=== PATIENT | male | born 1940 | race Caucasian/White ===

== ENCOUNTER → 2016-08-31 | Outpatient (CLI) | payer BC ==
[2016-08-31 14:38] LABS: BASO % 0.3 %; BASO ABS # 0.03 K/uL (0-0.2); COMPLETE YES; EOS % 3.6 %; HEMATOCRIT 39.9 % (42-52); IG% 0.3 %; LYMPH % 19.5 %; MEAN CELL VOLUME 84.5 fL (80-100); MEAN CORPUSCULAR HEMOGLOBIN 27.3 pg (25-34); MEAN CORPUSCULAR HGB CONC 32.3 g/dl (32-36); MEAN PLATELET VOLUME 10.9 fL (7.4-10.4); MONO % 9.3 %; PLATELET COUNT 191 K/uL (130-400); RED BLOOD COUNT 4.72 M/uL (4.7-6.1); WHITE BLOOD COUNT 9.74 K/uL (4.8-10.8)
== END | disposition home or self-care (01) ==
LOC: MERGE 12:31 → C.LAB 12:31
PROVIDERS: ATTEND Family Medicine
DX: R50.9 Fever, unspecified (principal)

== ENCOUNTER → 2016-09-01 | Outpatient (CLI) | payer BC ==
--- NOTE | 2016-09-01 09:39 | DIAGNOSTIC IMAGING REPORT ---
ULTRASOUND EXAM AAA SCREEN CLINICAL HISTORY: Screening for abdominal aortic aneurysm. COMPARISON STUDY: Report from outside ultrasound performed October 24, 2014. FINDINGS: This study is compromised by suboptimal penetration. The mid abdominal aorta measures 3.3 x 3.6 cm in caliber. By report, this previously measured 3.1 x 3.1 cm. There is mild dilatation of the proximal abdominal aorta which measures 3 cm. The caliber of the bilateral common iliac arteries is normal. 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 When compared to report from prior ultrasound, slight increase in size is suspected. Electronically signed by: Lc Nam M.D. 09/01/2016 9:38 AM Dictated Date/Time: 09/01/2016 9:35 AM
== END | disposition home or self-care (01) ==
LOC: C.ULTR 08:35
PROVIDERS: ATTEND Family Medicine
DX: I71.4 Abdominal aortic aneurysm, without rupture (principal)

== ENCOUNTER → 2016-10-09 | Outpatient (CLI) | payer BC ==
[~2016-10-09] MED LIST: APIX1TAB3 PO; ASPI81TA28 PO; ATOR-26 PO; FINA5TAB PO; FLUT0.15 NAE; METO25TA56 PO; OXYC1TAB3 PO; TAMS0.4C38 PO
[2016-10-09 15:41] LABS: BASO % 0.3 %; BASO ABS # 0.02 K/uL (0-0.2); COMPLETE YES; EOS % 5.7 %; HEMATOCRIT 39.6 % (42-52); IG% 0.3 %; LYMPH % 24.6 %; LYMPH ABS # 1.65 K/uL (1.2-3.4); MEAN CELL VOLUME 85.3 fL (80-100); MEAN CORPUSCULAR HGB CONC 32.8 g/dl (32-36); MEAN PLATELET VOLUME 10.6 fL (7.4-10.4); MONO % 12.1 %; PLATELET COUNT 171 K/uL (130-400); RED BLOOD COUNT 4.64 M/uL (4.7-6.1); WHITE BLOOD COUNT 6.71 K/uL (4.8-10.8)
[2016-10-09 16:10] LABS: ALT/SGPT 13 U/L (12-78); AST/SGOT 8 U/L (15-37); BLOOD UREA NITROGEN 16 mg/dl (7-18); BUN/CREATININE RATIO 14.2 (10-20); CALCIUM 8.4 mg/dl (8.5-10.1); CARBON DIOXIDE 26 mmol/L (21-32); CHLORIDE 110 mmol/L (98-107); GLUCOSE 92 mg/dl (70-99); SODIUM 143 mmol/L (136-145)
[2016-10-09 16:20] LABS: ALB/GLOB RATIO 0.9 (0.9-2); ALKALINE PHOSPHATASE 74 U/L (45-117)
[2016-10-12 11:24] LABS: C-REACTIVE PROT HIGHSEN <0.2 MG/L
--- NOTE | 2016-10-14 09:40 | CODING QUERY MEDICAL NECESSITY ---
SUPPORTING DIAGNOSIS NEEDED Dr. Hawkins, A supporting diagnosis is required for the test/procedure performed on this patient in order for us to be reimbursed by the patient's insurance. Please provide a supporting diagnosis for the following test/procedure listed below next to the test name along with your signature. *If there is no additional diagnosis for this patient that would support the following test/procedure please document that below next to the test/procedure. Test(s)/Procedure(s) that require a supporting diagnosis: * ([id number]) C-REACTIVE PROTEIN HIGH SENSITIVITY DIAGNOSIS: DATE OF SERVICE: 10/09/16 Provider Signature: Date: Thank you [facility] Information Management Once completed, please kindly fax back to [phone] For questions please call [phone]
== END | disposition home or self-care (01) ==
LOC: C.LAB 14:32
PROVIDERS: ATTEND Family Medicine
DX: M79.1 Myalgia (principal)

== ENCOUNTER 2017-04-16 19:03 | Inpatient (IN) | payer BC, OTHER ==
[~2017-04-16] VITALS: Ht 182.9 cm; Wt 103.6 kg
[2017-04-16] MEDS ORDERED: SODIUM CHLORIDE 0.9% 1000ML 1,000 ML IV SCH (19:26)
[2017-04-16 19:47] LABS: BASO % 0.3 %; BASO ABS # 0.02 K/uL (0-0.2); COMPLETE YES; EOS % 5.6 %; HEMATOCRIT 41.1 % (42-52); IG% 0.4 %; LYMPH % 26.3 %; LYMPH ABS # 1.83 K/uL (1.2-3.4); MEAN CELL VOLUME 86.5 fL (80-100); MEAN CORPUSCULAR HEMOGLOBIN 28.2 pg (25-34); MEAN CORPUSCULAR HGB CONC 32.6 g/dl (32-36); MEAN PLATELET VOLUME 10.3 fL (7.4-10.4); MONO % 9.9 %; NEUT % 57.5 %; PLATELET COUNT 177 K/uL (130-400); RED BLOOD COUNT 4.75 M/uL (4.7-6.1); WHITE BLOOD COUNT 6.96 K/uL (4.8-10.8)
--- NOTE | 2017-04-16 19:56 | DIAGNOSTIC IMAGING REPORT ---
SINGLE VIEW CHEST CLINICAL HISTORY: Strokelike symptoms. FINDINGS: An AP, portable, upright chest radiograph is obtained. No prior studies are available for comparison at the time of dictation. The examination is degraded by portable technique and patient rotation. The patient is status post midline sternotomy. The heart is enlarged and there is atherosclerotic calcification of the thoracic aorta. The pulmonary vasculature is noncongested. Nonspecific interstitial thickening is noted. No airspace consolidation, large pleural effusion, or pneumothorax is seen. The skeletal structures are osteopenic. The bony thorax is grossly intact. IMPRESSION: Cardiomegaly with no acute cardiopulmonary abnormality. Electronically signed by: Jeff Garcia M.D. 04/16/2017 7:55 PM Dictated Date/Time: 04/16/2017 7:54 PM
[2017-04-16] MEDS ORDERED: ASPI81TA28 PO ×2 (20:01→20:04)
[2017-04-16] MEDS ORDERED: ATOR-26 PO (20:01)
[2017-04-16] MEDS ORDERED: APIX1TAB3 PO (20:01)
[2017-04-16] MEDS ORDERED: METO25TA56 PO (20:01)
[2017-04-16] MEDS ORDERED: FINA5TAB PO (20:01)
[2017-04-16] MEDS ORDERED: TAMS0.4C38 PO (20:01)
[2017-04-16 20:04] LABS: INR 1.1 (0.9-1.1); PARTIAL THROMBOPLASTIN RATIO 1.2; PROTHROMBIN TIME (PATIENT) 11.5 SECONDS (9.0-12.0)
[2017-04-16] MEDS ORDERED: FLUT0.15 NAE (20:04)
[2017-04-16] MEDS ORDERED: OXYC1TAB3 PO (20:04)
--- NOTE | 2017-04-16 20:13 | DIAGNOSTIC IMAGING REPORT ---
CT SCAN OF THE BRAIN WITHOUT IV CONTRAST CLINICAL HISTORY: Dizziness. Left arm numbness. COMPARISON STUDY: No priors. TECHNIQUE: Unenhanced axial CT scan of the brain is performed from the vertex to the skull base. CT DOSE: 712.55 mGy.cm FINDINGS: Brain parenchyma: There are age-related involutional changes noting mild subcortical and periventricular microangiopathic change. There is no hemorrhage, mass effect, or evidence of acute territorial ischemia by CT criteria. Mcgrath-white matter is preserved. No extra-axial fluid collection is seen. Ventricles, sulci, cisterns: Prominent secondary to involutional change. Intracranial vasculature: There is atherosclerotic calcification of the cavernous carotid and vertebral arteries. Calvarium: Unremarkable. Sinuses and mastoids: Trace fluid is seen in the right maxillary antrum. The remaining visualized paranasal sinuses are clear. The mastoid air cells are well pneumatized. Orbits: The bony orbits are grossly intact. There is evidence of previous bilateral ocular lens surgery. IMPRESSION: There is no hemorrhage, mass effect, or evidence of acute territorial ischemia by CT criteria. Electronically signed by: Jeff Garcia M.D. 04/16/2017 8:11 PM Dictated Date/Time: 04/16/2017 8:09 PM
[2017-04-16 20:23] LABS: ALKALINE PHOSPHATASE 76 U/L (45-117); ALT/SGPT 19 U/L (12-78); BLOOD UREA NITROGEN 19 mg/dl (7-18); BUN/CREATININE RATIO 17.2 (10-20); CARBON DIOXIDE 24 mmol/L (21-32); CHLORIDE 109 mmol/L (98-107); GLUCOSE 94 mg/dl (70-99); SODIUM 140 mmol/L (136-145)
[2017-04-16 20:46] LABS: POTASSIUM 4.2 mmol/L (3.5-5.1)
[2017-04-16] MEDS ORDERED: ACETAMINOPHEN 325 MG TAB PO PRN (22:15)
[2017-04-16] MEDS ORDERED: PHARMACIST DISCHARGE MED REC CONSULT PRN (22:15)
[2017-04-16] MEDS ORDERED: NITROGLYCERIN 0.4 MG SL PER TAB CHARGE SL PRN (22:15)
[2017-04-16] MEDS ORDERED: FLUTICASONE PROPIONATE NA SPR 16 GM BTL NAE PRN (22:15)
[2017-04-16] MEDS ORDERED: SODIUM CHLORIDE 0.9% 1000ML 1,000 ML IV ONE (22:15)
[2017-04-16] MEDS ORDERED: OXYCODONE HCL IR 5 MG TAB (IMMEDIATE RELEASE) PO PRN (22:15)
[2017-04-16] MEDS ORDERED: ONDANSETRON INJ 2 MG/ML 2 ML VIAL IV PRN (22:15)
--- NOTE | 2017-04-16 22:18 | History and Physical ---
History & Physical Date & Time of Service: Apr 16, 2017 at 22:18 Chief Complaint: Numb Arm , Sob, Dizzy Primary Care Physician: No Doctor, Assigned History of Present Illness Source: patient Patient is a 76 yr male with PMH of Afib, CAD S/P CABG, BPH, HLP and other problems presents with history of sudden onset of left arm heaviness and numbness which he noticed after wakening up from sleep yesterday. He states the heaviness lasted for about 2 hours and resolved but currently still has numbness of left arm. Also reports noticing mild dizziness while getting out of bed. He states he has also noticed numbness in his feet since yesterday but attributes to chronic leg edema and recent surgery for CABG. He states he had blurry vision in left eye which only lasted for 5 minutes and resolved yesterday. His gait has been wobbly secondary to dizziness and numbness. Denies any history of chest pain, SOB, palpitations, cough, wheezing, headache, fever, chills, weakness, nausea, vomiting, abdominal pain, double vision, vertigo, slurred speech, facial deformity, bowel/bladder incontinence, diarrhea, urinary symptoms, recent travel, recent change in medications, head trauma, LOC or fall. Also denies similar symptoms or strokes in the past. Off note; His grand daughter 3 days ago secondary to drug overdose and he states he has been in lot of stress lately Past Medical/Surgical History Surgical Problems: (1) Hx of CABG Status: Resolved Tonsillectomy PMH of Afib, CAD S/P CABG, BPH, HLP Family History Patient reports no known family medical history. Father: Heart disease in 50s Social History Smoking Status: Never Smoker Smokeless Tobacco Use: No Alcohol Use: none Drug Use: none Allergies Coded Allergies: Clam (Verified Adverse Reaction, Severe, GI SYMPTOMS, 04/16/17) Home Medications Scheduled Apixaban (Eliquis), 1 TAB PO BID Aspirin (Aspirin Ec), 81 MG PO DAILY Aspirin (Aspirin Ec), 81 MG PO DAILY Atorvastatin (Lipitor), 1 TAB PO DAILY Finasteride (Proscar), 5 MG PO DAILY Metoprolol Tartrate (Lopressor) (Lopressor), 25 MG PO BID Tamsulosin Hcl (Flomax), 0.4 MG PO QPM Scheduled PRN Fluticasone Propionate (Nasal) (Flonase Allergy Relief), 1 SPRAY CHAITANYA DAILY PRN for Nasal Congestion Oxycodone Ir (Roxicodone Ir), 10 MG PO Q6H PRN for Pain Review of Systems See HPI for pertinent positives & negatives. A total of 10 systems reviewed and were otherwise negative. Physical Exam Vital Signs Date Time Temp Pulse Resp B/P (MAP) Pulse Ox O2 Delivery O2 Flow Rate FiO2 04/16/17 21:59 78 20 148/97 97 Room Air 04/16/17 21:06 75 20 148/97 96 Room Air 04/16/17 19:46 Room Air 04/16/17 19:41 95 Room Air 04/16/17 19:34 83 04/16/17 19:13 36.5 87 18 160/105 98 Room Air General Appearance: WD/WN, no apparent distress Head: normocephalic, atraumatic Eyes: normal inspection, PERRL, EOMI, sclerae normal ENT: normal ENT inspection, + pertinent finding (Chronic hearing loss) Neck: supple, no JVD, trachea midline Respiratory/Chest: chest non-tender, lungs clear, normal breath sounds, no respiratory distress, no accessory muscle use Cardiovascular: no murmur, + irregularly irregular, + pertinent finding (1+ b/ l edema ) Abdomen/GI: normal bowel sounds, non tender, soft, no organomegaly Back: normal inspection Extremities/Musculoskelatal: normal inspection, normal range of motion, + pedal edema Neurologic/Psych: breaker oiler II-XII nml as tested, no motor/sensory deficits, alert, normal mood/affect, oriented x 3 Skin: normal color, warm/dry Diagnostics Laboratory Results Results Past 24 Hours Test 04/16/17 19:30 04/16/17 20:15 04/16/17 20:19 04/16/17 22:02 Range/Units White Blood Count 6.96 4.8-10.8 K/uL Red Blood Count 4.75 4.7-6.1 M/uL Hemoglobin 13.4 14.0-18.0 g/dL Hematocrit 41.1 42-52 % Mean Corpuscular Volume 86.5 80-100 fL Mean Corpuscular Hemoglobin 28.2 25-34 pg Mean Corpuscular Hemoglobin Concent 32.6 32-36 g/dl Platelet Count 177 130-400 K/uL Mean Platelet Volume 10.3 7.4-10.4 fL Neutrophils (%) (Auto) 57.5 % Lymphocytes (%) (Auto) 26.3 % Monocytes (%) (Auto) 9.9 % Eosinophils (%) (Auto) 5.6 % Basophils (%) (Auto) 0.3 % Neutrophils # (Auto) 4.00 1.4-6.5 K/uL Lymphocytes # (Auto) 1.83 1.2-3.4 K/uL Monocytes # (Auto) 0.69 0.11-0.59 K/uL Eosinophils # (Auto) 0.39 0-0.5 K/uL Basophils # (Auto) 0.02 0-0.2 K/uL RDW Standard Deviation 44.9 36.4-46.3 fL RDW Coefficient of Variation 14.4 11.5-14.5 % Immature Granulocyte % (Auto) 0.4 % Immature Granulocyte # (Auto) 0.03 0.00-0.02 K/uL Prothrombin Time 11.5 9.0-12.0 SECONDS Prothromb Time International Ratio 1.1 0.9-1.1 Activated Partial Thromboplast Time 31.5 21.0-31.0 SECONDS Partial Thromboplastin Ratio 1.2 Sodium Level 140 136-145 mmol/L Potassium Level 4.2 3.5-5.1 mmol/L Chloride Level 109 98-107 mmol/L Carbon Dioxide Level 24 21-32 mmol/L Anion Gap 7.0 3-11 mmol/L Blood Urea Nitrogen 19 7-18 mg/dl Creatinine 1.10 0.60-1.40 mg/dl Est Creatinine Clear Calc Drug Dose 71.4 ml/min Estimated GFR () 75.2 Estimated GFR (Non- 64.9 BUN/Creatinine Ratio 17.2 10-20 Random Glucose 94 70-99 mg/dl Calcium Level 8.0 8.5-10.1 mg/dl Total Bilirubin 0.5 0.2-1 mg/dl Direct Bilirubin 0.1 0-0.2 mg/dl Aspartate Amino Transf (AST/SGOT) 13 15-37 U/L Alanine Aminotransferase (ALT/SGPT) 19 12-78 U/L Alkaline Phosphatase 76 45-117 U/L Total Creatine Kinase 54 39-308 U/L Creatine Kinase MB 1.5 0.5-3.6 ng/ml Creatine Kinase MB Ratio 0-3.0 Troponin I < 0.015 0-0.045 ng/ml Total Protein 7.0 6.4-8.2 gm/dl Albumin 3.5 3.4-5.0 gm/dl Bedside Prothrombin Time INR 1.3 0.9-1.[address] head: There is no hemorrhage, mass effect, or evidence of acute territorial ischemia by CT criteria. CXR: Cardiomegaly with no acute cardiopulmonary abnormality. EKG EKG: Afib, non specific ST-T changes Impression Assessment and Plan Stroke like symptoms: R/O CVA Not a candidate for tPA- Passed the window period Admit in Tele CT head: showed no acute pathology Stroke work up including lipid panel, A1C, MRI/MRA Brain, Carotid duplex, ECHO Speech and swallow eval Continue aspirin, Lipitor, also on eliquis Neuro checks, Neurology consulted PT/OT Allow permissive HTN in setting of acute CVA Trend cardiac enzymes repeat EKG in AM Check Orthostatics Afib: Rate controlled continue BB and eliquis CAD S/P CABG: Had CABG in Aug 2016 Denies chest pain Trend cardiac enzymes Continue ASA, Lipitor, BB BPH: Continue home meds HLP: continue statins DVT Px; On eliquis Code Status: Full Code VTE Prophylaxis VTE Risk Assessment Done? Y/N: Yes Risk Level: Moderate
[2017-04-16 23:49] VITALS: BP 159/92; PULSE 75; TEMP 36.4; O2SAT 96; Ht 182.9 cm; Wt 103.6 kg
[2017-04-17] MEDS ORDERED: INFLUENZA ADMINISTRATION CHARGE ONE (00:30)
[2017-04-17] MEDS ORDERED: INFLUENZA VACCINE HIGH DOSE 65+ 0.5 ML SYR IM. ONE (00:30)
--- NOTE | 2017-04-17 00:46 | EMERGENCY ROOM VISIT NOTE ---
History Report prepared by Myriam: Dell Rasmussen Under the Supervision of: Dr. Lamin Travis D.O. First contact with patient: 19:17 Chief Complaint: CARDIAC ASSESSMENT Stated Complaint: NUMB ARM , SOB, DIZZY History of Present Illness The patient is a 76 year old male who presents to the Emergency Room with complaints of constant numbness to the left arm beginning last night. The patient states he is experiences dizziness with movement, shortness of breath, and intermittent numbness to the bottom of both his feet. He reports he is able to walk, but he is slightly wobbly which is new in the past 24 hours. The patient notes he has a history of a CABG, and he has not been experiencing chest pain. He states his symptoms are not similar to those when he had his heart attack. The patient reports he is currently taking Eliquis and a baby aspirin. He denies nausea, vomiting, abdominal pain, cough, change in vision, weakness to the legs, numbness to the legs, and cold. Source of History: patient Onset: last night Position: arm (left) Quality: numbness Timing: constant Associated Symptoms: + SOB, + numbness (to the bottom of feet), No chest pain, No nausea, No vomiting, No abdominal pain, No weakness Note: Associated symptoms: dizziness with movement, wobbly when walking Denies: changes in vision, numbness to legs, cold Review of Systems See HPI for pertinent positives & negatives. A total of 10 systems reviewed and were otherwise negative. Past Medical & Surgical Medical Problems: (1) Stroke-like symptoms Surgical Problems: (1) Hx of CABG Family History Patient reports no known family medical history. Social History Smoking Status: Never Smoker Marital Status: Housing Status: lives with significant other Occupation Status: retired Current/Historical Medications Scheduled Apixaban (Eliquis), 1 TAB PO BID Aspirin (Aspirin Ec), 81 MG PO DAILY Aspirin (Aspirin Ec), 81 MG PO DAILY Atorvastatin (Lipitor), 1 TAB PO DAILY Finasteride (Proscar), 5 MG PO DAILY Metoprolol Tartrate (Lopressor) (Lopressor), 25 MG PO BID Tamsulosin Hcl (Flomax), 0.4 MG PO QPM Scheduled PRN Fluticasone Propionate (Nasal) (Flonase Allergy Relief), 1 SPRAY CHAITANYA DAILY PRN for Nasal Congestion Oxycodone Ir (Roxicodone Ir), 10 MG PO Q6H PRN for Pain Allergies Coded Allergies: Clam (Verified Adverse Reaction, Severe, GI SYMPTOMS, 04/16/17) Physical Exam Vital Signs Date Time Temp Pulse Resp B/P (MAP) Pulse Ox O2 Delivery O2 Flow Rate FiO2 04/16/17 21:59 78 20 148/97 97 Room Air 04/16/17 21:06 75 20 148/97 96 Room Air 04/16/17 19:46 Room Air 04/16/17 19:41 95 Room Air 04/16/17 19:34 83 04/16/17 19:13 36.5 87 18 160/105 98 Room Air Physical Exam GENERAL: Sitting up in bed, disheveled, alert, no distress, non-toxic EYE EXAM: normal conjunctiva, PERRL OROPHARYNX: no exudate, no erythema, lips, buccal mucosa, and tongue normal and mucous membranes are moist NECK: supple, no nuchal rigidity, no adenopathy, non-tender LUNGS: Clear to auscultation. Normal chest wall mechanics HEART: no murmurs, S1 normal and S2 normal ABDOMEN: abdomen soft, non-tender, normo-active bowel sounds, no masses, no rebound or guarding. BACK: Back is symmetrical on inspection and there is no deformity, no midline tenderness, no CVA tenderness. SKIN: no rashes and no bruising UPPER EXTREMITIES: upper extremities are grossly normal. LOWER EXTREMITIES: No pitting edema. NEURO EXAM: Normal sensorium, cranial nerves II-XII intact, normal speech, no weakness of arms, no weakness of legs. No drift. Finger to nose intact. Gross sensation intact. Medical Decision & Procedures ER Provider Diagnostic Interpretation: Radiology results as stated below per my review and the radiologist's interpretation: CT SCAN OF THE BRAIN WITHOUT IV CONTRAST CLINICAL HISTORY: Dizziness. Left arm numbness. COMPARISON STUDY: No priors. TECHNIQUE: Unenhanced axial CT scan of the brain is performed from the vertex to the skull base. CT DOSE: 712.55 mGy.cm FINDINGS: Brain parenchyma: There are age-related involutional changes noting mild subcortical and periventricular microangiopathic change. There is no hemorrhage, mass effect, or evidence of acute territorial ischemia by CT criteria. Mcgrath-white matter is preserved. No extra-axial fluid collection is seen. Ventricles, sulci, cisterns: Prominent secondary to involutional change. Intracranial vasculature: There is atherosclerotic calcification of the cavernous carotid and vertebral arteries. Calvarium: Unremarkable. Sinuses and mastoids: Trace fluid is seen in the right maxillary antrum. The remaining visualized paranasal sinuses are clear. The mastoid air cells are well pneumatized. Orbits: The bony orbits are grossly intact. There is evidence of previous bilateral ocular lens surgery. IMPRESSION: There is no hemorrhage, mass effect, or evidence of acute territorial ischemia by CT criteria. Electronically signed by: Jeff Garcia M.D. 04/16/2017 8:11 PM Dictated Date/Time: 04/16/2017 8:09 PM SINGLE VIEW CHEST CLINICAL HISTORY: Strokelike symptoms. FINDINGS: An AP, portable, upright chest radiograph is obtained. No prior studies are available for comparison at the time of dictation. The examination is degraded by portable technique and patient rotation. The patient is status post midline sternotomy. The heart is enlarged and there is atherosclerotic calcification of the thoracic aorta. The pulmonary vasculature is noncongested. Nonspecific interstitial thickening is noted. No airspace consolidation, large pleural effusion, or pneumothorax is seen. The skeletal structures are osteopenic. The bony thorax is grossly intact. IMPRESSION: Cardiomegaly with no acute cardiopulmonary abnormality. Electronically signed by: Jeff Garcia M.D. 04/16/2017 7:55 PM Dictated Date/Time: 04/16/2017 7:54 PM Laboratory Results 04/16/17 19:30 Red Blood Count 4.75, Mean Corpuscular Volume 86.5, Mean Corpuscular Hemoglobin 28.2, Mean Corpuscular Hemoglobin Concent 32.6, Mean Platelet Volume 10.3, Neutrophils (%) (Auto) 57.5, Lymphocytes (%) (Auto) 26.3, Monocytes (%) (Auto) 9.9, Eosinophils (%) (Auto) 5.6, Basophils (%) (Auto) 0.3, Neutrophils # (Auto) 4.00, Lymphocytes # (Auto) 1.83, Monocytes # (Auto) 0.69, Eosinophils # (Auto) 0.39, Basophils # (Auto) 0.02 04/16/17 19:30 04/16/17 20:15 Test 04/16/17 19:30 04/16/17 20:15 04/16/17 20:19 White Blood Count 6.96 K/uL (4.8-10.8) Red Blood Count 4.75 M/uL (4.7-6.1) Hemoglobin 13.4 g/dL (14.0-18.0) Hematocrit 41.1 % (42-52) Mean Corpuscular Volume 86.5 fL (80-100) Mean Corpuscular Hemoglobin 28.2 pg (25-34) Mean Corpuscular Hemoglobin Concent 32.6 g/dl (32-36) Platelet Count 177 K/uL (130-400) Mean Platelet Volume 10.3 fL (7.4-10.4) Neutrophils (%) (Auto) 57.5 % Lymphocytes (%) (Auto) 26.3 % Monocytes (%) (Auto) 9.9 % Eosinophils (%) (Auto) 5.6 % Basophils (%) (Auto) 0.3 % Neutrophils # (Auto) 4.00 K/uL (1.4-6.5) Lymphocytes # (Auto) 1.83 K/uL (1.2-3.4) Monocytes # (Auto) 0.69 K/uL (0.11-0.59) Eosinophils # (Auto) 0.39 K/uL (0-0.5) Basophils # (Auto) 0.02 K/uL (0-0.2) RDW Standard Deviation 44.9 fL (36.4-46.3) RDW Coefficient of Variation 14.4 % (11.5-14.5) Immature Granulocyte % (Auto) 0.4 % Immature Granulocyte # (Auto) 0.03 K/uL (0.00-0.02) Prothrombin Time 11.5 SECONDS (9.0-12.0) Prothromb Time International Ratio 1.1 (0.9-1.1) Activated Partial Thromboplast Time 31.5 SECONDS (21.0-31.0) Partial Thromboplastin Ratio 1.2 Anion Gap 7.0 mmol/L (3-11) Est Creatinine Clear Calc Drug Dose 71.4 ml/min Estimated GFR () 75.2 Estimated GFR (Non- 64.9 BUN/Creatinine Ratio 17.2 (10-20) Calcium Level 8.0 mg/dl (8.5-10.1) Total Bilirubin 0.5 mg/dl (0.2-1) Alanine Aminotransferase (ALT/SGPT) 19 U/L (12-78) Alkaline Phosphatase 76 U/L (45-117) Creatine Kinase MB 1.5 ng/ml (0.5-3.6) Creatine Kinase MB Ratio (0-3.0) Troponin I < 0.015 ng/ml (0-0.045) Total Protein 7.0 gm/dl (6.4-8.2) Albumin 3.5 gm/dl (3.4-5.0) Direct Bilirubin 0.1 mg/dl (0-0.2) Aspartate Amino Transf (AST/SGOT) 13 U/L (15-37) Total Creatine Kinase 54 U/L (39-308) Bedside Prothrombin Time INR 1.3 (0.9-1.1) Bedside Glucose 102 mg/dl (70-99) Laboratory results per my review. Medications Administered Medications (Trade) Dose Ordered Sig/Lakesha Route Start Time Stop Time Status Last Admin Dose Admin Sodium Chloride 1,000 ml @ 50 mls/hr Q20H IV 04/16/17 19:26 04/16/17 22:17 DC 04/16/17 19:26 50 MLS/HR ECG Indication: other (numbness) Rate (beats per minute): 83 Rhythm: atrial fibrillation Findings: other (Normal intervals, normal axis, Flipped T-waves in the highlateral leads) ED Course ED COURSE: Vital signs were reviewed and showed the patient to be hypertensive The patients medical record was reviewed The above diagnostic studies were performed and reviewed. ED treatments and interventions as stated above. 1918: The patient was evaluated in room B12B. A complete history and physical examination was performed. 1925: Ordered Sodium Chloride 1000 ml @ 50 mls/hr IV 2117: Upon reevaluation, the patient is resting.I discussed my findings with the patient and he understands and agrees with the treatment plan. 2118: I discussed the patient's case with Dr. Bowers, [facility]. The patient will be evaluated for further treatment and care. Based on the patients age, coexisting illnesses, exam and lab findings the decision to treat as an inpatient was made. The patient remained stable while under my care. The patient will be evaluated for further management. Medical Decision Differential Diagnosis includes but is not limited to ischemic Stroke, hemorrhagic stroke, bells palsy, mass, neoplasm, migraine headache, seizure, subarachnoid hemorrhage, TIA, and transient global amnesia. Patient is a 76-year-old male who presents to ER for numbness in his left upper extremity associated with dizziness and feeling unsteady while walking. Patient is not complaints at this time. He denies any chest pain. On exam he is completely neurologically intact. CBC all BMP, LFTs, bilirubin and troponin were negative. Patient is taking a Xa inhibitor. PE was not pursued as I favor this is very unlikely. EKG did show A. fib. I question if he could have had a stroke in light of the negative CT. Based on symptoms and discussed with internal medicine for observation overnight. Medication Reconcilliation Current Medication List: was personally reviewed by me Blood Pressure Screening Patient's blood pressure: Elevated blood pressure Blood pressure disposition: Elevated BP felt to be situational Consults Time Called: 2117 Consulting Physician: [facility] Hospitalist Returned Call: 2118 I discussed the patient's case with [facility] Hospitalist. The patient will be evaluated for further treatment and care. Impression Primary Impression: Dizzy Additional Impressions: Stroke-like symptoms Atrial fibrillation Scribe Attestation The scribe's documentation has been prepared under my direction and personally reviewed by me in its entirety. I confirm that the note above accurately reflects all work, treatment, procedures, and medical decision making performed by me. Departure Information Dispostion Being Evaluated By Hospitalist Referrals No Doctor, Assigned (PCP) Patient Instructions My [facility] Problem Qualifiers Additional Impressions: Atrial fibrillation Atrial fibrillation type: unspecified Qualified Codes: I48.91 - Unspecified atrial fibrillation
[2017-04-17 03:35] VITALS: BP 144/95; PULSE 74; TEMP 36.5; O2SAT 98
[2017-04-17 04:11] LABS: BASO % 0.3 %; BASO ABS # 0.02 K/uL (0-0.2); COMPLETE YES; EOS % 4.5 %; HEMATOCRIT 37.3 % (42-52); IG% 0.2 %; LYMPH % 27.5 %; LYMPH ABS # 1.65 K/uL (1.2-3.4); MEAN CELL VOLUME 86.7 fL (80-100); MEAN CORPUSCULAR HEMOGLOBIN 27.2 pg (25-34); MEAN CORPUSCULAR HGB CONC 31.4 g/dl (32-36); MEAN PLATELET VOLUME 9.7 fL (7.4-10.4); MONO % 9.8 %; NEUT % 57.7 %; PLATELET COUNT 135 K/uL (130-400)
[2017-04-17 04:27] LABS: BLOOD UREA NITROGEN 20 mg/dl (7-18); BUN/CREATININE RATIO 19.8 (10-20); CALCIUM 7.8 mg/dl (8.5-10.1); CARBON DIOXIDE 24 mmol/L (21-32); CHLORIDE 112 mmol/L (98-107); GLUCOSE 103 mg/dl (70-99); SODIUM 143 mmol/L (136-145)
[2017-04-17 04:32] LABS: CHOLESTEROL 69 mg/dl (0-200); CHOLESTEROL/HDL RATIO 2.7; HDL CHOLESTEROL 26 mg/dl; LDL CHOLESTEROL CALCULATED 24 mg/dl; TRIGLYCERIDES 95 mg/dl (0-150); VERY LOW DENSITY LIPOPROT CALC 19 mg/dl
[2017-04-17 06:48] VITALS: BP 132/88; PULSE 67; TEMP 36.5; O2SAT 95
[2017-04-17] MEDS ORDERED: PERFLUTREN LIPID MICROSPHERE (DEFINITY) IV ONE (07:30)
[2017-04-17 07:46] LABS: ESTIMATED AVERAGE GLUCOSE 117 mg/dl; HA1C FLAG Normal (Normal)
[2017-04-17 08:00] VITALS: O2SAT 95
[2017-04-17] MEDS ORDERED: ATORVASTATIN 40 MG TAB PO SCH (09:00)
[2017-04-17] MEDS ORDERED: APIXABAN 2.5 MG TAB PO SCH (09:00)
[2017-04-17] MEDS ORDERED: METOPROLOL TARTRATE 25 MG TAB PO SCH (09:00)
[2017-04-17] MEDS ORDERED: FINASTERIDE 5 MG TAB PO SCH (09:00)
[2017-04-17] MEDS ORDERED: ASPIRIN 81 MG ECTAB PO SCH (09:00)
[2017-04-17] MEDS ORDERED: ATORVASTATIN PO SCH (09:00)
--- NOTE | 2017-04-17 10:57 | ECHOCARDIOGRAM REPORT ---
*NOTICE TO RECEIVING DEMOCRAT AGENCY This information is strictly Confidential and protected under [place] law. [place] law prohibits you from making any further disclosure of this information unless further disclosure is expressly permitted by the written consent of the person to whom it pertains or is authorized by law. A general authorization for the release of medical or other information is not sufficient for this purpose. Hospital accepts no responsibility if the information is made available to any other person, INCLUDING THE PATIENT. Interpretation Summary * Name: JAMIL BLANCO Study Date: 04/17/2017 06:46 AM BP: 144/95 mmHg * Patient Location: .[facility]\S\N275\S\2 HR: 74 * : 1940 (M/d/yyyy) Gender: Male Height: 72 in * Age: 76 yrs Ethnicity: [place] Weight: 230 lb * Ordering Physician: Dragan Bowers * Referring Physician: Self, Referred * Performed By: Barbara Delarosa RDCS * * Reason For Study: Stroke like symptoms * BSA: 2.3 m2 * No cardiac source of emboli noted. * -- Conclusions -- * The left ventricle is normal in size. * Left ventricular systolic function is normal. * Ejection Fraction = 50-55%. * The right ventricular systolic function is normal. * No cardiac source of emboli noted. Procedure Details * A complete two-dimensional transthoracic echocardiogram was performed (2D, M-mode, Doppler and color flow Doppler). * A saline contrast injection was performed to assess for cardiac shunting. * The injection was performed through an intravenous line in the right arm. * The attending nurse who injected the saline contrast was Gladys Coelho RN. * A total of 20 cc of agitated saline was given. * A contrast injection of Definity was performed to improve assessment of LV function. * Contrast was injected into an intravenous site in the right arm. * One vial of Definity ultrasound contrast was diluted in normal saline to a total volume of 10 ml. A total of '3' ml of solution was administered during imaging. * Lot # [id number] of Definity utilized for procedure. * Expiration date APR 21. * The attending nurse who injected the contrast agent was Gladys Coelho RN. Left Ventricle * The left ventricle is normal in size. * There is normal left ventricular wall thickness. * Ejection Fraction = 50-55%. * Left ventricular systolic function is normal. Right Ventricle * The right ventricle is normal size. * The right ventricular systolic function is normal. Atria * The left atrial size is normal. * Right atrial size is normal. * The interatrial septum is intact with no evidence for an atrial septal defect. * Injection of contrast documented no interatrial shunt. Mitral Valve * The mitral valve anatomy is normal. * Significant mitral regurgitation is absent. Tricuspid Valve * The tricuspid valve is not well visualized, but is grossly normal. * Significant tricuspid regurgitation is absent. Aortic Valve * The aortic valve is trileaflet. * Aortic stenosis is absent. * Trace aortic regurgitation. Pulmonic Valve * The pulmonic valve is not well visualized. * There is no significant pulmonary regurgitation. Great Vessels * The aortic root and proximal ascending aorta are normal sized. Pericardium/Pleural * There is no pericardial effusion. MMode 2D Measurements and Calculations IVSd 1.1 cm LVIDd 5.1 cm LVIDs 3.9 cm LVPWd 0.97 cm IVS/LVPW 1.2 FS 22.1 % EDV(Teich) 121.9 ml ESV(Teich) 67.8 ml EF(Teich) 44.4 % EDV(cubed) 130.1 ml ESV(cubed) 61.5 ml EF(cubed) 52.7 % LV mass(C)d 200.2 grams LV mass(C)dI 88.6 grams/m\S\2 SV(Teich) 54.1 ml SI(Teich) 23.9 ml/m\S\2 SV(cubed) 68.6 ml SI(cubed) 30.3 ml/m\S\2 Ao root diam 3.7 cm Ao root area 10.8 cm\S\2 ACS 2.1 cm LA dimension 3.3 cm asc Aorta Diam 4.1 cm LA/Ao 0.88 LVOT diam 2.0 cm LVOT area 3.1 cm\S\2 LVAd ap4 39.7 cm\S\2 LVLd ap4 8.9 cm EDV(MOD-sp4) 146.1 ml EDV(sp4-el) 150.4 ml LVAs ap4 24.9 cm\S\2 LVLs ap4 7.7 cm ESV(MOD-sp4) 66.7 ml ESV(sp4-el) 68.7 ml EF(MOD-sp4) 54.3 % EF(sp4-el) 54.3 % LVAd ap2 27.2 cm\S\2 LVLd ap2 7.7 cm EDV(MOD-sp2) 81.4 ml EDV(sp2-el) 81.9 ml LVAs ap2 18.5 cm\S\2 LVLs ap2 6.9 cm ESV(MOD-sp2) 40.9 ml ESV(sp2-el) 41.9 ml EF(MOD-sp2) 49.8 % EF(sp2-el) 48.9 % LVLd %diff -15.58 % EDV(MOD-bp) 116.2 ml LVLs %diff -11.08 % ESV(MOD-bp) 55.3 ml EF(MOD-bp) 52.4 % SV(MOD-sp4) 79.4 ml SI(MOD-sp4) 35.1 ml/m\S\2 SV(MOD-sp2) 40.5 ml SI(MOD-sp2) 17.9 ml/m\S\2 SV(MOD-bp) 60.9 ml SI(MOD-bp) 26.9 ml/m\S\2 SV(sp4-el) 81.7 ml SI(sp4-el) 36.1 ml/m\S\2 SV(sp2-el) 40.0 ml SI(sp2-el) 17.7 ml/m\S\2 Doppler Measurements and Calculations MV E max garland 94.6 cm/sec MV dec time 0.20 sec Ao V2 max 107.4 cm/sec Ao max PG 4.6 mmHg Ao max PG (full) 2.0 mmHg SAGE(V,A) 2.3 cm\S\2 SAGE(V,D) 2.3 cm\S\2 AI max garland 140.0 cm/sec AI max PG 7.8 mmHg AI dec slope 61.3 cm/sec\S\2 AI P1/2t 668.7 msec LV V1 max PG 2.6 mmHg LV V1 max 80.5 cm/sec PA V2 max 99.1 cm/sec PA max PG 3.9 mmHg PA acc slope 495.2 cm/sec\S\2 PA acc time 0.13 sec TR max garland 197.6 cm/sec PA pr(Accel) 20.4 mmHg
[2017-04-17 11:30] VITALS: BP 147/88; PULSE 82; TEMP 36.5; O2SAT 95
--- NOTE | 2017-04-17 11:41 | Progress Note ---
Medicine Progress Note Date & Time of Visit: Apr 17, 2017 at 11:12. Subjective Pt was seen and examined Lying in bed with no distress Pt said that he feels fine he said that he doesn't have any numbness or weakness in his RUE anymore Pt refused to get MRI head done he said that when he was a kid he was like inside a refrigerator for 2 hrs Pt said that he trying to get an MRI, he developed panic attack where he crawled himself out of the machine He said that in the past they tried to give med to calm him down and he still was unable to get it done Pt wants to go home later today He will sign AMA if he does not go home today He denies any chest pain, palpitation, dizziness, weakness, numbness and SOB Objective Last 8 Hrs Date Time Temp Pulse Resp B/P (MAP) Pulse Ox O2 Delivery O2 Flow Rate FiO2 04/17/17 08:00 95 Room Air 04/17/17 06:48 36.5 67 18 132/88 (103) 95 Room Air 04/17/17 04:27 Room Air 04/17/17 03:35 36.5 74 18 144/95 (111) 98 Room Air Physical Exam: General- No acute distress Head- atraumatic Eyes- PERRL, EOMI ENT- oropharynx clear Neck- supple, no JVD Lungs- clear to auscultation Heart- regular rhythm Abdomen- normal bowel sounds, soft Extremities- no calf tenderness Neuro- alert, oriented x 3; PERRL, EOMI; no facial palsy Skin- warm & dry Laboratory Results: Last 24 Hours Test 04/16/17 19:30 04/16/17 20:15 04/16/17 20:19 04/17/17 03:52 White Blood Count 6.96 K/uL 6.00 K/uL Red Blood Count 4.75 M/uL 4.30 M/uL Hemoglobin 13.4 g/dL 11.7 g/dL Hematocrit 41.1 % 37.3 % Mean Corpuscular Volume 86.5 fL 86.7 fL Mean Corpuscular Hemoglobin 28.2 pg 27.2 pg Mean Corpuscular Hemoglobin Concent 32.6 g/dl 31.4 g/dl Platelet Count 177 K/uL 135 K/uL Mean Platelet Volume 10.3 fL 9.7 fL Neutrophils (%) (Auto) 57.5 % 57.7 % Lymphocytes (%) (Auto) 26.3 % 27.5 % Monocytes (%) (Auto) 9.9 % 9.8 % Eosinophils (%) (Auto) 5.6 % 4.5 % Basophils (%) (Auto) 0.3 % 0.3 % Neutrophils # (Auto) 4.00 K/uL 3.46 K/uL Lymphocytes # (Auto) 1.83 K/uL 1.65 K/uL Monocytes # (Auto) 0.69 K/uL 0.59 K/uL Eosinophils # (Auto) 0.39 K/uL 0.27 K/uL Basophils # (Auto) 0.02 K/uL 0.02 K/uL RDW Standard Deviation 44.9 fL 44.6 fL RDW Coefficient of Variation 14.4 % 14.3 % Immature Granulocyte % (Auto) 0.4 % 0.2 % Immature Granulocyte # (Auto) 0.03 K/uL 0.01 K/uL Prothrombin Time 11.5 SECONDS Prothromb Time International Ratio 1.1 Activated Partial Thromboplast Time 31.5 SECONDS Partial Thromboplastin Ratio 1.2 Sodium Level 140 mmol/L 143 mmol/L Potassium Level mmol/L 4.2 mmol/L 4.0 mmol/L Chloride Level 109 mmol/L 112 mmol/L Carbon Dioxide Level 24 mmol/L 24 mmol/L Anion Gap 7.0 mmol/L 7.0 mmol/L Blood Urea Nitrogen 19 mg/dl 20 mg/dl Creatinine 1.10 mg/dl 1.00 mg/dl Est Creatinine Clear Calc Drug Dose 71.4 ml/min 78.2 ml/min Estimated GFR () 75.2 84.4 Estimated GFR (Non- 64.9 72.8 BUN/Creatinine Ratio 17.2 19.8 Random Glucose 94 mg/dl 103 mg/dl Estimated Average Glucose 117 mg/dl Hemoglobin A1c 5.7 % Calcium Level 8.0 mg/dl 7.8 mg/dl Total Bilirubin 0.5 mg/dl Direct Bilirubin mg/dl 0.1 mg/dl Aspartate Amino Transf (AST/SGOT) U/L 13 U/L Alanine Aminotransferase (ALT/SGPT) 19 U/L Alkaline Phosphatase 76 U/L Total Creatine Kinase U/L 54 U/L Creatine Kinase MB 1.5 ng/ml 1.0 ng/ml Creatine Kinase MB Ratio Troponin I < 0.015 ng/ml 0.018 ng/ml Total Protein 7.0 gm/dl Albumin 3.5 gm/dl Bedside Prothrombin Time INR 1.3 Bedside Glucose 102 mg/dl Triglycerides Level 95 mg/dl Cholesterol Level 69 mg/dl HDL Cholesterol 26 mg/dl LDL Cholesterol, Calculated 24 mg/dl VLDL Cholesterol, Calculated 19 mg/dl Cholesterol/HDL Ratio 2.7 Assessment & Plan Stroke like symptoms Present for LUE numbness, weakness and blurry vision on admission Need to R/O CVA CT head on admission showed no acute finding Not a candidate for tPA- Passed the window period Continue aspirin, Lipitor, eliquis Refused to go for MRI head and MRA head and neck Carotid doppler done showed no sonographic evidence of hemodynamically significant stenosis in the right or left carotid arterial system. continue Neuro checks Neurology consulted- appreciate input Since pt refused to get MRI of head, may consider to repeat the CT head after 24 hrs Not sure if pt will want to stay because he wants to leave today because his granddaughter just from drug overdose 3 days ago Afib on tele monitor PT/OT Asymptomatic Echo done showed * The left ventricle is normal in size. * Left ventricular systolic function is normal. * Ejection Fraction = 50-55%. * The right ventricular systolic function is normal. * No cardiac source of emboli noted. Afib Rate controlled continue BB and eliquis Continue monitor in tele Thyroid Nodule A 2.0 cm hypoechoic nodule is incidentally noted in the right thyroid lobe. Follow up as outpatient with repeat u/s CAD S/P CABG: Had CABG in Aug 2016 Denies chest pain Troponin negative Continue ASA, Lipitor, BB BPH: Continue home meds Dyslipidemia LDL at goal continue statins DVT Px; On eliquis Code Status Full Code Consultants: Neuro Current Inpatient Medications: Current Inpatient Medications Medications (Trade) Dose Ordered Sig/Lakesha Route Start Time Stop Time Status Last Admin Dose Admin Miscellaneous Information (Pharmacist Discharge Med Rec Consult) 1 ea UD PRN N/A 04/16/17 22:15 05/16/17 22:14 Sodium Chloride 1,000 ml @ 75 mls/hr [id number] ONCE IV 04/16/17 22:15 04/17/17 11:34 04/17/17 00:37 75 MLS/HR Acetaminophen (Tylenol Tab) 650 mg Q4H PRN PO 04/16/17 22:15 05/16/17 22:14 Ondansetron HCl (Zofran Inj) 4 mg Q6H PRN IV 04/16/17 22:15 05/16/17 22:14 Nitroglycerin (Nitrostat Tab) 0.4 mg UD PRN SL 04/16/17 22:15 05/16/17 22:14 Aspirin (Ecotrin Tab) 81 mg DAILY PO 04/17/17 09:00 05/17/17 08:59 04/17/17 08:39 81 MG Finasteride (Proscar Tab) 5 mg DAILY PO 04/17/17 09:00 05/17/17 08:59 04/17/17 08:41 5 MG Fluticasone Propionate (Flonase Nasal [place]) 1 sprays DAILY PRN CHAITANYA 04/16/17 22:15 05/16/17 22:14 Metoprolol Tartrate (Lopressor Tab) 25 mg BID PO 04/17/17 09:00 05/17/17 08:59 04/17/17 08:41 25 MG Oxycodone HCl (Roxicodone Immediate Rel Tab) 10 mg Q6H PRN PO 04/16/17 22:15 04/30/17 22:14 Tamsulosin HCl (Flomax Cap) 0.4 mg QPM PO 04/17/17 21:00 05/17/17 20:59 Apixaban (Eliquis Tab) 5 mg BID PO 04/17/17 09:00 05/17/17 08:59 04/17/17 08:40 5 MG Atorvastatin Calcium (Lipitor Tab) 40 mg QAM PO 04/17/17 09:00 05/17/17 08:59 04/17/17 08:40 40 MG
[2017-04-17 12:00] VITALS: O2SAT 95
--- NOTE | 2017-04-17 15:03 | DIAGNOSTIC IMAGING REPORT ---
ULTRASOUND OF THE CAROTID ARTERIES CLINICAL HISTORY: Strokelike symptoms. Blurry vision left eye. COMPARISON STUDY: No priors. TECHNIQUE: Real-time, grayscale, and color Doppler sonography of the carotid arteries is performed. Images are reviewed in the transverse and longitudinal planes. FINDINGS: Blood pressure in the right arm measures 150/94 and blood pressure in the left arm measures 144/82. The carotid arteries are patent bilaterally and demonstrate antegrade flow. There is mild atherosclerotic plaque seen. Normal doppler arterial waveforms are seen throughout. Velocity measurements are listed below. Common carotid peak systolic velocity (cm/sec): RIGHT: 49 LEFT: 61 ICA proximal peak systolic velocity (cm/sec): RIGHT: 111 LEFT: 71 ICA mid peak systolic velocity (cm/sec): RIGHT: 114 LEFT: 64 ICA distal peak systolic velocity (cm/sec): RIGHT: 121 LEFT: 59 ICA/CC peak systolic ratio: RIGHT: 2.5 LEFT: 1.2 Antegrade flow was shown in the vertebral arteries. The external carotid arteries are patent. A 2.0 cm nodule is incidentally noted in the right thyroid lobe. IMPRESSION: 1. There is no sonographic evidence of hemodynamically significant stenosis in the right or left carotid arterial system. 2. Antegrade flow is shown in the vertebral arteries. 3. A 2.0 cm hypoechoic nodule is incidentally noted in the right thyroid lobe. This can be followed with a nonemergent/outpatient thyroid ultrasound if clinically warranted. Electronically signed by: Jeff Garcia M.D. 04/17/2017 3:01 PM Dictated Date/Time: 04/17/2017 2:59 PM
--- NOTE | 2017-04-17 15:44 | Discharge Instructions ---
Discharge Instructions Date of Service Apr 17, 2017. Admission Reason for Admission: Stroke-Like Symptoms Discharge Discharge Diagnosis / Problem: Strokes like symptoms, Thyroid nodule, Atrial fibrillation Discharge Goals Goal(s): Decrease discomfort, Improve function, Improve disease control Activity Recommendations Activity Limitations: resume your previous activity (as tolerated) . Instructions / Follow-Up Instructions / Follow-Up Please call to schedule a follow up appointment with your primary care provider within 1 week Please seek medical assistance if your symptoms reoccurs an incidental thyroid nodule was found in the ultrasound. You will need repeat ultrasound of the thyroid for follow up. Fall precaution Current Hospital Diet Patient's current hospital diet: AHA Diet (Heart Healthy) Discharge Diet Recommended Diet: AHA Diet (Heart Healthy) Pending Studies Studies pending at discharge: no Laboratory Results Hemoglobin A1c Test 04/16/17 19:30 Range/Units Estimated Average Glucose 117 mg/dl Hemoglobin A1c 5.7 H 4.5-5.6 % Lipid Panel Test 04/17/17 03:52 Range/Units Triglycerides Level 95 0-150 mg/dl Cholesterol Level 69 0-200 mg/dl HDL Cholesterol 26 mg/dl Cholesterol/HDL Ratio 2.7 LDL Cholesterol, Calculated 24 mg/dl Medical Emergencies . Who to Call and When: Medical Emergencies: If at any time you feel your situation is an emergency, please call 911 immediately. . Non-Emergent Contact Non-Emergency issues call your: Primary Care Provider Call Non-Emergent contact if: you have any medication questions . . "Provider Documentation" section prepared by Vikki Romo. . VTE Core Measure Inpt VTE Proph given/why not?: Other Anticoagulation
[2017-04-17 15:45] VITALS: BP 147/88; PULSE 82; TEMP 36.5; O2SAT 95
--- NOTE | 2017-04-17 18:26 | CONSULTATION REPORT ---
DATE OF CONSULTATION: 04/17/2017 HISTORY OF PRESENT ILLNESS: Antohny is 76 years old. He is an original resident of [place] in [facility] where most of his medical care has been rendered. He has moved into the [facility] and is yet to pick out a primary care physician here. He will be seeing Dr. Mercado cardiology. So, I assume his care will probably reside with the [facility]. He is 76 years old and has a past medical history of a myocardial infarction, I believe last August, has had CABG procedures, was in atrial fibrillation and has been on Eliquis and aspirin ever since. He has been quite compliant with his doses. He also has BPH, hyperlipidemia and in this setting was doing well until yesterday when after working in a wood pile and feeling a bite on his forearm, presumably by a spider, he noted numbness in his left arm beginning in the thumb radiating up the radial aspect of the forearm and into the upper arm but below the shoulder. It never involved in face and he denied anything other than some mild dizziness. He had some blurry vision in his left eye which apparently lasted for 5 minutes and resolved, but he did tell me about this and did not tell me about the numbness that he talked about when he arrived in the Emergency Room. According to him all of this has gone. His speech was clear. He did not have any headaches, nausea, vomiting, loss or alteration of consciousness, abnormal involuntary movements, etc. His granddaughter 3 days ago secondary drug overdose and he has been quite distressed ever since and he really apparently needs to leave today and attend her and actually is refusing to have any further diagnostic studies done unless they can be done in the next hour and he really does not want to have an MRI scan having been locked in a refrigerator as a child and having a lot of claustrophobia ever since. PAST MEDICAL HISTORY: Pretty much as above. He has coronary artery bypass graft, BPH, hyperlipidemia. FAMILY HISTORY: Apparently pretty unremarkable, although his father did have heart disease and in his 50s. He denies any real history of strokes. SOCIAL HISTORY: Reveals him to be a never smoker, does not use ethanol. He now lives in the [place] area with a significant other. ALLERGIES: He has no known drug allergies other than to clams. Other seafood apparently is well tolerated. SCHEDULED MEDICATIONS: Include Eliquis 1 tablet twice a day and he has apparently been compliant and aspirin 81 mg a day. He also takes atorvastatin dose unspecified, probably 80 mg once a day, Proscar 5 mg daily and Lopressor 25 mg twice a day and Flomax 0.4 mg every morning and every evening. As needed medications include fluticasone, oxycodone for pain which he takes rarely. REVIEW OF SYSTEMS: Reveals recent apparently unremarkable health without fevers, sweats, chills, weight loss, weight gain, recent hospitalizations. No issues referable to head, eyes, ears, nose and throat other than perhaps some visual blurring in the left thigh that he did not report to me and this was very transient. He has had no tinnitus or hearing loss. He may have been a little lightheaded and somewhat vertiginous yesterday, but this is all gone. He has no other cardiovascular, pulmonary, gastrointestinal, genitourinary, musculoskeletal symptomatology besides those described above related to his past medical history and history of present illness. PHYSICAL EXAMINATION: VITAL SIGNS: On examination yesterday on admission to the ER, his blood pressure 148/97, pulse of 78, respirations were 20, he was afebrile. GENERAL: He is well developed, well-nourished, appears somewhat younger than his stated age. HEENT: Normal examination of head, eyes, ears, nose and throat. LUNGS: Clear. HEART: Had a regular rhythm with some irregularity but no murmurs. ABDOMEN: Soft and nontender. There was no enlargement of liver or spleen. EXTREMITIES: Mildly edematous distally. Pulses were all present. He did have a presumptive insect bite in the left forearm with a dark necrotic center and a ring forming around it but this was not puritic. NEUROLOGIC: Today, he is awake, alert, oriented in 3 spheres. He has normal extraocular movements, normal visual redd, normal gross visual acuity to bedside testing, normal facial motility and strength, clear speech. Normal facial sensation. I am hearing carotid bruits. He has no drift or pronation sign, tremor, tics or choreiform activity. Repetitive motions are normal. He has generally hypoactive reflex. Toes are downgoing. No Derick's signs are seen. Strength testing is excellent. Sensation is intact to vibration, light touch and temperature with exception of some age-dependent vibratory loss over the lower extremities. Specifically no evidence for weakness in the median nerve distribution. Tinel's signs are negative and Spurling sign is negative for induction of radicular symptomatology originating from the cervical spine. I do not see any official duplex study but cooking appliance repair technician informs me that there is some plaque in the right carotid, but no significant stenosis. The CAT scan of the head is negative. Blood work has been essentially normal. I did not have a Lyme antibody done. At this point, this man is adamant that he wants to be discharged and frankly I do not see any reason to keep him. Even if this was an embolic event, it has left no jonathan and he is already on in my opinion maximum anticoagulation unless one would add a second aspirin to his regimen and I would leave this up to his family physician in [place] who apparently has a good relationship with him. I would suggest that he consult a physician when he returns to the area and get some advice and at some point may need a Lyme antibody titer done even though I think the bite on this forearm is probably correctly identified as being due to a spider in the wood. At this point, in the ideal world I would get an MRI to be sure there was not a small emboloc event, but frankly even if it were there I would not do anything more than add an aspirin and we do not have enough information now or clinical suspicion to do this at this time. I think this man will be discharged today, at least this is what he tells me and he tells me that he will sign out AMA if we try to keep him. So frankly, I think we might as well let him go on his current regimen and have him contact his primary care physician in [place] when he returns for . JAVIER
[2017-04-17] MEDS ORDERED: TAMSULOSIN HCL 0.4 MG CAP PO SCH (21:00)
--- NOTE | 2017-04-20 21:26 | Discharge Summary ---
Discharge Summary Date of Service Apr 20, 2017. Discharge Summary Admission Date: Apr 16, 2017 at 22:11 Discharge Date: Apr 17, 2017 Discharge Disposition: Home Principal Diagnosis: Stroke like symptoms Secondary Diagnoses/Problems: Thyroid Nodule Afib CAD S/P CABG BPH Dyslipidemia Procedures: ULTRASOUND OF THE CAROTID ARTERIES CLINICAL HISTORY: Strokelike symptoms. Blurry vision left eye. COMPARISON STUDY: No priors. TECHNIQUE: Real-time, grayscale, and color Doppler sonography of the carotid arteries is performed. Images are reviewed in the transverse and longitudinal planes. FINDINGS: Blood pressure in the right arm measures 150/94 and blood pressure in the left arm measures 144/82. The carotid arteries are patent bilaterally and demonstrate antegrade flow. There is mild atherosclerotic plaque seen. Normal doppler arterial waveforms are seen throughout. Velocity measurements are listed below. Common carotid peak systolic velocity (cm/sec): RIGHT: 49 LEFT: 61 ICA proximal peak systolic velocity (cm/sec): RIGHT: 111 LEFT: 71 ICA mid peak systolic velocity (cm/sec): RIGHT: 114 LEFT: 64 ICA distal peak systolic velocity (cm/sec): RIGHT: 121 LEFT: 59 ICA/CC peak systolic ratio: RIGHT: 2.5 LEFT: 1.2 Antegrade flow was shown in the vertebral arteries. The external carotid arteries are patent. A 2.0 cm nodule is incidentally noted in the right thyroid lobe. IMPRESSION: 1. There is no sonographic evidence of hemodynamically significant stenosis in the right or left carotid arterial system. 2. Antegrade flow is shown in the vertebral arteries. 3. A 2.0 cm hypoechoic nodule is incidentally noted in the right thyroid lobe. This can be followed with a nonemergent/outpatient thyroid ultrasound if clinically warranted. Electronically signed by: Jeff Garcia M.D. 04/17/2017 3:01 PM Dictated Date/Time: 04/17/2017 2:59 PM [~ rep ct add3]] SINGLE VIEW CHEST CLINICAL HISTORY: Strokelike symptoms. FINDINGS: An AP, portable, upright chest radiograph is obtained. No prior studies are available for comparison at the time of dictation. The examination is degraded by portable technique and patient rotation. The patient is status post midline sternotomy. The heart is enlarged and there is atherosclerotic calcification of the thoracic aorta. The pulmonary vasculature is noncongested. Nonspecific interstitial thickening is noted. No airspace consolidation, large pleural effusion, or pneumothorax is seen. The skeletal structures are osteopenic. The bony thorax is grossly intact. IMPRESSION: Cardiomegaly with no acute cardiopulmonary abnormality. Electronically signed by: Jeff Garcia M.D. 04/16/2017 7:55 PM Dictated Date/Time: 04/16/2017 7:54 PM [~ rep ct add3]] CT SCAN OF THE BRAIN WITHOUT IV CONTRAST CLINICAL HISTORY: Dizziness. Left arm numbness. COMPARISON STUDY: No priors. TECHNIQUE: Unenhanced axial CT scan of the brain is performed from the vertex to the skull base. CT DOSE: 712.55 mGy.cm FINDINGS: Brain parenchyma: There are age-related involutional changes noting mild subcortical and periventricular microangiopathic change. There is no hemorrhage, mass effect, or evidence of acute territorial ischemia by CT criteria. Mcgrath-white matter is preserved. No extra-axial fluid collection is seen. Ventricles, sulci, cisterns: Prominent secondary to involutional change. Intracranial vasculature: There is atherosclerotic calcification of the cavernous carotid and vertebral arteries. Calvarium: Unremarkable. Sinuses and mastoids: Trace fluid is seen in the right maxillary antrum. The remaining visualized paranasal sinuses are clear. The mastoid air cells are well pneumatized. Orbits: The bony orbits are grossly intact. There is evidence of previous bilateral ocular lens surgery. IMPRESSION: There is no hemorrhage, mass effect, or evidence of acute territorial ischemia by CT criteria. Electronically signed by: Jeff Garcia M.D. 04/16/2017 8:11 PM Dictated Date/Time: 04/16/2017 8:09 PM Interpretation Summary * Name: JAMIL BLANCO Study Date: 04/17/2017 06:46 AM BP: 144/95 mmHg * Patient Location: [facility]\\S\\[id number]\\S\\2 HR: 74 * : 1940 (M/d/yyyy) Gender: Male Height: 72 in * Age: 76 yrs Ethnicity: [place] Weight: 230 lb * Ordering Physician: Dragan Bowers * Referring Physician: Self, Referred * Performed By: Barbara Delarosa RDCS * * Reason For Study: Stroke like symptoms * BSA: 2.3 m2 * No cardiac source of emboli noted. * -- Conclusions -- * The left ventricle is normal in size. * Left ventricular systolic function is normal. * Ejection Fraction = 50-55%. * The right ventricular systolic function is normal. * No cardiac source of emboli noted. Procedure Details * A complete two-dimensional transthoracic echocardiogram was performed (2D, M- mode, Doppler and color flow Doppler). * A saline contrast injection was performed to assess for cardiac shunting. * The injection was performed through an intravenous line in the right arm. * The attending nurse who injected the saline contrast was Gladys Coelho RN. * A total of 20 cc of agitated saline was given. * A contrast injection of Definity was performed to improve assessment of LV function. * Contrast was injected into an intravenous site in the right arm. * One vial of Definity ultrasound contrast was diluted in normal saline to a total volume of 10 ml. A total of '3' ml of solution was administered during imaging. * Lot # [id number] of Definity utilized for procedure. * Expiration date APR 21. * The attending nurse who injected the contrast agent was Gladys Coelho RN. Left Ventricle * The left ventricle is normal in size. * There is normal left ventricular wall thickness. * Ejection Fraction = 50-55%. * Left ventricular systolic function is normal. Right Ventricle * The right ventricle is normal size. * The right ventricular systolic function is normal. Atria * The left atrial size is normal. * Right atrial size is normal. * The interatrial septum is intact with no evidence for an atrial septal defect. * Injection of contrast documented no interatrial shunt. Mitral Valve * The mitral valve anatomy is normal. * Significant mitral regurgitation is absent. Tricuspid Valve * The tricuspid valve is not well visualized, but is grossly normal. * Significant tricuspid regurgitation is absent. Aortic Valve * The aortic valve is trileaflet. * Aortic stenosis is absent. * Trace aortic regurgitation. Pulmonic Valve * The pulmonic valve is not well visualized. * There is no significant pulmonary regurgitation. Great Vessels * The aortic root and proximal ascending aorta are normal sized. Pericardium/Pleural * There is no pericardial effusion. Consultations: Neuro Medication Reconciliation Continued Medications: Apixaban (Eliquis) Unknown Strength Tab 1 TAB PO BID, TAB Aspirin (Aspirin Ec) 81 Mg Tab 81 MG PO DAILY Atorvastatin (Lipitor) Unknown Strength Tab 1 TAB PO DAILY, TAB Finasteride (Proscar) 5 Mg Tab 5 MG PO DAILY, TAB Fluticasone Propionate (Nasal) (Flonase Allergy Relief) 50 Mcg/Act Spr 1 SPRAY CHAITANYA DAILY PRN for Nasal Congestion Metoprolol Tartrate (Lopressor) (Lopressor) 25 Mg Tab 25 MG PO BID, TAB Oxycodone Ir (Roxicodone Ir) 5 Mg Tab 10 MG PO Q6H PRN for Pain, TAB Tamsulosin Hcl (Flomax) 0.4 Mg Cap 0.4 MG PO QPM, CAP Admission Information HPI (per Admitting provider): Patient is a 76 yr male with PMH of Afib, CAD S/P CABG, BPH, HLP and other problems presents with history of sudden onset of left arm heaviness and numbness which he noticed after wakening up from sleep yesterday. He states the heaviness lasted for about 2 hours and resolved but currently still has numbness of left arm. Also reports noticing mild dizziness while getting out of bed. He states he has also noticed numbness in his feet since yesterday but attributes to chronic leg edema and recent surgery for CABG. He states he had blurry vision in left eye which only lasted for 5 minutes and resolved yesterday. His gait has been wobbly secondary to dizziness and numbness. Denies any history of chest pain, SOB, palpitations, cough, wheezing, headache, fever, chills, weakness, nausea, vomiting, abdominal pain, double vision, vertigo, slurred speech, facial deformity, bowel/bladder incontinence, diarrhea, urinary symptoms, recent travel, recent change in medications, head trauma, LOC or fall. Also denies similar symptoms or strokes in the past. Off note; His grand daughter 3 days ago secondary to drug overdose and he states he has been in lot of stress lately Physical Exam (per Admitting): General Appearance: WD/WN, no apparent distress Head: normocephalic, atraumatic Eyes: normal inspection, PERRL, EOMI, sclerae normal ENT: normal ENT inspection, + pertinent finding (Chronic hearing loss) Neck: supple, no JVD, trachea midline Respiratory/Chest: chest non-tender, lungs clear, normal breath sounds, no respiratory distress, no accessory muscle use Cardiovascular: no murmur, + irregularly irregular, + pertinent finding (1+ b/l edema ) Abdomen/GI: normal bowel sounds, non tender, soft, no organomegaly Back: normal inspection Extremities/Musculoskelatal: normal inspection, normal range of motion, + pedal edema 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 continue Neuro checks Neurology consulted- appreciate input Since pt refused to get MRI of head, may consider to repeat the CT head after 24 hrs Not sure if pt will want to stay because he wants to leave today because his granddaughter just from drug overdose 3 days ago Afib on tele monitor PT/OT Asymptomatic Echo done showed * The left ventricle is normal in size. * Left ventricular systolic function is normal. * Ejection Fraction = 50-55%. * The right ventricular systolic function is normal. * No cardiac source of emboli noted. Afib Rate controlled continue BB and eliquis Continue monitor in tele Thyroid Nodule A 2.0 cm hypoechoic nodule is incidentally noted in the right thyroid lobe. Follow up as outpatient with repeat u/s CAD S/P CABG: Had CABG in Aug 2016 Denies chest pain Troponin negative Continue ASA, Lipitor, BB BPH: Continue home meds Dyslipidemia LDL at goal continue statins DVT Px; On eliquis Code Status Full Code Total time spent on discharge = 35 minutes This includes examination of the patient, discharge planning, medication reconciliation, and communication with other providers. Discharge Instructions Discharge Instructions Date of Service Apr 17, 2017. Admission Reason for Admission: Stroke-Like Symptoms Discharge Discharge Diagnosis / Problem: Strokes like symptoms, Thyroid nodule, Atrial fibrillation Discharge Goals Goal(s): Decrease discomfort, Improve function, Improve disease control Activity Recommendations Activity Limitations: resume your previous activity (as tolerated) . Instructions / Follow-Up Instructions / Follow-Up Please call to schedule a follow up appointment with your primary care provider within 1 week Please seek medical assistance if your symptoms reoccurs an incidental thyroid nodule was found in the ultrasound. You will need repeat ultrasound of the thyroid for follow up. Fall precaution Current Hospital Diet Patient's current hospital diet: AHA Diet (Heart Healthy) Discharge Diet Recommended Diet: AHA Diet (Heart Healthy) Pending Studies Studies pending at discharge: no Laboratory Results Hemoglobin A1c Test 04/16/17 19:30 Range/Units Estimated Average Glucose 117 mg/dl Hemoglobin A1c 5.7 H 4.5-5.6 % Lipid Panel Test 04/17/17 03:52 Range/Units Triglycerides Level 95 0-150 mg/dl Cholesterol Level 69 0-200 mg/dl HDL Cholesterol 26 mg/dl Cholesterol/HDL Ratio 2.7 LDL Cholesterol, Calculated 24 mg/dl Medical Emergencies . Who to Call and When: Medical Emergencies: If at any time you feel your situation is an emergency, please call 911 immediately. . Non-Emergent Contact Non-Emergency issues call your: Primary Care Provider Call Non-Emergent contact if: you have any medication questions . . "Provider Documentation" section prepared by Vikki Romo. . VTE Core Measure Inpt VTE Proph given/why not?: Other Anticoagulation
== END 2017-04-17 16:28 | disposition home or self-care (01) | DRG 93 ==
LOC: C.EDB 19:03 → C.MED 22:11 → ENRESERV 22:37
PROVIDERS: ADMIT Internal Medicine; ATTEND Internal Medicine
DX: R20.0 Anesthesia of skin (principal); R42 Dizziness and giddiness; I48.91 Unspecified atrial fibrillation; I25.10 Atherosclerotic heart disease of native coronary artery without angina pectoris; N40.0 Benign prostatic hyperplasia without lower urinary tract symptoms; E78.5 Hyperlipidemia, unspecified; E04.1 Nontoxic single thyroid nodule; Z79.82 Long term (current) use of aspirin; I25.2 Old myocardial infarction; Z82.49 Family history of ischemic heart disease and other diseases of the circulatory system

== ENCOUNTER → 2017-04-16 | Outpatient (CLI) | payer BC ==
[2017-04-16 12:15] LABS: URINE APPEARANCE CLEAR (CLEAR); URINE BILIRUBIN NEG (NEG); URINE COLOR YELLOW; URINE NITRITE NEG (NEG); URINE SPECIFIC GRAVITY 1.007 (1.000-1.030); UROBILINOGEN NEG (NEG)
[2017-04-16 12:23] LABS: MANUAL MICROSCOPIC REQUIRED? NO; REVIEW REQ? NO
[2017-04-16 12:37] LABS: ALT/SGPT 13 U/L (12-78); AST/SGOT 12 U/L (15-37); BLOOD UREA NITROGEN 19 mg/dl (7-18); BUN/CREATININE RATIO 18.5 (10-20); CALCIUM 8.5 mg/dl (8.5-10.1); CARBON DIOXIDE 27 mmol/L (21-32); CHLORIDE 106 mmol/L (98-107); GLUCOSE 103 mg/dl (70-99); POTASSIUM 4.3 mmol/L (3.5-5.1); SODIUM 138 mmol/L (136-145); TRIGLYCERIDES 101 mg/dl (0-150); VERY LOW DENSITY LIPOPROT CALC 20 mg/dl
[2017-04-16 12:48] LABS: ALB/GLOB RATIO 0.9 (0.9-2); ALKALINE PHOSPHATASE 75 U/L (45-117); CHOLESTEROL 88 mg/dl (0-200); CHOLESTEROL/HDL RATIO 2.9; HDL CHOLESTEROL 30 mg/dl; LDL CHOLESTEROL CALCULATED 38 mg/dl
[2017-04-16 12:51] LABS: RATIO 44.9 mcg/mg (0-30.0)
== END | disposition home or self-care (01) ==
LOC: C.LAB 10:38
PROVIDERS: ATTEND Family Medicine
DX: I25.10 Atherosclerotic heart disease of native coronary artery without angina pectoris (principal); I48.2 Chronic atrial fibrillation; I10 Essential (primary) hypertension

== ENCOUNTER → 2017-06-23 | Outpatient (CLI) | payer BC ==
--- NOTE | 2017-06-23 14:21 | DIAGNOSTIC IMAGING REPORT ---
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 There is no acute fracture or subluxation identified. No intra-articular loose body identified. Small joint effusion. IMPRESSION: 1. No acute fracture. 2. Mild to moderate degenerative changes with small joint effusion. The above report was generated using voice recognition software. It may contain grammatical, syntax or spelling errors. Electronically signed by: Yuri Lomas M.D. 06/23/2017 2:20 PM Dictated Date/Time: 06/23/2017 2:18 PM
== END | disposition home or self-care (01) ==
LOC: C.RAD 13:34
PROVIDERS: ATTEND Family Medicine
DX: M17.11 Unilateral primary osteoarthritis, right knee (principal)

== ENCOUNTER → 2017-09-17 | Outpatient (CLI) | payer BC ==
[2017-09-17 14:03] LABS: BASO % 0.3 %; BASO ABS # 0.03 K/uL (0-0.2); EOS % 3.1 %; EOS ABS # 0.27 K/uL (0-0.5); HEMOGLOBIN 13.8 g/dL (14.0-18.0); IG# 0.02 K/uL (0.00-0.02); LYMPH % 18.6 %; LYMPH ABS # 1.62 K/uL (1.2-3.4); MEAN CORPUSCULAR HEMOGLOBIN 27.6 pg (25-34); MEAN CORPUSCULAR HGB CONC 32.1 g/dl (32-36); MEAN PLATELET VOLUME 10.1 fL (7.4-10.4); MONO % 8.1 %; MONO ABS # 0.71 K/uL (0.11-0.59); NEUT % 69.7 %; NEUT ABS # 6.07 K/uL (1.4-6.5); PLATELET COUNT 190 K/uL (130-400); RED CELL DISTRIBUTION WIDTH CV 14.4 % (11.5-14.5); RED CELL DISTRIBUTION WIDTH SD 44.4 fL (36.4-46.3); WHITE BLOOD COUNT 8.72 K/uL (4.8-10.8)
[2017-09-17 14:51] LABS: ALBUMIN 3.5 gm/dl (3.4-5.0); ALT/SGPT 15 U/L (12-78); BLOOD UREA NITROGEN 21 mg/dl (7-18); CALCIUM 8.7 mg/dl (8.5-10.1); CARBON DIOXIDE 25 mmol/L (21-32); CHOLESTEROL 98 mg/dl (0-200); CREATININE 1.08 mg/dl (0.60-1.40); GLUCOSE 93 mg/dl (70-99); POTASSIUM 4.3 mmol/L (3.5-5.1); SODIUM 138 mmol/L (136-145)
[2017-09-17 15:02] LABS: ALKALINE PHOSPHATASE 70 U/L (45-117); AST/SGOT 9 U/L (15-37); LDL CHOLESTEROL CALCULATED 42 mg/dl; TOTAL PROTEIN 7.3 gm/dl (6.4-8.2)
== END | disposition home or self-care (01) ==
LOC: C.LAB 13:15
PROVIDERS: ATTEND Family Medicine
DX: I48.91 Unspecified atrial fibrillation (principal); I10 Essential (primary) hypertension; E78.4 Other hyperlipidemia; Z95.1 Presence of aortocoronary bypass graft

== ENCOUNTER → 2017-10-01 | Outpatient (CLI) | payer BC ==
--- NOTE | 2017-10-01 14:40 | DIAGNOSTIC IMAGING REPORT ---
R LOWER EXT JOINT WITHOUT CLINICAL HISTORY: CHRONIC PAIN OF RIGHT KNEE pain TECHNIQUE: Multiaxial MRI acquisition COMPARISON STUDY: None FINDINGS: Mild generalized soft tissue edema. Signal characteristics the osseous structures are unremarkable. There is no significant bone marrow replacing process. Anterior and posterior cruciate ligaments are normal. The patellofemoral joint shows evidence for chondromalacia patella. There is loss of the central articulating surface of the patella. There is a small joint effusion. Medial and lateral patellar retinaculum are intact. The medial and lateral collateral ligaments are intact. There are findings of moderate degenerative thinning of the articular services the medial and lateral joint compartments. The medial meniscus demonstrates a generalized deterioration of the mid meniscal apex. Posterior horn shows fibrillation of the articular services with evidence for small focal tears of the apex of the posterior horn. The lateral meniscus demonstrates a moderate deterioration primarily of the anterior horn matrix. There is a focal hairline tear extending to the apex of the mid lateral meniscus. IMPRESSION: 1. General deterioration and/or degenerative change of all major joint compartments of the knee. 2. 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 3. Degenerative thinning of the articular services the medial and lateral joint compartments. 4. The lateral meniscus demonstrates moderate deterioration of the anterior horn, with a focal hairline tear extending to the mid meniscal apex. 5. The medial meniscus shows generalized matrix deterioration of the mid meniscus with evidence for deterioration of the posterior horn including a small tear extending to the apex of that structure. 6. Small joint effusion. 7. Mild generalized soft tissue edema about the knee. The above report was generated using voice recognition software. It may contain grammatical, syntax or spelling errors. Electronically signed by: Puma Helm M.D. 10/01/2017 2:39 PM Dictated Date/Time: 10/01/2017 2:31 PM
== END | disposition home or self-care (01) ==
LOC: C.MRI 13:40
PROVIDERS: ATTEND Family Medicine
DX: M25.561 Pain in right knee (principal); G89.29 Other chronic pain; M22.41 Chondromalacia patellae, right knee; M25.861 Other specified joint disorders, right knee

== ENCOUNTER → 2018-01-19 | Outpatient (CLI) | payer BC ==
[~2018-01-19] MED LIST changes: +OXYC-90 PO; -OXYC1TAB3 PO; +PRLSR20 PO; +ROSU20TA PO
--- NOTE | 2018-01-19 10:34 | DIAGNOSTIC IMAGING REPORT ---
R KNEE 3 VIEWS CLINICAL HISTORY: RIGHT KNEE PAIN COMPARISON STUDY: Right knee 06/23/2017. FINDINGS: No fractures identified within the right or left knee. Mild to moderate cartilage space narrowing within the medial compartment of the right knee with tiny marginal osteophytes. Mild cartilage space narrowing within the medial compartment of the left knee. There is faint chondrocalcinosis within the bilateral knees. The bones appear osteopenic. Small right knee effusion. Mild patellofemoral osteoarthritis persists. IMPRESSION: 1. Mild to moderate osteoarthritis within the right knee. This is similar to the prior study. 2. No fractures. 3. Small right knee effusion, unchanged. Electronically signed by: Js Paige M.D. 01/19/2018 10:33 AM Dictated Date/Time: 01/19/2018 10:30 AM
== END | disposition home or self-care (01) ==
LOC: C.RDSM 09:46
PROVIDERS: ATTEND Physician Assistant
DX: M25.561 Pain in right knee (principal)

== ENCOUNTER → 2018-01-26 | Outpatient (CLI) | payer BC ==
[~2018-01-26] MED LIST changes: +PERFLUTREN LIPID MICROSPHERE (DEFINITY) IV ONE
== END | disposition home or self-care (01) ==
LOC: C.CPL 14:16
PROVIDERS: ATTEND Family Medicine
DX: I48.91 Unspecified atrial fibrillation (principal); Z95.1 Presence of aortocoronary bypass graft

== ENCOUNTER 2018-02-02 05:21 | Emergency (ER) | payer BC ==
[~2018-02-02 05:21] MED LIST changes: -PERFLUTREN LIPID MICROSPHERE (DEFINITY) IV ONE; -PRLSR20 PO; -ROSU20TA PO
[2018-02-02 05:27] VITALS: TEMP 36.6; Ht 180.3 cm
[2018-02-02 05:36] VITALS: O2SAT 97
[2018-02-02] MEDS ORDERED: LABETALOL HCL IV 5 MG/ML 20ML IV STA (05:40)
[2018-02-02 05:52] LABS: BASO % 0.3 %; BASO ABS # 0.02 K/uL (0-0.2); EOS % 2.7 %; EOS ABS # 0.19 K/uL (0-0.5); HEMATOCRIT 41.8 % (42-52); HEMOGLOBIN 13.3 g/dL (14.0-18.0); IG# 0.03 K/uL (0.00-0.02); LYMPH ABS # 1.25 K/uL (1.2-3.4); MEAN CELL VOLUME 86.5 fL (80-100); MEAN CORPUSCULAR HEMOGLOBIN 27.5 pg (25-34); MEAN CORPUSCULAR HGB CONC 31.8 g/dl (32-36); MEAN PLATELET VOLUME 10.2 fL (7.4-10.4); MONO % 8.9 %; MONO ABS # 0.62 K/uL (0.11-0.59); NEUT % 69.7 %; NEUT ABS # 4.83 K/uL (1.4-6.5); PLATELET COUNT 156 K/uL (130-400); RED CELL DISTRIBUTION WIDTH CV 14.5 % (11.5-14.5); RED CELL DISTRIBUTION WIDTH SD 45.8 fL (36.4-46.3); WHITE BLOOD COUNT 6.94 K/uL (4.8-10.8)
--- NOTE | 2018-02-02 05:55 | EMERGENCY ROOM VISIT NOTE ---
History First contact with patient: 05:30 Chief Complaint: CARDIAC ASSESSMENT Stated Complaint: AFIB History of Present Illness The patient is a 77 year old male who presents to the Emergency Room for evaluation of shortness of breath. Patient notes he awoke around 3 am feeling very unwell. Primarily he felt like he was having difficulty breathing. Associated with nausea, diaphoresis, and weakness. Symptoms mildly improved over next hour and states breathing issues have resolved but he notes he still does not feel well. Exertion makes worse. Rest makes better. No medications taken prior to arrival. Also relates that his right knee is increasing in pain. He notes there was fluid on it last week and was seen by provider who removed fluid. Since then swelling has increased significantly, and he notes it hurts to walk. Started on Oxy IR which he had been using with moderate relief and minimal side effects. Started on Lasix 2 weeks ago for bilateral ankle swelling. Notes this was separate from knee issue. Denies fevers, chills, rash, syncope, chest pain, abdominal pain, vomiting, urinary/bowel changes, back pain nor other symptoms. No recent trauma. History of CAD with CABG, Afib on Eliquis, BPH, dyslipidemia. Denies recent antibiotics. Patient had Echo last week with EF 50%. Review of Systems See HPI for pertinent positives & negatives. A total of 10 systems reviewed and were otherwise negative. Past Medical/Surgical History Medical Problems: (1) A-fib (2) BPH (benign prostatic hyperplasia) (3) CAD (coronary artery disease) (4) Dizzy (5) Dyslipidemia (6) Stroke-like symptoms Surgical Problems: (1) Hx of CABG (2) Hx of CABG Family History Patient reports no known family medical history. Social History Smoking Status: Never Smoker Drug Use: none Marital Status: Housing Status: lives with significant other Occupation Status: retired Current/Historical Medications Scheduled Apixaban (Eliquis), 5 MG PO BID Aspirin (Aspirin Ec), 81 MG PO DAILY Finasteride (Proscar), 5 MG PO DAILY Metoprolol Tartrate (Lopressor) (Lopressor), 25 MG PO BID Omeprazole (Prilosec), 20 MG PO BID Rosuvastatin Calcium (Crestor), 1 TAB PO DAILY Tamsulosin Hcl (Flomax), 0.4 MG PO QPM Scheduled PRN Fluticasone Propionate (Nasal) (Flonase Allergy Relief), 1 SPRAY CHAITANYA DAILY PRN for Nasal Congestion Oxycodone Ir (Roxicodone Ir), 10 MG PO Q6H PRN for Pain Physical Exam Vital Signs Date Time Temp Pulse Resp B/P (MAP) Pulse Ox O2 Delivery O2 Flow Rate FiO2 02/02/18 07:59 88 22 164/89 96 02/02/18 07:10 92 22 151/105 96 Room Air 02/02/18 06:38 97 18 141/85 98 Room Air 02/02/18 05:57 99 18 147/94 98 Room Air 02/02/18 05:37 101 02/02/18 05:36 97 Room Air 02/02/18 05:27 36.6 96 18 161/94 98 Room Air Physical Exam GENERAL: Patient is well appearing and in minimal distress. EYES: No scleral icterus, unremarkable pupils. ENT: Mucous membranes moist, no nasal congestion. NECK: No masses appreciated, no meningismus, trachea is midline. RESPIRATORY: No dyspnea. Clear to auscultation and equal bilaterally. No wheeze , no rhonchi. CARDIOVASCULAR: Irregular. No murmurs, rubs, gallops appreciated. GASTROINTESTINAL: Abdomen soft, nontender, no peritonitis. Bowel sounds positive. No masses appreciated. BACK: No midline tenderness, no CVA tenderness EXTREMITIES: Moderate swelling/effusion right knee with mild pain with ROM, no erythema, moderate TTP throughout. There is slingly increased upper right calf swelling as well which seems more knee related than calf. Distal N/V intact. Otherwise normal motion all extremities, no cyanosis, no edema. NEUROLOGIC: Alert and oriented, no acute motor or sensory deficits, no focal weakness, cranial nerves grossly intact. SKIN: No rash, no jaundice, no diaphoresis. Medical Decision & Procedures ER Provider Diagnostic Interpretation: X ray results are stated below per my interpretation: Chest: 1 view: No infiltrate, no effusion, normal cardiac border. Knee Right: 3 view: Moderate effusion, some osteoarthritis, no fracture/ dislocation. Compared to xray 01/19/18 the effusion has increased in size. Radiology results and stated below per my review and radiologist interpretation: R VENOUS DOPP LOWER EXT UNILAT IMPRESSION: Normal study Electronically signed by: Puma Helm M.D. Laboratory Results 02/02/18 05:38 Red Blood Count 4.83, Mean Corpuscular Volume 86.5, Mean Corpuscular Hemoglobin 27.5, Mean Corpuscular Hemoglobin Concent 31.8, Mean Platelet Volume 10.2, Neutrophils (%) (Auto) 69.7, Lymphocytes (%) (Auto) 18.0, Monocytes (%) (Auto) 8.9, Eosinophils (%) (Auto) 2.7, Basophils (%) (Auto) 0.3, Neutrophils # (Auto) 4.83, Lymphocytes # (Auto) 1.25, Monocytes # (Auto) 0.62, Eosinophils # (Auto) 0.19, Basophils # (Auto) 0.02 02/02/18 05:38 Test 02/02/18 05:38 02/02/18 05:45 02/02/18 05:52 02/02/18 07:39 White Blood Count 6.94 K/uL (4.8-10.8) Red Blood Count 4.83 M/uL (4.7-6.1) Hemoglobin 13.3 g/dL (14.0-18.0) Hematocrit 41.8 % (42-52) Mean Corpuscular Volume 86.5 fL (80-100) Mean Corpuscular Hemoglobin 27.5 pg (25-34) Mean Corpuscular Hemoglobin Concent 31.8 g/dl (32-36) Platelet Count 156 K/uL (130-400) Mean Platelet Volume 10.2 fL (7.4-10.4) Neutrophils (%) (Auto) 69.7 % Lymphocytes (%) (Auto) 18.0 % Monocytes (%) (Auto) 8.9 % Eosinophils (%) (Auto) 2.7 % Basophils (%) (Auto) 0.3 % Neutrophils # (Auto) 4.83 K/uL (1.4-6.5) Lymphocytes # (Auto) 1.25 K/uL (1.2-3.4) Monocytes # (Auto) 0.62 K/uL (0.11-0.59) Eosinophils # (Auto) 0.19 K/uL (0-0.5) Basophils # (Auto) 0.02 K/uL (0-0.2) RDW Standard Deviation 45.8 fL (36.4-46.3) RDW Coefficient of Variation 14.5 % (11.5-14.5) Immature Granulocyte % (Auto) 0.4 % Immature Granulocyte # (Auto) 0.03 K/uL (0.00-0.02) Erythrocyte Sedimentation Rate 27 mm/hr (0-14) Prothrombin Time 11.1 SECONDS (9.0-12.0) Prothromb Time International Ratio 1.1 (0.9-1.1) Activated Partial Thromboplast Time 30.2 SECONDS (21.0-31.0) Partial Thromboplastin Ratio 1.2 D-Dimer 740 ug/L FEU (0-500) Estimated GFR () 67.9 Estimated GFR (Non- 58.6 BUN/Creatinine Ratio 17.7 (10-20) Calcium Level 8.6 mg/dl (8.5-10.1) Total Bilirubin 0.3 mg/dl (0.2-1) Direct Bilirubin 0.1 mg/dl (0-0.2) Aspartate Amino Transf (AST/SGOT) 12 U/L (15-37) Alanine Aminotransferase (ALT/SGPT) 14 U/L (12-78) Alkaline Phosphatase 64 U/L (45-117) Total Creatine Kinase 51 U/L (39-308) Creatine Kinase MB 1.4 ng/ml (0.5-3.6) Creatine Kinase MB Ratio 2.7 (0-3.0) Troponin I < 0.015 ng/ml (0-0.045) C-Reactive Protein 0.83 mg/dl (0-0.29) Total Protein 7.2 gm/dl (6.4-8.2) Albumin 3.6 gm/dl (3.4-5.0) Lipase 55 U/L (73-393) Lyme Disease IgG Antibody NEG (NEG) Lyme Disease IgM Antibody NEG (NEG) Bedside Hemoglobin 13.9 g/dl (14.0-18.0) Bedside Hematocrit 41 % (42-52) Bedside Sodium 140 mEq/L (135-144) Bedside Potassium 3.9 mEq/L (3.3-5.0) Bedside Chloride 102 mEq/L (101-112) Bedside Total CO2 25 mEq/l (24-31) Anion Gap 18.0 mmol/L (16-25) Bedside Blood Urea Nitrogen 21 mg/dl (7-18) Bedside Creatinine 1.2 mg/dl (0.6-1.3) Bedside Glucose (other) 108 mg/dl (70-99) Bedside Ionized Calcium (Destinee) 1.07 mmol/l (1.12-1.32) Urine Color YELLOW Urine Appearance CLEAR (CLEAR) Urine pH 6.5 (4.5-7.5) Urine Specific [place] 1.006 (1.000-1.030) Urine Protein NEG (NEG) Urine Glucose (UA) NEG (NEG) Urine Ketones NEG (NEG) Urine Occult Blood 1+ (NEG) Urine Nitrite NEG (NEG) Urine Bilirubin NEG (NEG) Urine Urobilinogen NEG (NEG) Urine Leukocyte Esterase NEG (NEG) Urine WBC (Auto) 0 /hpf (0-5) Urine RBC (Auto) 0-4 /hpf (0-4) Urine Hyaline Casts (Auto) 0 /lpf (0-5) Urine Epithelial Cells (Auto) 5-10 /lpf (0-5) Urine Bacteria (Auto) NEG (NEG) Bedside Troponin I < 0.030 ng/ml (0-0.045) ECG Per My Interpretation Indication: SOB/dyspnea Rate (beats per minute): 100 Rhythm: atrial fibrillation Findings: RBBB, no acute ischemic change Comparison ECG Date: 2016, the RBBB is now present Medical Decision Differential: Sepsis, Infectious (UTI/Pneumonia/Meningitis/etc), Metabolic/ Electrolyte Abnormality, Cardiac, Dehydration, Anemia, Hepatic, Endocrine, Toxicologic, Neurologic, amongst other pathologies entertained. 77 yr old male who arrives following episode of shortness of breath associated with diaphoresis, weakness, and fatigue. Also happens to have swelling right knee last week or so. He is now in no distress, looks well and is breathing comfortably. CXR clear. EKG with new RRRB (lead placement?) but continues afib and no evidence of ischemia. Trop is negative x 2. I do not feel his symptoms nor work-up are consistent with ACS. He has no fever nor wbc elevation , and with just mild bump ESR/CRP I feel this is unlikely infectious issue. I do not feel this is PE. His Dimer is wnl for age, he is on eliquis, he is not significantly tachycardic, he is not hypoxic, and he has no further SHOB/CP, nor does he have DVT in right leg. He believes that this mornings symptoms were his bp that raised causing all of this though admits he sometimes gets anxious. His right knee clearly has an effusion but it is not red, hot, nor is there significant amount of pain associated with ROM. Did have tick bite 3 weeks ago though lyme is neg and without rash nor other symptoms I would not go ahead and treat empirically. He already has Ortho follow up planned and does not want to be seen here because Ortho here didn't use Lidocaine. He looks well, feels better and wants to go home. Aware call 911 if any issues. RTED if worsening or other concerns. Medication Reconcilliation Current Medication List: was personally reviewed by me Blood Pressure Screening Patient's blood pressure: Elevated blood pressure Blood pressure disposition: Elevated BP felt to be situational Impression Primary Impression: Shortness of breath Additional Impressions: Hypertension Effusion, right knee Departure Information Condition GOOD Referrals No Doctor, Assigned (PCP) Patient Instructions My [facility] Additional Instructions Rest and keep right leg elevated when you can. Monitor for increased swelling, pain, fevers, redness or discoloration of leg and seek medical attention if these develop. It is unclear the exact cause of your episode of shortness of breath, but if it worsens, you develop chest pain, passing out or other emergent issues call 911. It is very important you follow up with your primary care provider in the next few days. Problem Qualifiers
[2018-02-02 05:58] LABS: ISTAT CREATININE 1.2 mg/dl (0.6-1.3); ISTAT IONIZED CALCIUM 1.07 mmol/l (1.12-1.32); ISTAT POTASSIUM 3.9 mEq/L (3.3-5.0)
[2018-02-02 06:28] LABS: ALBUMIN 3.6 gm/dl (3.4-5.0); ALKALINE PHOSPHATASE 64 U/L (45-117); ALT/SGPT 14 U/L (12-78); AST/SGOT 12 U/L (15-37); BLOOD UREA NITROGEN 21 mg/dl (7-18); CALCIUM 8.6 mg/dl (8.5-10.1); CARBON DIOXIDE 28 mmol/L (21-32); CKMB 1.4 ng/ml (0.5-3.6); CREATININE 1.19 mg/dl (0.60-1.40); GLUCOSE 104 mg/dl (70-99); LIPASE 55 U/L (73-393); POTASSIUM 3.8 mmol/L (3.5-5.1); SODIUM 139 mmol/L (136-145); TOTAL PROTEIN 7.2 gm/dl (6.4-8.2)
[2018-02-02 06:38] LABS: INR 1.1 (0.9-1.1); PTT PATIENT 30.2 SECONDS (21.0-31.0)
--- NOTE | 2018-02-02 06:42 | DIAGNOSTIC IMAGING REPORT ---
R VENOUS DOPP LOWER EXT UNILAT CLINICAL HISTORY: right leg swelling pain. Edema. TECHNIQUE: Venous Doppler COMPARISON STUDY: None FINDINGS: Normal study IMPRESSION: Normal study The above report was generated using voice recognition software. It may contain grammatical, syntax or spelling errors. Electronically signed by: Puma Helm M.D. 02/02/2018 6:40 AM Dictated Date/Time: 02/02/2018 6:40 AM
[2018-02-02] MEDS ORDERED: ROSU20TA PO (06:47)
[2018-02-02] MEDS ORDERED: PRLSR20 PO (06:48)
[2018-02-02] MEDS ORDERED: APIX1TAB3 PO (06:48)
--- NOTE | 2018-02-02 07:34 | DIAGNOSTIC IMAGING REPORT ---
SINGLE VIEW CHEST CLINICAL HISTORY: Atypical chest pain. FINDINGS: An AP, portable, upright chest radiograph is compared to study dated 04/16/2017. The examination is degraded by portable technique and patient rotation. The patient is status post midline sternotomy. The heart is enlarged and there is atherosclerotic calcification of the thoracic aorta. The pulmonary vasculature is noncongested. Chronic interstitial thickening is unchanged. No airspace consolidation, large pleural effusion, or pneumothorax is seen. The skeletal structures are osteopenic. The bony thorax is grossly intact. Degenerative change is noted in the shoulders. IMPRESSION: Cardiomegaly with no acute cardiopulmonary abnormality. Electronically signed by: Jeff Garcia M.D. 02/02/2018 7:33 AM Dictated Date/Time: 02/02/2018 7:32 AM
--- NOTE | 2018-02-02 07:39 | DIAGNOSTIC IMAGING REPORT ---
RIGHT KNEE 2 VIEWS CLINICAL HISTORY: Right knee pain. FINDINGS: AP and crosstable lateral views of the right knee are compared to study dated 01/19/2018. The skeletal structures are osteopenic. No fracture is seen. There is mild to moderate tricompartmental degenerative joint space narrowing, greatest in the medial and patellofemoral compartments. There are small patellar enthesophytes and medial marginal osteophytes. A joint effusion is noted. The overlying soft tissues are normal as imaged. IMPRESSION: 1. Joint effusion with no acute bony abnormality identified. 2. Osteopenia and degenerative change as above. Findings are similar to 01/19/2018. Electronically signed by: Jeff Garcia M.D. 02/02/2018 7:37 AM Dictated Date/Time: 02/02/2018 7:36 AM
[2018-02-02 07:59] VITALS: BP 164/89; PULSE 88; O2SAT 96
== END 2018-02-02 08:01 | disposition home or self-care (01) ==
LOC: C.EDB 05:22
DX: R06.02 Shortness of breath (principal); I10 Essential (primary) hypertension; M25.461 Effusion, right knee; I25.10 Atherosclerotic heart disease of native coronary artery without angina pectoris; I48.91 Unspecified atrial fibrillation; E78.5 Hyperlipidemia, unspecified; I45.10 Unspecified right bundle-branch block; M17.11 Unilateral primary osteoarthritis, right knee; Z95.1 Presence of aortocoronary bypass graft; Z79.01 Long term (current) use of anticoagulants; Z79.82 Long term (current) use of aspirin; Z79.899 Other long term (current) drug therapy

== ENCOUNTER → 2018-02-14 | Outpatient (CLI) | payer BC ==
[~2018-02-14] MED LIST changes: -ATOR-26 PO; +PRLSR20 PO; +ROSU20TA PO
[2018-02-14 12:27] LABS: BASO % 0.3 %; BASO ABS # 0.02 K/uL (0-0.2); EOS % 3.1 %; EOS ABS # 0.22 K/uL (0-0.5); HEMATOCRIT 43.2 % (42-52); HEMOGLOBIN 13.8 g/dL (14.0-18.0); IG# 0.02 K/uL (0.00-0.02); LYMPH % 22.8 %; LYMPH ABS # 1.62 K/uL (1.2-3.4); MEAN CELL VOLUME 86.9 fL (80-100); MEAN CORPUSCULAR HEMOGLOBIN 27.8 pg (25-34); MEAN CORPUSCULAR HGB CONC 31.9 g/dl (32-36); MEAN PLATELET VOLUME 10.8 fL (7.4-10.4); MONO % 10.1 %; MONO ABS # 0.72 K/uL (0.11-0.59); NEUT % 63.4 %; NEUT ABS # 4.51 K/uL (1.4-6.5); PLATELET COUNT 179 K/uL (130-400); RED CELL DISTRIBUTION WIDTH CV 14.5 % (11.5-14.5); RED CELL DISTRIBUTION WIDTH SD 45.7 fL (36.4-46.3); WHITE BLOOD COUNT 7.11 K/uL (4.8-10.8)
[2018-02-14 13:10] LABS: ALBUMIN 3.4 gm/dl (3.4-5.0); ALKALINE PHOSPHATASE 66 U/L (45-117); ALT/SGPT 14 U/L (12-78); AST/SGOT 12 U/L (15-37); BLOOD UREA NITROGEN 18 mg/dl (7-18); CALCIUM 8.3 mg/dl (8.5-10.1); CARBON DIOXIDE 25 mmol/L (21-32); CHOLESTEROL 88 mg/dl (0-200); GLUCOSE 102 mg/dl (70-99); LDL CHOLESTEROL CALCULATED 35 mg/dl; POTASSIUM 4.1 mmol/L (3.5-5.1); SODIUM 137 mmol/L (136-145); TOTAL PROTEIN 7.3 gm/dl (6.4-8.2)
== END | disposition home or self-care (01) ==
LOC: C.LAB 09:42
PROVIDERS: ATTEND Family Medicine
DX: I48.91 Unspecified atrial fibrillation (principal); Z95.1 Presence of aortocoronary bypass graft; I10 Essential (primary) hypertension; E78.4 Other hyperlipidemia

== ENCOUNTER 2018-10-09 00:32 | Inpatient (IN) ==
[2018-10-09 00:48] LABS: Basophils # (auto) 0.01 K/uL (0-0.2); Basophils % (auto) 0.1 %; Eosinophils # (auto) 0.24 K/uL (0-0.5); Eosinophils % (auto) 2.9 %; Hemoglobin 13.5 g/dL (14.0-18.0); Immature Granulocytes # (auto) 0.02 K/uL (0.00-0.02); Immature Granulocytes % (auto) 0.2 %; Lymphocytes % (auto) 18.3 %; Mean Corpuscular Hgb Conc 32.1 g/dL (32-36); Mean Corpuscular Volume 88.1 fL (80-100); Mean Platelet Volume 10.5 fL (7.4-10.4); Monocytes # (auto) 1.01 K/uL (0.11-0.59); Monocytes % (auto) 12.3 %; Neutrophils # (auto) 5.41 K/uL (1.4-6.5); Neutrophils % (auto) 66.2 %; Platelet Count 158 K/uL (130-400); RDW Coefficient of Variation 14.8 % (11.5-14.5); RDW Standard Deviation 47.4 fL (36.4-46.3); Red Blood Count 4.77 M/uL (4.7-6.1); White Blood Count 8.19 K/uL (4.8-10.8)
[2018-10-09] MEDS ORDERED: PRIMARY PLUMSET 1 EA IV ONE (01:00)
[2018-10-09] MEDS ORDERED: ALTEPLASE, RECOMBINANT 81 MG in EMPTY BAG 0 ML IV SCH (01:00)
[2018-10-09] MEDS ORDERED: ALTEPLASE RECOMBINANT IV SCH (01:00)
[2018-10-09 01:01] LABS: INR 1.1 (0.9-1.1); Partial Thromboplastin Ratio 0.9; Partial Thromboplastin Time 25.1 Seconds (21.0-31.0); Prothrombin Time 11.4 Seconds (9.0-12.0)
[2018-10-09 01:10] LABS: Alanine Aminotransferase 14 U/L (12-78); Albumin Level 3.3 gm/dl (3.4-5.0); Aspartate Aminotransferase 10 U/L (15-37); BUN Creatinine Ratio 16.9 (10-20); Blood Urea Nitrogen 19 mg/dl (7-18); Calcium 8.4 mg/dl (8.5-10.1); Carbon Dioxide 26 mmol/L (21-32); Chloride 109 mmol/L (98-107); Est GFR (Non-African American) 61.3; Glucose 111 mg/dl (70-99); Magnesium 2.1 mg/dl (1.8-2.4); Potassium 3.8 mmol/L (3.5-5.1); Sodium 142 mmol/L (136-145)
[2018-10-09] MEDS ORDERED: MoRPHine SULFATE 10 MG/ML CARP/VIAL IV STA (01:10)
[2018-10-09] MEDS ORDERED: ONDANSETRON INJ 2 MG/ML 2 ML VIAL IV STA (01:10)
[2018-10-09 01:15] LABS: Albumin Globulin Ratio 0.9 (0.9-2); Alkaline Phosphatase 64 U/L (45-117); Bilirubin,Total 0.3 mg/dl (0.2-1); Globulin 3.7 gm/dl (2.5-4.0); Troponin I < 0.015 ng/ml (0-0.045)
[2018-10-09 01:40] LABS: Appearance Urine Clear (Clear); Bacteria Urine Automated Negative (Negative); Bilirubin Urine Negative (Negative); Blood Urine 3+ (Negative); Cast Urine Automated 0 /lpf (0-5); Color Urine Yellow; Glucose Urine UA Negative (Negative); Ketones Urine Negative (Negative); Leukocyte Esterase Urine Negative (Negative); Nitrite Urine Negative (Negative); Protein Urine Negative (Negative); RBC Urine Automated >30 /hpf (0-4); Specific Gravity Urine 1.011 (1.000-1.030); Urobilinogen Urine Negative (Negative); pH Urine 6.5 (4.5-7.5)
--- NOTE | 2018-10-09 02:42 | History & Physical Report ---
Date of Service October 09, 2018 Assessment & Plan (1) CVA (cerebral vascular accident): 78-year-old male with past medical history of hypertension, hyperlipidemia, atrial fibrillation without adequate anticoagulation presents with left-sided weakness beginning at 9:30 PM today. In the ED, stroke teleconference was performed and the patient received TPA. He was subsequently transferred to the ICU for further monitoringat the time of transfer the patient's symptoms were improving. CVA, left-sided weakness status post TPA [place] [facility] of the brain, but did not recommend CTA Critical care consult, continue management on the ICU Echocardiogram ordered PT, OT, speech ordered Continue Crestor 20 mg, holding antiplatelets status post TPAplan to restart tomorrow Allow for permissive hypertensionholding atenolol, hold Flomax, hold furose mide Atrial fibrillation without adequate anticoagulationEliquis was stopped 1 year ago in the setting of hematuria CVA likely secondary to embolic event Watch rates while holding atenolol, review rate control and anticoagulation before discharge BPH Continue finasteride Continue to hold tamsulosin DVT prophylaxis SCDs FEN N.p.o. CODE STATUS Full (2) Stroke-like symptoms: (3) A-fib: (4) CAD (coronary artery disease): (5) Dyslipidemia: (6) BPH (benign prostatic hyperplasia): (7) Hx of CABG: (8) Left-sided weakness: History of Present Illness Primary Care Provider: Sivakumar Hawkins 78-year-old male with multiple medical history of hypertension, hyperlipidemia, atrial fibrillation and CAD status post CABG x4 in 2017 presents with left-sided weakness. The patient states that he first noticed numbness in his left arm when he reached down to pet his small dog. He attempted to pick the dog up off the floor and noticed that he had severely reduced strength in his left arm. That was around 9:30 PM tonight. He then reports that he stood up and felt unsteady on his feet. He normally is able to ambulate on his own. The patient denies ever having any slurred speech or blurry vision. He denies having any other numbness in his lower extremities. The patient was previously on Eliquis, but was stopped 1 year ago because of issues with hematuria. He has since been taking baby aspirin daily. Patient is a non-smoker, denies alcohol use and denies past medical history of diabetes. He lives with his partner. Review of systems Patient denies the following: Chest pain, palpitations, shortness of breath, abdominal pain, nausea/vomiting/diarrhea Allergies Allergy/AdvReac Type Severity Reaction Status Date / Time william AdvReac Severe GI SYMPTOMS Verified 10/09/18 01:37 Home Medications Home Medications Medication Instructions Recorded Confirmed Type aspirin 81 mg PO DAILY 10/09/18 10/09/18 History atenolol 25 mg PO DAILY 10/09/18 10/09/18 History finasteride 5 mg PO DAILY 10/09/18 10/09/18 History fluticasone propionate [Flonase 2 spray INTRANASAL DAILY 10/09/18 10/09/18 History Allergy Relief] furosemide 20 mg PO DAILY 10/09/18 10/09/18 History meloxicam 7.5 mg PO DAILY PRN 10/09/18 10/09/18 History omeprazole 20 mg PO BID PRN 10/09/18 10/09/18 History rosuvastatin [Crestor] 20 mg PO DAILY 10/09/18 10/09/18 History tamsulosin 0.4 mg PO DAILY 10/09/18 10/09/18 History Past Med/Surg History Medical History A-fib (Chronic) CAD (coronary artery disease) (Chronic) Dyslipidemia (Chronic) BPH (benign prostatic hyperplasia) (Chronic) ASCVD (arteriosclerotic cardiovascular disease) CHF (congestive heart failure) CVA (cerebral vascular accident) HTN (hypertension) Ischemic cardiomyopathy Obesity PVD (peripheral vascular disease) Surgical History Hx of CABG (Chronic) History of cataract surgery History of tonsillectomy Family History Mother , age 83 of heart disease. Heart disease Father , age 53 of MRI. 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 Other Information That Helps Us Care for You: No Feels Safe at Home: Yes Safety Concerns: Feels Safe At This Time Smoking Status: Never smoker Hx Alcohol Use: No Hx Substance Use: No Review of Systems All systems reviewed & are unremarkable except as noted in HPI & below Physical Exam Vital Signs (Past 24 Hours): Last Vital Signs Temp 36.4 C L 10/09/18 01:13 Pulse 94 H 10/09/18 02:15 Resp 17 10/09/18 02:15 BP 146/95 H 10/09/18 02:15 Pulse Ox 97 10/09/18 02:15 Constitutional: WD/WN, vitals as above Eyes: PERRL, conjunctivae normal, anicteric sclerae ENMT: external ear and nose normal, oropharynx normal Neck: trachea midline, no thyromegaly Respiratory: normal respiratory effort, lungs clear to auscultation Cardiovascular: Heart Sounds: no gallop, no murmur and no cardiac rub Irregularly irregular rhythm Chest (Breasts): Additional Comments: Longitudinal scar over sternum Gastrointestinal (Abdomen): normal bowel sounds, soft, nontender, no hepatosplenomegaly Musculoskeletal: no cyanosis or clubbing, extremities motor strength 5/5 Skin: no rashes, warm and dry Neurologic: PERRL, EOMI, accommodation nl, no face palsy, no dysarthria normal touch/pain/proprioception, CN's II-XI intact bilaterally, moves all extremities and awake; no focal motor deficits Speech / Cognition: normal cognition Left upper extremity weakness Results & Data Laboratory Results Laboratory Last Values WBC 8.19 K/uL (4.8-10.8) 10/09/18 00:40 RBC 4.77 M/uL (4.7-6.1) 10/09/18 00:40 Hgb 13.5 g/dL (14.0-18.0) L 10/09/18 00:40 Hct 42.0 % (42-52) 10/09/18 00:40 MCV 88.1 fL (80-100) 10/09/18 00:40 MCH 28.3 pg (25-34) 10/09/18 00:40 MCHC 32.1 g/dL (32-36) 10/09/18 00:40 RDW Std Deviation 47.4 fL (36.4-46.3) H 10/09/18 00:40 RDW Coeff of Joslyn 14.8 % (11.5-14.5) H 10/09/18 00:40 Plt Count 158 K/uL (130-400) 10/09/18 00:40 MPV 10.5 fL (7.4-10.4) H 10/09/18 00:40 Immature Gran % (Auto) 0.2 % 10/09/18 00:40 Neut % (Auto) 66.2 % 10/09/18 00:40 Lymph % (Auto) 18.3 % 10/09/18 00:40 [place] % (Auto) 12.3 % 10/09/18 00:40 Eos % (Auto) 2.9 % 10/09/18 00:40 Baso % (Auto) 0.1 % 10/09/18 00:40 Immature Gran # (Auto) 0.02 K/uL (0.00-0.02) 10/09/18 00:40 Neut # (Auto) 5.41 K/uL (1.4-6.5) 10/09/18 00:40 Lymph # (Auto) 1.50 K/uL (1.2-3.4) 10/09/18 00:40 [place] # (Auto) 1.01 K/uL (0.11-0.59) H 10/09/18 00:40 Eos # (Auto) 0.24 K/uL (0-0.5) 10/09/18 00:40 Baso # (Auto) 0.01 K/uL (0-0.2) 10/09/18 00:40 PT 11.4 Seconds (9.0-12.0) 10/09/18 00:40 INR 1.1 (0.9-1.1) 10/09/18 00:40 APTT 25.1 Seconds (21.0-31.0) 10/09/18 00:40 PTT Ratio 0.9 10/09/18 00:40 Sodium 142 mmol/L (136-145) 10/09/18 00:40 Potassium 3.8 mmol/L (3.5-5.1) 10/09/18 00:40 Chloride 109 mmol/L (98-107) H 10/09/18 00:40 Carbon Dioxide 26 mmol/L (21-32) 10/09/18 00:40 Anion Gap 7.0 (3-11) 10/09/18 00:40 BUN 19 mg/dl (7-18) H 10/09/18 00:40 Creatinine 1.14 mg/dl (0.6-1.4) 10/09/18 00:40 Est Cr Clr Drug Dosing Not Reportable 10/09/18 00:40 Est GFR ( Amer) 71.0 10/09/18 00:40 Est GFR (Non-Af Amer) 61.3 10/09/18 00:40 BUN/Creatinine Ratio 16.9 (10-20) 10/09/18 00:40 Glucose 111 mg/dl (70-99) H 10/09/18 00:40 Calcium 8.4 mg/dl (8.5-10.1) L 10/09/18 00:40 Magnesium 2.1 mg/dl (1.8-2.4) 10/09/18 00:40 Total Bilirubin 0.3 mg/dl (0.2-1) 10/09/18 00:40 AST 10 U/L (15-37) L 10/09/18 00:40 ALT 14 U/L (12-78) 10/09/18 00:40 Alkaline Phosphatase 64 U/L (45-117) 10/09/18 00:40 Troponin I < 0.015 ng/ml (0-0.045) 10/09/18 00:40 Total Protein 7.0 gm/dl (6.4-8.2) 10/09/18 00:40 Albumin 3.3 gm/dl (3.4-5.0) L 10/09/18 00:40 Globulin 3.7 gm/dl (2.5-4.0) 10/09/18 00:40 Albumin/Globulin Ratio 0.9 (0.9-2) 10/09/18 00:40 Urine Color Yellow 10/09/18 00:40 Urine Appearance Clear (Clear) 10/09/18 00:40 Urine pH 6.5 (4.5-7.5) 10/09/18 00:40 Ur Specific [place] 1.011 (1.000-1.030) 10/09/18 00:40 Urine Protein Negative (Negative) 10/09/18 00:40 Urine Glucose (UA) Negative (Negative) 10/09/18 00:40 Urine Ketones Negative (Negative) 10/09/18 00:40 Urine Blood 3+ (Negative) H 10/09/18 00:40 Urine Nitrite Negative (Negative) 10/09/18 00:40 Urine Bilirubin Negative (Negative) 10/09/18 00:40 Urine Urobilinogen Negative (Negative) 10/09/18 00:40 Ur Leukocyte Esterase Negative (Negative) 10/09/18 00:40 Urine WBC (Auto) 1-5 /hpf (0-5) 10/09/18 00:40 Urine RBC (Auto) >30 /hpf (0-4) H 10/09/18 00:40 U Hyaline Cast (Auto) 0 /lpf (0-5) 10/09/18 00:40 U Epithel Cells (Auto) 5-10 /lpf (0-5) H 10/09/18 00:40 Urine Bacteria (Auto) Negative (Negative) 10/09/18 00:40 Blood Type A Positive 10/09/18 00:40 Antibody Screen NEGATIVE 10/09/18 00:40 Code Status & VTE Plan Code Status Full Critical Care Time Total critical care time was 45 minutes Critical Care Time: Yes Total Critical Care Time: 45 Supervising Physician Co-Signing Physician Notes Attending addendum: I have physically seen this patient, have supervised the medical residents activities, and agree with the H&P unless as otherwise noted. Assessment and Plan: Acute stroke with left-sided weakness/TPA given in ED-- [place] [facility] [place] to intensive care unit with stroke with TPA protocol. Hold oral medications until passes dysphagia screen. IV fluids. Consult for PT/OT/speech/neurology per protocol. Follow-up MRI in the morning CAD/atrial fibrillation/hypertension-- Lopressor IV 5 mg IV every 4 hours as needed heart rate greater than 110. The patient will be ordered serial cardiac enzymes, serial EKG's, cardiac rhythm monitoring and a 2-D echocardiogram with Dopplers. Permissive hypertension Remainder of orders and notations as noted. Resident Activity Tracking Resident Involvement: Resident Care Provided Care Provided: Adult Hospital Medicine
[2018-10-09] MEDS ORDERED: PANTOprazole 40 MG TAB PO PRN (02:56)
[2018-10-09] MEDS ORDERED: MELOXICAM 7.5 MG TAB PO PRN (02:56)
--- NOTE | 2018-10-09 03:07 | Critical Care Consultation ---
Date of Consultation October 09, 2018 Assessment & Plan (1) CVA (cerebral vascular accident): Reason Critically Ill: 78-year-old male who presented with strokelike symptoms to the ED, was given TPA and symptoms have since improved. In ICU for post TPA administration/observation Neuro - [facility]: Negative CVAstatus post TPA administration at 0107 4/7, symptoms improving -CT head unremarkable, evidence of previous basal ganglia infarct -History of A. fib, patient not on anticoagulant, likely source -Initial NIHSS of 3, GCS 15 -Neurology consulted, will follow up recommendation -Speech, PT, OT -Follow-up lipid panel, hemoglobin A1c, echo -Start post 24-hour TPA orders tomorrow morning Cardiac - CAD/HLDstatus post CABG x3, stent x1 -Holding aspirin for now post TPA -Continue Crestor -A.m. lipid panel A. fibEKG pending, rate controlled on monitor -History of hematuria with anticoagulation, reportedly only took aspirin per primary MD management -Follow-up echo -Monitor on telemetry Respiratory - On room air, no issue at this time, monitor GI - Continue home omeprazole Advance diet as tolerated RENAL/LYTES - Monitor routine BMPs, maximize electrolytes and replete as necessary - BPHFoley inserted for strict I's and O's -Continue finasteride and Flomax ENDO - Previous admission TSH within normal limits Hemoglobin A1c pending ICU hyperglycemic protocol HEME - H&H stable, monitor routine CBCs ID - No indication for infectious process at this time LINES/IV ACCESS - Peripheral IV x2, Roman DVT PROPHYLAXIS - SCDs, holding anticoagulation for TPA CODE STATUS: Full code (2) A-fib: (3) CAD (coronary artery disease): (4) Dyslipidemia: (5) BPH (benign prostatic hyperplasia): History of Present Illness Attending Physician: Alvino Del Real MD History of Present Illness This is a 78-year-old male with past medical history significant for CAD (S/P CABG), A. fib, BPH who presents to the ED with left arm weakness. Initial NIH stroke scale of 3, GCS 15. Patient was euglycemic, CT head negative for hemorrhage. Patient within window and TPA administered at 0107 4/7 in the ED. Patient was admitted to ICU following TPA administration. The patient reports that he has a history of A. fib from which he previously took Eliquis and experienced hematuria, was switched to Coumadin which he again experienced hemat uria. He states that his primary physician decided to leave him on baby aspirin without anticoagulation. He is currently in rate controlled A. fib on monitor. On arrival to the ICU patient is alert and oriented and appropriate. He appears comfortable. He denies headache, dizziness, syncope, nausea vomiting, loss of sensation, confusion, changes in speech. He reports some left-sided tingling and numbness of the left upper extremity which is since resolved. He does report mild weakness in the left hand which she states has significantly improved from earlier. Patient is hemodynamically stable and breathing on room air. We will continue to monitor in ICU for now given TPA administration. Allergies Allergy/AdvReac Type Severity Reaction Status Date / Time clams AdvReac Severe GI SYMPTOMS Verified 10/09/18 01:37 Home Medications Home Medications Medication Instructions Recorded Confirmed Type aspirin 81 mg PO DAILY 10/09/18 10/09/18 History atenolol 25 mg PO DAILY 10/09/18 10/09/18 History finasteride 5 mg PO DAILY 10/09/18 10/09/18 History fluticasone propionate [Flonase 2 spray INTRANASAL DAILY 10/09/18 10/09/18 History Allergy Relief] furosemide 20 mg PO DAILY 10/09/18 10/09/18 History meloxicam 7.5 mg PO DAILY PRN 10/09/18 10/09/18 History omeprazole 20 mg PO BID PRN 10/09/18 10/09/18 History rosuvastatin [Crestor] 20 mg PO DAILY 10/09/18 10/09/18 History tamsulosin 0.4 mg PO DAILY 10/09/18 10/09/18 History Patient History Medical History A-fib CAD (coronary artery disease) Dyslipidemia BPH (benign prostatic hyperplasia) Surgical History Hx of CABG Family History Other Cancer Heart disease Hypertension Social History Preferred Language: Kyr[place] Communication Ability: Effective Perianesthesia Rn Required: No Beliefs That Will Affect Care: None marital status: Current Living Situation: Significant Other Current Living Situation Comment: Friend current occupational status: retired Other Information That Helps Us Care for You: No Feels Safe at Home: Yes Safety Concerns: Feels Safe At This Time Smoking Status: Never smoker Hx Alcohol Use: No Hx Substance Use: No Review of Systems 12 system ROS negative except for as noted in HPI. See above Physical Exam Vital Signs (Past 24 Hours): Last Vital Signs Temp 36.4 C L 10/09/18 01:13 Pulse 95 H 10/09/18 02:31 Resp 18 10/09/18 02:31 BP 122/88 10/09/18 02:31 Pulse Ox 91 10/09/18 02:31 Constitutional: WD/WN, vitals as above comfortable Eyes: PERRL, conjunctivae normal, anicteric sclerae EOM intact bilaterally ENMT: external ear and nose normal, oropharynx normal Respiratory: normal respiratory effort, lungs clear to auscultation Cardiovascular: Heart Sounds: normal S1 and normal S2 A. fib on monitor, bilateral pulses +2 uppers and lowers Gastrointestinal (Abdomen): normal bowel sounds, soft, nontender, no hepatosplenomegaly Musculoskeletal: no cyanosis or clubbing, extremities motor strength 5/5 Neurologic: PERRL, EOMI, accommodation nl, no face palsy, no dysarthria Cranial Nerves: sense of smell intact, PERRL, normal accommodation, EOM intact bilaterally, normal facial strength, tongue midline, normal gag reflex, normal hearing, able to rotate head bilaterally, able to elevate shoulders bilaterally, no nystagmus and symmetric palate elevation Mild weakness in left upper extremity Genitourinary: Indwelling Roman Results & Data Laboratory Results Laboratory Results - last 24 hr 10/09/18 10/09/18 10/09/18 00:40 00:40 00:40 WBC 8.19 RBC 4.77 Hgb 13.5 L Hct 42.0 MCV 88.1 MCH 28.3 MCHC 32.1 RDW Std Deviation 47.4 H RDW Coeff of Joslyn 14.8 H Plt Count 158 MPV 10.5 H Immature Gran % (Auto) 0.2 Neut % (Auto) 66.2 Lymph % (Auto) 18.3 [place] % (Auto) 12.3 Eos % (Auto) 2.9 Baso % (Auto) 0.1 Immature Gran # (Auto) 0.02 Neut # (Auto) 5.41 Lymph # (Auto) 1.50 [place] # (Auto) 1.01 H Eos # (Auto) 0.24 Baso # (Auto) 0.01 PT 11.4 INR 1.1 APTT 25.1 PTT Ratio 0.9 Sodium 142 Potassium 3.8 Chloride 109 H Carbon Dioxide 26 Anion Gap 7.0 BUN 19 H Creatinine 1.14 Est Cr Clr Drug Dosing Not Reportable Est GFR ( Amer) 71.0 Est GFR (Non-Af Amer) 61.3 BUN/Creatinine Ratio 16.9 Glucose 111 H Calcium 8.4 L Magnesium 2.1 Total Bilirubin 0.3 AST 10 L ALT 14 Alkaline Phosphatase 64 Troponin I < 0.015 Total Protein 7.0 Albumin 3.3 L Globulin 3.7 Albumin/Globulin Ratio 0.9 Urine Color Urine Appearance Urine pH Ur Specific [place] Urine Protein Urine Glucose (UA) Urine Ketones Urine Blood Urine Nitrite Urine Bilirubin Urine Urobilinogen Ur Leukocyte Esterase Urine WBC (Auto) Urine RBC (Auto) U Hyaline Cast (Auto) U Epithel Cells (Auto) Urine Bacteria (Auto) Blood Type Antibody Screen 10/09/18 10/09/18 00:40 00:40 WBC RBC Hgb Hct MCV MCH MCHC RDW Std Deviation RDW Coeff of Joslyn Plt Count MPV Immature Gran % (Auto) Neut % (Auto) Lymph % (Auto) [place] % (Auto) Eos % (Auto) Baso % (Auto) Immature Gran # (Auto) Neut # (Auto) Lymph # (Auto) [place] # (Auto) Eos # (Auto) Baso # (Auto) PT INR APTT PTT Ratio Sodium Potassium Chloride Carbon Dioxide Anion Gap BUN Creatinine Est Cr Clr Drug Dosing Est GFR ( Amer) Est GFR (Non-Af Amer) BUN/Creatinine Ratio Glucose Calcium Magnesium Total Bilirubin AST ALT Alkaline Phosphatase Troponin I Total Protein Albumin Globulin Albumin/Globulin Ratio Urine Color Yellow Urine Appearance Clear Urine pH 6.5 Ur Specific [place] 1.011 Urine Protein Negative Urine Glucose (UA) Negative Urine Ketones Negative Urine Blood 3+ H Urine Nitrite Negative Urine Bilirubin Negative Urine Urobilinogen Negative Ur Leukocyte Esterase Negative Urine WBC (Auto) 1-5 Urine RBC (Auto) >30 H U Hyaline Cast (Auto) 0 U Epithel Cells (Auto) 5-10 H Urine Bacteria (Auto) Negative Blood Type A Positive Antibody Screen NEGATIVE Medications Administered Home Medications aspirin 81 mg PO DAILY 10/09/18 [History Confirmed 10/09/18] atenolol 25 mg PO DAILY 10/09/18 [History Confirmed 10/09/18] finasteride 5 mg PO DAILY 10/09/18 [History Confirmed 10/09/18] fluticasone propionate [Flonase Allergy Relief] 2 spray INTRANASAL DAILY 10/09/18 [History Confirmed 10/09/18] furosemide 20 mg PO DAILY 10/09/18 [History Confirmed 10/09/18] meloxicam 7.5 mg PO DAILY PRN 10/09/18 [History Confirmed 10/09/18] omeprazole 20 mg PO BID PRN 10/09/18 [History Confirmed 10/09/18] rosuvastatin [Crestor] 20 mg PO DAILY 10/09/18 [History Confirmed 10/09/18] tamsulosin 0.4 mg PO DAILY 10/09/18 [History Confirmed 10/09/18] Active Medications Finasteride (Proscar) 5 mg PO DAILY [facility] Stop: 11/08/18 08:59 Meloxicam (Mobic) 7.5 mg PO DAILY PRN PRN Reason: Muscle Spasm Stop: 11/08/18 02:55 Miscellaneous Information (Pharmacist Discharge Med Rec Consult) 1 ea N/A DAILY PRN PRN Reason: Consult Stop: 11/08/18 03:20 Pantoprazole Sodium (Protonix) 40 mg PO BID PRN PRN Reason: Heartburn Rosuvastatin Calcium (Crestor) 20 mg PO DAILY [facility] Stop: 11/08/18 08:59
[2018-10-09] MEDS ORDERED: PHARMACIST DISCHARGE MED REC CONSULT PRN (03:21)
--- NOTE | 2018-10-09 05:54 | CT Scan Report ---
CT head/brain wo con CLINICAL HISTORY: 78 years-old Male presenting with Stroke symptoms. TECHNIQUE: Multidetector CT imaging of the head was performed without the use of intravenous contrast . IV contrast: None. One or more dose lowering techniques were used consistent with the principles of ALARA (as low as reasonably achievable), including automatic exposure control, mA or kV adjustment t o individual patient size, and/or use of iterative reconstruction. COMPARISON: 04/16/2017. CT DOSE (mGy.cm): The estimated cumulative dose is 691.05 mGy.cm. FINDINGS: Interpreter topogram: Unremarkable. Proportional ventricular and sulcal prominence, likely age-related parenchymal volume loss. No hemorr glo. Brain parenchyma normal in appearance with preserved smith-white differentiation. No acute margareth torial infarct. No mass effect or midline shift. No extra-axial fluid collection. Atherosclerosis of the right maxillary sinus wall indicates a history of chronic sinusitis. Calvarium intact. Absent yoanna shyam lenses. IMPRESSION: 1. No acute intracranial abnormality. Electronically signed by: Jarod Guajardo M.D. 10/09/2018 5:53 AM
[2018-10-09 05:57] LABS: INR 1.1 (0.9-1.1); Partial Thromboplastin Time 28.3 Seconds (21.0-31.0); Prothrombin Time 11.6 Seconds (9.0-12.0)
[2018-10-09 06:11] LABS: BUN Creatinine Ratio 17.4 (10-20); Creatinine Clr Calc Pharmacy 77.8 ml/min; Est GFR (African American) 84.2; Est GFR (Non-African American) 72.6
--- NOTE | 2018-10-09 06:40 | Emergency Department Note ---
Entered by Lesli Baer acting as a scribe for ED Provider Note Name: Anthony Adair Age: 78 Arrives Via: EMS Informant: Patient CC: Shortness of Breath HPI: The patient is a 78 year old male who presents to the Emergency Room with complaints of an episode of shortness of breath starting this evening. The patient states that 3 hours ago he noticed numbness and tingling in his left arm. 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 He reports that right after he made note of this, he realized that he was short of breath. He states that he called 911 as he was concerned and then took his inhaler, which helped his shortness of breath. He notes that his shortn ess of breath has since resolved. The patient notes that he is on Aspirin, but no other blood thinners. The patient denies a history of a stroke, recent falls, recent head injuries, hematuria, hematochezia, and headache. ROS: See above HPI for pertinent positives & negatives. A total of 10 systems reviewed and were otherwise negative. Past Medical History: A-Fib, CAD, Dyslipidemia, BPH Past Surgical History: CABG Family History: Heart Disease, HTN, Cancer Social History: The patient is and retired. He lives with a friend. Home Medications:F Aspirin, Proscar, Flonase Allergy Relief, Metoprolol Tartrate, Omeprazole, Oxycodone Ir, Crestor, Flomax Allergies Clams Physical: Vitals: Temperature: 36.4, Temperature Source: Oral, Pulse Rate: 86, Pulse Rhythm: Irregular, Blood Pressure: 147/95, Blood Pressure Mean: 112, O2 Saturation: 98% on Room Air Exam: GENERAL: Patient is anxious appearing and in no acute distress. EYES: No scleral icterus, unremarkable pupils. ENT: Mucous membranes moist, no nasal congestion. NECK: No masses appreciated, no meningismus, trachea is midline. RESPIRATORY: No dyspnea. Clear to auscultation and equal bilaterally. No wheeze, no rhonchi. CARDIOVASCULAR: Regular rate and irregular rhythm. No murmurs, rubs, gallops appreciated. GASTROINTESTINAL: Abdomen soft, non-tender, no peritonitis. Bowel sounds positive. No masses appreciated. BACK: No midline tenderness, no CVA tenderness EXTREMITIES: Normal motion all extremities, no cyanosis, no edema. NEUROLOGIC: Slight left facial droop. Weakness in the left hand with effort against gravity though unable to move fingers appropriately. Has some strength against gravity in the left leg. Mild decreased sensation of the left hand and leg. Alert and oriented. No slurred speech. No visual field deficits appreciated. SKIN: No rash, no jaundice, no diaphoresis. ED Course: Prior Medical Record, Triage/Nursing Notes, Medications, Allergies reviewed by Me Vital Signs: reviewed and remarkable for mild HTN Labs: Reviewed and remarkable for wnl Interventions: Saline Lock, TPA Imaging: [facility] Radiologist interpretation reviewed by me: CT HEAD wo Con: no acute findings, old lacunar infarct EKG: Per My Interpretation: Afib 96 bpm without ischemia. Consults: 0051: I discussed the patient's case with [facility]. They note that there is nothing besides an old lucunar infarct on CT. 0056: I discussed the patient's case with Dr. Joseph Di Neurology. She e valuated the patient via teleconference. She does not not believe that any intervention other than TPA is required at this time. She does agree to keep him here at this facility. She advises an MRI of the brain and feels that a CTA of the head would be unnecessary at this time. She recommends holding Aspirin for 24 hours. I discussed with her that there was a small amount of blood in the patient's Delcid and she recommends that it should just be monitored. 0116: [facility] He will evaluate the patient for further management. Reassessments/Times: 0033: The patient was evaluated in room B1, and a complete history and physical examination were performed. 0034: I initiated a stroke alert at this time. 0045: I reevaluated the patient and he states that he is supposed to be on Eliquis for A-Fib. He reports that the doctor stopped it, but is unsure exactly why. He notes that it was stopped a month or two ago. 0050: I reevaluated the patient and his symptoms have not changed. 0051: I discussed the patient's case with [facility]. They note that there is nothing besides an old lucunar infarct on CT. 0053: I reevaluated the patient and went over the risks and benefits of TPA. He agrees that if the neurologist agrees to have TPA. 0056: I discussed the patient's case with Dr. Jake Sevilla Neurology. She evaluated the patient via teleconference. She does not not believe that any intervention other than TPA is required at this time. She does agree to keep him here at this facility. She advises an MRI of the brain and feels that a CTA of the head would be unnecessary at this time. She recommends holding Aspirin for 24 hours. I discussed with her that there was a small amount of blood in the pa shauna's Delcid and she recommends that it should just be monitored. 0101: TPA is at bedside at this time. 0103: TPA was administered at this time. He notes that he takes Oxycodone Ir 10 mg every 6 hours for a bad back and wonders if he can get something for pain. 0116: I reviewed the patient's case with [place]. [place] [facility] [place]. He will evaluate the patient for further management. 0137: I reevaluated the patient and he feels well. He denies a headache and abdominal pain. His urine has since cleared. 0233: I reevaluated the patient and he is improving. He is now able to use his hand with only slight deficit. Blood pressure: Elevated - Further Management by Hospitalist Disposition: Hospitalization Differentials: Differential Diagnosis includes but is not limited to dehydration, stroke, anemia, hypoglycemia, hyponatremia, hypernatremia, urinary tract infection, pneumonia, bronchitis, sepsis, gastroenteritis, additional abdominal pathology, metabolic abnormalities and infections. Medical Decision Makin yr old male with acute onset left sided weakness at 9:30pm. Notes initial SHOB though that resolved with hfa at home. On arrival we were already at just over 3 hours from onset weakness. NIH ~6 on arrival. Taken emergently to CT for ct head. He was mildly hypertensive with afib on monitor. Notes previously on Eliquis though initially couldn't remember why it had been stopped. Neurologist paged. Reviewed pros/cons TPA with patient and he wishes to receive this understanding risks of severe hemorrhage. I will note I specifically asked if any urinary bleeding history which he denied at tiem of consent for TPA. Pharmacy contacted to start mixing TPA while awaiting Neuro. On Neuro approval to give TPA it was hung and patient received this at about 30 minutes after arrival. While TPA was being hung he did have delcid placed given needing to urinate. Patient had some mild hematuria in to delcid bag which over next hour resolved. I did review getting CTA with neurologist who feels that this would be unnecessary at this time and thus proceeding with admission, MRI and other stroke work-up indicated. TPA infused without issue and patient gradually improved weakness in left side. His BP was monitored closely and mild HTN allowed. He throughout denies headache, nor other new symptoms. Hospitalist consulted for further management and patient brought in to ICU. Impression: CVA (cerbral vascular accident) Left Sided Weakness A-fib Critical Care Time: I have personally spent greater than 45 minutes of critical care time in the direct management of this patient. Acute ischemia stroke for which TPA given. This was a life/limb threatening event. This includes time spent evaluating patient, direct bedside care, chart review, placing orders, interpretation of diagnostic studies, discussion with consultants, patient, and family members, as well as other required patient management activities. This 45 minutes is in excess of all separately billable procedures. Denys Cooper MD The scribe's documentation has been prepared under my direction and personally reviewed by me in its entirety. I confirm that the note above accurately reflects all work, treatment, procedures, and medical decision making performed by me. 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 Beliefs That Will Affect Care: None marital status: Current Living Situation: Significant Other Current Living Situation Comment: Friend current occupational status: retired Other Information That Helps Us Care for You: No Feels Safe at Home: Yes Safety Concerns: Feels Safe At This Time Smoking Status: Never smoker Hx Alcohol Use: No Hx Substance Use: No Results & Data Vital Signs Vital Signs - 24 hr 10/09/18 00:35 10/09/18 00:47 10/09/18 00:49 Temperature 36.4 C L Temperature Source Oral Sepsis Recent Fever Within 48 Hours No Sepsis Action Taken by Nursing No Action Required Pulse Rate 86 87 111 H Pulse Rate [Left Apical] Pulse Rate from SpO2 Sensor 90 98 H Pulse Rhythm Irregular Pulse Rhythm [Left Apical] Pulse Strength Normal Pulse Strength [Left Apical] Respiratory Rate 23 24 Respiratory Effort / Characteristics Respiratory Depth Respiratory Pattern Blood Pressure 147/95 H 141/92 H Blood Pressure [Right Arm] Blood Pressure Mean 112 108 Blood Pressure Mean [Right Arm] Blood Pressure Position [Right Arm] Pulse Oximetry 98 98 98 Oxygen Delivery Method Room Air 10/09/18 00:50 10/09/18 00:51 10/09/18 00:56 Temperature Temperature Source Sepsis Recent Fever Within 48 Hours Sepsis Action Taken by Nursing Pulse Rate 98 H 94 H 93 H Pulse Rate [Left Apical] Pulse Rate from SpO2 Sensor 102 H 93 H 93 H Pulse Rhythm Pulse Rhythm [Left Apical] Pulse Strength Pulse Strength [Left Apical] Respiratory Rate 19 19 20 Respiratory Effort / Characteristics Respiratory Depth Respiratory Pattern Blood Pressure 156/85 H 161/103 H Blood Pressure [Right Arm] Blood Pressure Mean 108 122 Blood Pressure Mean [Right Arm] Blood Pressure Position [Right Arm] Pulse Oximetry 98 98 97 Oxygen Delivery Method 10/09/18 01:00 10/09/18 01:01 10/09/18 01:06 Temperature Temperature Source Sepsis Recent Fever Within 48 Hours Sepsis Action Taken by Nursing Pulse Rate 102 H 93 H 98 H Pulse Rate [Left Apical] Pulse Rate from SpO2 Sensor 96 H 101 H 97 H Pulse Rhythm Pulse Rhythm [Left Apical] Pulse Strength Pulse Strength [Left Apical] Respiratory Rate 24 21 27 H Respiratory Effort / Characteristics Respiratory Depth Respiratory Pattern Blood Pressure 147/95 H 138/96 Blood Pressure [Right Arm] Blood Pressure Mean 112 110 Blood Pressure Mean [Right Arm] Blood Pressure Position [Right Arm] Pulse Oximetry 98 98 97 Oxygen Delivery Method 10/09/18 01:10 10/09/18 01:11 10/09/18 01:13 Temperature 36.4 C L Temperature Source Oral Sepsis Recent Fever Within 48 Hours Sepsis Action Taken by Nursing Pulse Rate 88 89 Pulse Rate [Left Apical] 95 H Pulse Rate from SpO2 Sensor 84 91 H Pulse Rhythm Pulse Rhythm [Left Apical] Regular Pulse Strength Pulse Strength [Left Apical] Normal Respiratory Rate 25 H 21 18 Respiratory Effort / Characteristics Non-Labored Respiratory Depth Normal Respiratory Pattern Blood Pressure 160/98 H Blood Pressure [Right Arm] 160/98 H Blood Pressure Mean 118 Blood Pressure Mean [Right Arm] 118 Blood Pressure Position [Right Arm] Pulse Oximetry 98 98 97 Oxygen Delivery Method Room Air 10/09/18 01:16 10/09/18 01:20 10/09/18 01:21 Temperature Temperature Source Sepsis Recent Fever Within 48 Hours Sepsis Action Taken by Nursing Pulse Rate 96 H 100 H 102 H Pulse Rate [Left Apical] Pulse Rate from SpO2 Sensor 90 99 H 100 H Pulse Rhythm Pulse Rhythm [Left Apical] Pulse Strength Pulse Strength [Left Apical] Respiratory Rate 28 H 25 H 28 H Respiratory Effort / Characteristics Respiratory Depth Respiratory Pattern Blood Pressure 148/82 H 131/94 Blood Pressure [Right Arm] Blood Pressure Mean 104 106 Blood Pressure Mean [Right Arm] Blood Pressure Position [Right Arm] Pulse Oximetry 97 95 94 Oxygen Delivery Method 10/09/18 01:27 10/09/18 01:30 10/09/18 01:31 Temperature Temperature Source Sepsis Recent Fever Within 48 Hours Sepsis Action Taken by Nursing Pulse Rate 94 H 93 H 98 H Pulse Rate [Left Apical] Pulse Rate from SpO2 Sensor 95 H 96 H 93 H Pulse Rhythm Pulse Rhythm [Left Apical] Pulse Strength Pulse Strength [Left Apical] Respiratory Rate 22 20 19 Respiratory Effort / Characteristics Respiratory Depth Respiratory Pattern Blood Pressure 142/94 H 152/89 H Blood Pressure [Right Arm] Blood Pressure Mean 110 110 Blood Pressure Mean [Right Arm] Blood Pressure Position [Right Arm] Pulse Oximetry 95 95 93 Oxygen Delivery Method 10/09/18 01:32 10/09/18 01:36 10/09/18 01:40 Temperature Temperature Source Sepsis Recent Fever Within 48 Hours Sepsis Action Taken by Nursing Pulse Rate 103 H 94 H 102 H Pulse Rate [Left Apical] 95 H Pulse Rate from SpO2 Sensor 110 H 95 H 100 H Pulse Rhythm Pulse Rhythm [Left Apical] Pulse Strength Pulse Strength [Left Apical] Respiratory Rate 23 24 19 Respiratory Effort / Characteristics Non-Labored Respiratory Depth Normal Respiratory Pattern Regular Blood Pressure 147/99 H Blood Pressure [Right Arm] 147/99 H Blood Pressure Mean 115 Blood Pressure Mean [Right Arm] 115 Blood Pressure Position [Right Arm] Lying Pulse Oximetry 94 94 94 Oxygen Delivery Method Room Air 10/09/18 01:41 10/09/18 01:46 10/09/18 01:50 Temperature Temperature Source Sepsis Recent Fever Within 48 Hours Sepsis Action Taken by Nursing Pulse Rate 106 H 91 H Pulse Rate [Left Apical] Pulse Rate from SpO2 Sensor 108 H 94 H 90 Pulse Rhythm Pulse Rhythm [Left Apical] Pulse Strength Pulse Strength [Left Apical] Respiratory Rate 22 17 23 Respiratory Effort / Characteristics Respiratory Depth Respiratory Pattern Blood Pressure 149/93 H 142/92 H Blood Pressure [Right Arm] Blood Pressure Mean 111 108 Blood Pressure Mean [Right Arm] Blood Pressure Position [Right Arm] Pulse Oximetry 95 94 92 Oxygen Delivery Method 10/09/18 01:51 10/09/18 01:52 10/09/18 01:56 Temperature Temperature Source Sepsis Recent Fever Within 48 Hours Sepsis Action Taken by Nursing Pulse Rate 101 H 95 H Pulse Rate [Left Apical] 99 H Pulse Rate from SpO2 Sensor 94 H 99 H Pulse Rhythm Pulse Rhythm [Left Apical] Pulse Strength Pulse Strength [Left Apical] Respiratory Rate 31 H 20 25 H Respiratory Effort / Characteristics Non-Labored Respiratory Depth Normal Respiratory Pattern Regular Blood Pressure 138/96 163/107 H Blood Pressure [Right Arm] 138/96 Blood Pressure Mean 110 125 Blood Pressure Mean [Right Arm] 110 Blood Pressure Position [Right Arm] Lying Pulse Oximetry 94 95 97 Oxygen Delivery Method Room Air 10/09/18 02:00 10/09/18 02:02 10/09/18 02:06 Temperature Temperature Source Sepsis Recent Fever Within 48 Hours Sepsis Action Taken by Nursing Pulse Rate 98 H 110 H 100 H Pulse Rate [Left Apical] 98 H Pulse Rate from SpO2 Sensor 100 H 108 H 109 H Pulse Rhythm Pulse Rhythm [Left Apical] Pulse Strength Pulse Strength [Left Apical] Respiratory Rate 24 21 21 Respiratory Effort / Characteristics Non-Labored Respiratory Depth Normal Respiratory Pattern Regular Blood Pressure 142/96 H 150/114 H Blood Pressure [Right Arm] 142/96 H Blood Pressure Mean 111 126 Blood Pressure Mean [Right Arm] 111 Blood Pressure Position [Right Arm] Lying Pulse Oximetry 94 93 95 Oxygen Delivery Method Room Air 10/09/18 02:10 10/09/18 02:11 10/09/18 02:12 Temperature Temperature Source Sepsis Recent Fever Within 48 Hours Sepsis Action Taken by Nursing Pulse Rate 91 H 98 H 105 H Pulse Rate [Left Apical] Pulse Rate from SpO2 Sensor 98 H 97 H 95 H Pulse Rhythm Pulse Rhythm [Left Apical] Pulse Strength Pulse Strength [Left Apical] Respiratory Rate 24 29 H 16 Respiratory Effort / Characteristics Respiratory Depth Respiratory Pattern Blood Pressure 152/96 H Blood Pressure [Right Arm] Blood Pressure Mean 114 Blood Pressure Mean [Right Arm] Blood Pressure Position [Right Arm] Pulse Oximetry 92 97 96 Oxygen Delivery Method 10/09/18 02:15 10/09/18 02:16 10/09/18 02:30 Temperature Temperature Source Sepsis Recent Fever Within 48 Hours Sepsis Action Taken by Nursing Pulse Rate 92 H 95 H 94 H Pulse Rate [Left Apical] 94 H 90 Pulse Rate from SpO2 Sensor 99 H 89 91 H Pulse Rhythm Pulse Rhythm [Left Apical] Pulse Strength Pulse Strength [Left Apical] Respiratory Rate 16 15 19 Respiratory Effort / Characteristics Non-Labored Non-Labored Respiratory Depth Normal Normal Respiratory Pattern Regular Regular Blood Pressure 146/95 H Blood Pressure [Right Arm] 146/95 H 122/88 Blood Pressure Mean 112 Blood Pressure Mean [Right Arm] 112 99 Blood Pressure Position [Right Arm] Lying Lying Pulse Oximetry 94 94 91 Oxygen Delivery Method Room Air Room Air 10/09/18 02:31 10/09/18 02:45 10/09/18 03:00 Temperature 36.6 C 36.6 C Temperature Source Oral Oral Sepsis Recent Fever Within 48 Hours Sepsis Action Taken by Nursing Pulse Rate 95 H Pulse Rate [Left Apical] 93 H 96 H Pulse Rate from SpO2 Sensor 99 H Pulse Rhythm Pulse Rhythm [Left Apical] Irregular Irregular Pulse Strength Pulse Strength [Left Apical] Normal Respiratory Rate 18 17 17 Respiratory Effort / Characteristics Non-Labored Spontaneous Non-Labored Spontaneous Respiratory Depth Normal Normal Respiratory Pattern Regular Regular Blood Pressure 122/88 Blood Pressure [Right Arm] 135/83 133/67 Blood Pressure Mean 99 Blood Pressure Mean [Right Arm] 100 89 Blood Pressure Position [Right Arm] Pulse Oximetry 91 96 97 Oxygen Delivery Method Room Air Room Air 10/09/18 03:15 10/09/18 03:30 10/09/18 03:45 Temperature Temperature Source Sepsis Recent Fever Within 48 Hours Sepsis Action Taken by Nursing Pulse Rate 101 H 86 90 Pulse Rate [Left Apical] Pulse Rate from SpO2 Sensor 102 H 90 89 Pulse Rhythm Pulse Rhythm [Left Apical] Pulse Strength Pulse Strength [Left Apical] Respiratory Rate 20 16 14 Respiratory Effort / Characteristics Respiratory Depth Respiratory Pattern Blood Pressure 135/83 133/67 128/83 Blood Pressure [Right Arm] Blood Pressure Mean 100 89 98 Blood Pressure Mean [Right Arm] Blood Pressure Position [Right Arm] Pulse Oximetry 96 97 94 Oxygen Delivery Method Room Air Room Air 10/09/18 04:00 10/09/18 04:01 10/09/18 04:14 Temperature 36.6 C Temperature Source Sepsis Recent Fever Within 48 Hours Sepsis Action Taken by Nursing Pulse Rate 90 84 94 H Pulse Rate [Left Apical] Pulse Rate from SpO2 Sensor 92 H 101 H 91 H Pulse Rhythm Pulse Rhythm [Left Apical] Pulse Strength Pulse Strength [Left Apical] Respiratory Rate 12 22 22 Respiratory Effort / Characteristics Respiratory Depth Respiratory Pattern Blood Pressure 115/77 126/70 126/70 Blood Pressure [Right Arm] Blood Pressure Mean 89 88 88 Blood Pressure Mean [Right Arm] Blood Pressure Position [Right Arm] Pulse Oximetry 93 95 94 Oxygen Delivery Method 10/09/18 04:15 10/09/18 04:30 10/09/18 04:31 Temperature Temperature Source Sepsis Recent Fever Within 48 Hours Sepsis Action Taken by Nursing Pulse Rate 91 H 87 85 Pulse Rate [Left Apical] Pulse Rate from SpO2 Sensor 93 H 91 H 88 Pulse Rhythm Pulse Rhythm [Left Apical] Pulse Strength Pulse Strength [Left Apical] Respiratory Rate 17 22 14 Respiratory Effort / Characteristics Respiratory Depth Respiratory Pattern Blood Pressure 128/83 121/69 Blood Pressure [Right Arm] Blood Pressure Mean 98 86 Blood Pressure Mean [Right Arm] Blood Pressure Position [Right Arm] Pulse Oximetry 94 93 95 Oxygen Delivery Method 10/09/18 04:45 10/09/18 04:46 10/09/18 05:01 Temperature Temperature Source Sepsis Recent Fever Within 48 Hours Sepsis Action Taken by Nursing Pulse Rate 88 90 86 Pulse Rate [Left Apical] Pulse Rate from SpO2 Sensor 86 86 85 Pulse Rhythm Pulse Rhythm [Left Apical] Pulse Strength Pulse Strength [Left Apical] Respiratory Rate 12 18 17 Respiratory Effort / Characteristics Respiratory Depth Respiratory Pattern Blood Pressure 126/79 115/74 Blood Pressure [Right Arm] Blood Pressure Mean 94 87 Blood Pressure Mean [Right Arm] Blood Pressure Position [Right Arm] Pulse Oximetry 93 94 94 Oxygen Delivery Method 10/09/18 05:15 10/09/18 05:23 10/09/18 05:26 Temperature Temperature Source Sepsis Recent Fever Within 48 Hours Sepsis Action Taken by Nursing Pulse Rate 84 82 94 H Pulse Rate [Left Apical] Pulse Rate from SpO2 Sensor 84 88 91 H Pulse Rhythm Pulse Rhythm [Left Apical] Pulse Strength Pulse Strength [Left Apical] Respiratory Rate 13 14 23 Respiratory Effort / Characteristics Respiratory Depth Respiratory Pattern Blood Pressure 130/86 115/76 Blood Pressure [Right Arm] Blood Pressure Mean 100 89 Blood Pressure Mean [Right Arm] Blood Pressure Position [Right Arm] Pulse Oximetry 92 95 95 Oxygen Delivery Method 10/09/18 05:30 10/09/18 06:00 Temperature Temperature Source Sepsis Recent Fever Within 48 Hours Sepsis Action Taken by Nursing Pulse Rate 84 71 Pulse Rate [Left Apical] Pulse Rate from SpO2 Sensor 88 73 Pulse Rhythm Pulse Rhythm [Left Apical] Pulse Strength Pulse Strength [Left Apical] Respiratory Rate 23 12 Respiratory Effort / Characteristics Respiratory Depth Respiratory Pattern Blood Pressure 118/71 110/62 Blood Pressure [Right Arm] Blood Pressure Mean 86 78 Blood Pressure Mean [Right Arm] Blood Pressure Position [Right Arm] Pulse Oximetry 94 94 Oxygen Delivery Method Home Medications Current Medication List: was personally reviewed by me Laboratory Data Attestation: I reviewed the patient's lab results. Result diagrams: 10/09/18 00:40 10/09/18 05:22 Lab Results 10/09/18 10/09/18 10/09/18 Range/Units 00:40 00:40 00:40 WBC 8.19 (4.8-10.8) K/uL RBC 4.77 (4.7-6.1) M/uL Hgb 13.5 L (14.0-18.0) g/dL Hct 42.0 (42-52) % MCV 88.1 (80-100) fL MCH 28.3 (25-34) pg MCHC 32.1 (32-36) g/dL RDW Std Deviation 47.4 H (36.4-46.3) fL RDW Coeff of Joslyn 14.8 H (11.5-14.5) % Plt Count 158 (130-400) K/uL MPV 10.5 H (7.4-10.4) fL Immature Gran % (Auto) 0.2 % Neut % (Auto) 66.2 % Lymph % (Auto) 18.3 % [place] % (Auto) 12.3 % Eos % (Auto) 2.9 % Baso % (Auto) 0.1 % Immature Gran # (Auto) 0.02 (0.00-0.02) K/uL Neut # (Auto) 5.41 (1.4-6.5) K/uL Lymph # (Auto) 1.50 (1.2-3.4) K/uL [place]uming # (Auto) 1.01 H (0.11-0.59) K/uL Eos # (Auto) 0.24 (0-0.5) K/uL Baso # (Auto) 0.01 (0-0.2) K/uL PT 11.4 (9.0-12.0) Seconds INR 1.1 (0.9-1.1) APTT 25.1 (21.0-31.0) Seconds PTT Ratio 0.9 Sodium 142 (136-145) mmol/L Potassium 3.8 (3.5-5.1) mmol/L Chloride 109 H (98-107) mmol/L Carbon Dioxide 26 (21-32) mmol/L Anion Gap 7.0 (3-11) BUN 19 H (7-18) mg/dl Creatinine 1.14 (0.6-1.4) mg/dl Est Cr Clr Drug Dosing Not Reportable Est GFR ( Amer) 71.0 Est GFR (Non-Af Amer) 61.3 BUN/Creatinine Ratio 16.9 (10-20) Glucose 111 H (70-99) mg/dl Calcium 8.4 L (8.5-10.1) mg/dl Magnesium 2.1 (1.8-2.4) mg/dl Total Bilirubin 0.3 (0.2-1) mg/dl AST 10 L (15-37) U/L ALT 14 (12-78) U/L Alkaline Phosphatase 64 (45-117) U/L Troponin I < 0.015 (0-0.045) ng/ml Total Protein 7.0 (6.4-8.2) gm/dl Albumin 3.3 L (3.4-5.0) gm/dl Globulin 3.7 (2.5-4.0) gm/dl Albumin/Globulin Ratio 0.9 (0.9-2) Triglycerides Cholesterol LDL Cholesterol, Calc VLDL Cholesterol, Calc HDL Cholesterol Cholesterol/HDL Ratio Urine Color Urine Appearance (Clear) Urine pH (4.5-7.5) Ur Specific [place] (1.000-1.030) Urine Protein (Negative) Urine Glucose (UA) (Negative) Urine Ketones (Negative) Urine Blood (Negative) Urine Nitrite (Negative) Urine Bilirubin (Negative) Urine Urobilinogen (Negative) Ur Leukocyte Esterase (Negative) Urine WBC (Auto) (0-5) /hpf Urine RBC (Auto) (0-4) /hpf U Hyaline Cast (Auto) (0-5) /lpf U Epithel Cells (Auto) (0-5) /lpf Urine Bacteria (Auto) (Negative) Blood Type Antibody Screen 10/09/18 10/09/18 10/09/18 Range/Units 00:40 00:40 04:49 WBC (4.8-10.8) K/uL RBC (4.7-6.1) M/uL Hgb (14.0-18.0) g/dL Hct (42-52) % MCV (80-100) fL MCH (25-34) pg MCHC (32-36) g/dL RDW Std Deviation (36.4-46.3) fL RDW Coeff of Joslyn (11.5-14.5) % Plt Count (130-400) K/uL MPV (7.4-10.4) fL Immature Gran % (Auto) % Neut % (Auto) % Lymph % (Auto) % Cuming % (Auto) % Eos % (Auto) % Baso % (Auto) % Immature Gran # (Auto) (0.00-0.02) K/uL Neut # (Auto) (1.4-6.5) K/uL Lymph # (Auto) (1.2-3.4) K/uL Cuming # (Auto) (0.11-0.59) K/uL Eos # (Auto) (0-0.5) K/uL Baso # (Auto) (0-0.2) K/uL PT Cancelled (9.0-12.0) Seconds INR Cancelled (0.9-1.1) APTT Cancelled (21.0-31.0) Seconds PTT Ratio Cancelled Sodium (136-145) mmol/L Potassium (3.5-5.1) mmol/L Chloride (98-107) mmol/L Carbon Dioxide (21-32) mmol/L Anion Gap (3-11) BUN (7-18) mg/dl Creatinine (0.6-1.4) mg/dl Est Cr Clr Drug Dosing Est GFR ( Amer) Est GFR (Non-Af Amer) BUN/Creatinine Ratio (10-20) Glucose (70-99) mg/dl Calcium (8.5-10.1) mg/dl Magnesium (1.8-2.4) mg/dl Total Bilirubin (0.2-1) mg/dl AST (15-37) U/L ALT (12-78) U/L Alkaline Phosphatase (45-117) U/L Troponin I (0-0.045) ng/ml Total Protein (6.4-8.2) gm/dl Albumin (3.4-5.0) gm/dl Globulin (2.5-4.0) gm/dl Albumin/Globulin Ratio (0.9-2) Triglycerides Cholesterol LDL Cholesterol, Calc VLDL Cholesterol, Calc HDL Cholesterol Cholesterol/HDL Ratio Urine Color Yellow Urine Appearance Clear (Clear) Urine pH 6.5 (4.5-7.5) Ur Specific [place] 1.011 (1.000-1.030) Urine Protein Negative (Negative) Urine Glucose (UA) Negative (Negative) Urine Ketones Negative (Negative) Urine Blood 3+ H (Negative) Urine Nitrite Negative (Negative) Urine Bilirubin Negative (Negative) Urine Urobilinogen Negative (Negative) Ur Leukocyte Esterase Negative (Negative) Urine WBC (Auto) 1-5 (0-5) /hpf Urine RBC (Auto) >30 H (0-4) /hpf U Hyaline Cast (Auto) 0 (0-5) /lpf U Epithel Cells (Auto) 5-10 H (0-5) /lpf Urine Bacteria (Auto) Negative (Negative) Blood Type A Positive Antibody Screen NEGATIVE 10/09/18 10/09/18 10/09/18 Range/Units 04:49 05:22 05:31 WBC (4.8-10.8) K/uL RBC (4.7-6.1) M/uL Hgb (14.0-18.0) g/dL Hct (42-52) % MCV (80-100) fL MCH (25-34) pg MCHC (32-36) g/dL RDW Std Deviation (36.4-46.3) fL RDW Coeff of Joslyn (11.5-14.5) % Plt Count (130-400) K/uL MPV (7.4-10.4) fL Immature Gran % (Auto) % Neut % (Auto) % Lymph % (Auto) % Cuming % (Auto) % Eos % (Auto) % Baso % (Auto) % Immature Gran # (Auto) (0.00-0.02) K/uL Neut # (Auto) (1.4-6.5) K/uL Lymph # (Auto) (1.2-3.4) K/uL Cuming # (Auto) (0.11-0.59) K/uL Eos # (Auto) (0-0.5) K/uL Baso # (Auto) (0-0.2) K/uL PT 11.6 (9.0-12.0) Seconds INR 1.1 (0.9-1.1) APTT 28.3 (21.0-31.0) Seconds PTT Ratio 1.0 Sodium Cancelled 141 (136-145) mmol/L Potassium Cancelled 4.0 (3.5-5.1) mmol/L Chloride Cancelled 110 H (98-107) mmol/L Carbon Dioxide Cancelled 26 (21-32) mmol/L Anion Gap Cancelled 5.0 (3-11) BUN Cancelled 17 (7-18) mg/dl Creatinine Cancelled 0.99 (0.6-1.4) mg/dl Est Cr Clr Drug Dosing Cancelled 77.8 Est GFR ( Amer) Cancelled 84.2 Est GFR (Non-Af Amer) Cancelled 72.6 BUN/Creatinine Ratio Cancelled 17.4 (10-20) Glucose Cancelled 115 H (70-99) mg/dl Calcium Cancelled 8.0 L (8.5-10.1) mg/dl Magnesium (1.8-2.4) mg/dl Total Bilirubin (0.2-1) mg/dl AST (15-37) U/L ALT (12-78) U/L Alkaline Phosphatase (45-117) U/L Troponin I (0-0.045) ng/ml Total Protein (6.4-8.2) gm/dl Albumin (3.4-5.0) gm/dl Globulin (2.5-4.0) gm/dl Albumin/Globulin Ratio (0.9-2) Triglycerides Cancelled 87 Cholesterol Cancelled 86 LDL Cholesterol, Calc Cancelled 37 VLDL Cholesterol, Calc Cancelled 17 HDL Cholesterol Cancelled 32 Cholesterol/HDL Ratio Cancelled 3 Urine Color Urine Appearance (Clear) Urine pH (4.5-7.5) Ur Specific [place] (1.000-1.030) Urine Protein (Negative) Urine Glucose (UA) (Negative) Urine Ketones (Negative) Urine Blood (Negative) Urine Nitrite (Negative) Urine Bilirubin (Negative) Urine Urobilinogen (Negative) Ur Leukocyte Esterase (Negative) Urine WBC (Auto) (0-5) /hpf Urine RBC (Auto) (0-4) /hpf U Hyaline Cast (Auto) (0-5) /lpf U Epithel Cells (Auto) (0-5) /lpf Urine Bacteria (Auto) (Negative) Blood Type Antibody Screen Administered Medications Discontinued Medications Alteplase, Recombinant 81 mg/ (EMPTY BAG) 81 mls @ 0 mls/hr IV TODAY@0100 [facility]; Protocol Stop: 10/09/18 01:01 Last Infusion: 10/09/18 02:05 Dose: 0 mls/hr Documented by: [id number] Cosigned by: [id number] Admin: 10/09/18 01:05 Dose: 81 mls/hr Documented by: [id number] Cosigned by: [id number] Alteplase, Recombinant (Activase) 9 mls @ 0 mls/min IV TODAY@0100 [facility] Stop: 10/09/18 01:01 Last Admin: 10/09/18 01:07 Dose: 81 mls/min Documented by: [id number] Cosigned by: [id number] N/A (Primary [place], Pe Lined Tubing ([id number])) mls @ 0 mls/hr IV ONE ONE Stop: 10/09/18 01:01 Last Admin: 10/09/18 01:05 Dose: 81 mls/hr Documented by: [id number] Morphine Sulfate (Morphine Sulfate) 6 mg IV NOW STA Stop: 10/09/18 01:11 Last Admin: 10/09/18 01:15 Dose: 6 mg Documented by: [id number] Ondansetron HCl (Zofran) 4 mg IV NOW STA Stop: 10/09/18 01:11 Last Admin: 10/09/18 01:15 Dose: 4 mg Documented by: [id number] Blood Pressure Blood Pressure Findings: Elevated blood pressure Blood Pressure Disposition: further management by hospitalist Discharge Plan Visit Data *Final* Discharge Date/Time: 10/09/18 02:37 Chief Complaint: Stroke/CVA Symptoms Other Complaint: Neuro Symptoms/Deficit ED Provider: Denys Cooper Discharge Problem: CVA (cerebral vascular accident), Left-sided weakness, A-fib Patient Disposition: Admitted As Inpatient Discharge Instructions Interventions: ED Discharge Assessment Last Done: 10/09/18 02:37 The scribe's documentation has been prepared under my direction and personally reviewed by me in its entirety. I confirm that the note above accurately reflects all work, treatment, procedures, and medical decision making performed by me.
--- NOTE | 2018-10-09 07:12 | Ultrasound Report ---
US carotid doppler BI CLINICAL HISTORY: 78 years-old Male presenting with Stroke. TECHNIQUE: Real-time grayscale and color and spectral Doppler ultrasound imaging of the bilateral car otid arteries was performed. Stenosis measurements were based on NASCET-like criteria (distal lumen d iameter as the denominator for stenosis measurement). COMPARISON: 04/17/2017. FINDINGS: RIGHT: Common carotid artery (CCA): Prominent noncalcified atherosclerosis at the carotid bulb. Peak systoli c velocity (PSV) 74 cm/s. Internal carotid artery (ICA): Atherosclerosis of the proximal ICA. PSV 143 cm/s. End diastolic veloc ity (EDV) 49 cm/s. ICA/CCA (systolic) ratio: 1.9. External carotid artery (ECA): Atherosclerosis. PSV 103 cm/s. LEFT: CCA: Patent. PSV 92 cm/s. ICA: Atherosclerosis of the proximal ICA. PSV 84 cm/s. EDV 27 cm/s. ICA/CCA (systolic) ratio: 0.9. ECA: Patent. PSV 97 cm/s. Bilateral antegrade flow within the vertebral arteries. Blood pressure: Not performed Brachial: Right: mmHg, Left: mmHg. Reference ranges: Stenosis measurements are compared to reference velocity parameters by the Society of Radiologists in Ultrasound (SRU) consensus and Sonographic NASCET index (S-NASCET). * SRU Primary parameters: ICA PSV <125 cm/s = normal or less than 50% stenosis; ICA PSV 125-230 cm/s = 50-69% stenosis; ICA PSV >230 cm/s = greater than or equal to 70% stenosis. * SRU Additional parameters: ICA/CCA PSV ratio <2 = normal or less than 50% stenosis; ratio 2-4 = 5 0-69% stenosis; ratio >4 = greater than or equal to 70% stenosis. ICA EDV <40 cm/s = normal or less t gardner 50% stenosis; ICA EDV 40-100 cm/s = 50-69% stenosis; ICA EDV >100 cm/s = greater than or equal to 70% stenosis. * S-NASCET parameters: Deceleration spectral broadening + PSV <125 cm/s = less than 50% stenosis; pa nsystolic spectral broadening + PSV <125 cm/s = 16-49% stenosis; pansystolic spectral broadening + PS V >125 cm/s + EDV <110 cm/s or ICA/CCA PSV ratio 2-4 = 50-69% stenosis; pansystolic spectral broadeni ng + PSV >270 cm/s OR EDV >110 cm/s OR ICA/CCA PSV ratio >4 = 70-79% stenosis; EDV >140 cm/s = 80-99% stenosis. IMPRESSION: 1. 50-60% stenosis of the proximal right internal carotid artery at the carotid bifurcation. Electronically signed by: Jarod Guajardo M.D. 10/09/2018 7:10 AM
[2018-10-09] MEDS ORDERED: MIDAZOLAM HCL 1 MG/ML 2ML VIAL IV PRN (09:28)
--- NOTE | 2018-10-09 09:37 | Neurology Consultation ---
Date of Consultation October 09, 2018 Assessment & Plan (1) CVA (cerebral vascular accident): Patient had acute onset left-sided numbness (mostly arm) and weakness the evening of October 08. This morning, patient is markedly improved without any sensory deficit but some very mild arm greater than leg weakness. NIH stroke scale this morning is 1. Etiology of this is likely an acute ischemic right hemispheric stroke. Patient does have atrial fibrillation but the history of symptom onset is not consistent with embolus. CT did show previous old small vessel disease and the patient has a longstanding history of hypertension which puts him at risk for ischemic stroke. In addition there is some right carotid stenosis. (2) A-fib: Patient has chronic atrial fibrillation. He has tried and failed warfarin (side effects) and Eliquis (significant hematuria). His rate is controlled and there is no indication that he is going in or out of atrial fibrillation. (3) Carotid stenosis: Right proximal internal carotid artery stenosis of 50-60 percent. Recommendations: 1. MRI of the brain without contrast to assess location and size of stroke. He has claustrophobia so sedation will be required. I have spoken to Dr. Chew regarding this. 2. CT angiography of the head neck. This could be done later today when the CT scan of the head is required for post tPA. 3. Consider switching 81 milligram aspirin tablet to clopidogrel 75 milligrams daily. This should help prevent small vessel ischemic disease better. 4. Echocardiogram, if not already ordered. 5. Control blood pressure as you are doing shooting for a mean arterial pressure of 95-100. 6. The patient's lipid parameters are well controlled on the current dose of rosuvastatin. He is not a high-dose statin candidate with these parameters. 7. Increase activity when able, including PT OT and speech therapy. 8. Consider anticoagulant for atrial fibrillation but I will leave this to the hospitalist/interactive producer. Overall, I spent a total of 85 minutes with this case including review of records, direct evaluation the patient at bedside, and discussion of the case with the patient at bedside, clinical staff at bedside, Dr. Chew, and Dr. Joya, including differential diagnosis and treatment options. History of Present Illness Reason for Consultation: Patient is a 78-year-old, who I was asked to see the request of Dr. Andrea Hwang, for neurologic consultation regarding stroke. Requesting Physician: Dr. Andrea Hwang Attending Physician: Radha Joya MD History of Present Illness Patient has a history of atrial fibrillation, coronary disease, hypertension, and dyslipidemia. In 2016 he underwent a four-vessel coronary artery bypass graft procedure. Coumadin was initiated but this was discontinued due to side effects. He was then given Eliquis but this was discontinued because of hematuria, approximately 1 year ago. He has been on 81 milligram aspirin tablet since. Patient does bruise easily. Patient gets short of breath laying flat so he sleeps in a recliner. The patient had an active day October 08 going out shopping feeling well with no illness or other problems. In the evening, he was in his recliner and around 0 he had the onset of numbness and tingling in his left upper extremity and hand. He reached down to coal picker the cat and noticed that his left arm was very weak and heavy. He walked some and felt off balance (not dizzy), but did not specifically notice weakness or numbness in the left leg or face. He did not have any confusion, speech problems, incontinence of urine, or right-sided symptoms. He had no headache or pain. He does have chronic low back pain otherwise. He arrived to the emergency room October 09 at 0035, blood pressure was 149/95, pulse was eighty-six and irregular, respiratory rate 23, temperature 36.4, and O2 saturation 98 percent. In the emergency room he was described as having a left facial droop, left upper extremity weakness, and decreased sensation in the left arm and leg. NIH stroke scale was 6. CT scan of the head was unremarkable. CBC and Chem profile were unremarkable as well. Patient underwent tele stroke consultation with , Dr. Becerra, and the decision to give tPA was made. He did well with improvement of his symptoms following tPA. Carotid ultrasound revealed 50-60% stenosis the right internal carotid artery at the bifurcation This morning the patient is doing very well with some slight weakness of the left upper extremity and no numbness. He has no pain or headache. Nursing reports no unusual events overnight. Allergies Allergy/AdvReac Type Severity Reaction Status Date / Time clams AdvReac Severe GI SYMPTOMS Verified 10/09/18 01:37 Home Medications Home Medications Medication Instructions Recorded Confirmed Type aspirin 81 mg PO DAILY 10/09/18 10/09/18 History atenolol 25 mg PO DAILY 10/09/18 10/09/18 History finasteride 5 mg PO DAILY 10/09/18 10/09/18 History fluticasone propionate [Flonase 2 spray INTRANASAL DAILY 10/09/18 10/09/18 History Allergy Relief] furosemide 20 mg PO DAILY 10/09/18 10/09/18 History meloxicam 7.5 mg PO DAILY PRN 10/09/18 10/09/18 History omeprazole 20 mg PO BID PRN 10/09/18 10/09/18 History rosuvastatin [Crestor] 20 mg PO DAILY 10/09/18 10/09/18 History tamsulosin 0.4 mg PO DAILY 10/09/18 10/09/18 History Patient History Medical History A-fib (Acute) CAD (coronary artery disease) Dyslipidemia BPH (benign prostatic hyperplasia) Surgical History Hx of CABG History of cataract surgery History of tonsillectomy Social History Preferred Language: Tristanian Communication Ability: Effective Child Center Assistant Required: No Beliefs That Will Affect Care: None marital status: Current Living Situation: Significant Other Current Living Situation Comment: Friend current occupational status: retired 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 Other Information That Helps Us Care for You: No Feels Safe at Home: Yes Safety Concerns: Feels Safe At This Time Smoking Status: Never smoker Hx Alcohol Use: No Hx Substance Use: No Review of Systems Constitutional: no fever, no body aches and no fatigue Eyes: no diplopia, no eye pain and no worsening vision Ear, Nose, Mouth, Throat: + hearing loss; no ear pain, no tinnitus and no dysphagia Respiratory: no cough and no dyspnea Cardiovascular: + orthopnea; no chest pain, no dyspnea and no palpitations Gastrointestinal: no abdominal pain, no nausea and no vomiting Genitourinary (Male): no dysuria, no urinary frequency and no urinary incontinence Musculoskeletal: + back pain; no neck pain, no radicular pain, no myalgia, no muscle weakness and no muscle atrophy Integumentary: no rash and no lesions Neurologic: + localized weakness; no gait abnormality, no falls, no generalized weakness, no tingling, no numbness, no tremor(s), no abnormal movements, no dizziness, no headache(s), no abnormal speech, no behavioral changes, no confusion and no memory loss Psychiatric: no depression, no abnormal sleep pattern, no anxiety, no difficulty concentrating, no confusion and no hallucinations Endocrine: no fatigue and no flushing Hematologic / Lymphatic: + easy bruising; no easy bleeding Allergy / Immunological: no urticaria Physical Exam Vital Signs (Past 24 Hours): Last Vital Signs Temp 36.6 C 10/09/18 04:01 Pulse 80 10/09/18 07:01 Resp 17 10/09/18 07:01 BP 126/68 10/09/18 07:01 Pulse Ox 97 10/09/18 07:01 Physical Exam: The patient is right-handed. The patient is awake, alert, and attentive. Speech is normal without any aphasia or dysarthria. Mentation and thought processes are intact, with full orientation and normal fund of knowledge. Attention and concentration are normal. Mood and affect are normal and appropriate. General appearance and grooming are normal. Short and long-term memory are intact. The discs are sharp with positive venous pulsations bilaterally. There are no exudates, hemorrhages, or blood vessel changes seen. Pupils are 3 mm bilaterally and reactive to light. Extraocular eye muscles are intact without nystagmus. Visual acuity and visual redd seem normal grossly to confrontation. There are no deficits to sensation in the face in all 3 distributions of the fi fth cranial nerve bilaterally. Corneal reflexes are positive bilaterally. Facial strength and symmetry was normal bilaterally. Hearing seems mildly decreased bilaterally to voice. Palate moves well without asymmetry. There is normal sternocleidomastoid and trapezius (shoulder shrug) strength bilaterally. Tongue is midline with good strength bilaterally. Neck has a full range of motion without discomfort. There are no cervical bruits bilaterally. There are no cranial or ocular bruits. Heart is without murmur. There is a regular rhythm and rate. Cervical, thoracic, and lumbar spine are nontender to palpation. Gait cannot be tested because he is on strict bedrest 24 hours post tPA but stance sitting up in bed is reasonable. With outstretched arms there is a drift on the left. There are no resting, postural, or action tremors. There is no ataxia with finger to nose testing. There is decreased facility in the left hand compared to the right which is. No other abnormal involuntary movements are noted. Motor strength is 5/5 diffusely in the right upper extra including deltoids, biceps, triceps, brachioradialis, wrist flexors and extensors, datawarehouse developer, and intrinsic hand muscles. Left upper extremity is 4/5 diffusely. Motor strength is 5/5 diffusely in the right lower extremity including hip flexors, quadriceps, hamstrings, gastrocnemius, tibialis anterior, tibialis posterior, and Peroneii muscles. Left lower extremity is 4+/5 proximally and closer to 5/5 distally. Toe extensors are normal and there is good bulk in the extensor digitorum brevis muscles bilaterally. The limbs have good tone without rigidity or spasticity. There is no atrophy noted in the muscles. Muscle bulk is normal, there is no tenderness to palpation, no myotonia to percussion, and no fasciculations seen. Sensory examination is intact to touch and pin throughout all 4 limbs diffusely. Reflexes are 2/4 in the biceps, triceps, brachioradialis, and quadriceps tendons bilaterally. Achilles tendon reflexes are absent bilaterally. Toes are downgoing with plantar stimulation on the right and distinctly upgoing with plantar stimulation on the left. Peripheral pulses are present and of normal quality distally in all 4 limbs. There is no peripheral edema noted in the limbs.
--- NOTE | 2018-10-09 09:40 | Critical Care Progress Note ---
Date of Service October 09, 2018 Assessment & Plan (1) CVA (cerebral vascular accident): Neuro- awake alert. CVA s/p TPA residual L arm weakness but improved. for MRI. for CTA head and neck CV- HD stable. CAD. afib. rosuvastatin. await echo Pulmonary- sat well on RA ID- no signs infection Renal- cr ok GI- diet as tolerated Heme- enoxaparin proph 24 hours after TPA. will need full dose anticoagulation with afib. will need to decide timing of restarting Endocrine- blood sugars controlled hemoglobin a1c pending Dispo- monitor in ICU post TPA speech, Pt, OR remove Roman after 24 hour with TPA Subjective weakness in L arm improving Physical Exam Vital Signs (Past 24 Hours): Last Vital Signs Temp 36.6 C 10/09/18 04:01 Pulse 80 10/09/18 07:01 Resp 17 10/09/18 07:01 BP 126/68 10/09/18 07:01 Pulse Ox 97 10/09/18 07:01 Physical Exam: Constitutional: Comfortable NAD HEENT: normocephalic atraumatic. MMM. no cervical lymphadenopathy CV: RRR nl s1,s2 no murmurs rubs or gallops Lungs: clear to auscultation bilaterally. no accessory muscle use Abd: soft nontender nondistended. normal bowel sounds Ext: no edema. no cyanosis, no clubbing Skin: warm dry Neuro: alert and oriented. strengh bilateral lower ext 5/5. RUE 5/5. LUE 4/5. CN2-12 intact Psych: normal mood and affect Results & Data Laboratory Results Laboratory Results - last 24 hr 10/09/18 10/09/18 10/09/18 00:40 00:40 00:40 WBC 8.19 RBC 4.77 Hgb 13.5 L Hct 42.0 MCV 88.1 MCH 28.3 MCHC 32.1 RDW Std Deviation 47.4 H RDW Coeff of Joslyn 14.8 H Plt Count 158 MPV 10.5 H Immature Gran % (Auto) 0.2 Neut % (Auto) 66.2 Lymph % (Auto) 18.3 [place] % (Auto) 12.3 Eos % (Auto) 2.9 Baso % (Auto) 0.1 Immature Gran # (Auto) 0.02 Neut # (Auto) 5.41 Lymph # (Auto) 1.50 [place] # (Auto) 1.01 H Eos # (Auto) 0.24 Baso # (Auto) 0.01 PT 11.4 INR 1.1 APTT 25.1 PTT Ratio 0.9 Sodium 142 Potassium 3.8 Chloride 109 H Carbon Dioxide 26 Anion Gap 7.0 BUN 19 H Creatinine 1.14 Est Cr Clr Drug Dosing Not Reportable Est GFR ( Amer) 71.0 Est GFR (Non-Af Amer) 61.3 BUN/Creatinine Ratio 16.9 Glucose 111 H Calcium 8.4 L Magnesium 2.1 Total Bilirubin 0.3 AST 10 L ALT 14 Alkaline Phosphatase 64 Troponin I < 0.015 Total Protein 7.0 Albumin 3.3 L Globulin 3.7 Albumin/Globulin Ratio 0.9 Triglycerides Cholesterol LDL Cholesterol, Calc VLDL Cholesterol, Calc HDL Cholesterol Cholesterol/HDL Ratio Specimen Hemolysis Urine Color Urine Appearance Urine pH Ur Specific [place] Urine Protein Urine Glucose (UA) Urine Ketones Urine Blood Urine Nitrite Urine Bilirubin Urine Urobilinogen Ur Leukocyte Esterase Urine WBC (Auto) Urine RBC (Auto) U Hyaline Cast (Auto) U Epithel Cells (Auto) Urine Bacteria (Auto) Blood Type Antibody Screen 10/09/18 10/09/18 10/09/18 00:40 00:40 04:49 WBC RBC Hgb Hct MCV MCH MCHC RDW Std Deviation RDW Coeff of Joslyn Plt Count MPV Immature Gran % (Auto) Neut % (Auto) Lymph % (Auto) [place] % (Auto) Eos % (Auto) Baso % (Auto) Immature Gran # (Auto) Neut # (Auto) Lymph # (Auto) [place] # (Auto) Eos # (Auto) Baso # (Auto) PT Cancelled INR Cancelled APTT Cancelled PTT Ratio Cancelled Sodium Potassium Chloride Carbon Dioxide Anion Gap BUN Creatinine Est Cr Clr Drug Dosing Est GFR ( Amer) Est GFR (Non-Af Amer) BUN/Creatinine Ratio Glucose Calcium Magnesium Total Bilirubin AST ALT Alkaline Phosphatase Troponin I Total Protein Albumin Globulin Albumin/Globulin Ratio Triglycerides Cholesterol LDL Cholesterol, Calc VLDL Cholesterol, Calc HDL Cholesterol Cholesterol/HDL Ratio Specimen Hemolysis Urine Color Yellow Urine Appearance Clear Urine pH 6.5 Ur Specific [place] 1.011 Urine Protein Negative Urine Glucose (UA) Negative Urine Ketones Negative Urine Blood 3+ H Urine Nitrite Negative Urine Bilirubin Negative Urine Urobilinogen Negative Ur Leukocyte Esterase Negative Urine WBC (Auto) 1-5 Urine RBC (Auto) >30 H U Hyaline Cast (Auto) 0 U Epithel Cells (Auto) 5-10 H Urine Bacteria (Auto) Negative Blood Type A Positive Antibody Screen NEGATIVE 10/09/18 10/09/18 10/09/18 04:49 05:22 05:31 WBC RBC Hgb Hct MCV MCH MCHC RDW Std Deviation RDW Coeff of Joslyn Plt Count MPV Immature Gran % (Auto) Neut % (Auto) Lymph % (Auto) [place] % (Auto) Eos % (Auto) Baso % (Auto) Immature Gran # (Auto) Neut # (Auto) Lymph # (Auto) [place] # (Auto) Eos # (Auto) Baso # (Auto) PT 11.6 INR 1.1 APTT 28.3 PTT Ratio 1.0 Sodium Cancelled 141 Potassium Cancelled 4.0 Chloride Cancelled 110 H Carbon Dioxide Cancelled 26 Anion Gap Cancelled 5.0 BUN Cancelled 17 Creatinine Cancelled 0.99 Est Cr Clr Drug Dosing Cancelled 77.8 Est GFR ( Amer) Cancelled 84.2 Est GFR (Non-Af Amer) Cancelled 72.6 BUN/Creatinine Ratio Cancelled 17.4 Glucose Cancelled 115 H Calcium Cancelled 8.0 L Magnesium Total Bilirubin AST ALT Alkaline Phosphatase Troponin I Total Protein Albumin Globulin Albumin/Globulin Ratio Triglycerides Cancelled 87 Cholesterol Cancelled 86 LDL Cholesterol, Calc Cancelled 37 VLDL Cholesterol, Calc Cancelled 17 HDL Cholesterol Cancelled 32 Cholesterol/HDL Ratio Cancelled 3 Specimen Hemolysis Urine Color Urine Appearance Urine pH Ur Specific [place] Urine Protein Urine Glucose (UA) Urine Ketones Urine Blood Urine Nitrite Urine Bilirubin Urine Urobilinogen Ur Leukocyte Esterase Urine WBC (Auto) Urine RBC (Auto) U Hyaline Cast (Auto) U Epithel Cells (Auto) Urine Bacteria (Auto) Blood Type Antibody Screen Diagnostic Findings carotid doppler 50-60 % right ICA CT head/brain wo con CLINICAL HISTORY: 78 years-old Male presenting with Stroke symptoms. TECHNIQUE: Multidetector CT imaging of the head was performed without the use of intravenous contrast. IV contrast: None. One or more dose lowering techniques were used consistent with the principles of ALARA (as low as reasonably achievable), including automatic exposure control, mA or kV adjustment to individual patient size, and/or use of iterative reconstruction. COMPARISON: 04/16/2017. CT DOSE (mGy.cm): The estimated cumulative dose is 691.05 mGy.cm. FINDINGS: Pension Agent topogram: Unremarkable. Proportional ventricular and sulcal prominence, likely age-related parenchymal volume loss. No hemorrhage. Brain parenchyma normal in appearance with preserved smith-white differentiation. No acute territorial infarct. No mass effect or midline shift. No extra-axial fluid collection. Atherosclerosis of the right maxillary sinus wall indicates a history of chronic sinusitis. Calvarium intact. Absent [place] lenses. IMPRESSION: 1. No acute intracranial abnormality. Electronically signed by: Jarod Guajardo M.D. 10/09/2018 5:53 AM
--- NOTE | 2018-10-09 10:13 | Hospitalist Progress Note ---
Date of Service October 09, 2018 Assessment & Plan (1) CVA (cerebral vascular accident): This patient is a 78-year-old male with past medical history of hypertension, hyperlipidemia, atrial fibrillation without anticoagulation who presents with left-sided weakness. In the ED, stroke teleconference was performed and the patient received TPA. He was subsequently transferred to the ICU for further monitoring. CVA, left-sided weakness status post [id number]-geri-yvlyu weakness is much improved and is almost completely back to baseline Stroke confirmed on MRI with multiple punctate abnormalities consistent with embolic stroke Has persistent atrial fibrillation and was not on anticoagulation due to previous hematuria Echocardiogram without definite atrial shunt visualized on bubble study CT angiogram of the head and neck are pending for this evening along with repeat CT of the head 24 hours status post TPA PT, OT, speech ordered but not performed yet due to order for complete bedrest while status post TPA Continue Crestor 20 mg daily -Continue holding antiplatelets status post TPAplan to restart tomorrow-can continue aspirin as will be starting anticoagulation Allow for permissive hypertensionholding atenolol, hold Flomax, hold furosemide -Discussed starting back on Eliquis with patient and he is agreeable-we will have to watch for hematuria and if occurs, he would need referral to urology to get the cystoscopy he was supposed to have last fall-at this point, his risk for recurrent stroke is quite high and is higher than his risk of serious bleeding (2) A-fib: With persistent atrial fibrillation, rate controlled and on anticoagulation due to previous hematuria in the fall 2017 The patient saw urology but then never followed through with the cystoscopy as indicated -Holding atenolol currently for permissive hypertension -Plan to start Eliquis when safe after receiving TPA-timing to be discussed with neurology and pattern generator operator --Continue to monitor on telemetry (3) CAD (coronary artery disease): Status post CABG, no evidence of cardiac ischemia at this time Echocardiogram with old wall motion abnormalities, troponin is negative, patient denies chest pain -Plan to restart aspirin when okay status post TPA -Continue Coreg -Holding atenolol for permissive hypertension at this point but will restart as able to-would consider switching to metoprolol (4) Dyslipidemia: -LDL quite low at 37 -Continue Crestor 20 mg daily (5) BPH (benign prostatic hyperplasia): Has a history of prostate biopsy which he believes was negative for malignancy several years ago No issues with urinary retention here but has a Roman catheter in place Continue finasteride Continue to hold tamsulosin for permissive hypertension (6) Hx of CABG: As above (7) Carotid stenosis: Right-sided internal carotid artery stenosis 50-69%-moderate and not associated with current stroke given it is embolic in nature -Continue antiplatelet and statin -Getting CT angiogram of the neck tonight -Will require routine follow-up as an outpatient (8) AAA (abdominal aortic aneurysm): Patient reports he has this but has no idea of the size and has not had imaging in about 2 years. He denies abdominal pain -Recommend follow-up as an outpatient with PCP (9) DVT prophylaxis: SCDs only for now given recent TPA Disposition-remain in ICU overnight Subjective Patient feeling very well. He reports the weakness especially in his left hand and arm is almost 100% back to normal. He denies headache or lightheadedness. Denies chest pain or shortness of breath. He remains in rate controlled A. fib. I discussed the case with neurology and the pattern generator operator. Review of Systems All systems reviewed & are unremarkable except as noted in HPI & below Physical Exam Vital Signs (Past 24 Hours): Last Vital Signs Temp 36.6 C 10/09/18 04:01 Pulse 80 10/09/18 07:01 Resp 17 10/09/18 07:01 BP 126/68 10/09/18 07:01 Pulse Ox 97 10/09/18 07:01 Constitutional: WD/WN, vitals as above Eyes: PERRL, conjunctivae normal, anicteric sclerae ENMT: external ear and nose normal, oropharynx normal Neck: trachea midline, no thyromegaly Respiratory: normal respiratory effort, lungs clear to auscultation Cardiovascular: Rate/Rhythm: regular rate; + abnormal rhythm (Irregularly irregular) Heart Sounds: no murmur Extremities: + edema (2+ pitting edema in the legs bilaterally) Gastrointestinal (Abdomen): normal bowel sounds, soft, nontender, no hepatosplenomegaly Musculoskeletal: Extremities: extremities normal to inspection; no cyanosis and no clubbing Skin: no rashes, warm and dry Neurologic: CN's II-XI intact bilaterally, moves all extremities (5 out of 5 strength throughout except for 4+ out of 5 strength in left interosseous dorsalis muscles and wrist extension) and awake Speech / Cognition: no expressive aphasia Motor/Sensory: no tremor and no sensory deficit (Intact to light touch throughout upper and lower extremities bilaterally) Psychiatric: A+Ox3, euthymic affect Results & Data Laboratory Results CBC within normal limits Sodium 141, potassium 4.0, chloride 110, bicarb 26, BUN 17, creatinine 0.99 Troponin negative x1 LDL 37 Total cholesterol 86 Diagnostic Findings Carotid ultrasound with right internal carotid artery stenosis 50-69% MRI of the brain with contrast shows: IMPRESSION: 1. Acute punctate embolic infarcts in the right parietal lobe. Limited portion of the precentral gyrus of the right frontal lobe also likely involved. Additional signal characteristics of these infarcts suggest they are at least 6- 12 hours old. 2. Layering fluid in the right maxillary sinus with CT findings of chronic right maxillary sinusitis. Acute on chronic sinusitis not excluded. Echocardiogram with LVEF 45%, moderate LVH, severely hypokinetic inferior and inferolateral segments, mild RV dysfunction, overall unchanged from previous
--- NOTE | 2018-10-09 10:55 | Magnetic Resonance Report ---
MR brain wo con CLINICAL HISTORY: 78 years-old Male presenting with post cva, left-sided weakness, strokelike symptom s, dizziness and history of CABG, coronary artery disease and atrial fibrillation. TECHNIQUE: Multisequence, multiplanar MR imaging of the brain was performed without the use of intrav enous contrast. IV contrast: None. COMPARISON: CT head performed earlier the same day. FINDINGS: Localizer images: Unremarkable. Normal midline sagittal structures. Proportional ventricular and sulcal prominence, likely age-relate d parenchymal volume loss. Scattered punctate foci of restricted diffusion in the right parietal lobe periventricular white matter and cortical smith matter. This may also involve a limited portion of th e precentral gyrus of the right frontal lobe. This appearance is most characteristic of embolic infar cts. These foci have associated T2/FLAIR hyperintensity. Periventricular and subcortical white matter T2/FLAIR hyperintensity, nonspecific but likely indicative of chronic small vessel ischemic change. No mass effect or midline shift. No extra-axial fluid collection. T2 skull base flow voids preserved. Bone marrow signal intensity within the calvarium within normal limits. Bilateral [place] lenses are a bsent. Layering fluid in the right maxillary sinus. IMPRESSION: 1. Acute punctate embolic infarcts in the right parietal lobe. Limited portion of the precentral gyr us of the right frontal lobe also likely involved. Additional signal characteristics of these infarct s suggest they are at least 6-12 hours old. 2. Layering fluid in the right maxillary sinus with CT findings of chronic right maxillary sinusitis . Acute on chronic sinusitis not excluded. The report will be called/faxed according to standard departmental protocol. Electronically signed by: Jarod Guajardo M.D. 10/09/2018 10:54 AM
[2018-10-09] MEDS: FINASTERIDE 5 MG TAB PO SCH (11:21)
[2018-10-09] MEDS: ROSUVASTATIN CALCIUM 20 MG TAB PO SCH (11:21)
[2018-10-09] MEDS: OXYCODONE HCL SOLN 5 MG/5 ML UDC PO PRN ×2 (16:23→20:53)
[2018-10-10] MEDS ORDERED: OPTIRAY 320 125ml IV PRN (00:37)
[2018-10-10] MEDS ORDERED: COUGH DROP (SUGAR FREE) LOZ 24 LOZ/1 BOX BUCCAL PRN (02:34)
[2018-10-10 05:08] LABS: Hematocrit (blood only) 39.4 % (42-52); Hemoglobin 12.5 g/dL (14.0-18.0); Mean Corpuscular Hgb Conc 31.7 g/dL (32-36); Mean Corpuscular Volume 88.5 fL (80-100); Mean Platelet Volume 10.1 fL (7.4-10.4); Platelet Count 131 K/uL (130-400); RDW Coefficient of Variation 14.7 % (11.5-14.5); RDW Standard Deviation 47.6 fL (36.4-46.3); Red Blood Count 4.45 M/uL (4.7-6.1); White Blood Count 7.38 K/uL (4.8-10.8)
[2018-10-10 05:31] LABS: Creatinine Clr Calc Pharmacy 65.6 ml/min; Est GFR (African American) 68.1; Est GFR (Non-African American) 58.8; Magnesium 2.1 mg/dl (1.8-2.4); Phosphorus 2.8 mg/dl (2.5-4.9); Potassium 4.1 mmol/L (3.5-5.1)
--- NOTE | 2018-10-10 06:28 | CT Scan Report ---
CT head/brain wo con CLINICAL HISTORY: Stroke status post TPA administration. COMPARISON STUDY: 10/09/2018 TECHNIQUE: Axial CT of the brain is performed from the vertex to the skull base. IV contrast was not administered for this examination. A dose lowering technique was utilized adhering to the principles of ALARA. CT DOSE: FINDINGS: No intra or extra-axial mass lesions are visualized. There is no CT evidence of acute cortical infarc tion. There is no evidence of midline shift. There is no acute hemorrhage. No calvarial fractures ar e visualized. There are patchy white matter hypodensities likely on a small vessel basis. There is no evidence of pathologic ventricular dilatation. There are moderate inflammatory changes within the right maxillary sinus. IMPRESSION: No acute intracranial findings Electronically signed by: Simón Bassett M.D. 10/10/2018 6:27 AM
--- NOTE | 2018-10-10 06:46 | CT Scan Report ---
CT angio head w con HISTORY: Mental status change cva - do angio studies with 24 hour tpa follow up head ct TECHNIQUE: Multiaxial CT angiography of the head was performed IV contrast: 50 cc Maximum in tensity projection images were also obtained. A dose lowering technique was utilized adhering to the principles of ALARA. COMPARISON: None. FINDINGS: There is no mass, hematoma, midline shift, or acute infarct. Visualized intracranial environmental health and safety intern al carotid arteries, distal vertebral arteries, and basilar artery are widely patent. There is no sig nificant stenosis, occlusion, or aneurysm seen within the bilateral ACAs, MCAs, or filler room attendant. Left vertebr al artery is small in caliber presumably on an anatomic basis. IMPRESSION: No significant stenosis, occlusion, or aneurysm within the [place]. The above report was generated using voice recognition software. It may contain grammatical, syntax or spelling errors. Electronically signed by: Puma Helm M.D. 10/10/2018 6:45 AM
--- NOTE | 2018-10-10 07:19 | CT Scan Report ---
CT angio neck with con CLINICAL HISTORY: 78 years-old Male with cva - do angio studies with 24 hour tpa follow up head ct . Acute strokelike symptoms COMPARISON STUDY: MRI brain 10/09/2018, CTA head 10/10/2018 TECHNIQUE: Following the IV administration of 119 cc of Optiray 320, CT angiogram of the neck was per formed from the aortic arch to the skull base. Images are reviewed in the axial, sagittal, and ortega l planes. 3-D MIPS images are created and assessed. IV contrast was administered without complication . All measurements were calculated based on NASCET criteria. A dose lowering technique was utilized adhering to the principles of ALARA. CT DOSE: 1183.24 mGy.cm FINDINGS: The opacified pulmonary arterial branches of the lung apices appear unremarkable. Moderate mixed plaq ue formation of the thoracic aortic arch. Motion degraded exam. Patency of the imaged bilateral subcl zac arteries. Bilateral common carotid arteries appear widely patent. Extensive mixed plaque summat ion of the right carotid bulb and proximal right ICA is mostly atheromatous plaquing with intimal hyp erplasia. Ulcerative plaque formation is also noted on image 208 series 6. These findings result in a pproximately 60% luminal narrowing about the proximal right ICA. The remainder of the right ICA is wi oscar patent. Mixed plaque formation of the left ICA results in less than 50% stenosis. Right vertebral artery is dominant. Mixed plaque formation about the proximal V1 segment is noted wit hout high-grade stenosis. Developmentally diminutive left vertebral artery. Left vertebral artery ter minates into the left PICA. Both of the vertebral arteries appear to be widely patent. There is no an eurysm, dissection or proximal branch occlusion identified. Imaged basilar artery is patent. Indeterminate groundglass densities with bronchial wall thickening noted about the lung apices. Heter ogeneous 1.9 x 1.6 cm right thyroid nodule. Prior bilateral cataract repair. Mild rightward bowing an d spurring of the nasal septum. There is mild mucosal thickening of the ethmoid air cells and maxilla ry sinuses. Degenerative changes of the spine are most pronounced at C5-C6 and C6-C7 with posterior d isc osteophyte complex formations. Severe multilevel facet arthropathy. IMPRESSION: 1. Ulcerative atheromatous plaque formation of the right carotid bulb results in 60% luminal narrowin g of the proximal right ICA. 2. Mild mixed plaque formation of the left ICA results in less than 60% stenosis. 3. Patent bilateral vertebral arteries. 4. No aneurysm, dissection or proximal branch occlusion. 5. Additional incidental findings as above. The above report was generated using voice recognition software. It may contain grammatical, syntax o r spelling errors. Electronically signed by: Yuri Lomas M.D. 10/10/2018 7:18 AM
[2018-10-10 08:33] LABS: Estimated Average Glucose 123 mg/dl; Hemoglobin A1C 5.9 % (4.5-5.6)
--- NOTE | 2018-10-10 09:00 | Neurology Progress Note ---
Date of Service October 10, 2018 Assessment & Plan (1) CVA (cerebral vascular accident): Patient had acute onset left-sided numbness (mostly arm) and weakness the evening of October 08. The patient was quite improved the morning of October 09 with an NIH stroke scale of 1. Today, the patient is markedly improved without any motor weakness on the left side. NIH stroke scale this morning is 0. Based on the somewhat progressive clinical course/history, the etiology of this stroke is either an acute ischemic right hemispheric stroke which was broken up by tPA leaving several scattered right parietal acute hyperintense spots, or a series/shower of small emboli from the right carotid stenotic/ulcerative plaque at the bulb. Although the patient does have atrial fibrillation, the history of symptom onset is not consistent with multiple emboli from the heart (since the distribution was all within the right parietal head region). CT did show previous old small vessel disease and the patient has a longstanding history of hypertension which puts him at risk for ischemic stroke. (2) A-fib: Patient has chronic atrial fibrillation. He has segmental hypokinetic wall abnormalities, left ventricular hypertrophy, and a markedly dilated left at rium. He has tried and failed warfarin (side effects) and Eliquis (significant hematuria) in the past. His rate is controlled and there is no indication that he is going in or out of atrial fibrillation. (3) Carotid stenosis: Right internal carotid artery bulb stenosis of 60 percent with ulcerative plaque. Because of his stroke pattern this right carotid stenosis may be active. The left internal carotid artery has some proximal nonspecific stenosis of less than 60 percent. Recommendations: 1. This patient should be on an anticoagulant, because of his chronic atrial fibrillation and heart issues he is at high risk for embolic stroke. In addition, his right carotid lesion may be active as well so anticoagulation would be appropriate for this as well. Reinstituting Eliquis would be reasonable. 2. Consider switching 81 milligram aspirin tablet to clopidogrel 75 milligrams daily. This should help prevent small vessel ischemic disease better. Staying on 81 milligram aspirin is also reasonable if combined with the anticoagulant. Combination of clopidogrel plus an anticoagulant would put him at risk for bruising and bleeding. 3. Control blood pressure as you are doing, shooting for a mean arterial pressure of 95-100. 4. The patient's lipid parameters are well controlled on the current dose of rosuvastatin. He is not a high-dose statin candidate with these parameters. 5. Increase activity when able, including PT OT and speech therapy. Overall, I spent a total of 65 minutes with this case including review of records, review of MRI and CT scan films with Dr. Bassett in Radiology, direct evaluation the patient at bedside, and discussion of the case with the patient at bedside, clinical staff at bedside, Dr. Soto, and Dr. Joya, including differential diagnosis and treatment options. Subjective Patient has no complaint of pain or headache. He is not dizzy and has no new vision issues. There is no numbness or lionel weakness of his limbs although he feels his left upper extremity is just slightly off compared to normal. Nursing reports no further issues or episodes overnight or the last 20 hours. MRI of the brain showed multiple hyperintensities on diffusion imaging in the right parietal head region only. CT scan of the head last evening was unremarkable. CTA of the neck showed a 60 percent stenosis with ulcerative plaque in the right carotid bulb and less than 60 percent stenosis proximally in the left carotid artery. No aneurysms were seen. CTA of the head was unremarkable. Echocardiogram revealed moderate LVH and ejection fraction of 45 percent. There were hypokinetic wall segments and a severely dilated left atrium. CBC shows mild anemia and chemistry profile was unremarkable Blood pressure was 126/73 this morning. Hemoglobin A1c was 5.9 Physical Exam Vital Signs (Past 24 Hours): Last Vital Signs Temp 37.0 C 10/10/18 04:00 Pulse 75 10/10/18 06:01 Resp 20 10/10/18 06:01 BP 126/73 10/10/18 06:01 Pulse Ox 92 10/10/18 06:01 Physical Exam: He was awake and alert. Speech is without aphasia or dysart hria. Mood and affect are normal appropriate. Thought processes are intact. He is hard of hearing bilaterally and typically wears hearing aids but does not have them here in the hospital. Extraocular eye muscles are intact without nystagmus. Pupils are 3-4 millimeters bilaterally reactive to light. Tongue is midline. There is no facial droop and facial strength is symmetrical bilaterally. With outstretched arms, there is no drift today. There is good facility in the hands bilaterally. Strength is 5/5 diffusely in the major muscle groups in the arms and legs both proximally distally bilaterally. Tone is equal in the limbs. There is no resting, postural, or action tremor. Results & Data Diagnostic Findings MR brain wo con CLINICAL HISTORY: 78 years-old Male presenting with post cva, left-sided weakness, strokelike symptoms, dizziness and history of CABG, coronary artery disease and atrial fibrillation. TECHNIQUE: Multisequence, multiplanar MR imaging of the brain was performed without the use of intravenous contrast. IV contrast: None. COMPARISON: CT head performed earlier the same day. FINDINGS: Localizer images: Unremarkable. Normal midline sagittal structures. Proportional ventricular and sulcal prominence, likely age-related parenchymal volume loss. Scattered punctate foci of restricted diffusion in the right parietal lobe periventricular white matter and cortical smith matter. This may also involve a limited portion of the precentral gyrus of the right frontal lobe. This appearance is most characteristic of embolic infarcts. These foci have associated T2/FLAIR hyperintensity. Periventricular and subcortical white matter T2/FLAIR hyperintensity, nonspecific but likely indicative of chronic small vessel ischemic change. No mass effect or midline shift. No extra-axial fluid collection. T2 skull base flow voids preserved. Bone marrow signal intensity within the calvarium within normal limits. Bilateral [place] lenses are absent. Layering fluid in the right maxillary sinus. IMPRESSION: 1. Acute punctate embolic infarcts in the right parietal lobe. Limited portion of the precentral gyrus of the right frontal lobe also likely involved. Additional signal characteristics of these infarcts suggest they are at least 6- 12 hours old. 2. Layering fluid in the right maxillary sinus with CT findings of chronic right maxillary sinusitis. Acute on chronic sinusitis not excluded. The report will be called/faxed according to standard departmental protocol. Electronically signed by: Jarod Guajardo M.D. 10/09/2018 10:[address] angio neck with con CLINICAL HISTORY: 78 years-old Male with cva - do angio studies with 24 hour tpa follow up head ct. Acute strokelike symptoms COMPARISON STUDY: MRI brain 10/09/2018, CTA head 10/10/2018 TECHNIQUE: Following the IV administration of 119 cc of Optiray 320, CT angiogram of the neck was performed from the aortic arch to the skull base. Images are reviewed in the axial, sagittal, and coronal planes. 3-D MIPS images are created and assessed. IV contrast was administered without complication. All measurements were calculated based on NASCET criteria. A dose lowering technique was utilized adhering to the principles of ALARA. CT DOSE: 1183.24 mGy.cm FINDINGS: The opacified pulmonary arterial branches of the lung apices appear unremarkable. Moderate mixed plaque formation of the thoracic aortic arch. Motion degraded exam. Patency of the imaged bilateral subclavian arteries. Bilateral common carotid arteries appear widely patent. Extensive mixed plaque summation of the right carotid bulb and proximal right ICA is mostly atheromatous plaquing with intimal hyperplasia. Ulcerative plaque formation is also noted on image 208 series 6. These findings result in approximately 60% luminal narrowing about the proximal right ICA. The remainder of the right ICA is widely patent. Mixed plaque formation of the left ICA results in less than 50% stenosis. Right vertebral artery is dominant. Mixed plaque formation about the proximal V1 segment is noted without high-grade stenosis. Developmentally diminutive left vertebral artery. Left vertebral artery terminates into the left PICA. Both of the vertebral arteries appear to be widely patent. There is no aneurysm, dissection or proximal branch occlusion identified. Imaged basilar artery is patent. Indeterminate groundglass densities with bronchial wall thickening noted about the lung apices. Heterogeneous 1.9 x 1.6 cm right thyroid nodule. Prior bilateral cataract repair. Mild rightward bowing and spurring of the nasal septum. There is mild mucosal thickening of the ethmoid air cells and maxillary sinuses. Degenerative changes of the spine are most pronounced at C5-C6 and C6- C7 with posterior disc osteophyte complex formations. Severe multilevel facet arthropathy. IMPRESSION: 1. Ulcerative atheromatous plaque formation of the right carotid bulb results in 60% luminal narrowing of the proximal right ICA. 2. Mild mixed plaque formation of the left ICA results in less than 60% stenosis. 3. Patent bilateral vertebral arteries. 4. No aneurysm, dissection or proximal branch occlusion. 5. Additional incidental findings as above. The above report was generated using voice recognition software. It may contain grammatical, syntax or spelling errors. Electronically signed by: Yuri Lomas M.D. 10/10/2018 7:18 AM
--- NOTE | 2018-10-10 09:10 | Critical Care Progress Note ---
Date of Service October 10, 2018 Assessment & Plan (1) Admitted to intensive care unit: Reason Critically Ill: 78-year-old male here for Stoke like symptoms now s/p TPA. Past medical history significant for hypertension, hyperlipidemia, atrial fibrillation and CAD status post CABG x4. Neuro - [facility]: NEGATIVE AAOx3 s/p TPA No focal deficients on my exam Cardiac - CAD on rosuvastatin Afib on atenolol no prior ac Carotid stenosis ->cx vascular Hx AAA->U/S abd Respiratory - satting 95% on R/A GI - Heart Healthy diet RENAL/LYTES - -No significant electrolyte derangement. -Replace lytes as needed. - Roman out this am, voiding on his own ENDO - A1c pending HEME - Stable H&H. Lovenox ppx, ac for afib ID - No concerns for infection at this point. Monitor fever curve. LINES/IV ACCESS - PIVs intact. Dispo: Stable for downgrade Thank you for allowing us to be part of this patient's care. Please refer to Dr. Soto's documentation for any further recommendations. Supervising Physician Co-Signing Physician Notes Dr. Johnson was resident physician during care of patient. I separately evaluated patient for reynaga portions of the history and the exam. I was present during the critical portion of medical decision making, and I discussed the case with the resident. I generally agree with the findings and plan. (1) CVA (cerebral vascular accident): Neuro- awake alert. CVA s/p TPA residual L arm weakness but improved. CV- HD stable. CAD. afib. rosuvastatin. Carotid stenosis -Vascular consult for possible symptomatic carotid ulcer Reported AAA -Abdominal ultrasound Pulmonary- sat well on RA ID- no signs infection Renal- cr ok GI- diet as tolerated Heme- enoxaparin proph 24 hours after TPA. will need full dose anticoagulation with afib. will need to decide timing of restarting Endocrine- blood sugars controlled hemoglobin a1c pending Dispo-stable for downgrade out of ICU speech, Pt, Discussed with Dr. Joya Patient was discussed in multidisciplinary rounds Subjective Pt sitting up in bed this morning in NAD. No complaints overnight reporting sleeping like a log. Rad cam out this am and t report several voids since than. Has not had a bm and is tolerating diet. No acute concerns at this time. answered all questions. Physical Exam Vital Signs (Past 24 Hours): Last Vital Signs Temp 36.8 C 10/10/18 08:01 Pulse 89 10/10/18 08:01 Resp 18 10/10/18 08:01 BP 135/80 10/10/18 08:01 Pulse Ox 95 10/10/18 08:01 Constitutional: WD/WN, vitals as above well developed, well nourished, + obese, healthy appearing, well groomed, cooperative and comfortable; not in distress and not combative Eyes: PERRL, conjunctivae normal, anicteric sclerae EOM intact bilaterally Neck: trachea midline, no thyromegaly no tracheal deviation, no neck crepitus and neck nontender Respiratory: normal respiratory effort, lungs clear to auscultation able to speak in complete sentences; does not use accessory muscles, no cough, not tachypneic and no audible wheezes Auscultation: lungs clear to auscultation bilaterally and + diminished lung sounds Cardiovascular: RRR, no murmur, no edema Rate/Rhythm: regular rate; + abnormal rhythm (Irregularly irregular) Heart Sounds: normal S1 and normal S2; no gallop, no murmur and no cardiac rub Vessels: femoral pulses present; no carotid bruit and no femoral bruit Extremities: normal capillary refill Gastrointestinal (Abdomen): normal bowel sounds, soft, nontender, no hepatosplenomegaly Musculoskeletal: no cyanosis or clubbing, extremities motor strength 5/5 Head/Neck/Chest: normocephalic and head atraumatic Shoulders do no raise symetrically Skin: no rashes, warm and dry normal turgor; no rashes, no lesions, no ulcers, no wound, no erythema, no eschar and no mottling Trauma: no hematoma and no puncture Neurologic: PERRL, EOMI, accommodation nl, no face palsy, no dysarthria normal touch/pain/proprioception, CN's II-XI intact bilaterally, moves all e xtremities and awake Speech / Cognition: no expressive aphasia Motor/Sensory: no sensory deficit Cranial Nerves: PERRL, normal accommodation, EOM intact bilaterally, normal facial strength, tongue midline, normal hearing, able to rotate head bilaterally, able to elevate shoulders bilaterally (although no tsymetric ), no nystagmus and symmetric palate elevation Psychiatric: A+Ox3, euthymic affect Orientation: alert, oriented x 3 and cooperative Apperance: appropriately dressed, appropriately groomed and appeared stated age Affect: euthymic affect Thought Process: goal directed thought process, linear/logical thought process and clear/coherent thought process Cognition: recent memory grossly intact, remote memory grossly intact, attention grossly intact and language grossly intact Estimated Intelligence: average estimated intelligence Results & Data Laboratory Results 10/10/18 04:56 10/10/18 04:56 10/10/18 10/10/18 10/09/18 Range/Units 04:56 04:56 04:49 WBC 7.38 (4.8-10.8) K/uL RBC 4.45 L (4.7-6.1) M/uL Hgb 12.5 L (14.0-18.0) g/dL Hct 39.4 L (42-52) % MCV 88.5 (80-100) fL MCH 28.1 (25-34) pg MCHC 31.7 L (32-36) g/dL RDW Std Deviation 47.6 H (36.4-46.3) fL RDW Coeff of Joslyn 14.7 H (11.5-14.5) % Plt Count 131 (130-400) K/uL MPV 10.1 (7.4-10.4) fL Sodium 137 (136-145) mmol/L Potassium 4.1 (3.5-5.1) mmol/L Chloride 105 (98-107) mmol/L Carbon Dioxide 28 (21-32) mmol/L Anion Gap 4.0 (3-11) BUN 17 (7-18) mg/dl Creatinine 1.18 (0.6-1.4) mg/dl Est Cr Clr Drug Dosing 65.6 ml/min Est GFR ( Amer) 68.1 Est GFR (Non-Af Amer) 58.8 BUN/Creatinine Ratio 14.0 (10-20) Glucose 105 H (70-99) mg/dl Estimat Average Glucose 123 mg/dl Hemoglobin A1c 5.9 H (4.5-5.6) % Calcium 8.0 L (8.5-10.1) mg/dl Phosphorus 2.8 (2.5-4.9) mg/dl Magnesium 2.1 (1.8-2.4) mg/dl Nasal Screen MRSA (PCR) (Negative) 10/09/18 Range/Units 03:03 WBC (4.8-10.8) K/uL RBC (4.7-6.1) M/uL Hgb (14.0-18.0) g/dL Hct (42-52) % MCV (80-100) fL MCH (25-34) pg MCHC (32-36) g/dL RDW Std Deviation (36.4-46.3) fL RDW Coeff of Joslyn (11.5-14.5) % Plt Count (130-400) K/uL MPV (7.4-10.4) fL Sodium (136-145) mmol/L Potassium (3.5-5.1) mmol/L Chloride (98-107) mmol/L Carbon Dioxide (21-32) mmol/L Anion Gap (3-11) BUN (7-18) mg/dl Creatinine (0.6-1.4) mg/dl Est Cr Clr Drug Dosing ml/min Est GFR ( Amer) Est GFR (Non-Af Amer) BUN/Creatinine Ratio (10-20) Glucose (70-99) mg/dl Estimat Average Glucose mg/dl Hemoglobin A1c (4.5-5.6) % Calcium (8.5-10.1) mg/dl Phosphorus (2.5-4.9) mg/dl Magnesium (1.8-2.4) mg/dl Nasal Screen MRSA (PCR) Negative (Negative) Medications Administered Current Inpatient Medications Apixaban (Eliquis) 5 mg PO BID JEFFRY Stop: 11/09/18 20:59 Atenolol (Tenormin) 25 mg PO DAILY JEFFRY Stop: 11/09/18 08:59 Clopidogrel Bisulfate (Plavix) 75 mg PO QAM JEFFRY Stop: 11/09/18 08:59 Enoxaparin Sodium (Lovenox) 40 mg SQ Q24H JEFFRY Stop: 11/09/18 08:59 Finasteride (Proscar) 5 mg PO DAILY JEFFRY Stop: 11/08/18 08:59 Last Admin: 10/09/18 11:21 Dose: 5 mg Documented by: Ioversol (Optiray 320 125ml) 119 ml IV ONCE PRN PRN Reason: Interaction Checking Stop: 10/14/18 00:36 Last Admin: 10/10/18 00:37 Dose: 119 ml Documented by: Menthol (Nice) 1 hortensia BUCCAL PRN PRN PRN Reason: Sore Throat Stop: 11/09/18 02:33 Miscellaneous Information (Pharmacist Discharge Med Rec Consult) 1 ea N/A DAILY PRN PRN Reason: Consult Stop: 11/08/18 03:20 Oxycodone HCl (Roxicodone Immediate Rel) 10 mg PO Q6H PRN PRN Reason: Pain rating 4-10 Stop: 10/24/18 08:15 Pantoprazole Sodium (Protonix) 40 mg PO BID PRN PRN Reason: Heartburn Rosuvastatin Calcium (Crestor) 20 mg PO DAILY JEFFRY Stop: 11/08/18 08:59 Last Admin: 10/09/18 11:21 Dose: 20 mg Documented by: Resident Activity Tracking Resident Involvement: Resident Care Provided Care Provided: Adult Hospital Medicine (ICU)
--- NOTE | 2018-10-10 09:54 | Consultation ---
Date of Consultation October 10, 2018 Assessment & Plan (1) Carotid stenosis: RICAS noted on CTA with ulceration and R hemispheric CVA. Recommend pt consider R CEA in near future to prevent further events. Patient was seen, examined, and chart reviewed. Agree with exam and treatment plan of the Vascular PA. CTA showed a 60 to 70% narrowing of the right carotid artery with a significant ulceration. This is in the distribution of his presenting symptoms. Would recommend CEA of the right carotid artery this week. I have discussed the risks options and benefits of the procedure with the patient. The patient understands the risks options and benefits and agrees to the procedure. Will schedule for wednesday after cardiology evaluation. Thank you very much for letting us participate in the care of this patient. Present on Admission?: Yes (2) CVA (cerebral vascular accident): Pt sx resolved. See above. Present on Admission?: Yes (3) AAA (abdominal aortic aneurysm): Pt has not had his AAA eval in 8 months or so per pt, so will order new aortoiliac US. Present on Admission?: Yes History of Present Illness Reason for Consultation: RICAS, R hemispheric CVA Attending Physician: Radha Joya MD History of Present Illness 78yo m with hx of AAA, CAD s/p CABG x4 in 2017, HTN, A fib, admitted d/t R hemispheric CVA, seen in consultation today for RICAS noted on CTA. Pt states he was sitting at home in recliner watching TV and noted numbness to L arm. He then noted weakness as well when attempting to assist his small dog onto his lap. Sx did not resolve, so his "lady" called 911 and had him brought to [facility]. Pt underwent tPA administration and sx resolved per pt. Pt states feeling better today. Denies amaurosis, leg sx, facial droop, difficulty speaking or swallowing. Never experienced similar sx. Denies NIELSEN, fever, chills, recent illness, chest pain, SOB, palpitations, abd pain, N/V, rest pain, claudication, other complaints. CTA demonstrates ulcerated plaque R ICA with stenosis approx 60-70%. MRI demonstrates acute punctate infarcts to R parietal lobe. Allergies Allergy/AdvReac Type Severity Reaction Status Date / Time clams AdvReac Severe GI SYMPTOMS Verified 10/09/18 01:37 Home Medications Home Medications Medication Instructions Recorded Confirmed Type aspirin 81 mg PO DAILY 10/09/18 10/09/18 History atenolol 25 mg PO DAILY 10/09/18 10/09/18 History finasteride 5 mg PO DAILY 10/09/18 10/09/18 History fluticasone propionate [Flonase 2 spray INTRANASAL DAILY 10/09/18 10/09/18 History Allergy Relief] furosemide 20 mg PO DAILY 10/09/18 10/09/18 History meloxicam 7.5 mg PO DAILY PRN 10/09/18 10/09/18 History omeprazole 20 mg PO BID PRN 10/09/18 10/09/18 History rosuvastatin [Crestor] 20 mg PO DAILY 10/09/18 10/09/18 History tamsulosin 0.4 mg PO DAILY 10/09/18 10/09/18 History Patient History Medical History A-fib (Acute) CAD (coronary artery disease) Dyslipidemia BPH (benign prostatic hyperplasia) Surgical History Hx of CABG History of cataract surgery History of tonsillectomy Family History Mother , age 83 of heart disease. Heart disease Father , age 53 of MRI. 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 Other Information That Helps Us Care for You: No Feels Safe at Home: Yes Safety Concerns: Feels Safe At This Time Smoking Status: Never smoker Hx Alcohol Use: No Hx Substance Use: No Review of Systems Constitutional: no fever, no chills, no sweats, no fatigue, no malaise and no weight loss Eyes: no blind spots and no problem reported Ear, Nose, Mouth, Throat: no hearing loss and no sore throat Respiratory: no cough, no dyspnea, no dyspnea on exertion and no hemoptysis Cardiovascular: no chest pain, no palpitations, no syncope, no claudication and no problem reported Gastrointestinal: no abdominal pain, no nausea, no vomiting, no cramping and no diarrhea/loose stools Musculoskeletal: + swelling (chronic BLE); no back pain and no joint pain Integumentary: no rash, no non-healing lesions, no skin ulcer, no wounds and no erythema Neurologic: + localized weakness (resolved, L arm), + tingling, + numbness and + paresthesia; no generalized weakness, no paralysis, no seizure-like activity, no syncope, no headache(s) and no confusion Psychiatric: as per Subjective / HPI Hematologic / Lymphatic: no easy bleeding, no easy bruising, no coagulopathy, no night sweats and no unexplained weight loss Physical Exam Vital Signs (Past 24 Hours): Last Vital Signs Temp 36.8 C 10/10/18 08:01 Pulse 89 10/10/18 08:01 Resp 18 10/10/18 08:01 BP 135/80 10/10/18 08:01 Pulse Ox 95 10/10/18 08:01 Constitutional: WD/WN, vitals as above well developed, well nourished, + obese, healthy appearing, well groomed, cooperative and comfortable; not in distress and not combative Eyes: PERRL, conjunctivae normal, anicteric sclerae EOM intact bilaterally ENMT: external ear and nose normal, oropharynx normal Ears: + hearing impairment (mild CHEHALIS) Nose: no nasal discharge Neck: trachea midline, no thyromegaly no tracheal deviation, no neck crepitus and neck nontender Respiratory: normal respiratory effort, lungs clear to auscultation able to speak in complete sentences; does not use accessory muscles, no cough, not tachypneic and no audible wheezes Auscultation: lungs clear to auscultation bilaterally, + diminished lung sounds and + wheezes (occasional); no rhonchi Cardiovascular: RRR, no murmur, no edema Heart Sounds: no gallop and no mu rmur Vessels: femoral pulses present, posterior tibial pulses present, dorsalis pedis pulses present, brachial pulses present and radial pulses present; no carotid bruit and no femoral bruit Extremities: normal capillary refill and + edema (mild BLE); no varicosities Chest (Breasts): Chest: normal inspection of chest Gastrointestinal (Abdomen): normal bowel sounds, soft, nontender, no hepatosplenomegaly Inspection/Auscultation: abdomen normal to inspection and normal bowel sounds; abdomen not distended and no abdominal edema Percussion/Palpation: abdomen soft; abdomen nontender, no guarding and abdomen not rigid Musculoskeletal: no cyanosis or clubbing, extremities motor strength 5/5 Head/Neck/Chest: normocephalic, head atraumatic and neck supple Extremities: extremities normal to inspection and + abnormal strength (LUE 4/5, remaining 5/5); full ROM of extremities and no foot abnormality Skin: no rashes, warm and dry normal turgor; no rashes, no lesions, no ulcers, no wound, no erythema, no eschar and no mottling Trauma: no hematoma and no puncture Neurologic: moves all extremities and awake; no focal motor deficits and not confused Speech / Cognition: no expressive aphasia and no receptive aphasia Motor/Sensory: + pronator drift (slight LUE); no tremor and no sensory deficit Cranial Nerves: EOM intact bilaterally, normal facial strength and tongue midline Psychiatric: Orientation: alert, oriented x 3 and cooperative Apperance: appropriately dressed, appropriately groomed and appeared stated age Affect: euthymic affect Thought Process: goal directed thought process, linear/logical thought process and clear/coherent thought process Cognition: recent memory grossly intact, remote memory grossly intact, attention grossly intact and language grossly intact Estimated Intelligence: average estimated intelligence
[2018-10-10] MEDS: ROSUVASTATIN CALCIUM 20 MG TAB PO SCH (10:28)
[2018-10-10] MEDS: ENOXAPARIN INJ 40 MG/0.4 ML SYR SQ SCH (10:28)
[2018-10-10] MEDS: FINASTERIDE 5 MG TAB PO SCH (10:28)
[2018-10-10] MEDS: CLOPIDOGREL BISULFATE 75 MG TAB PO SCH (10:28)
[2018-10-10] MEDS: ATENOLOL 25 MG TABLET PO SCH (10:28)
--- NOTE | 2018-10-10 12:10 | Ultrasound Report ---
Study: Abdominal aortic and pelvic arterial ultrasound HISTORY: Aneurysm FINDINGS: Nondiagnostic evaluation of the abdominal aorta as well as proximal iliac vasculature. This is secondary to considerable overlying bowel. IMPRESSION: 1. Nondiagnostic study due to extensive overlying bowel content. 2. Abdominal aorta and pelvic arterial vasculature are not identified. Electronically signed by: uPma Helm M.D. 10/10/2018 12:08 PM
[2018-10-10] MEDS: OXYCODONE HCL IR 5 MG TAB (IMMEDIATE RELEASE) PO PRN (19:27)
[2018-10-10] MEDS ORDERED: APIXABAN 2.5 MG TAB PO SCH (21:00)
--- NOTE | 2018-10-11 06:08 | Hospitalist Progress Note ---
Date of Service October 10, 2018 Assessment & Plan (1) CVA (cerebral vascular accident): This patient is a 78-year-old male with past medical history of hypertension, hyperlipidemia, atrial fibrillation without anticoagulation who presents with left-sided weakness. In the ED, stroke teleconference was performed and the patient received TPA. He was subsequently transferred to the ICU for further monitoring. CVA, left-sided weakness status post [id number] weakness is much improved and is almost completely back to baseline Stroke confirmed on MRI with multiple punctate abnormalities in right parietal and may also involve a limited portion of the precentral gyrus of the right frontal lobe consistent with embolic stroke. Repeat CT head 24 hrs post tPA negative for bleeding. CTA head negative, CTA neck with 60% stenosis NEHAL with ulcerated plaque at the bulb, LICA<60% stenosis Neuro feels this may acute CVA may be embolic from the NEHAL ulcerated plaque stenosis at hte bulb and not necessarily from a left atrial thrombus Has persistent atrial fibrillation and was not on anticoagulation due to previous hematuria Echocardiogram without definite atrial shunt visualized on bubble study, no thrombus seen -Neuro recommends either ASA + Eliquis, or Plavix alone---> will give Plavix 75mg daily for now until can safely start Eliquis and ASA after CEA -Vascular Surgery saw pt today and plan is for Right CEA on Wednesday--> HOLD Eliquis until after CEA PT, OT, speech Continue Crestor 20 mg daily permissive hypertensionwas holding atenolol, Flomax, furosemide---> Faucet Polisher restarted atenolol 25mg daily -once he started back on Eliquis after CEA, as discussed with patient and his significant other-->we will have to watch for hematuria and if occurs, he would need referral to urology to get the cystoscopy he was supposed to have last fall-at this point, his risk for recurrent stroke is quite high and is higher than his risk of serious bleeding-pt understands and is agreeable (2) A-fib: With persistent atrial fibrillation, rate controlled and on anticoagulation due to previous hematuria in the fall 2017 The patient saw urology but then never followed through with the cystoscopy as indicated -atenolol was being held for permissive hypertension, but restarted today by Faucet Polisher whic is ok -Plan to start Eliquis after CEA --Continue to monitor on telemetry (3) CAD (coronary artery disease): Status post CABG, no evidence of cardiac ischemia at this time Echocardiogram with old wall motion abnormalities, troponin is negative, patient denies chest pain -Plan to restart aspirin when okay status post TPA -Continue Coreg -Holding atenolol for permissive hypertension at this point but will restart as able to-would consider switching to metoprolol (4) Dyslipidemia: -LDL quite low at 37 -Continue Crestor 20 mg daily (5) BPH (benign prostatic hyperplasia): Has a history of prostate biopsy which he believes was negative for malignancy several years ago No issues with urinary retention here, Roman catheter now removed and voiding Continue finasteride Continue to hold tamsulosin for permissive hypertension but could restart possibly soon to avoid urinary retention issues (6) Hx of CABG: As above (7) Carotid stenosis: Right-sided internal carotid artery stenosis 60% with focal ulceration--> plan for Right CEA on Wednesday as this likely contributed to his CVA -Continue Plavix and statin Left ICA <60% stenosis-should be followed as outpt (8) AAA (abdominal aortic aneurysm): Patient reports he has this but has no idea of the size and has not had imaging in about 2 years. He denies abdominal pain Abd Vascular US here nondiagnostic due to overlying bowel gas Vascular following--> may need CT abd aorta--> defer to Vascular to order (9) Thyroid nodule: noted incidentally on CT neck, measuring 1.9 x 1.6 cm on right, heterogenous appearing TSH normal at 2.39 in 02/2018 -needs outpt follow up (10) Sinus disease: noted incidentally in right maxillary sinus on CT and MRI imaging of head, however afebrile, no facial pain, asymptomatic, no treatment required (11) Prediabetes: HgbA1C here is mildly elevated at 5.9% -needs counseling on dietary changes and weight loss -follow as outpt (12) Obesity (BMI 30.0-34.9): BMI 33.7 -again,m needs dietary counseling on weight loss, low carb diet (13) Ischemic cardiomyopathy: LVEF 45% on ECHO here with WMAs consistent with prior CABG and known CAD -with some peripheral edema due to not taking his lasix x 2 weeks prior to admission -holding lasix for permissive HTN as above (14) Chronic systolic CHF (congestive heart failure): as above -restart lasix when safe from a BP perspective (15) DVT prophylaxis: SCDs , added Lovenox Disposition-transfer out of ICU to PCU today Subjective Pt reports feeling very well. Only minimal decreased strength in left hand he can notice, no new deficits. No trouble with bleeding Denies chest pain or SOB. Is tee po and no N/V. Discussed the case with Neurology, Vascular Surgery, and Faucet Polisher. Review of Systems All systems reviewed & are unremarkable except as noted in HPI & below Physical Exam Vital Signs (Past 24 Hours): Last Vital Signs Temp 36.7 C 10/11/18 03:20 Pulse 86 10/11/18 03:20 Resp 18 10/11/18 03:20 BP 127/81 10/11/18 03:20 Pulse Ox 94 10/11/18 03:20 Constitutional: WD/WN, vitals as above Eyes: PERRL, conjunctivae normal, anicteric sclerae ENMT: external ear and nose normal, oropharynx normal Neck: trachea midline, no thyromegaly Respiratory: normal respiratory effort, lungs clear to auscultation Cardiovascular: Rate/Rhythm: regular rate; + abnormal rhythm (Irregularly irregular) Heart Sounds: no murmur Extremities: + edema (1+ pitting edema in the legs bilaterally, improved) Gastrointestinal (Abdomen): normal bowel sounds, soft, nontender, no hepatosplenomegaly Musculoskeletal: Extremities: extremities normal to inspection; no cyanosis and no clubbing Skin: no rashes, warm and dry Neurologic: CN's II-XI intact bilaterally, moves all extremities (5 out of 5 strength throughout except for 4+ out of 5 strength in left interosseous dorsalis muscles and wrist extension) and awake Speech / Cognition: no expressive aphasia Motor/Sensory: no tremor and no sensory deficit (Intact to light touch throughout upper and lower extremities bilaterally) Psychiatric: A+Ox3, euthymic affect Results & Data Laboratory Results 10/09/18 Range/Units 04:49 Estimat Average Glucose 123 mg/dl Hemoglobin A1c 5.9 H (4.5-5.6) % CBC: WBC 7 Hgb 12.5 plts 131 BMP: Na 137 K+ 4.1 Cl 105 HCO3 28 Nurse Care Manager 1.[address] head/brain wo con CLINICAL HISTORY: Stroke status post TPA administration. COMPARISON STUDY: 10/09/2018 TECHNIQUE: Axial CT of the brain is performed from the vertex to the skull base. IV contrast was not administered for this examination. A dose lowering technique was utilized adhering to the principles of ALARA. CT DOSE: FINDINGS: No intra or extra-axial mass lesions are visualized. There is no CT evidence of acute cortical infarction. There is no evidence of midline shift. There is no acute hemorrhage. No calvarial fractures are visualized. There are patchy white matter hypodensities likely on a small vessel basis. There is no evidence of pathologic ventricular dilatation. There are moderate inflammatory changes within the right maxillary sinus. IMPRESSION: No acute intracranial findings CT angio head w con HISTORY: Mental status change cva - do angio studies with 24 hour tpa follow up head ct TECHNIQUE: Multiaxial CT angiography of the head was performed IV contrast: 50 cc Maximum intensity projection images were also obtained. A dose lowering technique was utilized adhering to the principles of ALARA. COMPARISON: None. FINDINGS: There is no mass, hematoma, midline shift, or acute infarct. Visualized intracranial internal carotid arteries, distal vertebral arteries, and basilar artery are widely patent. There is no significant stenosis, occlusion, or aneurysm seen within the bilateral ACAs, MCAs, or water filtration technician. Left vertebral artery is small in caliber presumably on an anatomic basis. IMPRESSION: No significant stenosis, occlusion, or aneurysm within the [place] of [place]. CT angio neck with con CLINICAL HISTORY: 78 years-old Male with cva - do angio studies with 24 hour tpa follow up head ct. Acute strokelike symptoms COMPARISON STUDY: MRI brain 10/09/2018, CTA head 10/10/2018 TECHNIQUE: Following the IV administration of 119 cc of Optiray 320, CT angiogram of the neck was performed from the aortic arch to the skull base. Images are reviewed in the axial, sagittal, and coronal planes. 3-D MIPS images are created and assessed. IV contrast was administered without complication. All measurements were calculated based on NASCET criteria. A dose lowering technique was utilized adhering to the principles of ALARA. CT DOSE: 1183.24 mGy.cm FINDINGS: The opacified pulmonary arterial branches of the lung apices appear unremarkable. Moderate mixed plaque formation of the thoracic aortic arch. Motion degraded exam. Patency of the imaged bilateral subclavian arteries. Bilateral common carotid arteries appear widely patent. Extensive mixed plaque summation of the right carotid bulb and proximal right ICA is mostly atheromatous plaquing with intimal hyperplasia. Ulcerative plaque formation is also noted on image 208 series 6. These findings result in approximately 60% luminal narrowing about the proximal right ICA. The remainder of the right ICA is widely patent. Mixed plaque formation of the left ICA results in less than 50% stenosis. Right vertebral artery is dominant. Mixed plaque formation about the proximal V1 segment is noted without high-grade stenosis. Developmentally diminutive left vertebral artery. Left vertebral artery terminates into the left PICA. Both of the vertebral arteries appear to be widely patent. There is no aneurysm, dissection or proximal branch occlusion identified. Imaged basilar artery is patent. Indeterminate groundglass densities with bronchial wall thickening noted about the lung apices. Heterogeneous 1.9 x 1.6 cm right thyroid nodule. Prior bilateral cataract repair. Mild rightward bowing and spurring of the nasal septum. There is mild mucosal thickening of the ethmoid air cells and maxillary sinuses. Degenerative changes of the spine are most pronounced at C5-C6 and C6- C7 with posterior disc osteophyte complex formations. Severe multilevel facet arthropathy. IMPRESSION: 1. Ulcerative atheromatous plaque formation of the right carotid bulb results in 60% luminal narrowing of the proximal right ICA. 2. Mild mixed plaque formation of the left ICA results in less than 60% stenosi s. 3. Patent bilateral vertebral arteries. 4. No aneurysm, dissection or proximal branch occlusion. 5. Additional incidental findings as above.
[2018-10-11 07:04] LABS: Basophils # (auto) 0.01 K/uL (0-0.2); Basophils % (auto) 0.1 %; Eosinophils # (auto) 0.24 K/uL (0-0.5); Eosinophils % (auto) 3.5 %; Hematocrit (blood only) 39.2 % (42-52); Hemoglobin 12.6 g/dL (14.0-18.0); Immature Granulocytes # (auto) 0.02 K/uL (0.00-0.02); Immature Granulocytes % (auto) 0.3 %; Lymphocytes # (auto) 1.09 K/uL (1.2-3.4); Mean Corpuscular Hgb Conc 32.1 g/dL (32-36); Mean Corpuscular Volume 87.7 fL (80-100); Mean Platelet Volume 10.5 fL (7.4-10.4); Monocytes # (auto) 0.89 K/uL (0.11-0.59); Monocytes % (auto) 13.1 %; Neutrophils # (auto) 4.56 K/uL (1.4-6.5); Platelet Count 129 K/uL (130-400); RDW Coefficient of Variation 14.8 % (11.5-14.5); RDW Standard Deviation 47.5 fL (36.4-46.3); Red Blood Count 4.47 M/uL (4.7-6.1); White Blood Count 6.81 K/uL (4.8-10.8)
[2018-10-11 08:07] LABS: BUN Creatinine Ratio 17.7 (10-20); Calcium 8.3 mg/dl (8.5-10.1); Creatinine Clr Calc Pharmacy 74.4 ml/min; Est GFR (African American) 80.3; Est GFR (Non-African American) 69.3
[2018-10-11] MEDS: ENOXAPARIN INJ 40 MG/0.4 ML SYR SQ SCH (08:54)
[2018-10-11 09:02] LABS: Potassium 3.7 mmol/L (3.5-5.1)
[2018-10-11 09:04] LABS: Magnesium 2.3 mg/dl (1.8-2.4)
[2018-10-11] MEDS: OXYCODONE HCL IR 5 MG TAB (IMMEDIATE RELEASE) PO PRN (09:28)
[2018-10-11] MEDS: ATENOLOL 25 MG TABLET PO SCH (09:28)
[2018-10-11] MEDS: FINASTERIDE 5 MG TAB PO SCH (09:29)
[2018-10-11] MEDS: CLOPIDOGREL BISULFATE 75 MG TAB PO SCH (09:29)
[2018-10-11] MEDS: ROSUVASTATIN CALCIUM 20 MG TAB PO SCH (09:29)
--- NOTE | 2018-10-11 14:13 | Consultation Report ---
DATE OF CONSULTATION: 10/11/2018 REQUESTING: Manas Joseph MD ECONOMIC DEVELOPER: Wilian Degroot DO, [facility]. REASON FOR CONSULTATION: Preoperative evaluation prior to carotid endarterectomy, coronary artery bypass grafting x3 in August 2016, previous myocardial infarction. Dear Dr. Malagon: Thank you for requesting a preoperative cardiology consultation on Anthony with regards to the need for upcoming right carotid endarterectomy. As you know, he is a pleasant 78-year-old who was admitted to [facility] with stroke like symptoms including numbness and tingling in his left arm and then he noticed weakness in his left arm. He also described shortness of breath. He was brought to the Emergency Room where he was found to be having an acute stroke and via tele stroke, TPA was recommended. His subsequent imaging by MRI suggested acute punctate embolic infarcts in the right parietal lobe and he subsequently underwent CT angiography which revealed a right carotid narrowing of 60% with atheromatous ulcerative plaque. At home, he lives in a trailer. He has 4 steps to get in. Denies any shortness of breath. He describes being able to walk 500 yards to the mailbox and back with his dog without any issues. He notes he cares for the property around his trailer as well as his boat. He denies any chest pain or chest pressure. His symptoms before his bypass surgery included significant epigastric discomfort and he has not had any of that either. He describes shortness of breath if he bends over to pick something up. He denies PND, orthopnea, although he sleeps in a chair, noting that if he lays flat since his bypass surgery, he feels like he cannot breathe. He notes mild intermittent lower extremity edema which is worse if he does not take his furosemide. He denies any palpitations or fluttering or feeling his heart racing, even though he is in chronic atrial fibrillation. His anticoagulation for his AFib was stopped a year ago due to hematuria. He at that time was placed only on aspirin therapy. He is tolerating his current cardiac medications without any issues. He denies any dark stools or black stools or bruising. Denies any fevers, chills or sweats. His appetite has been stable. His weight has been stable. He describes his functional capacity is stable. The rest of review of system is otherwise negative. PAST MEDICAL HISTORY: 1. Coronary artery disease status post coronary artery bypass grafting x3 at [facility] in [place] 08/2016. 2. Angioplasty and stenting post-bypass surgery to an unknown vessel. 3. Mild ischemic cardiomyopathy with an extensive inferior myocardial infarction. 4. MO x2 prior to his bypass surgery. 5. Ulcerated 60-70% right internal carotid artery lesion. 6. Right acute stroke involving the right parietal lobe. 7. Hypertension. 8. Hyperlipidemia. 9. Chronic atrial fibrillation. 10. History of hematuria secondary to anticoagulation. 11. BPH. SOCIAL HISTORY: He denies any tobacco use. 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 He is . FAMILY HISTORY: Positive for cancer, heart disease and hypertension. MEDICATIONS: Reviewed in electronic medical record. ALLERGIES: TO CLAMS. PHYSICAL EXAMINATION: GENERAL: He is awake, alert, oriented x3. He looks older than his stated age. VITAL SIGNS: His heart rate is 84, respirations 20, blood pressure 158/82, his sats 95% on room air. HEENT: I did not feel his carotid upstrokes due to his recent stroke and known carotid disease. He does have a faint bruit on the right. His sclerae are anicteric. His hearing was diminished. LUNGS: Globally decreased breath sounds. No rales, rhonchi or wheezing. HEART: Irregular rate and rhythm. No appreciable murmurs, rubs or gallops. ABDOMEN: Soft. Chronically distended, nontender, positive bowel sounds. EXTREMITIES: No clubbing, cyanosis or edema. PSYCHIATRIC: His affect appeared appropriate. LABORATORY DATA: Echocardiogram this admission, mildly dilated left ventricle with mild left ventricular dysfunction, EF in the range of 45% with akinesis of the inferior and inferolateral wall, moderate left ventricular hypertrophy, severe left atrial enlargement. Compared to a study from 01/26/2018, there is no significant change. EKG: Atrial fibrillation with a controlled ventricular response, incomplete right bundle-branch block, inferior MO, age indeterminate. His diagnostic studies were reviewed. His troponins are negative x3. Hemoglobin 12.6, platelet count 129. Sodium 138, BUN 18, creatinine 1.03. IMPRESSION: 1. Preoperative evaluation prior to carotid endarterectomy. 2. Coronary artery disease status post coronary artery bypass grafting x3 with stenting to follow during what sounds like the same hospitalization at [facility] in [place] 08/2016. 3. Mild ischemic cardiomyopathy. 4. Inferior wall myocardial infarction, age indeterminate. 5. Hypertension. 6. Chronic atrial fibrillation. 7. Right parietal stroke this admission. We will obtain his records from [facility] in [place] just to confirm his coronary anatomy as well as which vessel was subsequently stented. He has had no anginal symptoms since the surgery. He claims to be able to walk 500 yards to the mailbox and back and do activity around his trailer without any issues. He is within 5 years of bypass surgery and has not had recurrent heart failure or angina. In light of that and the fact that his echocardiogram is stable, he can proceed with surgery. I believe he is at intermediate risk. His overall risk is probably in the range of 3-4% with regards to any cardiac complications including arrhythmias, heart failure, dying from cardiac causes and heart attack. I would try to increase his beta blockers and switch his atenolol to metoprolol succinate given his LV dysfunction. After surgery, if there is room for his blood pressure, I would try to add CACHORRO inhibitor therapy to reduce his risk of cardiovascular events given his coronary artery disease and carotid disease. He is already on a high-intensity statin therapy and tolerating it. He will need anticoagulation given his atrial fibrillation. He already has tea-colored urine this morning. I would recommend urology seeing him before surgery, potentially his cystoscopy could be done in the OR just prior to his carotid endarterectomy. He was supposed to have a cystoscopy as an outpatient, but never went back as he did not like the urologist. This is important as he needs long-term anticoagulation with aspirin as well as a NOAC such as apixaban. As noted, we will obtain his outpatient records. This will be discussed with Dr. Joseph in detail.
[2018-10-11] MEDS: TRIAMCINOLONE ACET 0.1% CR 80 GM TUBE EXT SCH ×2 (20:51→21:00)
[2018-10-11] MEDS: FEXOFENADINE 60 MG TAB PO SCH (20:52)
[2018-10-11] MEDS: METOPROLOL SUCC 25MG EXT REL TAB PO SCH (20:52)
[2018-10-12] MEDS: OXYCODONE HCL IR 5 MG TAB (IMMEDIATE RELEASE) PO PRN (05:46)
--- NOTE | 2018-10-12 07:11 | Hospitalist Progress Note ---
Date of Service October 11, 2018 Assessment & Plan (1) CVA (cerebral vascular accident): left-sided weakness status post TPA - weakness resolved. MRI with multiple punctate abnormalities in right parietal and right frontal lobe consistent with embolic stroke. CT head 24 hrs post tPA negative for ICH. CTA neck with 60% stenosis NEHAL with ulcerated plaque at the bulb. Vascular surgery consulted - CEA of right-sided ICA stenosis planned for THIS WEDNESDAY. Continue plavix 75mg daily for secondary prevention. Resume systemic anticoagulation post-CEA (previously was not on anticoagulation due to hematuria). Keep on tele. Statin. BP control. Present on Admission?: Yes (2) A-fib: Controlled. Cont BB. Anticoagulation post-CEA. Present on Admission?: Yes (3) CAD (coronary artery disease): Status post CABG. Plavix, statin, BB. Appreciate cardiology consult - agree with changing atenolol to toprol xl. No ischemic symptoms at this time. Echo w/o new wall motion abnormalities. Present on Admission?: Yes (4) Dyslipidemia: Crestor 20 mg daily Present on Admission?: Yes (5) BPH (benign prostatic hyperplasia): finasteride would resume tamsulosin (6) Hx of CABG: As above Present on Admission?: No (7) Carotid stenosis: RIGHT - 60% with focal ulceration Right CEA on Wednesday -- per Dr. Joseph Continue Plavix and statin Present on Admission?: Yes (8) AAA (abdominal aortic aneurysm): outpatient follow-up/management. (9) Thyroid nodule: noted incidentally on CT neck, measuring 1.9 x 1.6 cm on right, heterogenous appearing. TSH normal at 2.39 in 02/2018 Endo referral after discharge. (10) Prediabetes: HgbA1C here is mildly elevated at 5.9%. Dietary control. (11) Obesity (BMI 30.0-34.9): BMI 33.7 (12) Ischemic cardiomyopathy: with resulting chronic systolic CHF. compensated. LVEF 45% on ECHO. There are old wall motion abnormalities present. Cardiology consult appreciated. Agree with change in beta lindsey. Agree with addition of low-dose CACHORRO or ARB in future if BP can tolerate. (13) Chronic systolic CHF (congestive heart failure): as above (14) DVT prophylaxis: lovenox daily doing nicely Subjective pt w/o complaints left sided weakness resolved eating well w/o dysphagia tele - rate controlled a.fib Constitutional: no fever Respiratory: no cough and no dyspnea Cardiovascular: no chest pain, no orthopnea and no paroxysmal nocturnal dyspnea Gastrointestinal: no abdominal pain, no nausea and no vomiting Neurologic: no localized weakness and no loss of sensation Physical Exam Vital Signs (Past 24 Hours): Last Vital Signs Temp 36.7 C 10/12/18 06:59 Pulse 93 H 10/12/18 06:59 Resp 18 10/12/18 06:59 BP 153/88 H 10/12/18 06:59 Pulse Ox 95 10/12/18 06:59 Constitutional: well developed and well nourished; no acute distress and not ill appearing ENMT: external ear and nose normal, oropharynx normal Respiratory: normal respiratory effort, lungs clear to auscultation Cardiovascular: Rate/Rhythm: regular rate; + abnormal rhythm (irregular) Heart Sounds: normal S1 and normal S2; no murmur Vessels: posterior tibial pulses present and dorsalis pedis pulses present; no JVD Gastrointestinal (Abdomen): normal bowel sounds, soft, nontender, no h epatosplenomegaly Neurologic: moves all extremities; no focal motor deficits no pronator drift; no facial droop; speech clear & fluent Psychiatric: A+Ox3, euthymic affect (1) BPH (benign prostatic hyperplasia) Lower urinary tract symptom presence: symptoms absent Qualified Code(s): N40.0 - Benign prostatic hyperplasia without lower urinary tract symptoms (2) Carotid stenosis Laterality: right Qualified Code(s): I65.21 - Occlusion and stenosis of right carotid artery (3) CAD (coronary artery disease) Coronary Disease-Associated Artery/Lesion type: [place] artery [place] vs. transplanted heart: [place] heart Associated angina: without angina Qualified Code(s): I25.10 - Atherosclerotic heart disease of [place] coronary artery without angina pectoris (4) AAA (abdominal aortic aneurysm) Presence of rupture: without rupture Qualified Code(s): I71.4 - Abdominal aortic aneurysm, without rupture (5) A-fib Atrial fibrillation type: persistent Qualified Code(s): I48.1 - Persistent atrial fibrillation (6) CVA (cerebral vascular accident) CVA mechanism: embolism Precerebral and cerebral artery: middle cerebral artery Laterality of affected vessel: right Qualified Code(s): I63.411 - Cerebral infarction due to embolism of right middle cerebral artery
[2018-10-12] MEDS: FEXOFENADINE 60 MG TAB PO SCH ×2 (08:10→20:15)
[2018-10-12] MEDS: TRIAMCINOLONE ACET 0.1% CR 80 GM TUBE EXT SCH ×3 (08:10→20:15)
[2018-10-12] MEDS: ENOXAPARIN INJ 40 MG/0.4 ML SYR SQ SCH (08:11)
[2018-10-12] MEDS: ROSUVASTATIN CALCIUM 20 MG TAB PO SCH (08:11)
[2018-10-12] MEDS: METOPROLOL SUCC 25MG EXT REL TAB PO SCH ×2 (08:13→20:15)
[2018-10-12] MEDS: CLOPIDOGREL BISULFATE 75 MG TAB PO SCH (08:13)
[2018-10-12] MEDS: FINASTERIDE 5 MG TAB PO SCH (08:14)
--- NOTE | 2018-10-12 09:40 | Cardiology Progress Note ---
Date of Service October 12, 2018 He denies any chest pain or chest pressure. Denies any shortness of breath. He denies any palpitations, lightheadedness, or dizziness. He is awaiting surgery at this point and feels stable. he has been able to walk to the bathroom without any shortness of breath. Physical Exam Vital Signs (Past 24 Hours): Last Vital Signs Temp 37.0 C 10/12/18 08:48 Pulse 82 10/12/18 08:48 Resp 18 10/12/18 08:48 BP 156/94 H 10/12/18 08:48 Pulse Ox 96 10/12/18 08:48 GENERAL: He is awake, alert, oriented x3. He looks older than his stated age. HEENT: I did not feel his carotid upstrokes due to his recent stroke and known carotid disease. He does have a faint bruit on the right. His sclerae are anicteric. His hearing was diminished. LUNGS: Globally decreased breath sounds; right greater than left. No rales, rhonchi or wheezing. HEART: Irregular rate and rhythm. No appreciable murmurs, rubs or gallops. ABDOMEN: Soft. Chronically distended, nontender, positive bowel sounds. EXTREMITIES: No clubbing, cyanosis or edema. PSYCHIATRIC: His affect appeared appropriate. Echocardiogram this admission, mildly dilated left ventricle with mild left ventricular dysfunction, EF in the range of 45% with akinesis of the inferior and inferolateral wall, moderate left ventricular hypertrophy, severe left atrial enlargement. Compared to a study from 01/26/2018, there is no significant change. IMPRESSION: 1. Preoperative evaluation prior to carotid endarterectomy. 2. Coronary artery disease status post coronary artery bypass grafting x3 with stenting to follow during what sounds like the same hospitalization at [facility] 08/2016. 3. Mild ischemic cardiomyopathy. 4. Inferior wall myocardial infarction, age indeterminate. 5. Hypertension. 6. Likely obstructive sleep apnea We are still awaiting his records from [facility] in [facility]. It is important to have the records as to know what his coronary anatomy is as well as confirmed that his LV function has not dramatically changed. Based on his EKG would suggest he had a prior inferior myocardial infarction which would correspond with the echo findings of inferior and inferolateral akinesis. At this point will allow for permissive hypertension given his recent stroke but after surgery I agree with adding CACHORRO inhibitor therapy. In observing him sleeping in the room he clearly has sleep apnea where he had periods of rapid respirations and then periods of apnea. He will need a formal sleep study upon discharge. Otherwise we will continue to follow him with you. 6. Chronic atrial fibrillation. 7. Right parietal stroke this admission.
[2018-10-12] MEDS: TAMSULOSIN HCL 0.4 MG CAP PO SCH (10:11)
[2018-10-12] MEDS ORDERED: NITROGLYCERIN 2% OINTMENT 30GM TUBE ONE (11:31)
[2018-10-12] MEDS ORDERED: MoRPHine SULFATE 2 MG/ML CARP ONE (11:46)
[2018-10-12] MEDS: NITROGLYCERIN 2% OINTMENT 30GM TUBE EXT SCH ×2 (11:57→19:10)
[2018-10-12] MEDS ORDERED: FUROSEMIDE 20 MG in SYRINGE 0 ML IV STA (11:57)
[2018-10-12] MEDS ORDERED: MoRPHine SULFATE 2 MG/ML CARP IV STA (11:58)
--- NOTE | 2018-10-12 12:13 | XRay Report ---
XR chest 1V portable HISTORY: 78 years-old Male SHORTNESS OF BREATH acute shortness of breath COMPARISON: Chest radiograph 02/02/2018 TECHNIQUE: Portable AP view of the chest FINDINGS: Cardiac silhouette is enlarged, unchanged. Prior median sternotomy with findings suggestive of prior CABG. Left atrial exclusion device redemonstrated. Calcification the thoracic aortic arch. No pneumot horax, pleural effusion, focal airspace consolidation or overt pulmonary edema. Minimal left basilar atelectasis/scarring. Degenerative changes of the shoulders and spine. IMPRESSION: Cardiomegaly without acute process. The above report was generated using voice recognition software. It may contain grammatical, syntax o r spelling errors. Electronically signed by: Yuri Lomas M.D. 10/12/2018 12:12 PM
[2018-10-12 12:33] LABS: Basophils # (auto) 0.01 K/uL (0-0.2); Basophils % (auto) 0.1 %; Eosinophils # (auto) 0.06 K/uL (0-0.5); Eosinophils % (auto) 0.6 %; Hematocrit (blood only) 43.2 % (42-52); Immature Granulocytes # (auto) 0.03 K/uL (0.00-0.02); Immature Granulocytes % (auto) 0.3 %; Lymphocytes # (auto) 0.53 K/uL (1.2-3.4); Lymphocytes % (auto) 5.2 %; Mean Corpuscular Volume 88.3 fL (80-100); Mean Platelet Volume 10.3 fL (7.4-10.4); Monocytes # (auto) 0.76 K/uL (0.11-0.59); Monocytes % (auto) 7.5 %; Neutrophils # (auto) 8.76 K/uL (1.4-6.5); Neutrophils % (auto) 86.3 %; Platelet Count 139 K/uL (130-400); RDW Coefficient of Variation 14.9 % (11.5-14.5); Red Blood Count 4.89 M/uL (4.7-6.1); White Blood Count 10.15 K/uL (4.8-10.8)
[2018-10-12 12:45] LABS: Mean Corpuscular Hgb Conc 32.4 g/dL (32-36)
[2018-10-12 12:52] LABS: Creatinine Clr Calc Pharmacy 74.4 ml/min; Est GFR (African American) 80.3; Est GFR (Non-African American) 69.3
[2018-10-12 13:15] LABS: BUN Creatinine Ratio 17.1 (10-20); Calcium 8.3 mg/dl (8.5-10.1)
[2018-10-12 14:44] LABS: Platelet Estimate Normal (Normal)
[2018-10-12 16:06] LABS: Appearance Urine Cloudy (Clear); Bilirubin Urine Negative (Negative); Blood Urine 3+ (Negative); Color Urine Red; Glucose Urine UA Negative (Negative); Ketones Urine Negative (Negative); Leukocyte Esterase Urine 1+ (Negative); Nitrite Urine Negative (Negative); Protein Urine 1+ (Negative); Urobilinogen Urine Negative (Negative)
[2018-10-12 16:15] LABS: Bacteria Urine 1+ (Negative); Epithelial Cell Urine >30 /lpf (0-5); RBC Urine >30 /hpf (0-4); WBC Urine >30 /hpf (0-5)
[2018-10-12] MEDS: cefTRIAXone SODIUM 1,000 MG in DEXTROSE 5% 50 ML IV SCH (17:12)
[2018-10-12] MEDS ORDERED: OPTIRAY 320 125ml IV PRN (19:49)
--- NOTE | 2018-10-12 20:11 | CT Scan Report ---
CT ANGIOGRAM OF THE CHEST CLINICAL HISTORY: Shortness of breath. Patient with history of immobilization. Possible pulmonary emb olism. COMPARISON STUDY: Chest x-ray dated 10/12/2018 TECHNIQUE: Following the IV administration of 119 mL of [id number]-320, CT angiogram of the thorax was p erformed from the thoracic inlet to the lung bases utilizing the pulmonary embolus protocol. Images a re reviewed in the axial, sagittal, and coronal planes. IV contrast was administered without complica tion. MIP imaging was performed. A dose lowering technique was utilized adhering to the principles o f ALARA. CT DOSE: 592.64 mGy.cm FINDINGS: There is a 2 cm right lobe thyroid nodule. No pathologically enlarged axillary mediastinal or hilar lymph nodes were visualized. There is mild dilatation of the ascending thoracic aorta which measures 4 cm. Evaluation for pulmonary embolism is moderately limited due to moderate respiratory motion artifact. There are no definite filling defects to indicate acute pulmonary embolism. No pleural effusions are visualized. There is no focal pulmonary consolidation. Evaluation is compromised due to significant respiratory m otion artifact. The heart is enlarged. There are postsurgical changes of midline sternotomy with coronary vasculariza tion. There is a left atrial occluder device. IMPRESSION: 1. Examination is compromised due to respiratory motion artifact 2. No evidence of acute pulmonary embolism 3. If there is a prominent clinical concern over the presence of pulmonary embolism, then correlation with serial leg venous ultrasonography should be obtained 4. No evidence of focal pulmonary consolidation 5. Cardiomegaly Electronically signed by: Simón Bassett M.D. 10/12/2018 8:09 PM
--- NOTE | 2018-10-12 20:39 | Hospitalist Progress Note ---
Date of Service October 12, 2018 Assessment & Plan (1) Diaphoresis: Associated with dyspnea. Concerning for anginal equivalent symptoms given his extensive CAD history. Nitropaste 1/2 q6h. Serial troponins. CTA chest - r/o PE, r/o aortic dissection. I discussed this gentleman's case with Dr. Degroot, cardiology. Prior to proceeding with CEA we both feel we need to investigate the status of his CAD more -- especially in light of his symptoms today. Plan for NPO after MN tonight with Lexiscan tomorrow Of note - records reviewed - echo dated 08/26/15 at [facility] -- EF 45-50%, mild diffuse hypokinesis Present on Admission?: No (2) Chronic systolic CHF (congestive heart failure): ?acute/chronic. however, his examination today was not entirely c/w decompensated CHF. gave 20mg of IV lasix x 1 with 1 L UOP but no significant change in status. Will re-eval in am. Continue BB BID. Present on Admission?: Yes (3) Obesity (BMI 30.0-34.9): (4) Prediabetes: (5) AAA (abdominal aortic aneurysm): CTA chest today with 4cm ascending thoracic aorta. I don't have imaging of abdomen, however. Spoke with radiologist - no obvious dissection on CTA chest study today. (6) Carotid stenosis: right 60-70% stenosis with ulcer. CEA planned for Wednesday by Dr Joseph. Now having dyspnea/diaphoresis today with work-up in progress for such. And also with gross hematuria again. (7) CVA (cerebral vascular accident): right-sided MCA territory stroke s/p TPA with resolution of left-sided weakness. excellent recovery. stroke attributed either to right-sided ICA stenosis or his a.fib (not on anticoagulation). continue statin. on plavix cautiously. will need systemic anticoagulation in the future following his CEA. (8) Hx of CAB08/2015. 3-vessel -- graft to 1st diagonal; graft to distal RCA; graft to ramus intermedius. Unable to graft his LAD. 10/2015 - repeat cath with angioplasty/stent to 80% LAD lesion; angioplasty/stent to 70% left main lesion. All grafts patent on this cath. Lexiscan nuclear stress test ordered for tomorrow. Present on Admission?: Yes (9) BPH (benign prostatic hyperplasia): cont flomax and finasteride Present on Admission?: Yes (10) Dyslipidemia: statin Present on Admission?: Yes (11) CAD (coronary artery disease): see discussion above in "diaphoresis" and CABG cont BB, statin, plavix lexiscan nuclear stress test tomorrow Present on Admission?: Yes (12) A-fib: rates uncontrolled at times even at rest. may need larger dose of BB. ideally anticoagulation is needed with high CHADS score but now w/ gross hematuria. continue telemetry. Present on Admission?: Yes (13) UTI (urinary tract infection): u/a suggestive of UTI. will start rocephin 1gm daily and follow urine culture. Present on Admission?: Yes (14) Gross hematuria: history of such. [facility]'s [facility] was normal. Cysto was done due to hematuria at that time as well. Was to have repeat cystoscopy in the recent past but never had such. 3-way delcid placed if he develops clots and needs CBI. Will ask urology to consult for their opinion. cause? bladder ca? prostatic lesion? UTI? other? (15) DVT prophylaxis: in light of gross hematuria will need to hold lovenox. SCDs in meantime. updated at bedside today. total time today -- about 80 minutes - including multiple visits to pt's bedside, discussing care with radiology/cardiology/etc, reviewing old records, etc. Subjective I was called by nursing staff urgently today. Patient was apparently sleeping. He awoke abruptly from his nap with severe diaphoresis and dyspnea. I asked nursing staff to obtain a BSG and EKG. BSG was 80s. EKG showed inferior ST depressions but there were old. EKG also with a.fib but rate-controlled and RBBB. Upon arrival he was c/o feeling hot. He was visibly dyspneic. He reported he could not lay flat. Denied ANY chest pain, back pain, arm pain, neck pain, or abdominal pain. He denied cough. Symptoms were different than his prior CT events. We placed O2, gave him 1/2 inch of nitropaste, and also gave morphine. STAT cxr - my reading - perhaps minimal pulmonary edema. Gave lasix 20mg IV x 1. Patient kept c/o urinary frequency and irritation. He asked for delcid. Prior to delcid placement he developed gross hematuria. A 3-way delcid was placed, and he yielded about 1000cc of bloody urine w/ the lasix. As the afternoon went on his dyspnea improved and diaphoresis improved but he never felt 100%. At no point did he have chest pain. Tele throughout the day showed a.fib with episodes >100. No V-tach. Constitutional: no fever, no chills and no anorexia Respiratory: + dyspnea and + dyspnea on exertion; no pain on inspiration Cardiovascular: + orthopnea; no chest pain and no paroxysmal nocturnal dyspnea Gastrointestinal: no abdominal pain, no nausea and no vomiting Physical Exam Vital Signs (Past 24 Hours): Last Vital Signs Temp 36.6 C 10/12/18 19:13 Pulse 81 10/12/18 19:13 Resp 18 10/12/18 19:13 BP 116/71 10/12/18 19:13 Pulse Ox 96 10/12/18 19:13 Constitutional: + acute distress (tachypneic, uncomfortable), + ill appearing and + obese ENMT: external ear and nose normal, oropharynx normal Respiratory: normal respiratory effort, lungs clear to auscultation Auscultation: + diminished lung sounds (bases) Cardiovascular: Rate/Rhythm: regular rate; + abnormal rhythm (irregular) Heart Sounds: normal S1 and normal S2; no murmur Vessels: + JVD (maybe minimal JVD), posterior tibial pulses present and dorsalis pedis pulses present Extremities: + edema (<1+ b/l) Gastrointestinal (Abdomen): normal bowel sounds, soft, nontender, no hepatosplenomegaly Neurologic: no focal motor deficits (strength 5/5 x 4 exts; no pronator drift) Psychiatric: A+Ox3, euthymic affect Mood: + anxious mood Results & Data Laboratory Results Laboratory Results - last 24 hr 10/12/18 10/12/18 10/12/18 10:56 12:18 12:18 WBC 10.15 RBC 4.89 Hgb 14.0 Hct 43.2 MCV 88.3 MCH 28.6 MCHC 32.4 RDW Std Deviation 48.0 H RDW Coeff of Joslyn 14.9 H Plt Count 139 MPV 10.3 Immature Gran % (Auto) 0.3 Neut % (Auto) 86.3 Lymph % (Auto) 5.2 [place] % (Auto) 7.5 Eos % (Auto) 0.6 Baso % (Auto) 0.1 Immature Gran # (Auto) 0.03 H Neut # (Auto) 8.76 H Lymph # (Auto) 0.53 L [place] # (Auto) 0.76 H Eos # (Auto) 0.06 Baso # (Auto) 0.01 Platelet Estimate Normal Sodium Potassium Chloride Carbon Dioxide Anion Gap BUN Creatinine Est Cr Clr Drug Dosing Est GFR ( Amer) Est GFR (Non-Af Amer) BUN/Creatinine Ratio Glucose POC Glucose 81 Calcium Troponin I < 0.015 Urine Color Urine Appearance Urine pH Ur Specific [place] Urine Protein Urine Glucose (UA) Urine Ketones Urine Blood Urine Nitrite Urine Bilirubin Urine Urobilinogen Ur Leukocyte Esterase Urine RBC Urine WBC Ur Epithelial Cells Urine Bacteria 10/12/18 10/12/18 10/12/18 12:18 15:49 19:26 WBC RBC Hgb Hct MCV MCH MCHC RDW Std Deviation RDW Coeff of Joslyn Plt Count MPV Immature Gran % (Auto) Neut % (Auto) Lymph % (Auto) [place] % (Auto) Eos % (Auto) Baso % (Auto) Immature Gran # (Auto) Neut # (Auto) Lymph # (Auto) [place] # (Auto) Eos # (Auto) Baso # (Auto) Platelet Estimate Sodium 134 L Potassium 4.0 Chloride 104 Carbon Dioxide 25 Anion Gap 5.0 BUN 18 Creatinine 1.03 Est Cr Clr Drug Dosing 74.4 Est GFR ( Amer) 80.3 Est GFR (Non-Af Amer) 69.3 BUN/Creatinine Ratio 17.1 Glucose 101 H POC Glucose Calcium 8.3 L Troponin I 0.017 Urine Color Red Urine Appearance Cloudy H Urine pH 6.0 Ur Specific [place] 1.010 Urine Protein 1+ H Urine Glucose (UA) Negative Urine Ketones Negative Urine Blood 3+ H Urine Nitrite Negative Urine Bilirubin Negative Urine Urobilinogen Negative Ur Leukocyte Esterase 1+ H Urine RBC >30 H Urine WBC >30 H Ur Epithelial Cells >30 H Urine Bacteria 1+ H Diagnostic Findings EKG - my reading - a.fib, RBBB, inferior ST depressions - unchanged from prior EKG no ST elevations (1) UTI (urinary tract infection) Urinary tract infection type: acute cystitis Hematuria presence: with hematuria Qualified Code(s): N30.01 - Acute cystitis with hematuria (2) BPH (benign prostatic hyperplasia) Lower urinary tract symptom presence: symptoms absent Qualified Code(s): N40.0 - Benign prostatic hyperplasia without lower urinary tract symptoms (3) Carotid stenosis Laterality: right Qualified Code(s): I65.21 - Occlusion and stenosis of right carotid artery (4) CAD (coronary artery disease) Associated angina: without angina Coronary Disease-Associated Artery/Lesion type: [place] artery [place] vs. transplanted heart: [place] heart Qualified Code(s): I25.10 - Atherosclerotic heart disease of [place] coronary artery without angina pectoris (5) AAA (abdominal aortic aneurysm) Presence of rupture: without rupture Qualified Code(s): I71.4 - Abdominal aortic aneurysm, without rupture (6) A-fib Atrial fibrillation type: persistent Qualified Code(s): I48.1 - Persistent atrial fibrillation (7) CVA (cerebral vascular accident) CVA mechanism: embolism Laterality of affected vessel: right Precerebral and cerebral artery: middle cerebral artery Qualified Code(s): I63.411 - Cerebral infarction due to embolism of right middle cerebral artery
[2018-10-13] MEDS: NITROGLYCERIN 2% OINTMENT 30GM TUBE EXT SCH ×5 (00:50→23:22)
[2018-10-13 06:00] LABS: Hematocrit (blood only) 37.4 % (42-52); Hemoglobin 12.2 g/dL (14.0-18.0); Mean Corpuscular Hgb Conc 32.6 g/dL (32-36); Mean Corpuscular Volume 86.6 fL (80-100); Platelet Count 137 K/uL (130-400); RDW Coefficient of Variation 14.8 % (11.5-14.5); RDW Standard Deviation 46.8 fL (36.4-46.3); Red Blood Count 4.32 M/uL (4.7-6.1); White Blood Count 8.02 K/uL (4.8-10.8)
[2018-10-13 06:33] LABS: BUN Creatinine Ratio 21.8 (10-20); Calcium 8.1 mg/dl (8.5-10.1); Creatinine Clr Calc Pharmacy 72.7 ml/min; Est GFR (African American) 78.4; Est GFR (Non-African American) 67.7; Potassium 3.6 mmol/L (3.5-5.1)
--- NOTE | 2018-10-13 07:45 | Communication Note ---
Date of Service: October 13, 2018 We will cancel surgery for tomorrow. Depending on his cardiac workup may be able to schedule him early part of next week.
[2018-10-13] MEDS ORDERED: MoRPHine SULFATE 2 MG/ML CARP IV STA (09:29)
[2018-10-13] MEDS ORDERED: KETOROLAC TROMETHAMINE 15 MG/ML VIAL IV ONE (09:29)
--- NOTE | 2018-10-13 10:07 | Cardiology Progress Note ---
Date of Service October 13, 2018 Feels better today. He denies any chest pain or chest pressure. Denies any shortness of breath. He denies any lightheadedness or dizziness. Next He did go downstairs for Lexiscan nuclear stress test. Unfortunately he could not lay flat and the nuchal lab did not ask for med through the procedure. He was most limited due to back discomfort and notes he just cannot lay flat as he gets pain in his lower back that radiates down his legs. The events of yesterday were noted and discussed with the primary service. He does not appear dyspneic today. Physical Exam Vital Signs (Past 24 Hours): Last Vital Signs Temp 36.7 C 10/13/18 06:52 Pulse 83 10/13/18 06:52 Resp 18 10/13/18 06:52 BP 103/61 10/13/18 06:52 Pulse Ox 95 10/13/18 06:52 GENERAL: He is awake, alert, oriented x3. He looks older than his stated age. HEENT: I did not feel his carotid upstrokes due to his recent stroke and known carotid disease. He does have a faint bruit on the right. His sclerae are anicteric. His hearing was diminished. LUNGS: Globally decreased breath sounds; No rales, rhonchi or wheezing. HEART: Irregular rate and rhythm. No appreciable murmurs, rubs or gallops. ABDOMEN: Soft. Chronically distended, nontender, positive bowel sounds. EXTREMITIES: No clubbing, cyanosis or edema. PSYCHIATRIC: His affect appeared appropriate. Echocardiogram this admission, mildly dilated left ventricle with mild left ventricular dysfunction, EF in the range of 45% with akinesis of the inferior and inferolateral wall, moderate left ventricular hypertrophy, severe left atrial enlargement. Compared to a study from 01/26/2018, there is no significant change. IMPRESSION: 1. Flash pulmonary edema October 12, 2018 2. Coronary artery disease status post coronary artery bypass grafting x3 at [facility] in [place] 2015. 3. Mild ischemic cardiomyopathy--LVEF 45%. 4. Inferior wall myocardial infarction, age indeterminate. 5. Hypertension. 6. Likely obstructive sleep apnea 7. Hx of CAB08/2015. 3-vessel -- graft to 1st diagonal; graft to distal RCA; graft to ramus intermedius. Unable to graft his LAD. 10/2015 - repeat cath with angioplasty/stent to 80% LAD lesion; angioplasty/stent to 70% left main lesion. All grafts patent on this cath. 8. CVA this admission status post TPA thought to be related to atrial fibrillation while not on anticoagulation 9. Chronic atrial fibrillation with previous interruption of anticoagulation secondary to hematuria I reviewed his CAT scan of his chest yesterday which is negative for pulmonary embolism. His event yesterday does sound like flash pulmonary. He looks much better today. He rapidly diuresis yesterday with IV furosemide and rapidly recovered. It is possible looking in the med rec he was not on his outpatient dose of furosemide. He looks slightly more prerenal compared to yesterday. 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 His outside records were discussed with Dr. Claudio. Given his flash pulmonary edema I believe we are obligated to rule out progression of his coronary disease. He is not the greatest historian he describes being able to walk 500 yards but I find that incredibly difficult to believe. Therefore we do not have an credible assessment of his functional capacity. Unfortunately due to back discomfort he could not undergo Lexiscan stress testing today. The nuclear lab cannot add him on later this afternoon. We will arrange for his stress test to be done tomorrow and will premedicate him in order to control his back discomfort. He is otherwise on appropriate medical regimen. We will have to watch his hematuria. He will need anticoagulation long-term given the concern that his atrial fibrillation likely is the cause of his stroke.
[2018-10-13] MEDS: METOPROLOL SUCC 25MG EXT REL TAB PO SCH ×2 (10:36→19:21)
[2018-10-13] MEDS: ROSUVASTATIN CALCIUM 20 MG TAB PO SCH (10:36)
[2018-10-13] MEDS: FEXOFENADINE 60 MG TAB PO SCH ×2 (10:36→19:21)
[2018-10-13] MEDS: CLOPIDOGREL BISULFATE 75 MG TAB PO SCH (10:36)
[2018-10-13] MEDS: TRIAMCINOLONE ACET 0.1% CR 80 GM TUBE EXT SCH ×3 (10:36→20:11)
[2018-10-13] MEDS: TAMSULOSIN HCL 0.4 MG CAP PO SCH (10:36)
[2018-10-13] MEDS: FINASTERIDE 5 MG TAB PO SCH (10:36)
--- NOTE | 2018-10-13 10:36 | Urology Consultation ---
Date of Consultation October 13, 2018 Assessment & Plan (1) Gross hematuria: Urine cytology negative. UC&S prelim+, recommend antibiotics per sensitivities for a total of 10d of therapy. Urine in tubing is yellow, no gross hematuria noted, no acute intervention at this time. Discussed ongoing intermittent hematuria with patient, he is agreeable to me rescheduling his outpatient follow up including cystoscopy. Will arrange. Thank you for allowing us to participate in the care of this patient. Please contact our service with any additional questions/concerns. History of Present Illness Reason for Consultation: Hematuria Attending Physician: Miguel Hammonds History of Present Illness 78 YO male with reported gross hematuria. Patient reports that this has been an intermittent issue for many years. Reportedly had cystoscopy several years ago, normal per his recollection. Was evaluated in our outpatient clinic in April 2018, advised to have a repeat cystoscopy at that time and did not follow up. Patient reports feeling well today. No flank/abdominal pain. His Roman catheter is not bothersome. He denies fever/chills. Denies nausea/vomiting. Home urinary medications include finasteride and tamsulosin daily. Allergies Allergy/AdvReac Type Severity Reaction Status Date / Time clams AdvReac Severe GI SYMPTOMS Verified 10/09/18 01:37 Home Medications Home Medications Medication Instructions Recorded Confirmed Type aspirin 81 mg PO DAILY 10/09/18 10/09/18 History atenolol 25 mg PO DAILY 10/09/18 10/09/18 History finasteride 5 mg PO DAILY 10/09/18 10/09/18 History fluticasone propionate [Flonase 2 spray INTRANASAL DAILY 10/09/18 10/09/18 History Allergy Relief] furosemide 20 mg PO DAILY 10/09/18 10/09/18 History meloxicam 7.5 mg PO DAILY PRN 10/09/18 10/09/18 History omeprazole 20 mg PO BID PRN 10/09/18 10/09/18 History rosuvastatin [Crestor] 20 mg PO DAILY 10/09/18 10/09/18 History tamsulosin 0.4 mg PO DAILY 10/09/18 10/09/18 History Patient History Medical History A-fib (Chronic) CAD (coronary artery disease) (Chronic) Dyslipidemia (Chronic) BPH (benign prostatic hyperplasia) (Chronic) Surgical History Hx of CABG (Chronic) History of cataract surgery History of tonsillectomy Family History Mother , age 83 of heart disease. Heart disease Father , age 53 of MRI. 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 Other Information That Helps Us Care for You: No Feels Safe at Home: Yes Safety Concerns: Feels Safe At This Time Smoking Status: Never smoker Hx Alcohol Use: No Hx Substance Use: No Review of Systems Constitutional: no fever and no chills Eyes: no problem reported Ear, Nose, Mouth, Throat: no hearing loss Respiratory: no dyspnea Cardiovascular: no chest pain Gastrointestinal: no abdominal pain, no nausea and no vomiting Genitourinary (Male): as per Subjective / HPI Musculoskeletal: + stiffness Neurologic: no tingling and no numbness Psychiatric: no problem reported Physical Exam Vital Signs (Past 24 Hours): Last Vital Signs Temp 36.7 C 10/13/18 06:52 Pulse 83 10/13/18 06:52 Resp 18 10/13/18 06:52 BP 103/61 10/13/18 06:52 Pulse Ox 95 10/13/18 06:52 Constitutional: no acute distress Neck: normal visual inspection Respiratory: no respiratory distress Cardiovascular: Vessels: no JVD Gastrointestinal (Abdomen): Percussion/Palpation: abdomen soft; abdomen nontender Psychiatric: A+Ox3, euthymic affect Genitourinary: Roman cath in place, draining yellow urine. No blood or clot appreciated.
[2018-10-13] MEDS: OXYCODONE HCL IR 5 MG TAB (IMMEDIATE RELEASE) PO PRN (10:37)
[2018-10-13] MEDS: cefTRIAXone SODIUM 1,000 MG in DEXTROSE 5% 50 ML IV SCH (16:08)
[2018-10-13] MEDS: FUROSEMIDE 20 MG TAB PO SCH (19:20)
--- NOTE | 2018-10-13 19:53 | Hospitalist Progress Note ---
Date of Service October 13, 2018 Assessment & Plan (1) Diaphoresis: Associated with dyspnea. This occurred during much of the afternoon yesterday. Concerning for anginal equivalent symptoms given his extensive CAD history. Despite the symptoms ultimately his trop x 3 were neg. CTA chest w/o PE or aortic dissection. Attempts at lexiscan stress test unsuccessful this am -- pt could not lay flat on table. Will make NPO tonight after MN -- plan for oxycodone 10mg and toradol 15mg x 1 just prior to going for lexiscan tomorrow AM. Pt feels with meds he can complete the stress. (2) Chronic systolic CHF (congestive heart failure): probably had mild acute/chronic yesterday. s/p lasix IV with good diuresis. looks euvolemic today. resume PO lasix dose (20mg daily). cont BB. (3) UTI (urinary tract infection): urine cx with GNR. continue rocephin. (4) Gross hematuria: history of such. had cystoscopy several years ago at [facility] - per pt's recollection was normal. Cysto was done due to hematuria at that time as well. Was to have repeat cystoscopy in the recent past but never had such. gross hematuria recurred yesterday. he had LUTS. 3-way delcid placed in case he needed CBI. Urology consulted. since urine cleared overnight urology to not perform anything acute. acute hematuria -- due to UTI? chronic hematuria -- cause? (5) CVA (cerebral vascular accident): right-sided MCA territory stroke s/p TPA with resolution of left-sided weakness. excellent recovery. exam now normal w/ no motor weakness. stroke attributed either to right-sided ICA stenosis or his a.fib (not on anticoagulation). continue statin. on plavix cautiously. will need systemic anticoagulation in the future following his CEA. CEA of right ICA placed on hold due to yesterday's events and need for lexiscan stress test. (6) Carotid stenosis: right 60-70% stenosis with ulcer. CEA planned for Wednesday by Dr Joseph but now canceled due to yesterday's events. cont statin. cont plavix. (7) Obesity (BMI 30.0-34.9): BMI 33.4 (8) Prediabetes: HgbA1C here is mildly elevated at 5.9%. Dietary control only. (9) AAA (abdominal aortic aneurysm): CTA chest with 4cm ascending thoracic aorta. I don't have imaging of abdomen, however. Spoke with radiologist - no obvious dissection on CTA chest study. ultimately needs dedicated imaging of abdomen to look at abdominal aorta. (10) Hx of CAB08/2015. 3-vessel -- graft to 1st diagonal; graft to distal RCA; graft to ramus intermedius. Unable to graft his LAD. 10/2015 - repeat cath with angioplasty/stent to 80% LAD lesion; angioplasty/stent to 70% left main lesion. All grafts patent on this cath. Lexiscan nuclear stress test ordered for tomorrow. (11) BPH (benign prostatic hyperplasia): cont flomax and finasteride delcid placed in midst of gross hematuria voiding trial in a few days (12) Dyslipidemia: statin (13) CAD (coronary artery disease): see discussion above in "diaphoresis" and CABG cont BB, statin, plavix will reattempt lexiscan nuclear stress test tomorrow (14) A-fib: cont BB ideally anticoagulation is needed with high CHADS score but now w/ gross hematuria and probable upcoming CEA by Dr Joseph. continue telemetry. (15) DVT prophylaxis: lovenox put on hold due to gross hematuria SCDs in meantime. Subjective patient "feels good" today he had a good night with no chest pain, dyspnea, orthopnea, cough feels much better relative to yesterday tele with rate-controlled a.fib could not lay flat on nuclear stress test today -- due to long-standing (20+ years) low back pain he feels he could complete it if he gets oxycodone prior to stress no new complaints Constitutional: no fever and no chills Respiratory: no cough and no dyspnea Cardiovascular: no chest pain Gastrointestinal: no abdominal pain, no nausea and no vomiting Physical Exam Vital Signs (Past 24 Hours): Last Vital Signs Temp 36.5 C 10/13/18 15:30 Pulse 105 H 10/13/18 15:30 Resp 20 10/13/18 15:30 BP 124/77 10/13/18 15:30 Pulse Ox 96 10/13/18 15:30 Constitutional: well developed and well nourished; no acute distress looks much better today ENMT: external ear and nose normal, oropharynx normal Respiratory: normal respiratory effort, lungs clear to auscultation Cardiovascular: Rate/Rhythm: regular rate; + abnormal rhythm (irregular) Heart Sounds: normal S1 and normal S2; no murmur Vessels: posterior tibial pulses present and dorsalis pedis pulses present; no JVD Extremities: + edema (trace b/l) Gastrointestinal (Abdomen): normal bowel sounds, soft, nontender, no hepatosplenomegaly Neurologic: strength 5/5 x 4 exts; speech clear; no facial droop Psychiatric: A+Ox3, euthymic affect Results & Data Laboratory Results Laboratory Results - last 24 hr 10/12/18 10/13/18 10/13/18 19:26 05:16 05:16 WBC 8.02 RBC 4.32 L Hgb 12.2 L Hct 37.4 L MCV 86.6 MCH 28.2 MCHC 32.6 RDW Std Deviation 46.8 H RDW Coeff of Joslyn 14.8 H Plt Count 137 MPV 11.0 H Sodium 135 L Potassium 3.6 Chloride 104 Carbon Dioxide 25 Anion Gap 6.0 BUN 23 H Creatinine 1.05 Est Cr Clr Drug Dosing 72.7 Est GFR ( Amer) 78.4 Est GFR (Non-Af Amer) 67.7 BUN/Creatinine Ratio 21.8 H Glucose 98 Calcium 8.1 L Troponin I 0.017 10/13/18 05:16 WBC RBC Hgb Hct MCV MCH MCHC RDW Std Deviation RDW Coeff of Joslyn Plt Count MPV Sodium Potassium Chloride Carbon Dioxide Anion Gap BUN Creatinine Est Cr Clr Drug Dosing Est GFR ( Amer) Est GFR (Non-Af Amer) BUN/Creatinine Ratio Glucose Calcium Troponin I 0.025 (1) UTI (urinary tract infection) Hematuria presence: with hematuria Urinary tract infection type: acute cystitis Qualified Code(s): N30.01 - Acute cystitis with hematuria (2) BPH (benign prostatic hyperplasia) Lower urinary tract symptom presence: symptoms absent Qualified Code(s): N40.0 - Benign prostatic hyperplasia without lower urinary tract symptoms (3) Carotid stenosis Laterality: right Qualified Code(s): I65.21 - Occlusion and stenosis of right carotid artery (4) CAD (coronary artery disease) Associated angina: without angina Coronary Disease-Associated Artery/Lesion type: [place] artery [place] vs. transplanted heart: [place] heart Qualified Code(s): I25.10 - Atherosclerotic heart disease of [place] coronary artery without angina pectoris (5) AAA (abdominal aortic aneurysm) Presence of rupture: without rupture Qualified Code(s): I71.4 - Abdominal aortic aneurysm, without rupture (6) A-fib Atrial fibrillation type: persistent Qualified Code(s): I48.1 - Persistent atrial fibrillation (7) CVA (cerebral vascular accident) CVA mechanism: embolism Laterality of affected vessel: right Precerebral and cerebral artery: middle cerebral artery Qualified Code(s): I63.411 - Cerebral infarction due to embolism of right middle cerebral artery
[2018-10-14] MEDS ORDERED: KETOROLAC TROMETHAMINE 15 MG/ML VIAL IV ONE (07:00)
[2018-10-14] MEDS ORDERED: OXYCODONE HCL IR 5 MG TAB (IMMEDIATE RELEASE) PO ONE (07:00)
[2018-10-14 07:43] LABS: BUN Creatinine Ratio 21.9 (10-20); Calcium 8.2 mg/dl (8.5-10.1); Creatinine Clr Calc Pharmacy 67.7 ml/min; Est GFR (African American) 72.5; Est GFR (Non-African American) 62.6; Potassium 4.1 mmol/L (3.5-5.1)
[2018-10-14] MEDS ORDERED: REGADENOSON 0.4 MG/5 ML SYR IV ONE (09:07)
[2018-10-14] MEDS: FUROSEMIDE 20 MG TAB PO SCH (10:41)
[2018-10-14] MEDS: TAMSULOSIN HCL 0.4 MG CAP PO SCH (10:41)
[2018-10-14] MEDS: METOPROLOL SUCC 25MG EXT REL TAB PO SCH ×2 (10:41→20:35)
[2018-10-14] MEDS: TRIAMCINOLONE ACET 0.1% CR 80 GM TUBE EXT SCH ×3 (10:41→20:36)
[2018-10-14] MEDS: ROSUVASTATIN CALCIUM 20 MG TAB PO SCH (10:41)
[2018-10-14] MEDS: FEXOFENADINE 60 MG TAB PO SCH ×2 (10:41→20:35)
[2018-10-14] MEDS: CLOPIDOGREL BISULFATE 75 MG TAB PO SCH (10:41)
[2018-10-14] MEDS: FINASTERIDE 5 MG TAB PO SCH (10:41)
[2018-10-14] MEDS: cephALEXin 500 MG CAP PO SCH ×2 (10:45→20:35)
--- NOTE | 2018-10-14 11:35 | Myocardial Perfusion Study ---
Date of Service October 14, 2018 Myocardial Perfusion Study [facility] Myocardial Perfusion Study Report Procedure: 1. Myocardial perfusion study performed in multiple views/images 2. Lexiscan pharmacologic stress ECG Indications: 1. CAD status post CABG Ordering physician: Dr. Hammonds Procedural details: For the stress portion of the study, Lexiscan 0.4 mg was intravenously administered followed by a saline flush. This was followed by 10.2 mCi of technetium 99m Cardiolite, injected at 7:35 a.m. on 10/14/2018. 30 minutes following the injection, imaging of the heart was performed in multiple projections. For the rest portion of the study, 32.098 mCi technetium 99m Cardiolite was injected intravenously at 9:30 a.m. on 10/14/2018. 1 hour following the injection, imaging of the heart was performed in the same projections. Please note, on 10/13/2018 there was an attempt for rest imaging and he received 10.1 mCi of technetium 99 M Cardiolite at 8:15 a.m.. Unfortunately, he was unable to lay flat on the imaging table and therefore no images were obtained. Lexiscan stress ECG: Resting ECG demonstrated: Atrial fibrillation at 86 bpm. RBBB. Inferolateral infarct. Maximum heart rate: 112 bpm Maximal, age-predicted heart rate: 78 % Resting blood pressure: 116/64 mmHg Maximum blood pressure: 116/[address] changes: None Arrhythmia: atrial fibrillation throughout Symptoms: No chest pain. Patient felt warm with Lexiscan. Findings: Rotating raw imaging demonstrated no significant lung uptake. There is no significant motion artifact. Heart size appeared normal. Myocardial perfusion demonstrated a moderate sized area of severely reduced uptake involving the base to distal inferior and base to distal inferolateral wall segments, which were fixed in post stress and rest imaging without significant reversibility. Ejection fraction: 50 % Wall motion: Akinesis of the base to distal inferior and base to distal inferolateral wall segments. Otherwise, normal wall motion. No significant transient ischemic dilation. Impression: 1. Negative myocardial perfusion study for ischemia. 2. Inferior and inferolateral infarct. 3. Low-normal left ventricular systolic function. EF 50%. Akinesis of the inferior and inferolateral wall. 4. Nondiagnostic Lexiscan ECG.
--- NOTE | 2018-10-14 14:53 | Communication Note ---
Date of Service: October 14, 2018 Pt tentatively scheduled for R CEA on WEDNESDAY, 10/18. Please call with any questions.
--- NOTE | 2018-10-14 21:01 | Hospitalist Progress Note ---
Date of Service October 14, 2018 Assessment & Plan (1) CAD (coronary artery disease): lexiscan nuclear stress test obtained due to Wednesday's symptoms of diaphoresis, dyspnea, etc. fortunately the stress test is negative for ischemia cont BB, statin, plavix appreciate Dr. Degroot's consultation (2) Chronic systolic CHF (congestive heart failure): probably had mild acute/chronic CHF 2 days ago - s/p lasix IV with good diuresis. looks euvolemic once again today. resumed PO lasix dose (20mg daily). cont BB. (3) UTI (urinary tract infection): urine cx with e. coli. stop rocephin. start keflex 500mg BID. day #3 of abx. needs [place] to r/o prostatitis. d/c delcid today. (4) Gross hematuria: history of such. had cystoscopy several years ago at [facility] - per pt's recollection was normal. Cysto was done due to hematuria at that time as well. Was to have repeat cystoscopy in the recent past but never had it. gross hematuria recurred 2 days ago and resolved. Urology consulted. since urine cleared urology to not perform anything acutely. acute hematuria -- due to UTI? chronic hematuria -- cause? outpatient cysto will be needed. (5) CVA (cerebral vascular accident): right-sided MCA territory stroke s/p TPA with resolution of left-sided weakness. excellent recovery. exam now normal w/ no motor weakness. stroke attributed either to right-sided ICA stenosis or his a.fib (not on anticoagulation). continue statin. on plavix cautiously. will need systemic anticoagulation in the future following his CEA. CEA of right ICA planned for WEDNESDAY of this coming week. (6) Carotid stenosis: right 60-70% stenosis with ulcer. CEA planned for WEDNESDAY by Dr Joseph. cont statin. cont plavix. (7) Obesity (BMI 30.0-34.9): BMI 32 (8) Prediabetes: HgbA1C here is mildly elevated at 5.9%. Dietary control only. (9) AAA (abdominal aortic aneurysm): CTA chest with 4cm ascending thoracic aorta. I don't have imaging of abdomen, however. Spoke with radiologist - no obvious dissection on CTA chest study. ultimately needs dedicated imaging of abdomen to look at abdominal aorta. (10) Hx of CAB08/2015. 3-vessel -- graft to 1st diagonal; graft to distal RCA; graft to ramus intermedius. Unable to graft his LAD. 10/2015 - repeat cath with angioplasty/stent to 80% LAD lesion; angioplasty/stent to 70% left main lesion. All grafts patent on this cath. Lexiscan nuclear stress test negative for ischemia. (11) BPH (benign prostatic hyperplasia): cont flomax and finasteride d/c delcid -- voiding trial needs [place] - r/o prostatitis (12) Dyslipidemia: statin (13) A-fib: cont BB ideally anticoagulation is needed with high CHADS score but now w/ gross hematuria and probable upcoming CEA by Dr Joseph. continue telemetry. (14) DVT prophylaxis: resume lovenox in am if no hematuria SCDs in meantime. updated at bedside today. Subjective pt feels good today no cp,dyspnea,diaphoresis tele w/ rate-controlled a.fib no gross hematuria via delcid Constitutional: no fever Respiratory: no cough Gastrointestinal: no abdominal pain, no nausea and no vomiting Physical Exam Vital Signs (Past 24 Hours): Last Vital Signs Temp 36.5 C 10/14/18 19:03 Pulse 80 10/14/18 19:03 Resp 20 10/14/18 19:03 BP 125/79 10/14/18 19:03 Pulse Ox 97 10/14/18 19:03 Constitutional: well developed, well nourished and + obese; no acute distress ENMT: external ear and nose normal, oropharynx normal Respiratory: normal respiratory effort, lungs clear to auscultation Cardiovascular: Rate/Rhythm: regular rate; + abnormal rhythm (irregular) Heart Sounds: normal S1 and normal S2; no murmur Vessels: posterior tibial pulses present and dorsalis pedis pulses present; no JVD Extremities: no edema Gastrointestinal (Abdomen): normal bowel sounds, soft, nontender, no hepatosplenomegaly Neurologic: moves all extremities; no focal motor deficits (strength 5/5 x 4 exts; no pronator drift) Psychiatric: A+Ox3, euthymic affect Results & Data Laboratory Results Laboratory Results - last 24 hr 10/14/18 06:56 Sodium 140 Potassium 4.1 Chloride 108 H Carbon Dioxide 24 Anion Gap 7.0 BUN 25 H Creatinine 1.12 Est Cr Clr Drug Dosing 67.7 Est GFR ( Amer) 72.5 Est GFR (Non-Af Amer) 62.6 BUN/Creatinine Ratio 21.9 H Glucose 102 H Calcium 8.2 L (1) UTI (urinary tract infection) Hematuria presence: with hematuria Urinary tract infection type: acute cystitis Qualified Code(s): N30.01 - Acute cystitis with hematuria (2) BPH (benign prostatic hyperplasia) Lower urinary tract symptom presence: symptoms absent Qualified Code(s): N4 0.0 - Benign prostatic hyperplasia without lower urinary tract symptoms (3) Carotid stenosis Laterality: right Qualified Code(s): I65.21 - Occlusion and stenosis of right carotid artery (4) CAD (coronary artery disease) Associated angina: without angina Coronary Disease-Associated Artery/Lesion type: [place] artery [place] vs. transplanted heart: [place] heart Qualified Code(s): I25.10 - Atherosclerotic heart disease of [place] coronary artery wi thout angina pectoris (5) AAA (abdominal aortic aneurysm) Presence of rupture: without rupture Qualified Code(s): I71.4 - Abdominal aortic aneurysm, without rupture (6) A-fib Atrial fibrillation type: persistent Qualified Code(s): I48.1 - Persistent atrial fibrillation (7) CVA (cerebral vascular accident) CVA mechanism: embolism Laterality of affected vessel: right Precerebral and cerebral artery: middle cerebral artery Qualified Code(s): I63.411 - Cerebral infarction due to embolism of right middle cerebral artery
[2018-10-15 06:24] LABS: BUN Creatinine Ratio 23.4 (10-20); Calcium 8.3 mg/dl (8.5-10.1); Creatinine Clr Calc Pharmacy 68.4 ml/min; Est GFR (African American) 74.1; Potassium 3.7 mmol/L (3.5-5.1)
[2018-10-15] MEDS: FINASTERIDE 5 MG TAB PO SCH (07:51)
[2018-10-15] MEDS: FUROSEMIDE 20 MG TAB PO SCH (07:51)
[2018-10-15] MEDS: METOPROLOL SUCC 25MG EXT REL TAB PO SCH ×2 (07:52→21:29)
[2018-10-15] MEDS: ROSUVASTATIN CALCIUM 20 MG TAB PO SCH (07:52)
[2018-10-15] MEDS: CLOPIDOGREL BISULFATE 75 MG TAB PO SCH (07:52)
[2018-10-15] MEDS: cephALEXin 500 MG CAP PO SCH ×2 (07:52→21:29)
[2018-10-15] MEDS: TAMSULOSIN HCL 0.4 MG CAP PO SCH (07:52)
[2018-10-15] MEDS: FEXOFENADINE 60 MG TAB PO SCH ×2 (07:52→21:29)
[2018-10-15] MEDS: TRIAMCINOLONE ACET 0.1% CR 80 GM TUBE EXT SCH ×3 (07:53→21:30)
[2018-10-15] MEDS: OXYCODONE HCL IR 5 MG TAB (IMMEDIATE RELEASE) PO PRN (18:20)
--- NOTE | 2018-10-15 21:59 | Hospitalist Progress Note ---
Date of Service October 15, 2018 Assessment & Plan (1) CAD (coronary artery disease): lexiscan nuclear stress test obtained due to Wednesday's symptoms of diaphoresis, dyspnea, etc. stress test was negative for ischemia cont BB, statin, plavix appreciate Dr. Degroot's consultation patient thus optimized for upcoming CEA by Dr Joseph (2) Chronic systolic CHF (congestive heart failure): probably had mild acute/chronic CHF 2 days ago - s/p lasix IV with good diuresis. looks euvolemic once again today. cont lasix daily. cont BB. (3) UTI (urinary tract infection): urine cx with e. coli. cont keflex 500mg BID. day #4 of abx. needs [place] to r/o prostatitis. voiding fine after d/c of delcid. no gross hematuria. (4) Gross hematuria: history of such. had cystoscopy several years ago at [facility] - per pt's recollection was normal. Cysto was done due to hematuria at that time as well. Was to have repeat cystoscopy in the recent past but never had it. gross hematuria recurred 3 days ago and then resolved. Urology consulted. since urine cleared urology to not perform anything acutely. acute hematuria -- due to UTI? chronic hematuria -- cause? outpatient cysto will be needed. (5) CVA (cerebral vascular accident): right-sided MCA territory stroke s/p TPA with resolution of left-sided weakness. excellent recovery. exam now normal w/ no motor weakness. stroke attributed either to right-sided ICA stenosis or his a.fib (not on anticoagulation). continue statin. on plavix. will need systemic anticoagulation following his CEA. CEA of right ICA planned for WEDNESDAY of this coming week. (6) Carotid stenosis: right 60-70% stenosis with ulcer. CEA planned for WEDNESDAY by Dr Joseph. cont statin. cont plavix. (7) Obesity (BMI 30.0-34.9): BMI 32 (8) Prediabetes: HgbA1C here is mildly elevated at 5.9%. Dietary control only. (9) AAA (abdominal aortic aneurysm): CTA chest with 4cm ascending thoracic aorta. I don't have imaging of abdomen, however. Spoke with radiologist - no obvious dissection on CTA chest study. ultimately needs dedicated imaging of abdomen to look at abdominal aorta. (10) Hx of CAB08/2015. 3-vessel -- graft to 1st diagonal; graft to distal RCA; graft to ramus intermedius. Unable to graft his LAD. 10/2015 - repeat cath with angioplasty/stent to 80% LAD lesion; angioplasty/stent to 70% left main lesion. All grafts patent on this cath. Lexiscan nuclear stress test negative for ischemia. (11) BPH (benign prostatic hyperplasia): cont flomax and finasteride needs [place] - r/o prostatitis (12) Dyslipidemia: statin (13) A-fib: cont BB start systemic anticoagulation after CEA and once ok with vascular surgery. (14) DVT prophylaxis: resume lovenox Subjective feels well took walk today - no cp, no dyspnea, no left-sided weakness voiding fine without dysuria tele w/ rate-controllled a.fib eating well no new complaints Constitutional: no fever Respiratory: no cough and no dyspnea Cardiovascular: no chest pain, no orthopnea, no paroxysmal nocturnal dyspnea and no edema Gastrointestinal: no nausea and no vomiting Physical Exam Vital Signs (Past 24 Hours): Last Vital Signs Temp 36.5 C 10/15/18 15:24 Pulse 78 10/15/18 15:24 Resp 18 10/15/18 15:24 BP 134/79 10/15/18 15:24 Pulse Ox 97 10/15/18 15:24 Constitutional: well developed, well nourished and + obese; no acute distress ENMT: external ear and nose normal, oropharynx normal Respiratory: normal respiratory effort, lungs clear to auscultation Cardiovascular: Rate/Rhythm: regular rate; + abnormal rhythm (irregular) Heart Sounds: normal S1 and normal S2; no murmur Vessels: posterior tibial pulses present and dorsalis pedis pulses present; no JVD Extremities: no edema Gastrointestinal (Abdomen): normal bowel sounds, soft, nontender, no hepatosplenomegaly Neurologic: moves all extremities; no focal motor deficits (strength 5/5 x 4 exts; no pronator drift) Psychiatric: A+Ox3, euthymic affect Results & Data Laboratory Results Laboratory Results - last 24 hr 10/15/18 05:33 Sodium 139 Potassium 3.7 Chloride 108 H Carbon Dioxide 26 Anion Gap 6.0 BUN 26 H Creatinine 1.10 Est Cr Clr Drug Dosing 68.4 Est GFR ( Amer) 74.1 Est GFR (Non-Af Amer) 64.0 BUN/Creatinine Ratio 23.4 H Glucose 103 H Calcium 8.3 L (1) UTI (urinary tract infection) Hematuria presence: with hematuria Urinary tract infection type: acute cystitis Qualified Code(s): N30.01 - Acute cystitis with hematuria (2) BPH (benign prostatic hyperplasia) Lower urinary tract symptom presence: symptoms absent Qualified Code(s): N40.0 - Benign prostatic hyperplasia without lower urinary tract symptoms (3) Carotid stenosis Laterality: right Qualified Code(s): I65.21 - Occlusion and stenosis of right carotid artery (4) CAD (coronary artery disease) Associated angina: without angina Coronary Disease-Associated Artery/Lesion type: [place] artery [place] vs. transplanted heart: [place] heart Qualified Code(s): I25.10 - Atherosclerotic heart disease of [place] coronary artery without angina pectoris (5) AAA (abdominal aortic aneurysm) Presence of rupture: without rupture Qualified Code(s): I71.4 - Abdominal aortic aneurysm, without rupture (6) A-fib Atrial fibrillation type: persistent Qualified Code(s): I48.1 - Persistent atrial fibrillation (7) CVA (cerebral vascular accident) CVA mechanism: embolism Laterality of affected vessel: right Precerebral and cerebral artery: middle cerebral artery Qualified Code(s): I63.411 - Cerebral infarction due to embolism of right middle cerebral artery
[2018-10-16 06:30] LABS: Hematocrit (blood only) 40.5 % (42-52); Hemoglobin 13.3 g/dL (14.0-18.0); Mean Corpuscular Hgb Conc 32.8 g/dL (32-36); Mean Corpuscular Volume 87.1 fL (80-100); Mean Platelet Volume 10.2 fL (7.4-10.4); Platelet Count 182 K/uL (130-400); RDW Coefficient of Variation 14.7 % (11.5-14.5); RDW Standard Deviation 46.7 fL (36.4-46.3); Red Blood Count 4.65 M/uL (4.7-6.1); White Blood Count 7.58 K/uL (4.8-10.8)
[2018-10-16 06:49] LABS: BUN Creatinine Ratio 19.5 (10-20); Calcium 8.3 mg/dl (8.5-10.1); Creatinine Clr Calc Pharmacy 73.7 ml/min; Est GFR (African American) 81.2; Est GFR (Non-African American) 70.1; Potassium 3.9 mmol/L (3.5-5.1)
[2018-10-16] MEDS: CLOPIDOGREL BISULFATE 75 MG TAB PO SCH (08:31)
[2018-10-16] MEDS: TRIAMCINOLONE ACET 0.1% CR 80 GM TUBE EXT SCH ×3 (08:31→20:14)
[2018-10-16] MEDS: FINASTERIDE 5 MG TAB PO SCH (08:31)
[2018-10-16] MEDS: FUROSEMIDE 20 MG TAB PO SCH (08:31)
[2018-10-16] MEDS: TAMSULOSIN HCL 0.4 MG CAP PO SCH (08:31)
[2018-10-16] MEDS: ROSUVASTATIN CALCIUM 20 MG TAB PO SCH (08:31)
[2018-10-16] MEDS: METOPROLOL SUCC 25MG EXT REL TAB PO SCH ×2 (08:31→20:13)
[2018-10-16] MEDS: FEXOFENADINE 60 MG TAB PO SCH ×2 (08:32→20:13)
[2018-10-16] MEDS: cephALEXin 500 MG CAP PO SCH ×2 (08:32→20:13)
[2018-10-16] MEDS: ENOXAPARIN INJ 40 MG/0.4 ML SYR SQ SCH (09:26)
[2018-10-16] MEDS: OXYCODONE HCL IR 5 MG TAB (IMMEDIATE RELEASE) PO PRN (20:10)
--- NOTE | 2018-10-16 21:21 | Hospitalist Progress Note ---
Date of Service October 16, 2018 Assessment & Plan (1) CAD (coronary artery disease): lexiscan nuclear stress test was obtained on Wednesday as patient had a protracted episode of diaphoresis, dyspnea, etc. earlier this week. stress test was negative for ischemia cont BB, statin, plavix appreciate Dr. Degroot's consultation patient appears optimized for upcoming CEA by Dr Joseph (2) Chronic systolic CHF (congestive heart failure): probably had mild acute/chronic CHF 2 days ago - s/p lasix IV with good diuresis. looks euvolemic today cont lasix daily. cont BB. ideally patient should be on low-dose CACHORRO or ARB consider such before discharge if blood pressure will allow (3) UTI (urinary tract infection): urine cx with e. coli. cont keflex 500mg BID. day #5 of abx. plan 7 days of Rx CHEY[place] today w/o evidence of prostatitis. (4) Gross hematuria: history of such. had cystoscopy several years ago at [facility] - per pt's recollection was normal. Cysto was done due to hematuria at that time as well. Was to have repeat cystoscopy in the recent past but never had it. gross hematuria recurred 4 days ago and then spontaneously resolved. Urology was consulted and since urine cleared urology is not planning any inpatient workup. outpatient cystoscopy will be needed. acute hematuria -- due to UTI? chronic hematuria -- cause? again outpatient cysto will be needed. (5) CVA (cerebral vascular accident): right-sided MCA territory stroke s/p TPA with resolution of left-sided weakness. excellent recovery. exam now normal w/ no motor weakness. stroke attributed either to right-sided ICA stenosis or his a.fib (not on anticoagulation). continue statin. on plavix. will need systemic anticoagulation following his CEA. CEA of right ICA planned for WEDNESDAY of this coming week. (6) Carotid stenosis: right 60-70% stenosis with ulcer. CEA planned for WEDNESDAY by Dr Joseph. cont statin. cont plavix. (7) Obesity (BMI 30.0-34.9): BMI 32 (8) Prediabetes: HgbA1C here is mildly elevated at 5.9%. Dietary control only. (9) AAA (abdominal aortic aneurysm): CTA chest with 4cm ascending thoracic aorta. ultimately needs dedicated imaging of abdomen to look at abdominal aorta. (10) Hx of CAB08/2015. 3-vessel -- graft to 1st diagonal; graft to distal RCA; graft to ramus intermedius. Unable to graft his LAD. 10/2015 - repeat cath with angioplasty/stent to 80% LAD lesion; angioplasty/stent to 70% left main lesion. All grafts patent on this cath. Lexiscan nuclear stress test negative for ischemia. (11) BPH (benign prostatic hyperplasia): cont flomax and finasteride [place] w/o prostatitis today (12) Dyslipidemia: statin (13) A-fib: cont BB start systemic anticoagulation after CEA and once ok with vascular surgery. rates have been excellent (14) Rash: contact dermatitis - on back - resolved with topical steroid cream (15) DVT prophylaxis: cont lovenox leave on tele await CEA on Subjective patient feels well. denies all complaints of chest pain, dyspnea, CELESTE, abd pain, diaphoresis, focal motor weakness. tele stable overnight (rate-controlled a fib). eating and drinking well. Respiratory: no cough and no dyspnea Cardiovascular: no chest pain, no radiating jaw, neck or arm pain, no dyspnea on exertion, no orthopnea and no paroxysmal nocturnal dyspnea Gastrointestinal: no abdominal pain Physical Exam Vital Signs (Past 24 Hours): Last Vital Signs Temp 36.6 C 10/16/18 19:38 Pulse 79 10/16/18 19:38 Resp 20 10/16/18 19:38 BP 155/83 H 10/16/18 19:38 Pulse Ox 96 10/16/18 19:38 Constitutional: well developed, well nourished and + obese; no acute distress ENMT: external ear and nose normal, oropharynx normal Respiratory: normal respiratory effort, lungs clear to auscultation Cardiovascular: Rate/Rhythm: regular rate; + abnormal rhythm (irregular) Heart Sounds: normal S1 and normal S2; no murmur Vessels: posterior tibial pulses present and dorsalis pedis pulses present; no JVD Extremities: no edema Gastrointestinal (Abdomen): normal bowel sounds, soft, nontender, no hepatosplenomegaly [place] - prostate smooth, not boggy, not tender; no rectal masses Skin: cont dermatitis on back resolved Neurologic: moves all extremities; no focal motor deficits (strength 5/5 x 4 exts; no pronator drift) Psychiatric: A+Ox3, euthymic affect Results & Data Laboratory Results Laboratory Results - last 24 hr 10/16/18 10/16/18 06:20 06:20 WBC 7.58 RBC 4.65 L Hgb 13.3 L Hct 40.5 L MCV 87.1 MCH 28.6 MCHC 32.8 RDW Std Deviation 46.7 H RDW Coeff of [place] 14.7 H Plt Count 182 MPV 10.2 Sodium 141 Potassium 3.9 Chloride 108 H Carbon Dioxide 28 Anion Gap 5.0 BUN 20 H Creatinine 1.02 Est Cr Clr Drug Dosing 73.7 Est GFR ( Amer) 81.2 Est GFR (Non-Af Amer) 70.1 BUN/Creatinine Ratio 19.5 Glucose 91 Calcium 8.3 L (1) UTI (urinary tract infection) Hematuria presence: with hematuria Urinary tract infection type: acute cystitis Qualified Code(s): N30.01 - Acute cystitis with hematuria (2) BPH (benign prostatic hyperplasia) Lower urinary tract symptom presence: symptoms absent Qualified Code(s): N40.0 - Benign prostatic hyperplasia without lower urinary tract symptoms (3) Carotid stenosis Laterality: right Qualified Code(s): I65.21 - Occlusion and stenosis of right carotid artery (4) CAD (coronary artery disease) Associated angina: without angina Coronary Disease-Associated Artery/Lesion type: [place] artery [place] vs. transplanted heart: [place] heart Qualified Code(s): I25.10 - Atherosclerotic heart disease of [place] coronary artery without angina pectoris (5) AAA (abdominal aortic aneurysm) Presence of rupture: without rupture Qualified Code(s): I71.4 - Abdominal aortic aneurysm, without rupture (6) A-fib Atrial fibrillation type: persistent Qualified Code(s): I48.1 - Persistent atrial fibrillation (7) CVA (cerebral vascular accident) CVA mechanism: embolism Laterality of affected vessel: right Precerebral and cerebral artery: middle cerebral artery Qualified Code(s): I63.411 - Cerebral infarction due to embolism of right middle cerebral artery
[2018-10-17] MEDS: CLOPIDOGREL BISULFATE 75 MG TAB PO SCH (09:18)
[2018-10-17] MEDS: ENOXAPARIN INJ 40 MG/0.4 ML SYR SQ SCH (09:18)
[2018-10-17] MEDS: ROSUVASTATIN CALCIUM 20 MG TAB PO SCH (09:19)
[2018-10-17] MEDS: FEXOFENADINE 60 MG TAB PO SCH ×2 (09:19→21:08)
[2018-10-17] MEDS: FUROSEMIDE 20 MG TAB PO SCH (09:19)
[2018-10-17] MEDS: FINASTERIDE 5 MG TAB PO SCH (09:19)
[2018-10-17] MEDS: cephALEXin 500 MG CAP PO SCH ×2 (09:19→21:09)
[2018-10-17] MEDS: TRIAMCINOLONE ACET 0.1% CR 80 GM TUBE EXT SCH ×3 (09:19→21:09)
[2018-10-17] MEDS: TAMSULOSIN HCL 0.4 MG CAP PO SCH (09:19)
[2018-10-17] MEDS: METOPROLOL SUCC 25MG EXT REL TAB PO SCH ×2 (09:19→21:08)
--- NOTE | 2018-10-17 09:27 | Hospitalist Progress Note ---
Date of Service October 17, 2018 Assessment & Plan (1) CAD (coronary artery disease): lexiscan nuclear stress test was obtained on Wednesday as patient had a protracted episode of diaphoresis, dyspnea, etc. earlier this week. stress test was negative for ischemia cont BB, statin, plavix appreciate Dr. Degroot's consultation patient appears optimized for upcoming CEA by Dr Joseph (2) Chronic systolic CHF (congestive heart failure): probably had mild acute/chronic CHF 2 days ago - s/p lasix IV with good diuresis. looks euvolemic today cont lasix daily. cont BB. ideally patient should be on low-dose CACHORRO or ARB consider such before discharge if blood pressure will allow (3) UTI (urinary tract infection): urine cx with e. coli. cont keflex 500mg BID. last day is 10/18 [place] w/o evidence of prostatitis. (4) Gross hematuria: history of such. had cystoscopy several years ago at [facility] - per pt's recollection was normal. Cysto was done due to hematuria at that time as well. Was to have repeat cystoscopy in the recent past but never had it. gross hematuria recurred 4 days ago and then spontaneously resolved. Urology was consulted and since urine cleared urology is not planning any inpatient workup. outpatient cystoscopy will be needed. acute hematuria -- due to UTI again outpatient cysto will be recommended (5) CVA (cerebral vascular accident): right-sided MCA territory stroke s/p TPA with resolution of left-sided weakness. excellent recovery. exam now normal w/ no motor weakness. stroke attributed either to right-sided ICA stenosis or his a.fib (not on anticoagulation). continue statin. on plavix. will need systemic anticoagulation following his CEA. CEA of right ICA planned for 10/18/18 (6) Carotid stenosis: right 60-70% stenosis with ulcer. CEA planned for WEDNESDAY by Dr Joseph. cont statin plus plavix. (7) Obesity (BMI 30.0-34.9): BMI 32 (8) Prediabetes: HgbA1C here is mildly elevated at 5.9%. Dietary control only. (9) AAA (abdominal aortic aneurysm): CTA chest with 4cm ascending thoracic aorta. will also need outpt follow up (10) Hx of CAB08/2015. 3-vessel -- graft to 1st diagonal; graft to distal RCA; graft to ramus intermedius. Unable to graft his LAD. 10/2015 - repeat cath with angioplasty/stent to 80% LAD lesion; angioplasty/stent to 70% left main lesion. All grafts patent on this cath. Lexiscan nuclear stress test negative for ischemia. (11) BPH (benign prostatic hyperplasia): cont flomax and finasteride [place] w/o prostatitis today (12) Dyslipidemia: statin (13) A-fib: cont BB start systemic anticoagulation after CEA and once ok with vascular surgery, must also be wary of gross hematuria. rates have been excellent (14) Rash: contact dermatitis - on back - resolved with topical steroid cream (15) DVT prophylaxis: cont lovenox leave on tele await CEA on Subjective Patient has no complaints or problems he is complete resolution of his strokelike symptoms after TPA administration is scheduled for a carotid endarterectomy on 10/18 Review of Systems ROS: well nourished well developed. No double vision blurry vision No problems with speech or swallowing No palpitations, chest pain or pressure No Wheezing or breathing issues No abdominal pain nausea vomiting diarrhea changes in appetite or weight No burning urine urine frequency or changes in color No focal joint pain or muscle pain No skin rashes or oral lesions No unusual bruising or bleeding No focused back pain or numbness or loss of strength No changes in memory or confusion Physical Exam Vital Signs (Past 24 Hours): Last Vital Signs Temp 36.5 C 10/17/18 07:48 Pulse 85 10/17/18 07:48 Resp 16 10/17/18 07:48 BP 137/81 10/17/18 07:48 Pulse Ox 96 10/17/18 07:48 The patient appeared well nourished and normally developed. Vital signs as documented. Head exam is unremarkable. normocephalic, atraumatic Neck is without jugular venous distension, thyromegaly, or lymphademopathy no bruits are auscultated with regard to his neck Lungs are clear to auscultation and percussion. Cardiac exam reveals Rhythm is regular. First and second heart sounds normal. Abdominal exam reveals normal bowel sounds, no masses, no organomegaly Extremities are nonedematous and both pedal pulses are present Neurologic exam is A&Ox3, no focal deficits, strength is equal bilateral Psychologically seems neither anxious or depressed Skin is warm Dry without bruises or lesions being negative Antione (1) UTI (urinary tract infection) Hematuria presence: with hematuria Urinary tract infection type: acute cystitis Qualified Code(s): N30.01 - Acute cystitis with hematuria (2) BPH (benign prostatic hyperplasia) Lower urinary tract symptom presence: symptoms absent Qualified Code(s): N40.0 - Benign prostatic hyperplasia without lower urinary tract symptoms (3) Carotid stenosis Laterality: right Qualified Code(s): I65.21 - Occlusion and stenosis of right carotid artery (4) CAD (coronary artery disease) Associated angina: without angina Coronary Disease-Associated Artery/Lesion type: [place] artery [place] vs. transplanted heart: [place] heart Qualified Code(s): I25.10 - Atherosclerotic heart disease of [place] coronary artery without angina pectoris (5) AAA (abdominal aortic aneurysm) Presence of rupture: without rupture Qualified Code(s): I71.4 - Abdominal aortic aneurysm, without rupture (6) A-fib Atrial fibrillation type: persistent Qualified Code(s): I48.1 - Persistent atrial fibrillation (7) CVA (cerebral vascular accident) CVA mechanism: embolism Laterality of affected vessel: right Precerebral and cerebral artery: middle cerebral artery Qualified Code(s): I63.411 - Cerebral infarction due to embolism of right middle cerebral artery
[2018-10-17] MEDS ORDERED: CEFAZOLIN 1000MG 1,000 MG/7.5 ML SYR IV ONE (11:00)
--- NOTE | 2018-10-17 15:08 | Anesthesiology Consultation ---
Date of Service October 17, 2018 Assessment & Plan Chart Review Chart Review: Acceptable Risk for Surgery and Patient NOT seen in Pre Admission Testing Consults Requested none ASA ASA4 Proposed Anesthesia Anesthesia Type: General Anesthesia Line Insertion: Arterial line Risk / Benefits Reviewed With: PT / POA / Parent / Guardian, Accepts Plan and Informed Consent Obtained History Surgery Operation Date: 10/18/18 07:30 Proposed Procedures p Right Carotid Endarterectomy - Manas Joseph MD Height/Weight Height: 5 ft 11 in Weight: 107.3 kg Allergies Allergy/AdvReac Type Severity Reaction Status Date / Time clams AdvReac Severe GI SYMPTOMS Verified 10/09/18 01:37 Medications Home Medications Medication Instructions Recorded Confirmed Last Taken aspirin 81 mg PO DAILY 10/09/18 10/09/18 Unknown atenolol 25 mg PO DAILY 10/09/18 10/09/18 Unknown finasteride 5 mg PO DAILY 10/09/18 10/09/18 Unknown fluticasone propionate [Flonase 2 spray INTRANASAL DAILY 10/09/18 10/09/18 Unknown Allergy Relief] furosemide 20 mg PO DAILY 10/09/18 10/09/18 Unknown meloxicam 7.5 mg PO DAILY PRN 10/09/18 10/09/18 Unknown omeprazole 20 mg PO BID PRN 10/09/18 10/09/18 Unknown rosuvastatin [Crestor] 20 mg PO DAILY 10/09/18 10/09/18 Unknown tamsulosin 0.4 mg PO DAILY 10/09/18 10/09/18 Unknown Active Medications Generic Name Dose Route Start Last Admin Trade Name Freq PRN Reason Stop Dose Admin Cephalexin HCl 500 mg 10/14/18 09:30 10/17/18 09:19 Keflex PO 10/19/18 09:29 500 mg BID JEFFRY Administration Clopidogrel Bisulfate 75 mg 10/10/18 09:00 10/17/18 09:18 Plavix PO 11/09/18 08:59 75 mg QAM JEFFRY Administration Enoxaparin Sodium 40 mg 10/10/18 09:00 10/17/18 09:18 Lovenox SQ 11/09/18 08:59 40 mg Q24H JEFFRY Administration Fexofenadine HCl 60 mg 10/11/18 21:00 10/17/18 09:19 Johanna PO 11/10/18 20:59 60 mg BID JEFFRY Administration Finasteride 5 mg 10/09/18 09:00 10/17/18 09:19 Proscar PO 11/08/18 08:59 5 mg DAILY JEFFRY Administration Furosemide 20 mg 10/13/18 18:45 10/17/18 09:19 Lasix PO 11/12/18 18:44 20 mg QAM JEFFRY Administration Metoprolol Succinate 25 mg 10/11/18 21:00 10/17/18 09:19 Toprol Xl PO 11/10/18 20:59 25 mg BID JEFFRY Administration Oxycodone HCl 10 mg 10/10/18 08:16 10/16/18 20:10 Roxicodone Immediate Rel PO 10/24/18 08:15 10 mg Q6H PRN Administration Pain rating 4-10 Rosuvastatin Calcium 20 mg 10/09/18 09:00 10/17/18 09:19 Crestor PO 11/08/18 08:59 20 mg DAILY JEFFRY Administration Tamsulosin HCl 0.4 mg 10/12/18 09:00 10/17/18 09:19 Flomax PO 11/11/18 08:59 0.4 mg QAM JEFFRY Administration Triamcinolone Acetonide 1 appln 10/11/18 18:40 10/17/18 15:22 Aristocort 0.1% EXT 11/10/18 18:39 1 appln TID JEFFRY Administration Past Medical History Medical History A-fib (Chronic) CAD (coronary artery disease) (Chronic) Dyslipidemia (Chronic) BPH (benign prostatic hyperplasia) (Chronic) ASCVD (arteriosclerotic cardiovascular disease) CHF (congestive heart failure) CVA (cerebral vascular accident) HTN (hypertension) Ischemic cardiomyopathy Obesity PVD (peripheral vascular disease) Past Family History Family History Mother , age 83 of heart disease. Heart disease Father , age 53 of MRI. Coronary heart disease Other Cancer Hypertension Past Surgical History Surgical History Hx of CABG (Chronic) History of cataract surgery History of tonsillectomy Past Anesthesia History No Hx of Anesthesia Complications and No Family Hx of Anesthesia Complications History of PONV No Motion Sickness Screening History of Motion Sickness: No Social History Smoking Status: Never smoker Hx Alcohol Use: No Hx Substance Use: No Exercise / Class Metabolic Activity III < 4 Walking/Shop/Light housework Physical Exam Vital Signs Last Vital Signs Temp 36.8 C 10/17/18 15:05 Pulse 83 10/17/18 15:05 Resp 18 10/17/18 15:05 BP 158/79 H 10/17/18 15:05 Pulse Ox 98 10/17/18 15:05 Constitutional + obese ENMT Mouth: no dentition abnormality Thyromental Distance: > or= 3.5 Finger Breadths Mallampati Class: II Neck normal visual inspection and trachea midline; neck extension not limited Respiratory normal respiratory effort Auscultation: lungs clear to auscultation bilaterally Cardiovascular Rate/Rhythm: + abnormal rate (irregular,afib) and + abnormal rhythm (irregular;afib) Heart Sounds: no murmur Vessels: + carotid bruit (right neck) Musculoskeletal Spine: normal cervical ROM Neurologic moves all extremities Motor/Sensory: no sensory deficit Psychiatric Orientation: alert and oriented x 3 Testing Electrocardiogram Date: 10/12/18 Findings: + AFIB @ (at 95 w/ PVC's;RBBB;Inferior infarct) Chest X-Ray Date: 10/12/18 Findings: + NAD, + cardiomegaly and + atherosclerosis of thoracic aorta Echocardiogram Date: 10/09/18 EF: 45 LV Function: mild LV dilation RWMA: no none (severely HK to AK inferior and inferolateral wall) Other Findings: + LVH (moderate) TR mild -moderate. Mildly reduced RV systolic function Stress Test Type: nuclear (negative;inferior and inferolat. MT) Resting EF: 50 Laboratory Results 10/16/18 06:20 10/16/18 06:20 Blood Type A Positive 10/09/18 00:40 Antibody Screen NEGATIVE 10/09/18 00:40 PT 11.6 Seconds (9.0-12.0) 10/09/18 05:31 INR 1.1 (0.9-1.1) 10/09/18 05:31 APTT 28.3 Seconds (21.0-31.0) 10/09/18 05:31 Hemoglobin A1c 5.9 % (4.5-5.6) H 10/09/18 04:49 Urine Color Red 10/12/18 15:49 Urine Appearance Cloudy (Clear) H 10/12/18 15:49 Urine pH 6.0 (4.5-7.5) 10/12/18 15:49 Ur Specific Helen 1.010 (1.000-1.030) 10/12/18 15:49 Urine Protein 1+ (Negative) H 10/12/18 15:49 Urine Glucose (UA) Negative (Negative) 10/12/18 15:49 Urine Ketones Negative (Negative) 10/12/18 15:49 Urine Nitrite Negative (Negative) 10/12/18 15:49 Ur Leukocyte Esterase 1+ (Negative) H 10/12/18 15:49 Urine WBC (Auto) 1-5 /hpf (0-5) 10/09/18 00:40 Urine RBC (Auto) >30 /hpf (0-4) H 10/09/18 00:40 U Hyaline Cast (Auto) 0 /lpf (0-5) 10/09/18 00:40 U Epithel Cells (Auto) 5-10 /lpf (0-5) H 10/09/18 00:40 Urine Bacteria (Auto) Negative (Negative) 10/09/18 00:40 Urine RBC >30 /hpf (0-4) H 10/12/18 15:49 Urine WBC >30 /hpf (0-5) H 10/12/18 15:49 Ur Epithelial Cells >30 /lpf (0-5) H 10/12/18 15:49 10/12/18 Unknown Urine Culture - Final Urine,Clean Catch Escherichia coli 10/17/18 07:25 POC Glucose 112 H
[2018-10-18] MEDS ORDERED: CEFAZOLIN 1000MG 1,000 MG/7.5 ML SYR IV ONE (08:00)
[2018-10-18] MEDS: TRIAMCINOLONE ACET 0.1% CR 80 GM TUBE EXT SCH ×3 (08:37→21:03)
[2018-10-18] MEDS: FINASTERIDE 5 MG TAB PO SCH (08:38)
[2018-10-18] MEDS: TAMSULOSIN HCL 0.4 MG CAP PO SCH (08:38)
[2018-10-18] MEDS: ROSUVASTATIN CALCIUM 20 MG TAB PO SCH (08:38)
[2018-10-18] MEDS: CLOPIDOGREL BISULFATE 75 MG TAB PO SCH (08:38)
[2018-10-18] MEDS: FUROSEMIDE 20 MG TAB PO SCH ×2 (08:38→08:41)
[2018-10-18] MEDS: FEXOFENADINE 60 MG TAB PO SCH ×2 (08:38→21:03)
[2018-10-18] MEDS: cephALEXin 500 MG CAP PO SCH (08:38)
[2018-10-18] MEDS: METOPROLOL SUCC 25MG EXT REL TAB PO SCH ×2 (08:38→21:03)
--- NOTE | 2018-10-18 10:22 | History & Physical Bridge Note ---
Date of Service October 18, 2018 History & Physical Bridge Note Patient for a right carotid endarterectomy. I have discussed the risks options and benefits of the procedure with the patient. The patient understands the risks options and benefits and agrees to the procedure. I have examined the patient, reviewed the History & Physical and in the interval since the performance of the History & Physical I have noted the following changes of clinical significance: no changes noted
[2018-10-18] MEDS ORDERED: ePHEDrine sulfate 50 MG/ML AMP IV PRN (10:52)
[2018-10-18] MEDS ORDERED: ONDANSETRON INJ 2 MG/ML 2 ML VIAL IV PRN (10:52)
[2018-10-18] MEDS ORDERED: ATROPINE SULFATE 0.1 MG/ML 10ML SYR IV PRN (10:52)
[2018-10-18] MEDS ORDERED: fentaNYL citrate 100 MCG/2 ML VIAL IV PRN (10:52)
[2018-10-18] MEDS ORDERED: CEFAZOLIN 1,000 MG/7.5 ML IV PUSH IV ONE (10:59)
[2018-10-18] MEDS ORDERED: BUPIVACAINE/EPINEPHRINE 0.5% MPF 1:200,000 30 ML VIAL ONE (11:08)
[2018-10-18] MEDS ORDERED: LIDOCAINE HCL 1% 20 ML VIAL ONE (11:08)
[2018-10-18] MEDS ORDERED: THROMBIN FOR SOLN 20000 UNIT KIT ONE (11:08)
[2018-10-18] MEDS ORDERED: HEPARIN (PORCINE) 1000 UNIT/ML 10 ML (CATH LAB USE ONLY) ONE (11:08)
[2018-10-18] MEDS ORDERED: GELATIN SPONGE SZ 100 ONE (11:08)
[2018-10-18] MEDS ORDERED: CEFAZOLIN 250 MG/ML 1 GM VIAL ONE (11:08)
[2018-10-18] MEDS ORDERED: GLYCOPYRROLATE 0.2 MG/ML VIAL ONE (11:19)
[2018-10-18] MEDS ORDERED: NITROGLYCERIN 5 MG/ML 10 ML VIAL ONE ×2 (11:19→11:34)
[2018-10-18] MEDS ORDERED: ONDANSETRON INJ 2 MG/ML 2 ML VIAL ONE (11:19)
[2018-10-18] MEDS ORDERED: DEXAMETHASONE SOD INJ 4 MG/ML VIAL ONE (11:19)
[2018-10-18] MEDS ORDERED: PHENYLEPHRINE HCL 10 MG/ML VIAL ONE (11:19)
[2018-10-18] MEDS ORDERED: LIDOCAINE HCL 2% 2 ML VIAL/AMP(20MG/ML) INFIL ONE (11:19)
[2018-10-18] MEDS ORDERED: PROPOFOL IV EMULSION 10 MG/ML 20 ML VIAL IV ONE (11:19)
[2018-10-18] MEDS ORDERED: NEOSTIGMINE METHYLSULFATE 5 MG/5 ML SYR ONE (11:19)
[2018-10-18] MEDS ORDERED: fentaNYL citrate 100 MCG/2 ML VIAL ONE (11:19)
[2018-10-18] MEDS ORDERED: ESMOLOL HCL INJ 10 MG/ML 10ML VIAL IV ONE ×2 (13:28→15:23)
--- NOTE | 2018-10-18 14:17 | Post Operative Brief Note ---
Immediate Post Op Note v1 Date of Surgery October 18, 2018 Pre & Post Diagnosis Operation Date: 10/18/18 07:30 Pre-Op Diagnosis: cerebral vascular accident Post-Op Diagnosis: cerebral vascular accident Procedure Operation Date: 10/18/18 07:30 Actual Procedures p Right Carotid Endarterectomy with Patch(Right) - Manas Joseph MD Surgeon Manas Joseph MD Mining Speculator MD Ellie Estimated Blood Loss 80 Findings Consistent with Post-Op Diagnosis Anesthesia Type General Complications none Disposition Accompanied Patient To Recovery: No Disposition: Recovery Room
--- NOTE | 2018-10-18 14:41 | Operative Report ---
Post Operative Report Pre & Post Diagnosis Operation Date: 10/18/18 07:30 Pre-Op Diagnosis: cerebral vascular accident Post-Op Diagnosis: cerebral vascular accident Procedure Operation Date: 10/18/18 07:30 Actual Procedures p Right Carotid Endarterectomy with Patch(Right) - Manas Joseph MD Surgeon Dr. Opal Dee MD Pattern Layout Worker MD Ellie Estimated Blood Loss 80 Findings See Below Patient had a large ulcerated plaque the posterior wall of the carotid artery bifurcation. Specimens Carotid artery plaque right side Anesthesia Type General Complications none Disposition Accompanied Patient To Recovery: Yes Disposition: Recovery Room Indications Symptomatic right carotid artery disease. Description of Procedure The patient was brought to the operating room, where an arterial line was placed and general anesthesia was secured. The right neck was prepped and sterilely draped. An oblique incision was made along the anterior border of the right sternocleidomastoid muscle. The platysma was divided and dissection was carried down to the carotid sheath. The facial vein was doubly ligated and divided exposing the carotid bifurcation. The vagus nerve and XII nerve were identified and kept free from dissection and retraction. The internal, external, and common carotid arteries were dissected free proximally and distally. 8000 U of Heparin was given intravenously. The external carotid as well as superior thyroid vessels were encircled with vessel loop around the external carotid and a 2-0 silk tie around the superior thyroid. Once the heparin was allowed to circulate for approximately 5 minutes, clamps were placed starting with the internal carotid and common carotid and external carotid. An anterior arteriotomy was made on the common carotid artery using an 11 blade. Mendoza scissors was used to extend the arteriotomy through the plaque on to the distal soft internal carotid artery. The plaque was heavily calcified, ulcerated, and nearly occlusive. A shunt was then inserted into the into the internal carotid artery and revealed good backbleeding. The proximal end of the shunt was then inserted into the common carotid artery and secured in place. The Doppler attached to the shunt was turned on and revealed good flow through the shunt. A [place] elevator was used to create an endarterectomy plane. The proximal endpoint was created using Mendoza scissors as well as a distal endpoint was created with the Mendoza scissors. The plaque was freed out of the external carotid artery.With downward retraction on the plaque. All debris was meticulously debrided from the inside of the lumen and confirmed with instillation of heparinized saline. Four 7-0 Prolene tacking sutures were placed the proximal end of the internal carotid artery to contact down the intima. Once endarterectomy was completed, a bovine pericardial patch was then cut to the appropriate size and sewn into internal carotid artery using a 6-0 Prolene sut ures starting at the internal carotid artery corner of the arteriotomy. Before the patch was completed, the shunt was pulled and all the arteries were backbleed extruding any air and debris. The patch was then completed. The external carotid clamp was removed first, followed by the common carotid artery clamp, and finally the internal carotid artery clamp, restoring blood flow to the brain. Patient did have some oozing and one 6-0 Prolene sutures were used to achieve hemostasis as well as thrombin soaked gel foam. Meticulous hemostasis was secured. The wound was then closed in multiple layers using 3-0 Vicryl suture then a 4-0 Vicryl subcutaneous layer closing the skin. Dermabond was applied over the incision. The patient tolerated the procedure well and was extubated on table. The patient was moving all four extremities to command prior to and upon transfer to the recovery room. Dr. Joseph was present for the entirety of the procedure I attest to the content of the Intraoperative Record and any orders documented therein. Any exceptions are noted below.
[2018-10-18] MEDS ORDERED: HEPARIN SOD (PORCINE) 1000 UNIT/ML 10 ML VIAL ONE (15:25)
[2018-10-18] MEDS ORDERED: ALBUMIN HUMAN 5% 12.5 GM/250 ML VIAL IV ONE (16:13)
[2018-10-18] MEDS ORDERED: ALBUMIN 5% 250 ML IV SCH (16:30)
--- NOTE | 2018-10-18 16:47 | Critical Care Consultation ---
Date of Consultation October 18, 2018 Assessment & Plan (1) Admitted to intensive care unit: Anthony Milan is a 78 y/o male with past history of CVA with residual left sided weakness, CHF, HTN, CAD, CABG, PVD, A-fib, ischemic cardiomyopathy who presents to the ICU for post-op monitoring and blood pressure monitoring/management following right carotid endarterectomy. Neuro: CAM negative History of CVA with left sided weakness. Neuro checks since carotid surgery for signs of acute CVA. Cardiac/vascular: Spoke with Anesthesiologist who expressed concern for continued Blood pressure monitoring. Noted that patient did have BP readings of 90s systolic which was treated with Albumin that improved readings to systolic greater than 90. * Arterial line intact for blood pressure monitoring. * PMHx: CAD, CABG, Afib, HTN, Chronic systolic CHF * S/p right carotid endarterectomy with Plavix 75mg qAM for anti-platelets. * Toprol XL 25mg PO BID for afib-rate control. * Crestor 20mg PO for dyslipidemia * Continue with Lasix for Chronic systolic heart failure. Pulm: 98% Pulse Ox on 2L NC, no signs of dyspnea. GI/Nutrition: Diet - heart healthy Renal/electrolytes: - IVF: Dextrose and 1/2nss @125mL : Review of hospital records for current stay show gross hematuria for 4 days that resolved. An outpatient cystoscopy was recommended. - Being treated for E. coli UTI with Keflex 500mg BID with last day of treatment today, 10/18. - Hx BPH: continue with Finasteride 5mg and Flomax 0.4mg PO qAM. - No urinary delcid currently Endo: Not diabetic ICU hyperglycemia protocol. Heme: no signs of bleeding, will monitor for bleeding. Most recent labs from 10/16 show platelete of 182 WNL, WBC 7.58 WNL, Hgb of 13.3. ID: - Being treated for E. coli UTI with Keflex 500mg BID with last day of treatment today, 10/18. Lines: Arterial line intact, peripheral line intact. DVT ppx: SCDs, plavix Resuscitation status: Full Code. Supervising Physician Co-Signing Physician Notes Dr. Barreto was resident physician during care of patient. I separately evaluated patient for reynaga portions of the history and the exam. I was present during the critical portion of medical decision making, and I discussed the case with the resident. I generally agree with the findings and plan. (1) CVA (cerebral vascular accident): Neuro- awake alert. CVA s/p TPA residual L arm weakness but improved. CV- HD stable. CAD. afib. rosuvastatin. Carotid stenosis -Postop day 0 from endarterectomy Reported AAA -Abdominal ultrasound Pulmonary- sat well on RA ID- no signs infection Renal- cr ok GI- diet as tolerated Endocrine-transition from dextrose containing solution to Normosol History of Present Illness Attending Physician: Esequiel Sanford MD Allergies Allergy/AdvReac Type Severity Reaction Status Date / Time clams AdvReac Severe GI SYMPTOMS Verified 10/09/18 01:37 Home Medications Home Medications Medication Instructions Recorded Confirmed Type aspirin 81 mg PO DAILY 10/09/18 10/09/18 History atenolol 25 mg PO DAILY 10/09/18 10/09/18 History finasteride 5 mg PO DAILY 10/09/18 10/09/18 History fluticasone propionate [Flonase 2 spray INTRANASAL DAILY 10/09/18 10/09/18 Histo ry Allergy Relief] furosemide 20 mg PO DAILY 10/09/18 10/09/18 History meloxicam 7.5 mg PO DAILY PRN 10/09/18 10/09/18 History omeprazole 20 mg PO BID PRN 10/09/18 10/09/18 History rosuvastatin [Crestor] 20 mg PO DAILY 10/09/18 10/09/18 History tamsulosin 0.4 mg PO DAILY 10/09/18 10/09/18 History Patient History Medical History A-fib (Chronic) CAD (coronary artery disease) (Chronic) Dyslipidemia (Chronic) BPH (benign prostatic hyperplasia) (Chronic) ASCVD (arteriosclerotic cardiovascular disease) CHF (congestive heart failure) CVA (cerebral vascular accident) HTN (hypertension) Ischemic cardiomyopathy Obesity PVD (peripheral vascular disease) Surgical History Hx of CABG (Chronic) History of cataract surgery History of tonsillectomy Family History Mother , age 83 of heart disease. Heart disease Father , age 53 of MRI. 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 Other Information That Helps Us Care for You: No Feels Safe at Home: Yes Safety Concerns: Feels Safe At This Time Smoking Status: Never smoker Hx Alcohol Use: No Hx Substance Use: No Review of Systems Respiratory: no dyspnea Cardiovascular: no chest pain Musculoskeletal: + back pain (low back, chronic) Physical Exam Vital Signs (Past 24 Hours): Last Vital Signs Temp 36.4 C L 10/18/18 16:30 Pulse 74 10/18/18 16:30 Resp 18 10/18/18 16:30 BP 101/59 L 10/18/18 16:30 Pulse Ox 96 10/18/18 16:30 Constitutional: cooperative and comfortable; no acute distress Eyes: EOM intact bilaterally ENMT: Mouth: no muffled voice and no drooling Neck: normal visual inspection and trachea midline surgical wound to right anterior neck along border of SCM without active bleeding, erythema or signs of infection or hematoma Respiratory: normal respiratory effort; no respiratory distress Auscultation: no crackles and no wheezes Cardiovascular: Rate/Rhythm: regular rate irregularly irregular Gastrointestinal (Abdomen): Percussion/Palpation: abdomen soft; abdomen nontender Neurologic: moves all extremities and awake; no focal motor deficits and not confused Speech / Cognition: no expressive aphasia and no receptive aphasia Psychiatric: A+Ox3, euthymic affect Results & Data Laboratory Results Laboratory Results - last 24 hr 10/17/18 15:49 Blood Type A Positive Antibody Screen NEGATIVE Medications Administered Clopidogrel Bisulfate (Plavix) 75 mg PO [facility] Stop: 11/09/18 08:59 Last Admin: 10/18/18 08:38 Dose: 75 mg Documented by: [id number] Admin: 10/17/18 09:18 Dose: 75 mg Documented by: [id number] Admin: 10/16/18 08:31 Dose: 75 mg Documented by: [id number] Admin: 10/15/18 07:52 Dose: 75 mg Documented by: [id number] Admin: 10/14/18 10:41 Dose: 75 mg Documented by: [id number] Admin: 10/13/18 10:36 Dose: 75 mg Documented by: [id number] Admin: 10/12/18 08:13 Dose: 75 mg Documented by: [id number] Admin: 10/11/18 09:29 Dose: 75 mg Documented by: [id number] Admin: 10/10/18 10:28 Dose: 75 mg Documented by: [id number] Enoxaparin Sodium (Lovenox) 40 mg SQ Q24H JEFFRY Stop: 11/09/18 08:59 Last Admin: 10/17/18 09:18 Dose: 40 mg Documented by: [id number] Admin: 10/16/18 09:26 Dose: 40 mg Documented by: [id number] Admin: 10/12/18 08:11 Dose: 40 mg Documented by: [id number] Admin: 10/11/18 08:54 Dose: 40 mg Documented by: [id number] Admin: 10/10/18 10:28 Dose: 40 mg Documented by: [id number] Fexofenadine HCl (Johanna) 60 mg PO BID JEFFRY Stop: 11/10/18 20:59 Last Admin: 10/18/18 08:38 Dose: 60 mg Documented by: [id number] Admin: 10/17/18 21:08 Dose: 60 mg Documented by: [id number] Admin: 10/17/18 09:19 Dose: 60 mg Documented by: [id number] Admin: 10/16/18 20:13 Dose: 60 mg Documented by: [id number] Admin: 10/16/18 08:32 Dose: 60 mg Documented by: [id number] Admin: 10/15/18 21:29 Dose: 60 mg Documented by: [id number] Admin: 10/15/18 07:52 Dose: 60 mg Documented by: [id number] Admin: 10/14/18 20:35 Dose: 60 mg Documented by: [id number] Admin: 10/14/18 10:41 Dose: 60 mg Documented by: [id number] Admin: 10/13/18 19:21 Dose: 60 mg Documented by: [id number] Admin: 10/13/18 10:36 Dose: 60 mg Documented by: [id number] Admin: 10/12/18 20:15 Dose: 60 mg Documented by: [id number] Admin: 10/12/18 08:10 Dose: 60 mg Documented by: [id number] Admin: 10/11/18 20:52 Dose: 60 mg Documented by: [id number] Finasteride (Proscar) 5 mg PO DAILY JEFFRY Stop: 11/08/18 08:59 Last Admin: 10/18/18 08:38 Dose: 5 mg Documented by: [id number] Admin: 10/17/18 09:19 Dose: 5 mg Documented by: [id number] Admin: 10/16/18 08:31 Dose: 5 mg Documented by: [id number] Admin: 10/15/18 07:51 Dose: 5 mg Documented by: [id number] Admin: 10/14/18 10:41 Dose: 5 mg Documented by: [id number] Admin: 10/13/18 10:36 Dose: 5 mg Documented by: [id number] Admin: 10/12/18 08:14 Dose: 5 mg Documented by: [id number] Admin: 10/11/18 09:29 Dose: 5 mg Documented by: [id number] Admin: 10/10/18 10:28 Dose: 5 mg Documented by: [id number] Admin: 10/09/18 11:21 Dose: 5 mg Documented by: [id number] Furosemide (Lasix) 20 mg PO QAM JEFFRY Stop: 11/12/18 18:44 Last Admin: 10/18/18 08:41 Dose: Not Given Documented by: [id number] Admin: 10/17/18 09:19 Dose: 20 mg Documented by: [id number] Admin: 10/16/18 08:31 Dose: 20 mg Documented by: [id number] Admin: 10/15/18 07:51 Dose: 20 mg Documented by: [id number] Admin: 10/14/18 10:41 Dose: 20 mg Documented by: [id number] Admin: 10/13/18 19:20 Dose: 20 mg Documented by: [id number] Dextrose/Sodium Chloride (D5w And 1/2nss) 1,000 mls @ 125 mls/hr IV .Q8H JEFFRY Stop: 11/17/18 17:59 Last Admin: 10/18/18 17:23 Dose: 125 mls/hr Documented by: [id number] Metoprolol Succinate (Toprol Xl) 25 mg PO BID JEFFRY Stop: 11/10/18 20:59 Last Admin: 10/18/18 08:38 Dose: 25 mg Documented by: [id number] Admin: 10/17/18 21:08 Dose: 25 mg Documented by: [id number] Admin: 10/17/18 09:19 Dose: 25 mg Documented by: [id number] Admin: 10/16/18 20:13 Dose: 25 mg Documented by: [id number] Admin: 10/16/18 08:31 Dose: 25 mg Documented by: [id number] Admin: 10/15/18 21:29 Dose: 25 mg Documented by: [id number] Admin: 10/15/18 07:52 Dose: 25 mg Documented by: [id number] Admin: 10/14/18 20:35 Dose: 25 mg Documented by: [id number] Admin: 10/14/18 10:41 Dose: 25 mg Documented by: [id number] Admin: 10/13/18 19:21 Dose: 25 mg Documented by: [id number] Admin: 10/13/18 10:36 Dose: 25 mg Documented by: [id number] Admin: 10/12/18 20:15 Dose: 25 mg Documented by: [id number] Admin: 10/12/18 08:13 Dose: 25 mg Documented by: [id number] Admin: 10/11/18 20:52 Dose: 25 mg Documented by: [id number] Oxycodone HCl (Roxicodone Immediate Rel) 10 mg PO Q6H PRN PRN Reason: Pain rating 4-10 Stop: 10/24/18 08:15 Last Admin: 10/18/18 17:21 Dose: 10 mg Documented by: [id number] Admin: 10/16/18 20:10 Dose: 10 mg Documented by: [id number] Admin: 10/15/18 18:20 Dose: 10 mg Documented by: [id number] Admin: 10/13/18 10:37 Dose: 10 mg Documented by: [id number] Admin: 10/12/18 05:46 Dose: 10 mg Documented by: [id number] Admin: 10/11/18 09:28 Dose: 10 mg Documented by: [id number] Admin: 10/10/18 19:27 Dose: 10 mg Documented by: [id number] Rosuvastatin Calcium (Crestor) 20 mg PO DAILY JEFFRY Stop: 11/08/18 08:59 Last Admin: 10/18/18 08:38 Dose: 20 mg Documented by: [id number] Admin: 10/17/18 09:19 Dose: 20 mg Documented by: [id number] Admin: 10/16/18 08:31 Dose: 20 mg Documented by: [id number] Admin: 10/15/18 07:52 Dose: 20 mg Documented by: [id number] Admin: 10/14/18 10:41 Dose: 20 mg Documented by: [id number] Admin: 10/13/18 10:36 Dose: 20 mg Documented by: [id number] Admin: 10/12/18 08:11 Dose: 20 mg Documented by: [id number] Admin: 10/11/18 09:29 Dose: 20 mg Documented by: [id number] Admin: 10/10/18 10:28 Dose: 20 mg Documented by: [id number] Admin: 10/09/18 11:21 Dose: 20 mg Documented by: [id number] Tamsulosin HCl (Flomax) 0.4 mg PO QAM JEFFRY Stop: 11/11/18 08:59 Last Admin: 10/18/18 08:38 Dose: 0.4 mg Documented by: [id number] Admin: 10/17/18 09:19 Dose: 0.4 mg Documented by: [id number] Admin: 10/16/18 08:31 Dose: 0.4 mg Documented by: [id number] Admin: 10/15/18 07:52 Dose: 0.4 mg Documented by: [id number] Admin: 10/14/18 10:41 Dose: 0.4 mg Documented by: [id number] Admin: 10/13/18 10:36 Dose: 0.4 mg Documented by: [id number] Admin: 10/12/18 10:11 Dose: 0.4 mg Documented by: [id number] Triamcinolone Acetonide (Aristocort 0.1%) 1 appln EXT TID JEFFRY Stop: 11/10/18 18:39 Last Admin: 10/18/18 17:02 Dose: Not Given Documented by: [id number] Admin: 10/18/18 08:37 Dose: Not Given Documented by: [id number] Admin: 10/17/18 21:09 Dose: Not Given Documented by: [id number] Admin: 10/17/18 15:22 Dose: 1 appln Documented by: [id number] Admin: 10/17/18 09:19 Dose: 1 appln Documented by: [id number] Admin: 10/16/18 20:14 Dose: 1 appln Documented by: [id number] Admin: 10/16/18 15:25 Dose: 1 appln Documented by: [id number] Admin: 10/16/18 08:31 Dose: 1 appln Documented by: [id number] Admin: 10/15/18 21:30 Dose: Not Given Documented by: [id number] Admin: 10/15/18 14:30 Dose: 1 appln Documented by: [id number] Admin: 10/15/18 07:53 Dose: 1 appln Documented by: [id number] Admin: 10/14/18 20:36 Dose: Not Given Documented by: [id number] Admin: 10/14/18 12:11 Dose: 1 appln Documented by: [id number] Admin: 10/14/18 10:41 Dose: 1 appln Documented by: [id number] Admin: 10/13/18 20:11 Dose: Not Given Documented by: [id number] Admin: 10/13/18 12:17 Dose: 1 appln Documented by: [id number] Admin: 10/13/18 10:36 Dose: 1 appln Documented by: [id number] Admin: 10/12/18 20:15 Dose: 1 appln Documented by: [id number] Admin: 10/12/18 14:52 Dose: 1 appln Documented by: [id number] Admin: 10/12/18 08:10 Dose: 1 appln Documented by: [id number] Admin: 10/11/18 21:00 Dose: 1 appln Documented by: [id number] Admin: 10/11/18 20:51 Dose: 1 appln Documented by: [id number] Resident Activity Tracking Resident Involvement: Resident Care Provided Care Provided: [facility] Medicine
--- NOTE | 2018-10-18 16:52 | Anesthesiology Progress Note ---
Date of Service October 18, 2018 Anesthesia Post Procedure Vital Signs Vital Signs: Temp Pulse Pulse Resp BP BP Pulse Ox 10/18/18 16:30 36.4 C L 74 18 104/50 L 101/59 L 96 10/18/18 16:20 69 18 90/59 L 95 10/18/18 16:05 67 18 95/58 L 97 10/18/18 15:54 36.3 C L 71 18 90/61 L 93 10/18/18 15:45 75 16 93/54 L 95 10/18/18 15:25 76 18 94/63 L 99 10/18/18 15:15 89 21 104/65 97 10/18/18 15:08 36.3 C L 86 28 H 107/64 94 10/18/18 10:38 36.4 C L 77 20 151/99 H 98 10/18/18 07:05 36.5 C 73 18 138/86 95 10/18/18 04:00 36.6 C 67 16 136/88 98 10/18/18 00:00 36.5 C 77 16 139/87 96 10/17/18 19:00 36.7 C 86 18 151/89 H 98 Pain Intensity Back: Pain Intensity: 7 Notes Mental Status: alert / awake / arousable and participated in evaluation Patient Amnestic to Procedure: Yes Nausea / Vomiting: adequately controlled Pain: adequately controlled Airway Patency, RR, SpO2: stable & adequate BP & HR: stable & adequate Hydration State: stable & adequate Anesthetic Complications: no major complications apparent and Pt Satisfied with anesthetic care Notes: Patient with mild hypotension treated with colloids in PACU. Patient mentating well, denies NIELSEN, vision changes, SOB, chest pain/pressure, dizziness, lightheadedness. Answering questions appropriately without complaints of pain or N/V. Spoke with ICU resident as ICU was consulted. Gave report on patient and expressed concern for continued monitoring of BP. Arterial line will be kept in place. Patient ok for transfer to ICU.
[2018-10-18] MEDS ORDERED: MoRPHine SULFATE 4 MG/ML 1 ML CARP\\VIAL IV PRN (17:00)
[2018-10-18] MEDS ORDERED: MoRPHine SULFATE 2 MG/ML CARP IV PRN (17:14)
[2018-10-18] MEDS: OXYCODONE HCL IR 5 MG TAB (IMMEDIATE RELEASE) PO PRN (17:21)
[2018-10-18] MEDS ORDERED: D5W AND 1/2NSS 1,000 ML IV SCH (18:00)
--- NOTE | 2018-10-18 18:43 | Hospitalist Progress Note ---
Date of Service October 18, 2018 Assessment & Plan (1) CAD (coronary artery disease): lexiscan nuclear stress test was obtained on Wednesday as patient had a protracted episode of diaphoresis, dyspnea, etc. earlier this week. stress test was negative for ischemia cont BB, statin, plavix appreciate Dr. Degroot's consultation optimized for upcoming CEA by Dr Joseph (2) Chronic systolic CHF (congestive heart failure): probably had mild acute/chronic CHF, - s/p lasix IV with good diuresis. clinicallly stable continues on lasix daily. cont Beta Miles. ideally patient should be on low-dose CACHORRO or ARB consider such before discharge if blood pressure will allow (3) UTI (urinary tract infection): urine cx with e. coli. cont keflex 500mg BID. last day is 10/18 [place] w/o evidence of prostatitis. (4) Gross hematuria: history of such. had cystoscopy several years ago at [facility] - per pt's recollection was normal. Cysto was done due to hematuria at that time as well. Was to have repeat cystoscopy in the recent past but never had it. gross hematuria recurred 4 days ago and then spontaneously resolved. Urology was consulted and since urine cleared urology is not planning any inpatient workup. outpatient cystoscopy will be needed. acute hematuria -- due to UTI again outpatient cysto will be recommended (5) CVA (cerebral vascular accident): right-sided MCA territory stroke s/p TPA with resolution of left-sided weakness. excellent recovery. exam now normal w/ no motor weakness. stroke attributed either to right-sided ICA stenosis or his a.fib (not on anticoagulation). continue statin. on plavix. will need systemic anticoagulation following his CEA. CEA of right ICA planned for 10/18/18 (6) Carotid stenosis: right 60-70% stenosis with ulcer. CEA planned for WEDNESDAY by Dr Joseph. cont statin plus plavix. (7) Obesity (BMI 30.0-34.9): BMI 32 (8) Prediabetes: HgbA1C here is mildly elevated at 5.9%. Dietary control only. (9) AAA (abdominal aortic aneurysm): CTA chest with 4cm ascending thoracic aorta. will also need outpt follow up (10) Hx of CAB08/2015. 3-vessel -- graft to 1st diagonal; graft to distal RCA; graft to ramus intermedius. Unable to graft his LAD. 10/2015 - repeat cath with angioplasty/stent to 80% LAD lesion; angioplasty/stent to 70% left main lesion. All grafts patent on this cath. Lexiscan nuclear stress test negative for ischemia. (11) BPH (benign prostatic hyperplasia): cont flomax and finasteride [place] w/o prostatitis today (12) Dyslipidemia: statin (13) A-fib: cont BB start systemic anticoagulation after CEA and once ok with vascular surgery, must also be wary of gross hematuria. rates have been excellent (14) Rash: contact dermatitis - on back - resolved with topical steroid cream (15) DVT prophylaxis: cont lovenox leave on tele await CEA on Subjective Patient is doing quite well his at the bedside had no complaints or problems or anxious about the upcoming carotid endarterectomy Review of Systems ROS: well nourished well developed. No double vision blurry vision No problems with speech or swallowing No palpitations, chest pain or pressure No Wheezing or breathing issues No abdominal pain nausea vomiting diarrhea changes in appetite or weight No burning urine urine frequency or changes in color No focal joint pain or muscle pain No skin rashes or oral lesions No unusual bruising or bleeding No focused back pain or numbness or loss of strength No changes in memory or confusion Physical Exam Vital Signs (Past 24 Hours): Last Vital Signs Temp 36.9 C 10/18/18 17:00 Pulse 80 10/18/18 18:01 Resp 20 10/18/18 18:01 BP 104/66 10/18/18 18:01 pulse Ox 100 10/18/18 18:01 the patient appeared well nourished and normally developed. Vital signs as documented. Head exam is unremarkable. normocephalic, atraumatic Neck is without jugular venous distension, thyromegaly, or lymphademopathy Lungs are clear to auscultation and percussion. Cardiac exam reveals Rhythm is regular. First and second heart sounds normal. Abdominal exam reveals normal bowel sounds, no masses, no organomegaly Extremities are nonedematous and both pedal pulses are present Neurologic exam is A&Ox3, no focal deficits, strength is equal bilateral Psychologically seems neither anxious or depressed Skin is warm Dry without bruises or lesions (1) CAD (coronary artery disease) Coronary Disease-Associated Artery/Lesion type: [place] artery [place] vs. transplanted heart: [place] heart Associated angina: without angina Qualified Code(s): I25.10 - Atherosclerotic heart disease of [place] coronary artery without angina pectoris (2) UTI (urinary tract infection) Urinary tract infection type: acute cystitis Hematuria presence: with hematuria Qualified Code(s): N30.01 - Acute cystitis with hematuria (3) CVA (cerebral vascular accident) CVA mechanism: embolism Laterality of affected vessel: right Precerebral and cerebral artery: middle cerebral artery Qualified Code(s): I63.411 - Cerebral infarction due to embolism of right middle cerebral artery (4) Carotid stenosis Laterality: right Qualified Code(s): I65.21 - Occlusion and stenosis of right carotid artery (5) AAA (abdominal aortic aneurysm) Presence of rupture: without rupture Qualified Code(s): I71.4 - Abdominal aortic aneurysm, without rupture (6) BPH (benign prostatic hyperplasia) Lower urinary tract symptom presence: symptoms absent Qualified Code(s): N40.0 - Benign prostatic hyperplasia without lower urinary tract symptoms (7) A-fib Atrial fibrillation type: persistent Qualified Code(s): I48.1 - Persistent atrial fibrillation
[2018-10-18] MEDS: NORMOSOL-R 1,000 ML IV SCH (22:16)
--- NOTE | 2018-10-19 06:27 | Critical Care Progress Note ---
Date of Service October 19, 2018 Assessment & Plan (1) Admitted to intensive care unit: Anthony Milan is a 78 y/o male with past history of CVA with residual left sided weakness, CHF, HTN, CAD, CABG, PVD, A-fib, ischemic cardiomyopathy who presents to the ICU for post-op monitoring and blood pressure monitoring/management following right carotid endarterectomy. Neuro: CAM negative History of CVA with left sided weakness. Neuro checks since carotid surgery for signs of acute CVA without any signs of complications or signs of brain ischemia. Cardiac/vascular: * Arterial line intact for blood pressure monitoring with normal pressures and can pull arterial line no further. * PMHx: CAD, CABG, Afib, HTN, Chronic systolic CHF * S/p right carotid endarterectomy with Plavix 75mg qAM for anti-platelets. * Toprol XL 25mg PO BID for afib-rate control. * Crestor 20mg PO for dyslipidemia * Continue with Lasix for Chronic systolic heart failure. Pulm: 96% Pulse Ox on 2L NC, no signs of dyspnea. GI/Nutrition: Diet - heart healthy, has been tolerating without difficulty Renal/electrolytes: - IVF: Dextrose and 1/2nss @125mL : Review of hospital records for current stay show gross hematuria for 4 days that resolved. An outpatient cystoscopy was recommended. - Being treated for E. coli UTI with Keflex 500mg BID with last day of treatment, 10/18. - Hx BPH: continue with Finasteride 5mg and Flomax 0.4mg PO qAM. - No urinary delcid currently Endo: Not diabetic ICU hyperglycemia protocol. Heme: no signs of bleeding, will monitor for bleeding. Most recent labs from 10/16 show platelete of 182 WNL, WBC 7.58 WNL, Hgb of 13.3. ID: - Being treated for E. coli UTI with Keflex 500mg BID with last day of treatment today, 10/18. Lines: Arterial line intact, peripheral line intact. DVT ppx: SCDs, plavix Resuscitation status: Full Code. Patient is doing well post-op, A-line discontinued, stable for downgrade out of ICU. Supervising Physician Co-Signing Physician Notes Dr. Barreto was resident physician during care of patient. I separately evaluated patient for reynaga portions of the history and the exam. I was present during the critical portion of medical decision making, and I discussed the case with the resident. I generally agree with the findings and plan. Patient was discussed in multidisciplinary round. Discontinue A-line stable for downgrade out of ICU. Subjective Anthony states he is doing well this morning, has been tolerating food without difficulty, no nausea, vomiting, dysphagia, dysphonia, numbness, weakness, chest pains, shortness of breath. He is requesting to go home because of how good he feels he states. Physical Exam Vital Signs (Past 24 Hours): Last Vital Signs Temp 36.7 C 10/19/18 04:01 Pulse 55 L 10/19/18 06:01 Resp 12 10/19/18 06:01 BP 102/59 L 10/19/18 06:01 Pulse Ox 99 10/19/18 06:01 Constitutional: cooperative and comfortable; no acute distress Eyes: EOM intact bilaterally ENMT: Mouth: no muffled voice and no drooling Neck: trachea midline right anterior lateral neck surgical incision site looks intact, dry, without erythema or signs of infection. Respiratory: normal respiratory effort; no respiratory distress Auscultation: no crackles and no wheezes Cardiovascular: Rate/Rhythm: regular rate Gastrointestinal (Abdomen): Percussion/Palpation: abdomen soft; abdomen nontender Neurologic: moves all extremities and awake; no focal motor deficits and not confused Speech / Cognition: no expressive aphasia and no receptive aphasia Psychiatric: A+Ox3, euthymic affect Results & Data Laboratory Results Laboratory Results - last 24 hr 10/18/18 10/19/18 10/19/18 Unknown 07:08 07:08 WBC 10.90 H RBC 4.08 L Hgb 11.5 L Hct 35.9 L MCV 88.0 MCH 28.2 MCHC 32.0 RDW Std Deviation 47.2 H RDW Coeff of Joslyn 14.5 Plt Count 176 MPV 10.3 Sodium 136 Potassium 4.3 Chloride 108 H Carbon Dioxide 25 Anion Gap 3.0 BUN 16 Creatinine 0.93 Est Cr Clr Drug Dosing 82.4 Est GFR ( Amer) 90.8 Est GFR (Non-Af Amer) 78.4 BUN/Creatinine Ratio 16.7 Glucose 113 H Calcium 7.8 L Total Bilirubin 0.3 AST 10 L ALT 17 Alkaline Phosphatase 57 Total Protein 6.0 L Albumin 2.7 L Globulin 3.3 Albumin/Globulin Ratio 0.8 L Nasal Screen MRSA (PCR) Negative Resident Activity Tracking Resident Involvement: Resident Care Provided Care Provided: Adult Hospital Medicine
[2018-10-19] MEDS: NORMOSOL-R 1,000 ML IV SCH (06:43)
[2018-10-19 07:25] LABS: Hematocrit (blood only) 35.9 % (42-52); Hemoglobin 11.5 g/dL (14.0-18.0); Mean Platelet Volume 10.3 fL (7.4-10.4); Platelet Count 176 K/uL (130-400); RDW Coefficient of Variation 14.5 % (11.5-14.5); RDW Standard Deviation 47.2 fL (36.4-46.3); Red Blood Count 4.08 M/uL (4.7-6.1)
[2018-10-19] MEDS: FEXOFENADINE 60 MG TAB PO SCH (07:37)
[2018-10-19] MEDS: TAMSULOSIN HCL 0.4 MG CAP PO SCH (07:37)
[2018-10-19] MEDS: FUROSEMIDE 20 MG TAB PO SCH (07:37)
[2018-10-19] MEDS: TRIAMCINOLONE ACET 0.1% CR 80 GM TUBE EXT SCH ×2 (07:37→14:25)
[2018-10-19] MEDS: ROSUVASTATIN CALCIUM 20 MG TAB PO SCH (07:37)
[2018-10-19] MEDS: FINASTERIDE 5 MG TAB PO SCH (07:38)
[2018-10-19] MEDS: METOPROLOL SUCC 25MG EXT REL TAB PO SCH (07:38)
[2018-10-19] MEDS: CLOPIDOGREL BISULFATE 75 MG TAB PO SCH (07:38)
[2018-10-19 07:40] LABS: Albumin Level 2.7 gm/dl (3.4-5.0); BUN Creatinine Ratio 16.7 (10-20); Calcium 7.8 mg/dl (8.5-10.1); Creatinine Clr Calc Pharmacy 82.4 ml/min; Est GFR (African American) 90.8; Est GFR (Non-African American) 78.4; Potassium 4.3 mmol/L (3.5-5.1)
[2018-10-19 07:43] LABS: Albumin Globulin Ratio 0.8 (0.9-2); Bilirubin,Total 0.3 mg/dl (0.2-1); Globulin 3.3 gm/dl (2.5-4.0)
--- NOTE | 2018-10-19 11:37 | Surgery Progress Note ---
Date of Service October 19, 2018 Assessment & Plan (1) Carotid stenosis: Patient is doing well from a vascular standpoint. We will transfer him to the floor. From a vascular standpoint he can be discharged as per his medical service. Only medication we would like to keep him on his carotid standpoint would be 81 mg aspirin a day. We will see him in the office in 2 weeks for follow-up. Subjective Patient has no complaints at this time. He is able to swallow without difficulty. He has no change in his voice. He denies any new weakness Physical Exam Vital Signs (Past 24 Hours): Last Vital Signs Temp 36.5 C 10/19/18 07:31 Pulse 73 10/19/18 11:01 Resp 26 H 10/19/18 11:01 BP 109/60 10/19/18 11:01 Pulse Ox 96 10/19/18 11:01 Patient is awake and alert and oriented x3. He has no new neurological findings. His neck incision is dry and clean with minimal edema seen. His tongue is midline. (1) Carotid stenosis Laterality: right Qualified Code(s): I65.21 - Occlusion and stenosis of right carotid artery
[2018-10-19] MEDS ORDERED: STROKE PATIENT DISCHARGE STA (14:33)
--- NOTE | 2018-10-19 15:51 | Discharge Summary ---
Date of Service October 19, 2018 Admission HPI Per Admitting Provider 78-year-old male with multiple medical history of hypertension, hyperlipidemia, atrial fibrillation and CAD status post CABG x4 in 2017 presents with left-sided weakness. The patient states that he first noticed numbness in his left arm when he reached down to pet his small dog. He attempted to pick the dog up off the floor and noticed that he had severely reduced strength in his left arm. That was around 9:30 PM tonight. He then reports that he stood up and felt unsteady on his feet. He normally is able to ambulate on his own. The patient denies ever having any slurred speech or blurry vision. He denies having any other numbness in his lower extremities. The patient was previously on Eliquis, but was stopped 1 year ago because of issues with hematuria. He has since been taking baby aspirin daily. Patient is a non-smoker, denies alcohol use and denies past medical history of diabetes. He lives with his partner. Review of systems Patient denies the following: Chest pain, palpitations, shortness of breath, abdominal pain, nausea/vomiting/diarrhea Principal Diagnosis treatened stroke reversed wtih tPa right carotid endartectomy atrial fibrillation Discharge Exam The patient appeared well nourished and normally developed. Vital signs as documented. Head exam is unremarkable. normocephalic, atraumatic Neck is some swelling to the right side wound is well approximated there is no fluctuance tenderness or redness at this time he actually has very little pain at all Lungs are clear to auscultation and percussion. Cardiac exam reveals Rhythm is regular. First and second heart sounds normal. Abdominal exam reveals normal bowel sounds, no masses, no organomegaly Extremities are nonedematous and both pedal pulses are present Neurologic exam is A&Ox3, no focal deficits, strength is equal bilateral Psychologically seems neither anxious or depressed Skin is warm Dry without bruises or lesions Discharge Data Allergies Allergy/AdvReac Type Severity Reaction Status Date / Time clams AdvReac Severe GI SYMPTOMS Verified 10/09/18 01:37 Consultations 10/09/18 01:16 ED Decision to Admit Stat 10/09/18 02:12 Consult Button Spindler Routine 10/09/18 02:56 Consult Case Management - Discharge Planning Routine Consult Neurology Routine 10/10/18 08:53 Consult Vascular Surgery Routine 10/10/18 11:15 Consult Cardiology Routine 10/11/18 09:45 HIM [Consult Health Information Management] Stat 10/12/18 20:30 Consult Urology Routine 10/18/18 15:59 Consult Button Spindler Routine Procedures Performed Operation Date: 10/18/18 07:30 Actual Procedures p Right Carotid Endarterectomy with Patch(Right) - Manas Joseph MD Ordered Studies 10/09/18 00:35 CT head/brain wo con Urgent 10/09/18 04:32 MR brain wo con Routine US carotid doppler BI Routine 10/10/18 00:30 CT angio head w con Urgent CT angio neck with con Urgent CT head/brain wo con Urgent 10/10/18 09:25 US duplex aorta/iliacs Routine 10/12/18 16:49 CT angio chest PE protocol Urgent Hospital Course (1) CAD (coronary artery disease): lexiscan nuclear stress test was obtained on Wednesday as patient had a protracted episode of diaphoresis, dyspnea, etc. earlier this week. stress test was negative for ischemia cont BB, statin, plavix appreciate cardiology consultation recommends starting formal anticoagulation for afib (2) Chronic systolic CHF (congestive heart failure): probably had mild acute/chronic CHF, - s/p lasix IV with good diuresis. clinicallly stable continues on lasix daily. cont Beta Miles. (3) UTI (urinary tract infection): urine cx with e. coli. keflex 500mg BID.last day is 10/18 [place] w/o evidence of prostatitis. (4) Gross hematuria: history of such. had cystoscopy several years ago at [facility] - per pt's recollection was normal. Cysto was done due to hematuria at that time as well. Was to have repeat cystoscopy in the recent past but never had it. gross hematuria recurred 4 days ago and then spontaneously resolved. Urology was consulted and since urine cleared urology is not planning any inpatient workup. outpatient cystoscopy will be needed. acute hematuria -- due to UTI again outpatient cysto will be recommended (5) CVA (cerebral vascular accident): right-sided MCA territory stroke s/p TPA with resolution of left-sided weakness. excellent recovery. exam now normal w/ no motor weakness. stroke attributed either to right-sided ICA stenosis or his a.fib (not on anticoagulation). continue statin. on plavix. will need systemic anticoagulation following his CEA. We will start Eliquis as the patient has been on Eliquis in the past CEA of right ICA 10/18/18 patient [place] on [address] Joseph and is agreeable for discharge (6) Carotid stenosis: right 60-70% stenosis with ulcer. CEA planned for WEDNESDAY by Dr Joseph. cont statin plus plavix. (7) Obesity (BMI 30.0-34.9): BMI 32 (8) Prediabetes: HgbA1C here is mildly elevated at 5.9%. Dietary control only. (9) AAA (abdominal aortic aneurysm): CTA chest with 4cm ascending thoracic aorta. will also need outpt follow up (10) Hx of CAB08/2015. 3-vessel -- graft to 1st diagonal; graft to distal RCA; graft to ramus intermedius. Unable to graft his LAD. 10/2015 - repeat cath with angioplasty/stent to 80% LAD lesion; angioplasty/stent to 70% left main lesion. All grafts patent on this cath. Lexiscan nuclear stress test negative for ischemia. (11) BPH (benign prostatic hyperplasia): cont flomax and finasteride (12) Dyslipidemia: statin (13) A-fib: cont BB start systemic anticoagulation after CEA and will target 10/21 as a start date rates have been excellent (14) Rash: contact dermatitis - on back - resolved with topical steroid cream Total Time Total Time Spent Total Time Spent (In Minutes): greater than 30 minutes were required to prepare discharge Discharge Plan Discharge Items Patient Disposition: Home - Home Health Services Reason For Visit: CVA Discharge Diagnosis: threatened stroke, right carotid endarterectomy Discharge Goals: Decrease discomfort, Diagnostic testing and Improve disease control Activity: Resume your previous activity Non-emergency contact: Primary Care Provider and Surgeon Call non-emergency contact if: you have any medication questions Follow-up/Referrals: Luis Rhodes, DO [Primary Care Provider] - 10/26/18 9:30 am (Please, follow up with Dr. Luis Rhodes on WednesdayOctober 26 at 9:30 am. *He will be your new primary care provider. The office is located at [address] [place] [address] in [place]. This is across the road from [facility]. If you have any questions or need to change this appointment, call the office at [phone].) Manas Joseph MD [Physician] - 11/03/18 12:45 pm (Please, follow up with Dr. Manas Joseph on November 03 at 12:45 pm. *The office is located at [address] [place] [address] in [place]. This is next to the [employer]. If you have any questions, call the office at [phone].) Diet: Heart Healthy Addtl Provider Instructions: please see family doctor in follow up start vahid on 10/21/18 Prescriptions: New clopidogrel 75 mg Tablet 75 mg PO QAM Qty: 30 RF: 3 metoprolol succinate 25 mg Tablet Extended Release 24 Hr 25 mg PO BID Qty: 60 RF: 0 oxycodone 5 mg Tablet 10 mg PO Q6H PRN (Reason: pain) Qty: 30 RF: 0 Eliquis 5 mg tablet 5 mg PO BID Qty: 30 RF: 5 Continued tamsulosin 0.4 mg Capsule 0.4 mg PO DAILY RF: 0 aspirin 81 mg Tablet,Chewable 81 mg PO DAILY RF: 0 furosemide 20 mg Tablet 20 mg PO DAILY RF: 0 fluticasone propionate [Flonase Allergy Relief] 50 mcg/actuation [place],Suspension 2 spray INTRANASAL DAILY RF: 0 finasteride 5 mg Tablet 5 mg PO DAILY RF: 0 rosuvastatin [Crestor] 20 mg Tablet 20 mg PO DAILY RF: 0 omeprazole 20 mg Tablet,Delayed Release (Dr/Ec) 20 mg PO BID PRN (Reason: Heartburn) RF: 0 Discontinued atenolol 25 mg Tablet 25 mg PO DAILY RF: 0 meloxicam 7.5 mg Tablet 7.5 mg PO DAILY PRN (Reason: Muscle Spasm) RF: 0 Stand-Alone Forms: Medications to Prevent Stroke, [facility] Discharge Orders: Discharge Order (Routine); Ordered 10/19/18 Ordered By: Esequiel Sanford Admission Data Admit Date/Time: 10/09/18 02:12 Attending Provider: Esequiel Sanford Admit Provider: Andrea Hwang Primary Care Provider: Luis Rhodes Other Providers: Miguel Hammonds ; Alvino Del Real ; Andrea Beebe ; Aashish Andrews III ; Manas Joseph ; Wilian Degroot ; Konstantin Shetty. ; Chris Soto Service: Intensive Care Unit Other Interventions: Discharge Summary Assessment (RN) Last Done: 10/19/18 15:08
--- NOTE | 2018-10-20 07:56 | Pharmacy Report ---
Pharmacist Stroke Counseling - Date of Service October 20, 2018 - Scope: Pharmacy has been consulted to provide medication discharge counseling for this patient admitted with ischemic stroke as per the Pharmacist Discharge Counseling for Stroke Patients Protocol. - Medications on Discharge: Home Medications Medication Instructions Recorded Confirmed aspirin 81 mg PO DAILY 10/09/18 10/09/18 finasteride 5 mg PO DAILY 10/09/18 10/09/18 fluticasone propionate [Flonase 2 spray INTRANASAL DAILY 10/09/18 10/09/18 Allergy Relief] furosemide 20 mg PO DAILY 10/09/18 10/09/18 rosuvastatin [Crestor] 20 mg PO DAILY 10/09/18 10/09/18 tamsulosin 0.4 mg PO DAILY 10/09/18 10/09/18 New Rx's Medication Instructions Recorded apixaban [Eliquis] 5 mg PO BID #30 tab 10/19/18 clopidogrel 75 mg PO QAM #30 tab 10/19/18 metoprolol succinate 25 mg PO BID #60 tab 10/19/18 oxycodone 10 mg PO Q6H PRN #30 tab 10/19/18 pantoprazole 40 mg PO DAILY 28 Days #30 tab 10/19/18 - Action: The above medications, specifically ones for stroke treatment/prophylaxis, have been reviewed in detail with the patient and his Qiana prior to discharge. This includes indication, common adverse reactions, drug interactions, and medication administration. Medication counseling has been employed using the teach-back method to ensure understanding. - Outcome: The patient and his have demonstrated understanding of the medications. Please note, they are aware that the pharmacist will call them within 72 hours post-discharge to confirm that the appropriate medications are being taken and answer any further medication related questions the patient might have at that time. Contact information Individual to be contacted: please see paper Additional comments: I spoke with Mr Adair and his for quite some time yesterday afternoon. (Documentation late as note apparently didn't save). The patient was very knowledgeable about his medications. I emphasized the importance of monitoring for bruising and bleeding with the starting of Plavix and restart of Eliquis. He said the hematuria from Eliquis was secondary to an infection which was treated. Told him about the discontinuation of Mobic because it can increase his risk of bruising and bleeding. He was very concerned about this ... he uses it for his knee. I told him to follow-up with his PCP perhaps something topical can be used. I did not want to recommend anything right now as I was not sure the entire history of his knee. Interventions done: contacted Claribel to prescribe Eliquis he told patient that he would be going home on. Requested change from Prilosec to Protonix secondary to DDI with Plavix. Qiana also asked me about taking Mobic with Eliquis (which she is taking) - I told her to be extremely cautious as it increases her risk of bruising and bleeding. Thank you for allowing pharmacy to be involved in the care of this patient. Please call [phone] or [phone] with any additional questions
--- NOTE | 2018-10-21 17:50 | Pharmacy Report ---
Pharmacist Post D/C Phone Note - Phone Note: Date of phone call: October 21, 2018. Individual with whom pharmacist spoke to: Demetria (significant other to JAMIL BLANCO) The following questions were reviewed during the phone call with responses listed below each: Can you tell me the medications that you are currently taking as well as when and how you take each medication? -See Table Below When have you missed any doses of your medications? - no What side effects are you having from your medications, specifically, the new medications you were started on? - Demetria reports bruising on pt's arms. I explained that some bruising is normal but they should seek immediate medical attention if he notices blood in urine/stool, black tarry stool, or coffee ground like stool. What questions do you have about your medications? - n/a What problems are you having obtaining your medications? - no When is your next appointment with your primary care doctor? - Dr. Dawn...10/26/18. As per the Pharmacist Discharge Counseling for Stroke Patients Protocol, this phone call has been completed within 72 hours of discharge. Thank you for allowing us to be involved in the care of this patient. - Home Medications: Home Medications Medication Instructions Recorded Confirmed aspirin 81 mg PO DAILY 10/09/18 10/09/18 finasteride 5 mg PO DAILY 10/09/18 10/09/18 fluticasone propionate [Flonase 2 spray INTRANASAL DAILY 10/09/18 10/09/18 Allergy Relief] furosemide 20 mg PO DAILY 10/09/18 10/09/18 rosuvastatin [Crestor] 20 mg PO DAILY 10/09/18 10/09/18 tamsulosin 0.4 mg PO DAILY 10/09/18 10/09/18 New Rx's Medication Instructions Recorded apixaban [Eliquis] 5 mg PO BID #30 tab 10/19/18 clopidogrel 75 mg PO QAM #30 tab 10/19/18 metoprolol succinate 25 mg PO BID #60 tab 10/19/18 oxycodone 10 mg PO Q6H PRN #30 tab 10/19/18 pantoprazole 40 mg PO DAILY 28 Days #30 tab 10/19/18
== END 2018-10-19 16:15 | disposition home health service (06) | DRG 37 ==
LOC: ED 00:32 → 1E 02:12 → SUATTDRO 02:12 → 1E 02:37 → 2S 10-10 09:03 → 1E 10-18 14:20 → 4E 10-19 13:08

== ENCOUNTER 2020-05-06 09:49 | Observation (INO) ==
--- NOTE | 2020-05-06 10:46 | Emergency Department Note ---
History of Present Illness General Chief complaint: Ear Pain/Problem Stated complaint: EAR PAIN Time Seen by Provider: 05/06/20 10:02 History of Present Illness Maximum Pain Intensity: 10 This is a 79-year-old male that presents to the emergency department via private vehicle accompanied by female friend/long-term partner with complaints of "ear pain". The patient notes that he has been experiencing left ear pain for several months now. He states that he believes that this all started when he had a small cut on the ear from the [facility]. He then notes it seemed to worsen and then he was seen by a straw baler. Review of records reveal that on 03/13 he was seen by the dermatology office. The patient states that the biopsy was taken. He notes that he was scheduled to follow-up for another biopsy but did not do so noting that he already had one done. He then notes that he was seen here in the emergency department on 04/24 and was prescribed p.o. Keflex of which she has been taking. He notes that the ear continues to worsen. He has not followed up as previously recommended. He notes that he did receive a phone call from our assistant case manager/nurse here about following up but did not do so. The patient also is upset because he believes nobody look inside his ear last time he was here and believes that is where the problem was coming from and has been using a Q-tip and notes there is blood on the Q-tip now. He also notes new onset short of breath which began this morning. He rates the overall pain currently as a 10/10. Home Medications Home Medications Medication Instructions Recorded Confirmed Type aspirin 81 mg PO QAM 10/09/18 05/06/20 History finasteride 5 mg PO DAILY 10/09/18 05/06/20 History fluticasone propionate [Flonase 2 spray INTRANASAL DAILY 10/09/18 05/06/20 History Allergy Relief] furosemide 20 mg PO BID 10/09/18 05/06/20 History rosuvastatin [Crestor] 20 mg PO HS 10/09/18 05/06/20 History tamsulosin 0.4 mg PO HS 10/09/18 05/06/20 History apixaban [Eliquis] 5 mg PO BID #30 tab 10/19/18 05/06/20 Rx clopidogrel 75 mg PO QAM #30 tab 10/19/18 05/06/20 Rx ipratropium-albuterol [Combivent 1 puff INHALATION UD 04/24/20 05/06/20 History Respimat] meloxicam 7.5 mg PO DAILY PRN 04/24/20 05/06/20 History oxycodone 10 mg PO Q6 PRN 04/24/20 05/06/20 History pantoprazole 40 mg PO DAILY 04/24/20 05/06/20 History metoprolol succinate 37.5 mg PO BID 05/06/20 05/06/20 History Allergies Allergy/AdvReac Type Severity Reaction Status Date / Time clams AdvReac Severe GI SYMPTOMS Verified 04/24/20 02:19 Past Med/Surg History Medical History (Updated 05/06/20 @ 16:28 by Edward Nation PA-C) A-fib ASCVD (arteriosclerotic cardiovascular disease) BPH (benign prostatic hyperplasia) CAD (coronary artery disease) CHF (congestive heart failure) CVA (cerebral vascular accident) Dyslipidemia HTN (hypertension) Ischemic cardiomyopathy Obesity PVD (peripheral vascular disease) Surgical History History of cataract surgery History of tonsillectomy Hx of CABG Family History Mother , age 83 of heart disease. Heart disease Father , age 53 of MRI. 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 Other Information That Helps Us Care for You: No Feels Safe at Home: Yes Safety Concerns: Feels Safe At This Time Assistive Devices: Denture - Upper Review of Systems A total of 10 systems reviewed and were otherwise negative Physical Exam Vital Signs Vital Signs - 24 hr 05/06/20 10:03 05/06/20 10:48 05/06/20 11:49 Temperature 36.5 C Temperature Source Oral Pulse Rate 85 Pulse Rate [Apical] 77 Respiratory Rate 18 18 Blood Pressure 158/94 H Blood Pressure [Left Arm] 149/91 H Blood Pressure Mean 115 Blood Pressure Mean [Left Arm] 110 Pulse Oximetry 95 98 99 Oxygen Delivery Method Room Air Nasal Cannula Nasal Cannula Oxygen Flow Rate 2 2 2 Sepsis Recent Fever Within 48 Hours No Sepsis New/Unexplained Change in Mental Status No Sepsis Action Taken by Nursing No Action Required 05/06/20 12:37 Temperature Temperature Source Pulse Rate Pulse Rate [Apical] 89 Respiratory Rate 18 Blood Pressure Blood Pressure [Left Arm] 137/86 Blood Pressure Mean Blood Pressure Mean [Left Arm] 103 Pulse Oximetry 100 Oxygen Delivery Method Nasal Cannula Oxygen Flow Rate 2 Sepsis Recent Fever Within 48 Hours Sepsis New/Unexplained Change in Mental Status Sepsis Action Taken by Nursing VITAL SIGNS - Vital signs and nursing notes were reviewed. Stable and afebrile. GENERAL - 79-year-old male appearing his stated age who is in no acute distress. Communicates well with provider and answers questions appropriately. SKIN - Large irregular/heterogeneous erythematous and fungating-like mass from the left external ear that occludes the ear canal. Anatomy of the external ear is greatly disfigured secondary to this masslike structure. HEAD - NC/AT. EYES - Sclera anicteric. EARS - No deformities of external structures noted on gross examination bilaterally. NOSE - Midline and without cyanosis. No epistaxis or purulent drainage noted. MOUTH/OROPHARYNX - Without perioral cyanosis. NECK - Neck with FROM. No nuchal rigidity. LUNGS - Chest wall symmetric without accessory muscle use, intercostals retractions, or central cyanosis. Normal vesicular breath sounds CTA B/L. No wheezes, rales, or rhonchi appreciated. CARDIAC - IRR with S1/S2. No murmur, rubs, or gallops appreciated. EXTREMITIES - No clubbing or peripheral cyanosis. NEUROLOGIC - Cranial nerves II through XII grossly intact. PSYCH - A&O, and cooperates fully with examiner. Pt is very pleasant and interacts well with examiner. Course Administered Medications Discontinued Medications Piperacillin Sod/Tazobactam Sod (Zosyn) 4.5 gm in 120 mls @ 240 mls/hr IV NOW ONE Stop: 05/06/20 13:23 Last Infusion: 05/06/20 13:37 Dose: 0 mls/hr Documented by: [id number] Admin: 05/06/20 13:01 Dose: 240 mls/hr Documented by: [id number] Daptomycin 325 mg/ Syringe 6.5 mls @ 3.25 mls/min IV NOW ONE; Protocol Stop: 05/06/20 12:55 Last Admin: 05/06/20 13:51 Dose: 3.25 mls/min Documented by: [id number] Ioversol (Ioversol 100ml) 94 ml IV ONCE ONE Stop: 05/06/20 11:36 Last Admin: 05/06/20 11:35 Dose: 94 ml Documented by: [id number] Morphine Sulfate (Morphine Sulfate 4 Mg/Ml 1 Ml Carp\\Vial) 4 mg IV NOW STA Stop: 05/06/20 11:12 Last Admin: 05/06/20 11:21 Dose: 4 mg Documented by: [id number] Morphine Sulfate (Morphine Sulfate 4 Mg/Ml 1 Ml Carp\\Vial) 4 mg IV NOW STA Stop: 05/06/20 12:47 Last Admin: 05/06/20 13:01 Dose: 4 mg Documented by: [id number] Ondansetron HCl (Ondansetron Inj 2 Mg/Ml 2 Ml Vial) 4 mg IV NOW STA Stop: 05/06/20 11:12 Last Admin: 05/06/20 11:21 Dose: 4 mg Documented by: [id number] Medical Decision Making Laboratory Data Result diagrams: 05/06/20 10:40 05/06/20 10:40 Lab Results 05/06/20 05/06/20 05/06/20 Range/Units 10:40 10:40 10:40 WBC 6.92 (4.8-10.8) K/uL RBC 4.99 (4.7-6.1) M/uL Hgb 13.8 L (14.0-18.0) g/dL Hct 44.0 (42-52) % MCV 88.2 (80-100) fL MCH 27.7 (25-34) pg MCHC 31.4 L (32-36) g/dL RDW Std Deviation 46.7 H (36.4-46.3) fL RDW Coeff of Joslyn 14.5 (11.5-14.5) % Plt Count 175 (130-400) K/uL MPV 9.7 (7.4-10.4) fL Immature Gran % (Auto) 0.3 % Neut % (Auto) 74.6 % Lymph % (Auto) 15.5 % [place] % (Auto) 7.9 % Eos % (Auto) 1.4 % Baso % (Auto) 0.3 % Neut # (Auto) 5.16 (1.4-6.5) K/uL Lymph # (Auto) 1.07 L (1.2-3.4) K/uL [place] # (Auto) 0.55 (0.11-0.59) K/uL Eos # (Auto) 0.10 (0-0.5) K/uL Baso # (Auto) 0.02 (0-0.2) K/uL Immature Gran # (Auto) 0.02 (0.00-0.02) K/uL Sodium 138 (136-145) mmol/L Potassium 4.1 (3.5-5.1) mmol/L Chloride 106 (98-107) mmol/L Carbon Dioxide 27 (21-32) mmol/L Anion Gap 5.0 (3-11) BUN 14 (7-18) mg/dl Creatinine 1.25 (0.6-1.4) mg/dl Est Cr Clr Drug Dosing 61.1 ml/min Est GFR ( Amer) 63.1 Est GFR (Non-Af Amer) 54.4 BUN/Creatinine Ratio 11.4 (10-20) Glucose 96 (70-99) mg/dl Lactate 1.0 (0.4-2.0) mmol/L Calcium 8.7 (8.5-10.1) mg/dl Magnesium 2.3 (1.8-2.4) mg/dl Total Bilirubin 0.6 (0.2-1) mg/dl AST 13 L (15-37) U/L ALT 19 (12-78) U/L Alkaline Phosphatase 67 (45-117) U/L Troponin I < 0.015 (0-0.045) ng/ml Total Protein 7.6 (6.4-8.2) gm/dl Albumin 3.6 (3.4-5.0) gm/dl Globulin 4.0 (2.5-4.0) gm/dl Albumin/Globulin Ratio 0.9 (0.9-2) Urine Color Urine Appearance (Clear) Urine pH (4.5-7.5) Ur Specific Belle (1.000-1.030) Urine Protein (Negative) Urine Glucose (UA) (Negative) Urine Ketones (Negative) Urine Blood (Negative) Urine Nitrite (Negative) Urine Bilirubin (Negative) Urine Urobilinogen (Negative) Ur Leukocyte Esterase (Negative) Urine WBC (Auto) (0-5) /hpf Urine RBC (Auto) (0-4) /hpf U Hyaline Cast (Auto) (0-5) /lpf U Epithel Cells (Auto) (0-5) /lpf Urine Bacteria (Auto) (Negative) 05/06/20 Range/Units 11:10 WBC (4.8-10.8) K/uL RBC (4.7-6.1) M/uL Hgb (14.0-18.0) g/dL Hct (42-52) % MCV (80-100) fL MCH (25-34) pg MCHC (32-36) g/dL RDW Std Deviation (36.4-46.3) fL RDW Coeff of Joslyn (11.5-14.5) % Plt Count (130-400) K/uL MPV (7.4-10.4) fL Immature Gran % (Auto) % Neut % (Auto) % Lymph % (Auto) % [place] % (Auto) % Eos % (Auto) % Baso % (Auto) % Neut # (Auto) (1.4-6.5) K/uL Lymph # (Auto) (1.2-3.4) K/uL [place] # (Auto) (0.11-0.59) K/uL Eos # (Auto) (0-0.5) K/uL Baso # (Auto) (0-0.2) K/uL Immature Gran # (Auto) (0.00-0.02) K/uL Sodium (136-145) mmol/L Potassium (3.5-5.1) mmol/L Chloride (98-107) mmol/L Carbon Dioxide (21-32) mmol/L Anion Gap (3-11) BUN (7-18) mg/dl Creatinine (0.6-1.4) mg/dl Est Cr Clr Drug Dosing ml/min Est GFR ( Amer) Est GFR (Non-Af Amer) BUN/Creatinine Ratio (10-20) Glucose (70-99) mg/dl Lactate (0.4-2.0) mmol/L Calcium (8.5-10.1) mg/dl Magnesium (1.8-2.4) mg/dl Total Bilirubin (0.2-1) mg/dl AST (15-37) U/L ALT (12-78) U/L Alkaline Phosphatase (45-117) U/L Troponin I (0-0.045) ng/ml Total Protein (6.4-8.2) gm/dl Albumin (3.4-5.0) gm/dl Globulin (2.5-4.0) gm/dl Albumin/Globulin Ratio (0.9-2) Urine Color Yellow Urine Appearance Clear (Clear) Urine pH 6.5 (4.5-7.5) Ur Specific Belle 1.006 (1.000-1.030) Urine Protein Negative (Negative) Urine Glucose (UA) Negative (Negative) Urine Ketones Negative (Negative) Urine Blood 1+ H (Negative) Urine Nitrite Negative (Negative) Urine Bilirubin Negative (Negative) Urine Urobilinogen Negative (Negative) Ur Leukocyte Esterase Negative (Negative) Urine WBC (Auto) 0 (0-5) /hpf Urine RBC (Auto) 0-4 (0-4) /hpf U Hyaline Cast (Auto) 0 (0-5) /lpf U Epithel Cells (Auto) 0-5 (0-5) /lpf Urine Bacteria (Auto) Negative (Negative) Imaging Data Radiologist's Impression: XR chest 1V portable HISTORY: 79 years-old Male dyspnea acute shortness of breath COMPARISON: Chest radiograph and CTA chest 10/12/2018 TECHNIQUE: Portable AP view of the chest FINDINGS: Cardiac silhouette is enlarged. Prior median sternotomy with left atrial exclusion device. Calcified plaque of the thoracic aortic arch. No pneumothorax, pleural effusion, airspace consolidation or overt pulmonary edema. Bones of the chest appear grossly intact. IMPRESSION: Cardiomegaly without acute process. ACT 112: Negative or not required by law. The above report was generated using voice recognition software. It may contain grammatical, syntax or spelling errors. Electronically signed by: Yuri Lomas M.D. 05/06/2020 11:[address] facial bones w con HISTORY: Left ear mass like growth, infection TECHNIQUE: Multiaxial CT images of the maxillofacial facial region was performed following the use of intravenous contrast. COMPARISON STUDY: None. FINDINGS: Within the lower portion of the left earlobe, there is a heterogeneously enhancing lesion measuring 4.7 x 2.9 x 4.3 cm. This obstructs the left external auditory canal. There appears to be soft tissue thickening within the cartilaginous portion of the left external auditory canal which could represent extension of the mass or reactive change. No abnormal soft tissue thickening within the bony portion of the left external auditory canal. There appears to be a small soft tissue focus extending from the lesion on image 286 of series 7 which abuts the anterior mastoid bone. This soft tissue extension measures 7 mm. However, no abnormal bony reaction. This lesion abuts and also displaces the posterior aspect of the left parotid gland. The majority of the lesion appears to be within the left earlobe. No cervical lymphadenopathy. Prevertebral soft tissues and the epiglottis are normal in thickness. The major cervical vessels enhance normally. Mild atrophy within the brain. No intracranial lesions identified. The orbits are unremarkable. Pterygopalatine fossa are maintained. No suspicious lytic or blastic osseous lesions. The paranasal sinuses and mastoid air cells are essentially clear. IMPRESSION: 1. A heterogeneously enhancing 4.7 x 2.0 x 4.3 cm lesion located within the lower portion of the left earlobe. This obstructs the left external auditory canal and there is associated soft tissue thickening within the cartilaginous portion of the left external auditory canal. This could represent extension of the mass or reactive change. Tissue sampling recommended for diagnosis of this lesion. 2. Small soft tissue focus extending from this lesion which abuts the anterior mastoid bone. However, no abnormal bony reaction or destruction. 3. No cervical lymphadenopathy. ACT 112: Positive. There are findings on this exam that require communication between the performing entity and the patient following Patient Test Result Information Act ([place] Act 112) guidelines. Electronically signed by: Js Paige M.D. 05/06/2020 12:10 PM [facility] Narrative Patient was seen and evaluated as above in room A04. Review was performed of nursing notes and vital signs. I did review pertinent previous visits and patient history. After obtaining a thorough history and physical examination the above work up was performed. He presents to us today with left ear pain. On examination he has a large, disfiguring-like mass to the left ear. I did review images from 03/13 and reviewed that dermatology visit as well as his most recent emergency department visit. The patient was asked whether or not he had followed up per previous recommendations and he notes that he has not. He is here now with worsening of the left ear mass. There is possibly a superimposed cellulitis now. Although he is currently on p.o. Keflex from his recent ED visit with the large increase in size and pain it is felt that further work-up is warranted. No leukocytosis. Mild anemia. No emergent metabolic disturbance. Urinalysis does not suggest infection. UPT negative. Chest x-ray was ordered secondary to the patient noting he felt short of breath and reveals cardiomegaly without acute process. Troponin negative. CT scan results as above. Patient has a heterogeneous enhancing 4.7 x 2 x 4.3 cm lesion within the lower portion of the left earlobe. This clinically correlates to examination. I believe that further evaluation and management in the inpatient setting is warranted. Patient was informed upon recommendation and was in agreement. He was given IV antibiotics here. He was given IV pain medication. Case discussed with the hospitalist. Please refer to further documentation regarding his stay. Case was discussed with the attending physician. EKG was reviewed by myself and found to be normal sinus rhythm at a rate of 95 bpm. My interpretation there is atrial fibrillation with a right bundle block. This was compared EKG of 10/13/19 and no significant change was found however there is a right bundle branch block present. An order was placed for continuous cardiac monitoring. The monitor shows a rate of 95 with irregular rhythm. I attest that I have personally reviewed the patient medication list. GCS: 15 In the evaluation and treatment of this patient the following differential diagnoses were entertained: Otitis media, otitis externa, mastoiditis, meningitis, encephalitis, among others Impression & Plan Infected lesion of skin, Lesion of left ear Discharge Plan Visit Data Chief Complaint: Ear Pain/Problem Stated Complaint: EAR PAIN ED Provider: Jamie Rosario ED Midlevel Provider: Edward Nation Discharge Problem: Infected lesion of skin, Lesion of left ear Patient Disposition: Admitted As Inpatient Condition: Good Discharge Instructions Interventions: ED Discharge Assessment Last Done: 05/06/20 15:21
[2020-05-06 10:55] LABS: Basophils # (auto) 0.02 K/uL (0-0.2); Basophils % (auto) 0.3 %; Eosinophils % (auto) 1.4 %; Hemoglobin 13.8 g/dL (14.0-18.0); Immature Granulocytes # (auto) 0.02 K/uL (0.00-0.02); Immature Granulocytes % (auto) 0.3 %; Lymphocytes # (auto) 1.07 K/uL (1.2-3.4); Lymphocytes % (auto) 15.5 %; Mean Corpuscular Hemoglobin 27.7 pg (25-34); Mean Corpuscular Hgb Conc 31.4 g/dL (32-36); Mean Corpuscular Volume 88.2 fL (80-100); Mean Platelet Volume 9.7 fL (7.4-10.4); Monocytes # (auto) 0.55 K/uL (0.11-0.59); Monocytes % (auto) 7.9 %; Neutrophils # (auto) 5.16 K/uL (1.4-6.5); Neutrophils % (auto) 74.6 %; Platelet Count 175 K/uL (130-400); RDW Coefficient of Variation 14.5 % (11.5-14.5); RDW Standard Deviation 46.7 fL (36.4-46.3); Red Blood Count 4.99 M/uL (4.7-6.1); White Blood Count 6.92 K/uL (4.8-10.8)
[2020-05-06] MEDS ORDERED: MoRPHine SULFATE 4 MG/ML 1 ML CARP\\VIAL IV STA ×2 (11:11→12:46)
[2020-05-06] MEDS ORDERED: ONDANSETRON INJ 2 MG/ML 2 ML VIAL IV STA (11:11)
[2020-05-06 11:18] LABS: Alanine Aminotransferase 19 U/L (12-78); Albumin Level 3.6 gm/dl (3.4-5.0); Aspartate Aminotransferase 13 U/L (15-37); BUN Creatinine Ratio 11.4 (10-20); Blood Urea Nitrogen 14 mg/dl (7-18); Calcium 8.7 mg/dl (8.5-10.1); Carbon Dioxide 27 mmol/L (21-32); Chloride 106 mmol/L (98-107); Creatinine Clr Calc Pharmacy 61.1 ml/min; Est GFR (African American) 63.1; Est GFR (Non-African American) 54.4; Glucose 96 mg/dl (70-99); Magnesium 2.3 mg/dl (1.8-2.4); Potassium 4.1 mmol/L (3.5-5.1); Sodium 138 mmol/L (136-145)
--- NOTE | 2020-05-06 11:19 | Electrocardiogram Report ---
Test Reason : Blood Pressure : / mmHG Vent. Rate : 095 BPM Atrial Rate : 086 BPM P-R Int : 000 ms QRS Dur : 134 ms QT Int : 370 ms P-R-T Axes : 000 -24 -30 degrees QTc Int : 464 ms Atrial fibrillation Right bundle branch block Inferior infarct (cited on or before 17-APR-2017) Abnormal ECG When compared with ECG of 12-OCT-2018 11:09, No significant change was found Confirmed by Leland Castillo ([id number]) on 05/06/2020 11:19:23 AM Referred By: ED Confirmed By:Shane Castillo
[2020-05-06 11:21] LABS: Appearance Urine Clear (Clear); Bacteria Urine Automated Negative (Negative); Bilirubin Urine Negative (Negative); Blood Urine 1+ (Negative); Cast Urine Automated 0 /lpf (0-5); Color Urine Yellow; Epithelial Cell Urine Auto 0-5 /lpf (0-5); Glucose Urine UA Negative (Negative); Ketones Urine Negative (Negative); Leukocyte Esterase Urine Negative (Negative); Nitrite Urine Negative (Negative); Protein Urine Negative (Negative); RBC Urine Automated 0-4 /hpf (0-4); Specific Gravity Urine 1.006 (1.000-1.030); Urobilinogen Urine Negative (Negative); WBC Urine Automated 0 /hpf (0-5); pH Urine 6.5 (4.5-7.5)
--- NOTE | 2020-05-06 11:22 | XRay Report ---
XR chest 1V portable HISTORY: 79 years-old Male dyspnea acute shortness of breath COMPARISON: Chest radiograph and CTA chest 10/12/2018 TECHNIQUE: Portable AP view of the chest FINDINGS: Cardiac silhouette is enlarged. Prior median sternotomy with left atrial exclusion device. Calcified plaque of the thoracic aortic arch. No pneumothorax, pleural effusion, airspace consolidation or over t pulmonary edema. Bones of the chest appear grossly intact. IMPRESSION: Cardiomegaly without acute process. ACT 112: Negative or not required by law. The above report was generated using voice recognition software. It may contain grammatical, syntax o r spelling errors. Electronically signed by: Yuri Lomas M.D. 05/06/2020 11:20 AM
[2020-05-06 11:23] LABS: Albumin Globulin Ratio 0.9 (0.9-2); Alkaline Phosphatase 67 U/L (45-117); Bilirubin,Total 0.6 mg/dl (0.2-1); Total Protein 7.6 gm/dl (6.4-8.2); Troponin I < 0.015 ng/ml (0-0.045)
[2020-05-06] MEDS ORDERED: IOVERSOL 100ml IV ONE (11:35)
--- NOTE | 2020-05-06 12:10 | Emergency Department Note ---
ED Visit Note The patient was seen and examined with Edward Nation PA-C. I agree with the history, physical and findings. Secondary cellulitis and otitis externa developing. Concerning for malignant otitis externa. Please see the note for disposition and details. .
--- NOTE | 2020-05-06 12:11 | CT Scan Report ---
CT facial bones w con HISTORY: Left ear mass like growth, infection TECHNIQUE: Multiaxial CT images of the maxillofacial facial region was performed following the use of intravenous contrast. COMPARISON STUDY: None. FINDINGS: Within the lower portion of the left earlobe, there is a heterogeneously enhancing lesion m easuring 4.7 x 2.9 x 4.3 cm. This obstructs the left external auditory canal. There appears to be sof t tissue thickening within the cartilaginous portion of the left external auditory canal which could represent extension of the mass or reactive change. No abnormal soft tissue thickening within the bon y portion of the left external auditory canal. There appears to be a small soft tissue focus extendin g from the lesion on image 286 of series 7 which abuts the anterior mastoid bone. This soft tissue ex tension measures 7 mm. However, no abnormal bony reaction. This lesion abuts and also displaces the p osterior aspect of the left parotid gland. The majority of the lesion appears to be within the left e arlobe. No cervical lymphadenopathy. Prevertebral soft tissues and the epiglottis are normal in thick ness. The major cervical vessels enhance normally. Mild atrophy within the brain. No intracranial les ions identified. The orbits are unremarkable. Pterygopalatine fossa are maintained. No suspicious lyt ic or blastic osseous lesions. The paranasal sinuses and mastoid air cells are essentially clear. IMPRESSION: 1. A heterogeneously enhancing 4.7 x 2.0 x 4.3 cm lesion located within the lower portion of the left earlobe. This obstructs the left external auditory canal and there is associated soft tissue thicken ing within the cartilaginous portion of the left external auditory canal. This could represent extens ion of the mass or reactive change. Tissue sampling recommended for diagnosis of this lesion. 2. Small soft tissue focus extending from this lesion which abuts the anterior mastoid bone. However, no abnormal bony reaction or destruction. 3. No cervical lymphadenopathy. ACT 112: Positive. There are findings on this exam that require communication between the performing entity and the patient following Patient Test Result Information Act ([place] Act 112) guidelines. Electronically signed by: Js Paige M.D. 05/06/2020 12:10 PM
[2020-05-06] MEDS ORDERED: PIPERACILLIN/TAZOBACTAM 4.5 GM/120 ML BAG IV ONE (12:54)
[2020-05-06] MEDS ORDERED: DAPTOmycin 325 MG in SYRINGE 0 ML IV ONE (12:54)
[2020-05-06] MEDS ORDERED: PIPERACILL/TAZOBAC CONSULT ACTIVE PRN ×2 (12:54→17:15)
--- NOTE | 2020-05-06 14:10 | History & Physical Report ---
Date of Service May 06, 2020 Assessment & Plan (1) Infected lesion of skin: Fungating left ear mass with possible superimposed cellulitis. - Vancomycin & Zosyn ordered - Plastic surgery & dermatology consulted -> NO ENT coverage in the hospital until 05/16. May need transfer. (2) Chronic systolic CHF (congestive heart failure): Appears euvolemic today. Echo from 10/2018 showed EF 45%. - Continue home Lasix 20 mg PO BID - Continue home beta-lindsey, metop XL 37.5 mg PO BID - Hold ASA (3) Ischemic cardiomyopathy: Hx of CABG. No chest pain or other concerns for active ischemia. - Hold ASA for likely need for surgery. - Beta lindsey as above - Continue statin (4) A-fib: EKG on admission shows afib and RBB without significant change from prior in 2019. CHADs-Vasc is 7, giving him 11.2% stroke risk per year. - Continue beta-lindsey - Hold apixaban for possible surgical need (5) AAA (abdominal aortic aneurysm): Noted on prior CTA in 2019. No present symptoms of abdominal pain or indication of rupture. Patient has not had any follow up for this. - Ordered AAA u/s for surveillance. (6) CVA (cerebral vascular accident): In 2019, thought to be embolic from his afib. - Holding ASA, clopidogrel, and apixaban for possible surgical need (7) BPH (benign prostatic hyperplasia): No LUTS today. - Continue tamsulosin and finasteride (8) DVT prophylaxis: SCDs - Holding heparin for possible surgery History of Present Illness Primary Care Provider: Sivakumar Hawkins 79yo M w/ hx of CHF, CAD who presents for left ear infection and swelling. Per the patient's report, it first started due to a cut at his [facility] office; however, on reviewing notes, he presented to dermatology in early March after having had it been there a month. A biopsy was taken there which shows actinic keratosis. He has been using Vasoline on it, but it was getting worse, and he was started on Bactrim. Despite the Bactrim, he reports the ear is more swollen and painful today than it before. He can hear slightly from the left ear, but not much. He reports that his usual pain regimen had been improving the pain, but it is worse now. He has not had systemic fevers/chills, sweats, or other issues. Allergies Allergy/AdvReac Type Severity Reaction Status Date / Time clams AdvReac Severe GI SYMPTOMS Verified 04/24/20 02:19 Home Medications Home Medications Medication Instructions Recorded Confirmed Type aspirin 81 mg PO QAM 10/09/18 05/06/20 History finasteride 5 mg PO DAILY 10/09/18 05/06/20 History fluticasone propionate [Flonase 2 spray INTRANASAL DAILY 10/09/18 05/06/20 History Allergy Relief] furosemide 20 mg PO BID 10/09/18 05/06/20 History rosuvastatin [Crestor] 20 mg PO HS 10/09/18 05/06/20 History tamsulosin 0.4 mg PO HS 10/09/18 05/06/20 History apixaban [Eliquis] 5 mg PO BID #30 tab 10/19/18 05/06/20 Rx clopidogrel 75 mg PO QAM #30 tab 10/19/18 05/06/20 Rx ipratropium-albuterol [Combivent 1 puff INHALATION UD 04/24/20 05/06/20 History Respimat] meloxicam 7.5 mg PO DAILY PRN 04/24/20 05/06/20 History oxycodone 10 mg PO Q6 PRN 04/24/20 05/06/20 History pantoprazole 40 mg PO DAILY 04/24/20 05/06/20 History metoprolol succinate 37.5 mg PO BID 05/06/20 05/06/20 History Past Med/Surg History Medical History A-fib ASCVD (arteriosclerotic cardiovascular disease) BPH (benign prostatic hyperplasia) CAD (coronary artery disease) CHF (congestive heart failure) CVA (cerebral vascular accident) Dyslipidemia HTN (hypertension) Ischemic cardiomyopathy Obesity PVD (peripheral vascular disease) Surgical History History of cataract surgery History of tonsillectomy Hx of CABG Family History Mother , age 83 of heart disease. Heart disease Father , age 53 of MRI. 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 Other Information That Helps Us Care for You: No Feels Safe at Home: Yes Safety Concerns: Feels Safe At This Time Assistive Devices: Denture - Upper Review of Systems Review of Systems: All systems reviewed & are unremarkable except as noted in HPI & below Physical Exam Constitutional: WD/WN, vitals as above Eyes: EOM intact bilaterally; no conjunctival abnormality ENMT: external ear and nose normal, oropharynx normal Ears: + external ear abnormality (Fungating mass and broad erythema) and + unable to visualize TM Throat: uvula midline; no tonsil abnormality, tonsils present and no lateral displacement of uvula Neck: trachea midline, no thyromegaly normal visual inspection Respiratory: normal respiratory effort, lungs clear to auscultation no respiratory distress Cardiovascular: RRR, no murmur, no edema Gastrointestinal (Abdomen): Inspection/Auscultation: abdomen normal to inspection; abdomen not distended Musculoskeletal: no cyanosis or clubbing, extremities motor strength 5/5 Skin: no rashes, warm and dry Neurologic: moves all extremities and awake Psychiatric: Orientation: alert, oriented to person and cooperative Results & Data Results & Data ([facility]) Vital Signs (Past 12 Hours) Vital Signs Temp Pulse Pulse Resp BP BP Pulse Ox 05/06/20 13:54 85 18 138/96 100 05/06/20 12:37 89 18 137/86 100 05/06/20 11:49 77 18 149/91 H 99 05/06/20 10:48 98 05/06/20 10:03 36.5 C 85 18 158/94 H 95 Code Status & VTE Plan VTE Prophylaxis Plan VTE Prophylaxis will be ordered: Yes PG Care Time/CCT Total # of Minutes Spent Total Time Spent with Patient: Total time spent is greater than 50% in coordination of care (as documented) at patient's floor/unit and/or counseling patient: Coding Level of Care Code 22052 OBS Care - Level 3 Diagnoses Infected lesion of skin L08.9 Chronic systolic CHF (congestive heart failure) I50.22 Ischemic cardiomyopathy I25.5 A-fib I48.1 Atrial fibrillation type: persistent AAA (abdominal aortic aneurysm) I71.4 Presence of rupture: without rupture CVA (cerebral vascular accident) I63.411 CVA mechanism: embolism Laterality of affected vessel: right Precerebral and cerebral artery: middle cerebral artery BPH (benign prostatic hyperplasia) N40.0 Lower urinary tract symptom presence: symptoms absent DVT prophylaxis Z29.9 (1) BPH (benign prostatic hyperplasia) Lower urinary tract symptom presence: symptoms absent Qualified Code(s): N40.0 - Benign prostatic hyperplasia without lower urinary tract symptoms (2) AAA (abdominal aortic aneurysm) Presence of rupture: without rupture Qualified Code(s): I71.4 - Abdominal aortic aneurysm, without rupture (3) A-fib Atrial fibrillation type: persistent Qualified Code(s): I48.1 - Persistent atrial fibrillation (4) CVA (cerebral vascular accident) CVA mechanism: embolism Laterality of affected vessel: right Precerebral and cerebral artery: middle cerebral artery Qualified Code(s): I63.411 - Cerebral infarction due to embolism of right middle cerebral artery
[2020-05-06] MEDS ORDERED: ACETAMINOPHEN 325 MG TAB PO PRN (15:42)
[2020-05-06] MEDS ORDERED: ONDANSETRON INJ 2 MG/ML 2 ML VIAL IV PRN (15:42)
[2020-05-06] MEDS ORDERED: IPRATROPIUM BROMIDE/ALBUTEROL respimat INH INH PRN (15:42)
[2020-05-06] MEDS ORDERED: VANCOMYCIN CONSULT ACTIVE PRN (15:42)
[2020-05-06] MEDS ORDERED: ALBUTEROL HFA 8 GM INHALER INH PRN (15:55)
[2020-05-06] MEDS ORDERED: IPRATROPIUM BROMIDE HFA INHALER INH PRN (15:56)
[2020-05-06] MEDS ORDERED: VANCOMYCIN HCL 2,500 MG in SODIUM CHLORIDE 0.9% 500 ML IV ONE (16:15)
[2020-05-06] MEDS: FUROSEMIDE 20 MG TAB PO SCH (17:09)
[2020-05-06] MEDS: oxyCODONE HCL IR 5 MG TAB (IMMEDIATE RELEASE) PO PRN ×2 (17:10→23:15)
--- NOTE | 2020-05-06 18:11 | Pharmacy Report ---
Pharmacy Abx Dose Short Note - Date of Service May 06, 2020 - Assessment & Plan Assessment 79 year old M admitted with possible cellulitis of left ear. Day # 1 of antimicrobial therapy. * Pt received keflex in april but swelling and pain worsened in ear. * Blood cultures pending. * Baseline Scr appears to be ~1mg/dL. Plan Vancomycin and zosyn for treatment of cellulitis. Vancomycin IV * Estimated PK Parameters: Vd 0.65 L/kg, Hilario 0.055 hr-1, t1/2 12.6 hr * Loading dose: 2500 mg (24 mg/kg) * Maintenance dose: 1500 mg IV (14 mg/kg) every 18 hours * Goal trough level for cellulitis : 10 to 15 mcg/mL * Trough level ordered for 05/09/20 @1130 Piperacillin/tazobactam * 4.5 g bolus administered over 30 minutes, then 3.375 g IV extended infusion every 8 hours for CrCl greater than 20 mL/min Pharmacy will continue to follow and will adjust dose/frequency as necessary. Thank you.
[2020-05-06] MEDS: PIPERACILLIN/TAZOBACTAM 3.375 GM in DEXTROSE 5% 100 ML IV SCH (18:59)
[2020-05-06] MEDS: TAMSULOSIN HCL 0.4 MG CAP PO SCH (20:16)
[2020-05-06] MEDS: METOPROLOL SUCC 25MG EXT REL TAB PO SCH (20:16)
[2020-05-06] MEDS ORDERED: ROSUVASTATIN CALCIUM 20 MG TAB PO SCH (21:00)
[2020-05-07] MEDS: PIPERACILLIN/TAZOBACTAM 3.375 GM in DEXTROSE 5% 100 ML IV SCH ×3 (02:00→17:28)
[2020-05-07] MEDS ORDERED: HYDROmorphone INJ 0.5 MG/0.5 ML SYR IV ONE (02:15)
[2020-05-07] MEDS ORDERED: VANCOMYCIN HCL 1,500 MG in SODIUM CHLORIDE 0.9% 500 ML IV SCH (06:00)
[2020-05-07 07:51] LABS: Hematocrit (blood only) 38.1 % (42-52); Hemoglobin 11.8 g/dL (14.0-18.0); Mean Corpuscular Hemoglobin 27.7 pg (25-34); Mean Corpuscular Volume 89.4 fL (80-100); Mean Platelet Volume 9.7 fL (7.4-10.4); Platelet Count 149 K/uL (130-400); RDW Coefficient of Variation 14.6 % (11.5-14.5); RDW Standard Deviation 47.5 fL (36.4-46.3); Red Blood Count 4.26 M/uL (4.7-6.1); White Blood Count 6.86 K/uL (4.8-10.8)
--- NOTE | 2020-05-07 07:56 | Hospitalist Progress Note ---
Date of Service May 07, 2020 Assessment & Plan (1) Infected lesion of skin: Fungating left ear mass with possible superimposed cellulitis. - Vancomycin & Zosyn ordered - Plastic surgery & dermatology consulted -> I did phone leave a message for Dr. Montalvo awaiting a callback -I personally spoke to Dr. Baker regarding plastic surgery, I read Dr. Mooney consult dermatology. I spoke with Dr. Ford back at [facility] who is an ear nose and throat doctor who reviewed the CT scan of the face which I sent to them electronically after permission was given by the patient and recommendations to get tissue diagnosis and then consider further referral as an outpatient to head and neck cancer surgical clinic at this bruise be her fears of squamous cell carcinoma Ct Face 05/06/20 Impression 1. A heterogeneously enhancing 4.7 x 2.0 x 4.3 cm lesion located within the lower portion of the left earlobe. This obstructs the left external auditory canal and there is associated soft tissue thickening within the cartilaginous portion of the left external auditory canal. This could represent extension of the mass or reactive change. Tissue sampling recommended for diagnosis of this lesion. 2. Small soft tissue focus extending from this lesion which abuts the anterior mastoid bone. However, no abnormal bony reaction or destruction. 3. No cervical lymphadenopathy (2) Chronic systolic CHF (congestive heart failure): Appears euvolemic today. Echo from 10/2018 showed EF 45%. - Continue home Lasix 20 mg PO BID - Continue home beta-lindsey, metop XL 37.5 mg PO BID - Hold ASA (3) Ischemic cardiomyopathy: Hx of CABG. No chest pain or other concerns for active ischemia. - Hold ASA for likely need for surgery. - Beta lindsey as above - Continue statin (4) A-fib: EKG on admission shows afib and RBB without significant change from prior in 2019. CHADs-Vasc is 7, giving him 11.2% stroke risk per year. - Continue beta-lindsey - Hold apixaban for possible surgical need (5) AAA (abdominal aortic aneurysm): Noted on prior CTA in 2019. No present symptoms of abdominal pain or indication of rupture. Patient has not had any follow up for this. - Ordered AAA u/s interpretation Increase in caliber of a mid abdominal aortic aneurysm, measuring approximately 4.9 x 4.1 cm, since ultrasound of September 01, 2016., will need to adress facial mass then have referral for vascular surgery follow up (6) CVA (cerebral vascular accident): In 2019, thought to be embolic from his afib. - Holding ASA, clopidogrel, and apixaban for possible surgical need (7) BPH (benign prostatic hyperplasia): No LUTS today. - Continue tamsulosin and finasteride (8) DVT prophylaxis: SCDs - Holding heparin for possible surgery Admission and Anticipated Discharge Date Admission Date: May 06, 2020 Subjective Patient was seen in his room on 2 occasions today 1 presurgical visit on postsurgical visit. Patient is a large fungating mass originating from his left inferior ear this is occluding his ear canal and impairing his hearing. Patient did have attempted aspiration of the mass for possible concern for phlegmon this was without significant results of fluid. Patient is open to referral to tertiary center if need be for definitive care concern from dermatology, plastic reconstructive surgery and myself as well as surgical referral to [facility] is that this could be a malignancy. Review of Systems Review of Systems: Mild distress and fatigue no headache, blurry or double vision no speech or swallowing issues Large painful mass involving his left lower earlobe this is with some eschar and some bleeding that does appear appear to be fluctuant although no fluid was aspirated no chest pain, pressure or palpitations no shortness of breath, cough or wheezes no abdominal pain, nausea or vomiting, diarrhea or constipation no dysuria, hematuria or frequency no focal joint pain or swelling no back pain, CVA tenderness or radicular pain no bruising, bleeding or rashes no focal signs of weakness or numbness or altered sensation no complaints of anxiety or depression. Physical Exam Physical Exam: The patient appeared well nourished and normally developed. Vital signs as documented. Head exam is normocephalic atraumatic no scleral icterus Neck is without JVD, thyromegaly, or carotid bruits. Lungs are clear to auscultation, no focal loss of breath sounds Cardiac exam, irregular and rate controlled. Systolic ejection murmur is heard Abdominal exam reveals normal bowel sounds, soft non tender, no masses Extremities are nonedematous and both pedal pulses are present Neurologic exam is alert and oriented, no focal loss of strength or sensation Skin is with large irregular fluctuant mass on his left earlobe occluding his left ear canal there is an area of bleeding with eschar Psychologically is without concerns for anxiety or depression. Results & Data Results & Data ([facility]) Vital Signs (Past 12 Hours) Vital Signs Temp Pulse Resp BP Pulse Ox 05/07/20 04:00 97.7 F 53 L 20 97/61 L 96 PG Care Time/CCT Total # of Minutes Spent Total Time Spent with Patient: Total time spent is greater than 50% in coordination of care (as documented) at patient's floor/unit and/or counseling patient: Coding Level of Care Code 25659 Subseq Hosp Care Lvl 3 Diagnoses Infected lesion of skin L08.9 Chronic systolic CHF (congestive heart failure) I50.22 Ischemic cardiomyopathy I25.5 A-fib I48.1 Atrial fibrillation type: persistent AAA (abdominal aortic aneurysm) I71.4 Presence of rupture: without rupture CVA (cerebral vascular accident) I63.411 CVA mechanism: embolism Laterality of affected vessel: right Precerebral and cerebral artery: middle cerebral artery BPH (benign prostatic hyperplasia) N40.0 Lower urinary tract symptom presence: symptoms absent DVT prophylaxis Z29.9 (1) BPH (benign prostatic hyperplasia) Lower urinary tract symptom presence: symptoms absent Qualified Code(s): N40.0 - Benign prostatic hyperplasia without lower urinary tract symptoms (2) AAA (abdominal aortic aneurysm) Presence of rupture: without rupture Qualified Code(s): I71.4 - Abdominal aortic aneurysm, without rupture (3) A-fib Atrial fibrillation type: persistent Qualified Code(s): I48.1 - Persistent atrial fibrillation (4) CVA (cerebral vascular accident) CVA mechanism: embolism Laterality of affected vessel: right Precerebral and cerebral artery: middle cerebral artery Qualified Code(s): I63.411 - Cerebral infarction due to embolism of right middle cerebral artery
--- NOTE | 2020-05-07 08:04 | Ultrasound Report ---
US abdominal aortic aneurysm CLINICAL HISTORY: Abdominal aortic aneurysm. COMPARISON STUDY: Abdominal aortic ultrasound September 01, 2016. FINDINGS: Proximal abdominal aorta is partially obscured. Note is made of a mid abdominal aortic aneu rysm that measures approximately 4.9 x 4.1 cm. This has increased since ultrasound of August 24 when it measured 3.6 x 3.3 cm. Caliber of the distal abdominal aorta is normal. Proximal bilateral common iliac arteries are obscured. IMPRESSION: Increase in caliber of a mid abdominal aortic aneurysm, measuring approximately 4.9 x 4. 1 cm, since ultrasound of September 01, 2016. ACT 112: Negative or not required by law. Electronically signed by: Lc Nam M.D. 05/07/2020 8:03 AM
[2020-05-07 08:24] LABS: BUN Creatinine Ratio 10.7 (10-20); Calcium 8.3 mg/dl (8.5-10.1); Creatinine Clr Calc Pharmacy 48.1 ml/min; Est GFR (African American) 47.2; Est GFR (Non-African American) 40.7; Magnesium 2.2 mg/dl (1.8-2.4)
[2020-05-07] MEDS: METOPROLOL SUCC 25MG EXT REL TAB PO SCH ×2 (08:34→22:11)
[2020-05-07] MEDS: FUROSEMIDE 20 MG TAB PO SCH ×2 (08:34→17:28)
[2020-05-07] MEDS: PANTOprazole 40 MG TAB PO SCH (08:34)
[2020-05-07] MEDS: FINASTERIDE 5 MG TAB PO SCH (08:34)
[2020-05-07] MEDS: oxyCODONE HCL IR 5 MG TAB (IMMEDIATE RELEASE) PO PRN ×2 (10:12→21:12)
--- NOTE | 2020-05-07 12:44 | Dermatology Consultation ---
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 other - Unfortunately this patient did not follow-up with our office on multiple occasions for repeat diagnostic tissue sampling as was recommended. - Repeat tissue sampling is needed for firm diagnosis. This was completed earlier today by [facility]. - Final surgical + adjunctive treatment plan will depend on final pathologic diagnosis but likely will require coordinated surgical management between RCS and ENT. - Call with additional questions. Present on Admission?: Yes History of Present Illness Reason for Consultation: Left ear lesion Requesting Physician: Ryan Rhodes MD Attending Physician: Esequiel Sanford MD History of Present Illness Patient is a 79-year-old male admitted to [facility] on 05/06/2020 for a tumor on the left ear with concerns for secondary infection. Patient is known to our practice as he was initially evaluated in our office on 03/13/2020 for the lesion of concern involving the left intertragic notch. He reported that the lesion had been present for 1-2 months. Lesion was smaller at that time, and skin biopsy was taken due to obvious concern for malignancy. Unfortunately, the sample was not completely diagnostic as the pathology result was reported as "hypertrophic actinic keratosis," which did not correlate with the clinical lesion. The result was discussed with patient's on 03/19/2020 and our recommendation was for him to return to the office for repeat biopsy to further evaluate due to our high concern for malignancy. Patient's did report that she may have difficulty getting him to agree to come back into the office. She did notify the office on 04/01/2020 that the patient was refusing to come back in for repeat biopsy. He did agree to come back in to have the site re- evaluated, but this appointment was canceled/rescheduled. He presented to the ER on 04/24/2020. He was set up for follow-up immediately following discharge from the ER on 04/25/2020, but the patient did not show up for that appointment. He was then rescheduled for 04/29/2020, but he again did not show up for the appointment. Patient re-presented to the [facility] ER on 05/06 2020 and has since been admitted. He reports that the lesion has continued to enlarge since he was initially seen in our office. It has been bleeding intermittently. He had been applying Vaseline to it. Since his admission he was started empirically on vancomycin and Zosyn for possible secondary infection. Blood cultures taken at the time of admission of not shown any growth. He did have a CT scan of the facial bones performed on 05/06/2020 confirming the mass involving left earlobe and left EAC. There was not any sign for surrounding bony destruction or cervical lymphadenopathy. Plastic surgery has also been consulted, and patient reports that they were just in to see him and took another tissue sample from the l esion. No other complaints today. Allergies Allergy/AdvReac Type Severity Reaction Status Date / Time clams AdvReac Severe GI SYMPTOMS Verified 04/24/20 02:19 Home Medications Home Medications Medication Instructions Recorded Confirmed Type aspirin 81 mg PO QAM 10/09/18 05/06/20 History finasteride 5 mg PO DAILY 10/09/18 05/06/20 History fluticasone propionate [Flonase 2 spray INTRANASAL DAILY 10/09/18 05/06/20 History Allergy Relief] furosemide 20 mg PO BID 10/09/18 05/06/20 History rosuvastatin [Crestor] 20 mg PO HS 10/09/18 05/06/20 History tamsulosin 0.4 mg PO HS 10/09/18 05/06/20 History apixaban [Eliquis] 5 mg PO BID #30 tab 10/19/18 05/06/20 Rx clopidogrel 75 mg PO QAM #30 tab 10/19/18 05/06/20 Rx ipratropium-albuterol [Combivent 1 puff INHALATION UD 04/24/20 05/06/20 History Respimat] meloxicam 7.5 mg PO DAILY PRN 04/24/20 05/06/20 History oxycodone 10 mg PO Q6 PRN 04/24/20 05/06/20 History pantoprazole 40 mg PO DAILY 04/24/20 05/06/20 History metoprolol succinate 37.5 mg PO BID 05/06/20 05/06/20 History Patient History Medical History (Updated 05/07/20 @ 12:38 by Edgardo Mooney MD) A-fib ASCVD (arteriosclerotic cardiovascular disease) BPH (benign prostatic hyperplasia) CAD (coronary artery disease) CHF (congestive heart failure) CVA (cerebral vascular accident) Dyslipidemia HTN (hypertension) Ischemic cardiomyopathy Neoplasm of uncertain behavior Obesity PVD (peripheral vascular disease) Surgical History History of cataract surgery History of tonsillectomy Hx of CABG Family History Mother , age 83 of heart disease. Heart disease Father , age 53 of MRI. 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 Other Information That Helps Us Care for You: No Feels Safe at Home: Yes Safety Concerns: Feels Safe At This Time Assistive Devices: Denture - Upper and Oxygen - Continuous Review of Systems Review of Systems: All systems reviewed & are unremarkable except as noted in HPI & below Physical Exam Constitutional: WD/WN, vitals as above Skin: multilobulated, nodular tumor involving the left earlobe, left EAC with minimal pinpoint hemorrhage in the central area c/w recent biopsy Lymphatic: no head/neck lymphadenopathy Results & Data ([facility]) Vital Signs (Past 12 Hours) Vital Signs Temp Pulse Resp BP Pulse Ox 05/07/20 07:58 36.7 C 68 20 93/59 L 97 05/07/20 04:00 36.5 C 53 L 20 97/61 L 96 Laboratory Results 05/07/20 05/07/20 05/06/20 Range/Units 07:32 07:32 20:47 WBC 6.86 (4.8-10.8) K/uL RBC 4.26 L (4.7-6.1) M/uL Hgb 11.8 L (14.0-18.0) g/dL Hct 38.1 L (42-52) % MCV 89.4 (80-100) fL MCH 27.7 (25-34) pg MCHC 31.0 L (32-36) g/dL RDW Std Deviation 47.5 H (36.4-46.3) fL RDW Coeff of Joslyn 14.6 H (11.5-14.5) % Plt Count 149 (130-400) K/uL MPV 9.7 (7.4-10.4) fL Sodium 140 (136-145) mmol/L Potassium 4.0 (3.5-5.1) mmol/L Chloride 107 (98-107) mmol/L Carbon Dioxide 30 (21-32) mmol/L Anion Gap 3.0 (3-11) BUN 17 (7-18) mg/dl Creatinine 1.59 H D (0.6-1.4) mg/dl Est Cr Clr Drug Dosing 48.1 ml/min Est GFR ( Amer) 47.2 Est GFR (Non-Af Amer) 40.7 BUN/Creatinine Ratio 10.7 (10-20) Glucose 98 (70-99) mg/dl POC Glucose 94 (70-99) mg/dl Calcium 8.3 L (8.5-10.1) mg/dl Magnesium 2.2 (1.8-2.4) mg/dl PG Care Time/CCT Total # of Minutes Spent Total Time Spent with Patient: Total time spent is greater than 50% in coordination of care (as documented) at patient's floor/unit and/or counseling patient: Coding Level of Care Code 76247 Initial Inpt Care Lvl 1 Diagnoses Neoplasm of uncertain behavior D48.9
--- NOTE | 2020-05-07 12:53 | Surgery Consultation ---
"Date of Consultation May 07, 2020 Assessment & Plan (1) Lesion of left ear: Lesions on left ear is highly suspicious for Squamous cell carcinoma. There was no purulent drainage from incision. Patient was seen today by Dr. Baker. Will discuss with ENT to determine if he should be transferred to [place]. If tissue diagnosis is needed prior to transfer, can do a bedside biopsy tomorrow. (2) Neoplasm of uncertain behavior: History of Present Illness Attending Physician: Anthony is being seen today in consultation for evaluation of a growth on his left ear. He reports it first started when a kendall nicked his ear during a hair cut. He reports being seen by Di tracy and having the area biopsied. These records are not available. He was then seen by Juliette Pillai and had the lesion biopsied again. Pathology demonstrated HYPERPLASTIC ACTINIC KERATOSIS (LATERAL MARGIN | INVOLVED) He states that in the last few weeks a lesion has grown and become very painful. He feels it has been infected for some time but he has not had any drainage. CT was done and imaging showed: 1. A heterogeneously enhancing 4.7 x 2.0 x 4.3 cm lesion located within the lower portion of the left earlobe. This obstructs the left external auditory canal and there is associated soft tissue thickening within the cartilaginous portion of the left external auditory canal. This could represent extension of the mass or reactive change. Tissue sampling recommended for diagnosis of this lesion. 2. Small soft tissue focus extending from this lesion which abuts the anterior mastoid bone. However, no abnormal bony reaction or destruction. 3. No cervical lymphadenopathy. The patient denies any numbness/tingling of his cheeks, teeth and tongue or limited motion of his face. Allergies Allergy/AdvReac Type Severity Reaction Status Date / Time clams AdvReac Severe GI SYMPTOMS Verified 04/24/20 02:19 Home Medications Home Medications Medication Instructions Recorded Confirmed Type aspirin 81 mg PO QAM 10/09/18 05/06/20 History finasteride 5 mg PO DAILY 10/09/18 05/06/20 History fluticasone propionate [Flonase 2 spray INTRANASAL DAILY 10/09/18 05/06/20 History Allergy Relief] furosemide 20 mg PO BID 10/09/18 05/06/20 History rosuvastatin [Crestor] 20 mg PO HS 10/09/18 05/06/20 History tamsulosin 0.4 mg PO HS 10/09/18 05/06/20 History apixaban [Eliquis] 5 mg PO BID #30 tab 10/19/18 05/06/20 Rx clopidogrel 75 mg PO QAM #30 tab 10/19/18 05/06/20 Rx ipratropium-albuterol [Combivent 1 puff INHALATION UD 04/24/20 05/06/20 History Respimat] meloxicam 7.5 mg PO DAILY PRN 04/24/20 05/06/20 History oxycodone 10 mg PO Q6 PRN 04/24/20 05/06/20 History pantoprazole 40 mg PO DAILY 04/24/20 05/06/20 History metoprolol succinate 37.5 mg PO BID 05/06/20 05/06/20 History Patient History Medical History (Updated 05/07/20 @ 12:38 by Edgardo Mooney MD) A-fib ASCVD (arteriosclerotic cardiovascular disease) BPH (benign prostatic hyperplasia) CAD (coronary artery disease) CHF (congestive heart failure) CVA (cerebral vascular accident) Dyslipidemia HTN (hypertension) Ischemic cardiomyopathy Neoplasm of uncertain behavior Obesity PVD (peripheral vascular disease) Surgical History History of cataract surgery History of tonsillectomy Hx of CABG Family History Mother , age 83 of heart disease. Heart disease Father , age 53 of MRI. 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 Other Information That Helps Us Care for You: No Feels Safe at Home: Yes Safety Concerns: Feels Safe At This Time Assistive Devices: Denture - Upper and Oxygen - Continuous Review of Systems Review of Systems: All systems reviewed & are unremarkable except as noted in HPI & below Physical Exam Constitutional: WD/WN, vitals as above Skin: + lesion + large and fungating mass left lower ear with erythema of surrounding soft tissue. posterior helix very tender with fluctuance coming to a point posterior lower earlobe. left ear prepped with betadine and an 11 blade was used to incise posterior lobe at head. there was only bloody drainage. Results & Data ([facility]) Vital Signs (Past 12 Hours) Vital Signs Temp Pulse Resp BP Pulse Ox 05/07/20 07:58 36.7 C 68 20 93/59 L 97 05/07/20 04:00 36.5 C 53 L 20 97/61 L 96 PG Care Time/CCT Total # of Minutes Spent Total Time Spent with Patient: Total time spent is greater than 50% in coordination of care (as documented) at patient's floor/unit and/or counseling patient: Coding Level of Care Code 35259 Inpt Consult Level 2 Diagnoses Lesion of left ear H61.92 Neoplasm of uncertain behavior D48.9"
[2020-05-07] MEDS: DAPTOmycin 350 MG in SYRINGE 0 ML IV SCH (13:48)
[2020-05-07] MEDS: TAMSULOSIN HCL 0.4 MG CAP PO SCH (21:13)
[2020-05-07] MEDS ORDERED: HYDROmorphone INJ 0.5 MG/0.5 ML SYR IV STA ×2 (22:20→23:32)
--- NOTE | 2020-05-07 23:35 | Communication Note ---
Date of Service: May 07, 2020 Pt with continued persistent ear from cancer of the ear, incompletely improved with PO oxycodone. Increased risk of sedation/resp depression with increasing doses of analgesic medication. .25mg IV hydromorphone given cautiously for persistent pain, discussed with nursing who will observe and monitor for signs of narcosis/suppressed respiration.
[2020-05-08] MEDS: LIDOCAINE 2% JELLY 5 ML TUBE EXT SCH ×7 (01:06→23:29)
[2020-05-08] MEDS: oxyCODONE HCL IR 5 MG TAB (IMMEDIATE RELEASE) PO PRN ×5 (02:16→20:37)
[2020-05-08] MEDS: PIPERACILLIN/TAZOBACTAM 3.375 GM in DEXTROSE 5% 100 ML IV SCH ×3 (02:17→19:03)
[2020-05-08] MEDS: FUROSEMIDE 20 MG TAB PO SCH ×2 (07:36→16:19)
[2020-05-08] MEDS: METOPROLOL SUCC 25MG EXT REL TAB PO SCH ×2 (07:37→20:38)
[2020-05-08] MEDS: FINASTERIDE 5 MG TAB PO SCH (07:37)
[2020-05-08] MEDS: PANTOprazole 40 MG TAB PO SCH (07:37)
[2020-05-08 07:43] LABS: Creatinine Clr Calc Pharmacy 51.2 ml/min; Est GFR (African American) 53.6; Est GFR (Non-African American) 46.3
[2020-05-08] MEDS ORDERED: Nursing to Pharmacy Communication SCH (08:15)
[2020-05-08] MEDS ORDERED: LIDOCAINE/EPINEPHRINE 1% 20 ML VIAL INFIL ONE (08:15)
--- NOTE | 2020-05-08 08:44 | Surgery Progress Note ---
Date of Service May 08, 2020 Assessment & Plan (1) Neoplasm of uncertain behavior: (2) Lesion of left ear: Admission and Anticipated Discharge Date Admission Date: We discussed need for tissue diagnosis of left ear lesion and transfer of care to [place] for excision of mass. Biopsies taken as noted above. Patient to follow-up with Di for care. He was seen today by Dr. Baker. Supervising Physician Co-Signing Physician Notes Biopsy of left ear lesion performed today by Tammy while I was present at bedside. Multiple areas biopsied due to friability. Given size, depth and location of lesion, coverage of resulting excision wound may require free tissue transfer. This cannot be performed locally and would necessitate referral to tertiary care center. Alfred Cruz is being seen today in follow-up of large fungating lesion of his left ear. After discussion with Di it was deemed most appropriate for transfer of care due to size and high suspicion of SCC. Prior to transfer, Di requests tissue diagnosis. The patient patient complains of continued ear pain. He notes he has had clear fluid draining from his ear since attempt at I&D. Review of Systems Review of Systems: All systems reviewed & are unremarkable except as noted in HPI & below Ear, Nose, Mouth, Throat: + difficulty hearing and pain of left ear Integumentary: as per Subjective / HPI Physical Exam Constitutional: WD/WN, vitals as above Skin: + lesion + large and fungating mass left lower ear with erythema of surrounding soft tissue. tender to slight touch. the ear was prepped with Betadine and portion of ear and mass was anesthetized with 1% lidocaine with epi. The ear was prepped again and excisional biopsy of mass was taken using scissor and forceps. two 5mm punch biopsies taken at edge of mass and tissue. lesion was very friable and difficult to grasp. bleeding n oted from mass and biopsy sites. drysol and silver nitrate used to cauterize wound. kerlix dressing applied Psychiatric: A+Ox3, euthymic affect Results & Data ([facility]) Vital Signs (Past 12 Hours) Vital Signs Temp Pulse Resp BP Pulse Ox 05/08/20 07:53 36.4 C L 76 18 146/72 H 96 05/08/20 03:15 36.4 C L 70 20 123/75 92 05/07/20 22:26 36.5 C 85 20 137/81 96 PG Care Time/CCT Total # of Minutes Spent Total Time Spent with Patient: Total time spent is greater than 50% in coordination of care (as documented) at patient's floor/unit and/or counseling patient: Coding Level of Care Code 27679 Subseq Hosp Care Lvl 2 Diagnoses Neoplasm of uncertain behavior D48.9 Lesion of left ear H61.92 CPT Codes Punch Biopsy of 1 Lesion - 11031 ([id number]) Punch Biopsy of Each Additional Lesion - 17100 ([id number])
[2020-05-08] MEDS: DAPTOmycin 350 MG in SYRINGE 0 ML IV SCH (14:10)
--- NOTE | 2020-05-08 16:54 | Hospitalist Progress Note ---
Date of Service May 08, 2020 Assessment & Plan (1) Infected lesion of skin: Fungating left ear mass with possible superimposed cellulitis. - Vancomycin & Zosyn ordered - Plastic surgery & dermatology consulted -> I did phone leave a message for Dr. Montalvo he may consider surgery not in any however speaking to Dr. Baker she is concerned that the reconstructive part of the surgery may exceed the ability to be performed at our facility. I spoke with Dr. Ford back at [facility] who is an ear nose and throat doctor who reviewed the CT scan of the face which I sent to them electronically after permission was given by the patient and recommendations to get tissue diagnosis and then consider further referral as an outpatient to head and neck cancer surgical clinic at this bruise be her fears of carcinoma Ct Face 05/06/20 Impression 1. A heterogeneously enhancing 4.7 x 2.0 x 4.3 cm lesion located within the lower portion of the left earlobe. This obstructs the left external auditory canal and there is associated soft tissue thickening within the cartilaginous portion of the left external auditory canal. This could represent extension of the mass or reactive change. Tissue sampling recommended for diagnosis of this lesion. 2. Small soft tissue focus extending from this lesion which abuts the anterior mastoid bone. However, no abnormal bony reaction or destruction. 3. No cervical lymphadenopathy (2) Chronic systolic CHF (congestive heart failure): Continues to appear euvolemic. Echo from 10/2018 showed EF 45%. - Continue home Lasix 20 mg PO BID - Continue home beta-lindsey, metop XL 37.5 mg PO BID - Hold ASA (3) Ischemic cardiomyopathy: Hx of CABG. No chest pain or other concerns for active ischemia. - Hold ASA for likely need for surgery. - Beta lindsey as above - Continue statin (4) A-fib: EKG on admission shows afib and RBB without significant change from prior in 2019. CHADs-Vasc is 7, giving him 11.2% stroke risk per year. - Continue beta-lindsey -At this time holding apixaban likely restarting it if it appears to be that his surgical intervention may be in the less immediate future (5) AAA (abdominal aortic aneurysm): Noted on prior CTA in 2019. No present symptoms of abdominal pain or indication of rupture. Patient has not had any follow up for this. - Ordered AAA u/s interpretation Increase in caliber of a mid abdominal aortic aneurysm, measuring approximately 4.9 x 4.1 cm, since ultrasound of September 01, 2016., will need to adress facial mass then have referral for vascular surgery follow up (6) CVA (cerebral vascular accident): In 2019, thought to be embolic from his afib. - Holding ASA, clopidogrel, and apixaban for possible surgical need likely need to restart these short in short order (7) BPH (benign prostatic hyperplasia): No LUTS today. - Continue tamsulosin and finasteride (8) DVT prophylaxis: SCDs - Holding heparin for possible surgery Admission and Anticipated Discharge Date Admission Date: May 06, 2020 Subjective Patient has significant ear pain and some on her bleeding from the biopsy site otherwise he feels no significant discomfort or distress we did speak about the patient might be able to be discharged home if his pain is controlled follow-up as an outpatient once his pathology results are returned Review of Systems Review of Systems: Mild distress and fatigue no headache, blurry or double vision no speech or swallowing issues Large painful mass involving his left lower earlobe this is with some eschar and some bleeding that does appear appear to be fluctuant although no fluid was aspirated no chest pain, pressure or palpitations no shortness of breath, cough or wheezes no abdominal pain, nausea or vomiting, diarrhea or constipation no dysuria, hematuria or frequency no focal joint pain or swelling no back pain, CVA tenderness or radicular pain no bruising, bleeding or rashes no focal signs of weakness or numbness or altered sensation no complaints of anxiety or depression. Physical Exam Physical Exam: The patient appeared well nourished and normally developed. Vital signs as documented. Head exam is normocephalic atraumatic no scleral icterus Neck is without JVD, thyromegaly, or carotid bruits. Lungs are clear to auscultation, no focal loss of breath sounds Cardiac exam, irregular and rate controlled. Systolic ejection murmur is heard Abdominal exam reveals normal bowel sounds, soft non tender, no masses Extremities are nonedematous and both pedal pulses are present Neurologic exam is alert and oriented, no focal loss of strength or sensation Skin is with large irregular fluctuant mass on his left earlobe occluding his left ear canal there is an area of bleeding with eschar Psychologically is without concerns for anxiety or depression. Results & Data Results & Data ([facility]) Vital Signs (Past 12 Hours) Vital Signs Temp Pulse Resp BP Pulse Ox 05/08/20 15:52 98.1 F 70 18 126/74 94 05/08/20 11:53 98.1 F 68 20 107/67 96 05/08/20 07:53 97.5 F L 76 18 146/72 H 96 PG Care Time/CCT Total # of Minutes Spent Total Time Spent with Patient: Total time spent is greater than 50% in coordination of care (as documented) at patient's floor/unit and/or counseling patient: Coding Level of Care Code 94794 Subseq Hosp Care Lvl 3 Diagnoses Infected lesion of skin L08.9 Chronic systolic CHF (congestive heart failure) I50.22 Ischemic cardiomyopathy I25.5 A-fib I48.1 Atrial fibrillation type: persistent AAA (abdominal aortic aneurysm) I71.4 Presence of rupture: without rupture CVA (cerebral vascular accident) I63.411 CVA mechanism: embolism Laterality of affected vessel: right Precerebral and cerebral artery: middle cerebral artery BPH (benign prostatic hyperplasia) N40.0 Lower urinary tract symptom presence: symptoms absent DVT prophylaxis Z29.9 (1) A-fib Atrial fibrillation type: persistent Qualified Code(s): I48.1 - Persistent atrial fibrillation (2) AAA (abdominal aortic aneurysm) Presence of rupture: without rupture Qualified Code(s): I71.4 - Abdominal aortic aneurysm, without rupture (3) CVA (cerebral vascular accident) CVA mechanism: embolism Laterality of affected vessel: right Precerebral and cerebral artery: middle cerebral artery Qualified Code(s): I63.411 - Cerebral infarction due to embolism of right middle cerebral artery (4) BPH (benign prostatic hyperplasia) Lower urinary tract symptom presence: symptoms absent Qualified Code(s): N40.0 - Benign prostatic hyperplasia without lower urinary tract symptoms
[2020-05-08] MEDS: TAMSULOSIN HCL 0.4 MG CAP PO SCH (20:38)
[2020-05-09] MEDS: PIPERACILLIN/TAZOBACTAM 3.375 GM in DEXTROSE 5% 100 ML IV SCH ×2 (02:05→10:39)
[2020-05-09] MEDS: LIDOCAINE 2% JELLY 5 ML TUBE EXT SCH ×3 (04:00→12:51)
[2020-05-09 07:29] LABS: Creatinine Clr Calc Pharmacy 52.8 ml/min; Est GFR (African American) 55.5; Est GFR (Non-African American) 47.9
[2020-05-09] MEDS: FUROSEMIDE 20 MG TAB PO SCH (08:35)
[2020-05-09] MEDS: PANTOprazole 40 MG TAB PO SCH (08:35)
[2020-05-09] MEDS: FINASTERIDE 5 MG TAB PO SCH (08:35)
[2020-05-09] MEDS: METOPROLOL SUCC 25MG EXT REL TAB PO SCH (08:35)
[2020-05-09] MEDS: oxyCODONE HCL IR 5 MG TAB (IMMEDIATE RELEASE) PO PRN ×2 (08:39→13:57)
[2020-05-09] MEDS ORDERED: VANCOMYCIN TROUGH ONE (11:30)
[2020-05-09 11:46] VITALS: BP 114/69; PULSE 81; TEMP 98.2; O2SAT 93
[2020-05-09] MEDS: DAPTOmycin 350 MG in SYRINGE 0 ML IV SCH (13:57)
== END 2020-05-09 15:15 | disposition home or self-care (01) ==
LOC: 2W 09:49 → ED 09:49 → SUATTDRO 13:39 → 2W 15:21